=== PATIENT | female | born 1940 | race Caucasian/White ===

== ENCOUNTER → 2018-06-11 | Outpatient (CLI) | payer MEDICARE ==
[2018-06-11 13:49] LABS: Blood Urea Nitrogen 7 mg/dL (7-17)
--- NOTE | 2018-06-11 14:40 | CT ---
EXAMINATION TYPE: CT abdomen wo/w con DATE OF EXAM: 06/11/2018 COMPARISON: 05/12/2017 HISTORY: 77-year-old female RUQ mass TECHNIQUE: Contiguous axial scanning of the abdomen and pelvis following administration of 100 ml Iso carmen 300 IV contrast. Delayed images through the kidneys and coronal/sagittal reconstructions perform ed. CT DLP: 463.5 mGycm Automated exposure control for dose reduction was used. FINDINGS: Heart normal size without pericardial effusion. Ectatic lower descending thoracic aorta at 2.6 cm wit h moderate prostatic calcifications. Some focal patchy opacity inferior lingula. Minimal additional p atchy density posterior lung bases likely some subpleural atelectasis. No pleural effusion. Tiny hiatal hernia. Calcified granuloma centrally at the hepatic dome. Cholecystectomy clips. No focal liver lesion seen. 9 mm cystic lesion in the pancreatic head. The pancreas is otherwise mildly atrophic. Bile duct dilated at 1.1 cm probably due to combination of patient's age and cholecystectomy status. There is normal distal tapering demonstrated. Adrenal glands, kidneys and spleen show no gross abnormality. Moderate to severe atherosclerotic calcifications within the abdominal aorta very mild fusiform dilat ation of the infrarenal portion to 2.3 cm. No significant ectasia or aneurysm. No dilated small bowel, free fluid, or free air. Moderate stool burden. No pericolonic inflammatory changes identified. No discrete masses identified in the right upper quadrant. Pelvis not included on this exam. Bones: Osteopenia. Advanced degenerative disc disease L5-S1 and facet arthropathy mid to lower lumbar spine. Superior endplate Schmorl's node of T12 vertebral body. IMPRESSION: 1. NO RIGHT UPPER QUADRANT MASS IS IDENTIFIED. FURTHER CLINICAL CORRELATION IS RECOMMENDED. THE EXAM CAN BE REVIEWED WITH DIRECTED ATTENTION IF DESIRED. 2. DILATED BILE DUCT AT 1.1 CM PROBABLY DUE TO COMBINATION OF PATIENT'S AGE AND POSTCHOLECYSTECTOMY S TATUS. THIS CAN BE CONFIRMED WITH NORMAL ALKALINE PHOSPHATASE AND BILIRUBIN LEVELS. 3. NONSPECIFIC 9 MM CYSTIC LESION IN THE PANCREATIC HEAD. FOR A LESION ON THIS SIZE, 1 YEAR FOLLOW-UP MRI IS RECOMMENDED TO ENSURE STABILITY. 4. MODERATE TO SEVERE ATELECTATIC CALCIFICATIONS WITHIN THE ABDOMINAL AORTA. NO ANEURYSM. 5. FOCAL PATCHY OPACITY INFERIOR LINGULA COULD REPRESENT ATELECTASIS OR DEVELOPING PNEUMONIA. CORRELA TE WITH PATIENT'S SYMPTOMS. 6. MODERATE STOOL BURDEN. TINY HIATAL HERNIA. PELVIS NOT IMAGED.
== END | disposition home or self-care (01) ==
LOC: RADCTMAIN 12:57
PROVIDERS: ATTEND Family Medicine
DX: K86.2 Cyst of pancreas (principal); I70.0 Atherosclerosis of aorta; Z90.49 Acquired absence of other specified parts of digestive tract
CPT/HCPCS: 82565; 84520; 74170; Q9967

== ENCOUNTER → 2019-05-31 | Outpatient (CLI) | payer MEDICARE ==
--- NOTE | 2019-06-02 13:37 | XR ---
EXAMINATION TYPE: XR chest 2V DATE OF EXAM: 05/31/2019 COMPARISON: 01/14/2012 HISTORY: 78-year-old female with cough TECHNIQUE: Frontal and lateral views FINDINGS: Heart normal size. Atherosclerotic arch calcifications. Some focal density along the left heart katherine n and also the medial right base. Hyperinflation with increased retrosternal clear space. IMPRESSION: 1. COPD. 2. Focal densities medial right base and lingula. Unable to exclude infiltrates here.
== END | disposition home or self-care (01) ==
LOC: RADXRMAIN 16:10
PROVIDERS: ATTEND Family Medicine
DX: J44.9 Chronic obstructive pulmonary disease, unspecified (principal)
CPT/HCPCS: 71046

== ENCOUNTER → 2019-06-10 | Outpatient (CLI) | payer MEDICARE ==
--- NOTE | 2019-06-10 12:25 | XR ---
EXAMINATION TYPE: XR chest 2V DATE OF EXAM: 06/10/2019 COMPARISON: Chest x-ray May 31, 2019 HISTORY: Cough. TECHNIQUE: Frontal and lateral views of the chest are obtained. FINDINGS: There is no new suspicious focal air space opacity, pleural effusion, or pneumothorax seen . Improvement aeration at level of lingula present. Increased density medial right lung base could r eflect artifact of overlying breast shadow. The cardiac silhouette size remains within normal limits with atherosclerotic change in the aortic knob redemonstrated. The osseous structures are intact. IMPRESSION: Chronic parenchymal changes with resolved lingular opacity. No new focal infiltrate seen .
== END | disposition home or self-care (01) ==
LOC: RADXRMAIN 12:02
PROVIDERS: ATTEND Nurse Practitioner Family
DX: J44.9 Chronic obstructive pulmonary disease, unspecified (principal)
CPT/HCPCS: 71046

== ENCOUNTER 2021-04-19 11:18 | Inpatient (IN) | payer MEDICARE ==
--- NOTE | 2021-04-19 11:29 | ED ---
General Adult HPI - General Stated complaint: fall Time Seen by Provider: 04/19/21 11:20 Source: patient, EMS, RN notes reviewed Mode of arrival: EMS Limitations: altered mental status (Dementia), physical limitation - History of Present Illness Initial comments: This a 80-year-old female presents emergency department via EMS chief complaint of left-sided hip leg pain. Patient reported fell out of bed was on the ground crawling on by Back in the bed. Patient has not been using her left leg complain of some pain. Patient has benign severe dementia information is very limited at this time. Otherwise no obvious injuries no reported head injury denies chest pain no vomiting episodes. - Related Data Home Medications Medication Instructions Recorded Confirmed Albuterol Sulfate [Proventil Hfa] 2 puff INHALATION RT-QID PRN 04/19/21 04/19/21 Ferrous Sulfate [Feosol] 325 mg PO DAILY 04/19/21 04/19/21 Fexofenadine HCl [Treva Allergy] 180 mg PO DAILY PRN 04/19/21 04/19/21 Fluticasone/Salmeterol [Advair 1 puff INHALATION RT-BID 04/19/21 04/19/21 250-50 Diskus] Memantine HCl [Memantine HCl ER] 28 mg PO DAILY 04/19/21 04/19/21 Pravastatin Sodium [Pravachol] 40 mg PO DAILY 04/19/21 04/19/21 Sertraline [Zoloft] 150 mg PO DAILY 04/19/21 04/19/21 Tiotropium [place] [Spiriva] 1 cap INHALATION RT-DAILY 04/19/21 04/19/21 lisinopriL 10 mg PO DAILY 04/19/21 04/19/21 metFORMIN HCL 500 mg PO BID 04/19/21 04/19/21 Allergies Allergy/AdvReac Type Severity Reaction Status Date / Time No Known Allergies Allergy Unverified 04/19/21 13:25 Review of Systems ROS Statement: Those systems with pertinent positive or pertinent negative responses have been documented in the HPI. ROS Other: All systems not noted in ROS Statement are negative. General Exam Limitations: altered mental status, physical limitation General appearance: alert, in no apparent distress Head exam: Present: atraumatic, normocephalic, normal inspection Eye exam: Present: normal appearance, PERRL, EOMI. Absent: scleral icterus, conjunctival injection, periorbital swelling ENT exam: Present: normal exam, mucous membranes moist Neck exam: Present: normal inspection. Absent: tenderness, meningismus, lymphadenopathy Respiratory exam: Present: normal lung sounds bilaterally. Absent: respiratory distress, wheezes, rales, rhonchi, stridor Cardiovascular Exam: Present: regular rate, normal rhythm, normal heart sounds. Absent: systolic murmur, diastolic murmur, rubs, gallop, clicks GI/Abdominal exam: Present: soft, normal bowel sounds. Absent: distended, tenderness, guarding, rebound, rigid Extremities exam: Present: other (Mild tenderness left hip region neurovascular intact) Neurological exam: Present: alert, CN II-XII intact, reflexes normal. Absent: oriented X3, motor sensory deficit Skin exam: Present: warm, dry, intact, normal color. Absent: rash Course Vital Signs 04/19/21 04/19/21 11:20 14:22 Temperature 97.1 F L Pulse Rate 102 H 97 Respiratory 18 18 Rate Blood Pressure 142/77 110/59 O2 Sat by Pulse 100 99 Oximetry Medical Decision Making - Medical Decision Making 80-year-old present for a fall when the left hip pain. CT, x-rays reviewed which showed evidence of pelvic fracture there is question of intracranial retroperitoneal bleeding which was redemonstrated on CT abdomen and pelvis with contrast. There is no organ damage. Case discussed with Dr. Meade who accepts for trauma service consult to orthopedics, consult medicine. Patient will be placed on full liquid diet with repeat H&H and further serial exams - Lab Data Result diagrams: 04/19/21 14:32 04/19/21 14:32 Lab Results 04/19/21 04/19/21 04/19/21 Range/Units 14:32 14:32 14:32 WBC 10.1 (3.8-10.6) k/uL RBC 3.65 L (3.80-5.40) m/uL Hgb 10.9 L (11.4-16.0) gm/dL Hct 32.5 L (34.0-46.0) % MCV 89.2 (80.0-100.0) fL MCH 29.9 (25.0-35.0) pg MCHC 33.5 (31.0-37.0) g/dL RDW 12.1 (11.5-15.5) % Plt Count 195 (150-450) k/uL MPV 7.6 Neutrophils % 87 % Lymphocytes % 7 % Monocytes % 5 % Eosinophils % 0 % Basophils % 0 % Neutrophils # 8.8 H (1.3-7.7) k/uL Lymphocytes # 0.7 L (1.0-4.8) k/uL Monocytes # 0.5 (0-1.0) k/uL Eosinophils # 0.0 (0-0.7) k/uL Basophils # 0.0 (0-0.2) k/uL PT 10.4 (9.0-12.0) sec INR 1.0 (<1.2) APTT 21.1 L (22.0-30.0) sec Sodium 124 L (137-145) mmol/L Potassium 4.4 (3.5-5.1) mmol/L Chloride 91 L (98-107) mmol/L Carbon Dioxide 29 (22-30) mmol/L Anion Gap 4 mmol/L BUN 12 (7-17) mg/dL Creatinine 0.46 L (0.52-1.04) mg/dL Est GFR (CKD-EPI)AfAm >90 (>60 ml/min/1.73 sqM) Est GFR (CKD-EPI)NonAf >90 (>60 ml/min/1.73 sqM) Glucose 155 H (74-99) mg/dL Calcium 8.7 (8.4-10.2) mg/dL Total Bilirubin 0.5 (0.2-1.3) mg/dL AST 29 (14-36) U/L ALT 14 (4-34) U/L Alkaline Phosphatase 43 (38-126) U/L Total Protein 6.1 L (6.3-8.2) g/dL Albumin 3.7 (3.5-5.0) g/dL Disposition Clinical Impression: Fall, Hyponatremia, Pubic ramus fracture, Intraperitoneal bleeding, Retroperitoneal bleed Disposition: ADMITTED IP TO THIS HOSP Condition: Serious Referrals: Kenji Narayan DO [Primary Care Provider] - 1-2 days
--- NOTE | 2021-04-19 12:19 | CT ---
EXAMINATION TYPE: CT brain garrick dey DATE OF EXAM: 04/19/2021 COMPARISON: NONE HISTORY: Fall injury with headache and neck pain CT DLP: 1298.9 mGycm. Automated Exposure Control for Dose Reduction was Utilized. TECHNIQUE: CT scan of the head and cervical spine are performed without contrast. FINDINGS: There is no acute intracranial hemorrhage or midline shift identified. Mild to moderate v entricular and sulcal prominence is more prominent from prior. Moderate low-attenuation in the deep and periventricular white matter is now present. The calvarium is intact. The globes are intact and t he visualized sinuses are clear. Cervical spine is visualized in its entirety from C1 through upper thoracic levels and demonstrates d extroconvex scoliosis centered upper thoracic spine without evidence of acute fracture or dislocation . Prevertebral soft tissue appears within normal limits. The C1-C2 articulation is within normal li mits on the coronal images. Vertebral body heights are maintained. Moderate multilevel disc space rafael rowing C3-C4 through the C6-C7 level. Slight grade 1 anterolisthesis C7 on T1. Posterior spur disc co mplexes efface the anterior thecal sac C3-C4 through C6-C7 levels on sagittal and axial images. Axial images show multilevel uncovertebral facet degenerative changes contributing to multilevel bilateral neural foraminal narrowing. Moderate calcified plaque bilateral carotid bulb level. Mild to moderate underlying emphysematous change and visualized upper lungs. IMPRESSION: 1. There is no acute fracture or dislocation evident in the cervical spine. 2. No acute intracranial hemorrhage or midline shift is seen.
--- NOTE | 2021-04-19 12:21 | XR ---
EXAMINATION TYPE: AP view pelvis and 2 views left hip DATE OF EXAM: 04/19/2021 Comparison: None Clinical History: 80-year-old female with pain after fall Findings: Osteopenia. Mild degenerative change of both hips with axial joint space narrowing. Vascular calcific ations especially left side of the pelvis. A surgical clip upper right pelvis. SI joints appear symme tric and intact. There is irregularity of the left pubic body. Assessment is limited due to overlying rectal content and osteopenia. No displaced fracture of the proximal left femur. Impression: 1. Osteopenia. No displaced fracture of the proximal left femur. Mild bilateral hip OA. 2. Unable to exclude an acute fracture of the left pubic body. Limited due to osteopenia and superimp osed rectal content.
--- NOTE | 2021-04-19 13:51 | CT ---
EXAMINATION TYPE: CT hip LT wo con DATE OF EXAM: 04/19/2021 COMPARISON: Pelvic and left hip x-ray earlier today HISTORY: Patient appears confused. CT DLP: 710.9 mGycm Automated exposure control for dose reduction was used. FINDINGS: Corresponding to x-ray there is acute comminuted fracture through the left pubic bone without pubic s ymphysis separation. Some calcification at the joint space at this level is present. There is small a mount of adjacent focal hematoma extending into the anterior pelvis just below pubic symphysis axial image 63 measuring approximately 2.1 x 1.8 cm. More prominent hematoma extends superiorly measuring a pproximately 5 x 3 cm image 56 with local mass effect along the anterior left aspect of the bladder N o additional acute fracture or dislocation in the [id number]. The left hip joint appears within no rmal limits. Left sacroiliac joint is maintained. The [place] osseous structures are demineralized. Moderate disc space narrowing with vacuum disc phenomenon L5-S1 level redemonstrated. Moderate distended bladder is noted. Some diverticula in sigmoid colon are partially imaged. Small amount of fluid in the left infracolic gutter and left retroperitoneum axial image 27. Possible small amount of fluid or fat stranding along the course of the bladder. Moderate rectal fecal promin ence. IMPRESSION: Confirmation of acute comminuted fracture through the left pubic bone without pubic symph ysis separation. Small amount of adjacent acute hematoma. There is additional small amount of intrape ritoneal and retroperitoneal hematoma in the left lower quadrant and pelvis including possibly surrou nding the distended bladder. Advise contrast enhanced trauma protocol CT abdomen and pelvis to furthe r evaluate for additional fractures and/or solid organ injury.
[2021-04-19 15:02] LABS: Basophils % (A) 0 %; Eosinophils % (A) 0 %; HCT 32.5 % (34.0-46.0); HGB 10.9 gm/dL (11.4-16.0); Lymphocytes # (A) 0.7 k/uL (1.0-4.8); Lymphocytes % (A) 7 %; MCH 29.9 pg (25.0-35.0); MCHC 33.5 g/dL (31.0-37.0); MCV 89.2 fL (80.0-100.0); Mean Platelet Volume 7.6; Monocytes # (A) 0.5 k/uL (0-1.0); Monocytes % (A) 5 %; Neutrophils # (A) 8.8 k/uL (1.3-7.7); Neutrophils % (A) 87 %; Platelet Count 195 k/uL (150-450); RBC 3.65 m/uL (3.80-5.40); RDW 12.1 % (11.5-15.5); WBC 10.1 k/uL (3.8-10.6)
[2021-04-19 15:20] LABS: ALT 14 U/L (4-34); AST 29 U/L (14-36); African American GFR (CKD) >90 (>60 ml/min/1.73 sqM); Albumin 3.7 g/dL (3.5-5.0); Alkaline Phosphatase 43 U/L (38-126); Anion Gap 4 mmol/L; Blood Urea Nitrogen 12 mg/dL (7-17); Calcium 8.7 mg/dL (8.4-10.2); Carbon Dioxide 29 mmol/L (22-30); Chloride 91 mmol/L (98-107); Glucose 155 mg/dL (74-99); Non-African American GFR(CKD) >90 (>60 ml/min/1.73 sqM); Potassium 4.4 mmol/L (3.5-5.1); Sodium 124 mmol/L (137-145); Total Bilirubin 0.5 mg/dL (0.2-1.3); Total Protein 6.1 g/dL (6.3-8.2)
[2021-04-19 15:25] LABS: Prothrombin Time 10.4 sec (9.0-12.0)
[2021-04-19 15:30] LABS: Partial Thromboplastin Time 21.1 sec (22.0-30.0)
--- NOTE | 2021-04-19 16:21 | CT ---
EXAMINATION TYPE: CT abdomen pelvis w con DATE OF EXAM: 04/19/2021 HISTORY: Fall, abnormal hip CT. CT DLP: 1267.6mGycm Automated Exposure Control for Dose Reduction was Utilized. CONTRAST: CT scan of the abdomen and pelvis is performed with IV Contrast, patient injected with 100 mL of Isov ue 300. COMPARISON: CT a/p dated 05/12/2017. Same day left hip CT. FINDINGS: LUNG BASES: Coronary artery calcification and/or stents. LIVER/GB: Cholecystectomy clips. Mild to moderate central extrahepatic biliary dilatation to 15 mm co jackelyn image 42 not significantly changed from prior CT 2017. PANCREAS: No significant abnormality is seen. SPLEEN: No significant abnormality is seen. ADRENALS: No significant abnormality is seen. KIDNEYS: Symmetric cortical medullary uptake and excretion without hydronephrosis seen bilaterally. M oderately distended bladder redemonstrated. Some hyperdense material surrounding bladder remains pres ent. Small amount of nonsimple fluid in the pelvic cul-de-sac. Small amount of nonsimple fluid in the presacral space. Small amount of nonsimple fluid in the left paracolic gutter and left retroperitone um adjacent to the sigmoid colon and left iliopsoas muscle axial image 52. BOWEL: Some sigmoid colonic diverticula. UTERUS/ADNEXA: Uterus surgically absent or markedly atrophic. LYMPH NODES: No greater than 1cm abdominal or pelvic lymph nodes are appreciated. OSSEOUS STRUCTURES: Moderate disc space narrowing lumbosacral junction. Multilevel facet arthropathy mid to lower lumbar spine. Comminuted fractures through the left pubic symphysis without separation. Osseous structures are demineralized. No additional acute osseous fracture OTHER: Moderate to severe calcified plaque of the aorta extends into branch vessels. IMPRESSION: Known acute comminuted fracture through the left pubis redemonstrated. No additional acut e osseous fracture. Small amount of acute hemorrhage at site of fracture redemonstrated. Additional s mall amount of hemorrhage within the abdomen and pelvis involving intraperitoneal and retroperitoneal compartments is redemonstrated. No definitive solid organ injury or source of hemorrhage identified outside of the left-sided pelvic fracture.
[2021-04-19] MEDS ORDERED: NALOXONE 0.4 MG/ML 1 ML VIAL IV PRN (16:47)
[2021-04-19] MEDS ORDERED: ACETAMINOPHEN TAB 325 MG TAB PO PRN (16:47)
[2021-04-19] MEDS: SODIUM CHLORIDE 0.9% 1,000 ML IV SCH (17:08)
[2021-04-19 17:57] LABS: Appearance,Urine Clear (Clear); Bilirubin,Urine Negative (Negative); Blood,Urine Negative (Negative); Color,Urine Light Yellow; Glucose,Urine (UA) Negative (Negative); Ketones,Urine Negative (Negative); Leukocyte Esterase,Urine Moderate (Negative); Nitrite,Urine Negative (Negative); PH, Urine 6.5 (5.0-8.0); Protein,Urine Negative (Negative); RBC,Urine 4 /hpf (0-5); Specific Gravity,Urine 1.019 (1.001-1.035); Squamous Epithelial Cell,Urine 1 /hpf (0-4); Urobilinogen,Urine <2.0 mg/dL (<2.0); WBC,Urine 5 /hpf (0-5)
[2021-04-20 01:21] LABS: Basophils % (A) 0 %; Eosinophils % (A) 1 %; HCT 31.5 % (34.0-46.0); HGB 10.6 gm/dL (11.4-16.0); Lymphocytes # (A) 0.7 k/uL (1.0-4.8); Lymphocytes % (A) 9 %; MCH 29.9 pg (25.0-35.0); MCHC 33.6 g/dL (31.0-37.0); MCV 88.9 fL (80.0-100.0); Mean Platelet Volume 7.4; Monocytes # (A) 0.4 k/uL (0-1.0); Monocytes % (A) 5 %; Neutrophils # (A) 6.5 k/uL (1.3-7.7); Neutrophils % (A) 84 %; Platelet Count 196 k/uL (150-450); RBC 3.55 m/uL (3.80-5.40); RDW 12.1 % (11.5-15.5); WBC 7.7 k/uL (3.8-10.6)
[2021-04-20] MEDS: HYDROcodone/APAP 5-325MG 1 EACH TAB PO PRN ×2 (05:50→11:31)
[2021-04-20] MEDS: SODIUM CHLORIDE 0.9% 1,000 ML IV SCH ×2 (06:13→17:47)
[2021-04-20 07:26] LABS: Glucose,Whole Blood 161 mg/dL (75-99)
[2021-04-20 07:43] LABS: Basophils % (A) 0 %; Eosinophils % (A) 0 %; HGB 10.4 gm/dL (11.4-16.0); Lymphocytes # (A) 0.6 k/uL (1.0-4.8); Lymphocytes % (A) 9 %; MCHC 33.6 g/dL (31.0-37.0); MCV 89.4 fL (80.0-100.0); Mean Platelet Volume 7.6; Monocytes # (A) 0.4 k/uL (0-1.0); Monocytes % (A) 5 %; Neutrophils # (A) 5.9 k/uL (1.3-7.7); Neutrophils % (A) 84 %; Platelet Count 211 k/uL (150-450); RBC 3.47 m/uL (3.80-5.40); RDW 12.2 % (11.5-15.5); WBC 7.1 k/uL (3.8-10.6)
[2021-04-20 08:40] LABS: African American GFR (CKD) >90 (>60 ml/min/1.73 sqM); Anion Gap 5 mmol/L; Blood Urea Nitrogen 8 mg/dL (7-17); Calcium 8.4 mg/dL (8.4-10.2); Carbon Dioxide 29 mmol/L (22-30); Chloride 94 mmol/L (98-107); Glucose 164 mg/dL (74-99); Non-African American GFR(CKD) >90 (>60 ml/min/1.73 sqM); Potassium 4.1 mmol/L (3.5-5.1); Sodium 128 mmol/L (137-145)
[2021-04-20] MEDS: NYSTATIN 100,000 UNIT/ML SUSP 500,000 UNIT/5 ML CUP PO SCH ×4 (09:22→21:02)
[2021-04-20] MEDS: PANTOPRAZOLE 40 MG/10 ML VIAL IVP SCH (09:22)
[2021-04-20] MEDS ORDERED: IPRATROPIUM-ALBUTEROL 3 ML NEB INHALATION PRN (10:54)
[2021-04-20] MEDS ORDERED: LORATADINE 10 MG TAB PO PRN (10:56)
[2021-04-20] MEDS: SYMBICORT 80-4.5 MCG INHALER INHALATION SCH ×2 (11:23→20:02)
[2021-04-20] MEDS: IPRATROPIUM-ALBUTEROL 3 ML NEB INHALATION SCH ×3 (11:23→20:02)
[2021-04-20 12:17] LABS: Glucose,Whole Blood 201 mg/dL (75-99)
[2021-04-20] MEDS: INSULIN ASPART (NovoLOG) 100 UNIT/ML VIAL SQ SCH ×3 (12:33→21:02)
[2021-04-20 13:08] LABS: Basophils % (A) 0 %; Eosinophils # (A) 0.1 k/uL (0-0.7); Eosinophils % (A) 1 %; HCT 30.2 % (34.0-46.0); HGB 10.1 gm/dL (11.4-16.0); Lymphocytes # (A) 0.8 k/uL (1.0-4.8); Lymphocytes % (A) 13 %; MCH 30.2 pg (25.0-35.0); MCHC 33.5 g/dL (31.0-37.0); MCV 90.3 fL (80.0-100.0); Monocytes # (A) 0.4 k/uL (0-1.0); Monocytes % (A) 6 %; Neutrophils # (A) 4.7 k/uL (1.3-7.7); Neutrophils % (A) 79 %; Platelet Count 191 k/uL (150-450); RBC 3.34 m/uL (3.80-5.40); RDW 12.3 % (11.5-15.5)
--- NOTE | 2021-04-20 14:01 | P.GSHP ---
History of Present Illness H&P Date: 04/20/21 CHIEF COMPLAINT: Fall HISTORY OF PRESENT ILLNESS: This is a 80-year-old female with severe dementia who presented to the ER with left-sided hip pain after falling out of bed. Patient had a computed tomography scan of the left hip that did demonstrate acute comminuted fracture through the left pubic bone without pubic symphysis separation. Orthopedics are on consult. Patient currently sitting in bed comfortably with no complaints of pain. She's been admitted to the trauma service. Her computed tomography scan the abdomen and pelvis had shown a small amount of hemorrhage intraperitoneal and retroperitoneal. Hemoglobin stable at 10.4. She denies any abdominal pain. Patient seen and examined with Dr. hester PAST MEDICAL HISTORY: Hypertension, diabetes, hyperlipidemia, severe dementia, COPD, iron deficiency, depression PAST SURGICAL HISTORY: Unable to obtain MEDICATIONS: See list. ALLERGIES: See list. SOCIAL HISTORY: No illicit drug use. REVIEW OF SYSTEMS: CONSTITUTIONAL: Denies fever or chills. HEENT: Denies blurred vision, vision changes, or eye pain. Denies hemoptysis CARDIOVASCULAR: Denies chest pain or pressure. RESPIRATORY: No shortness of breath. GASTROINTESTINAL: See HPI for pertinent findings HEMATOLOGIC: Denies bleeding disorders. GENITOURINARY: Denies any blood in urine or increased urinary frequency. SKIN: Denies pruitis. Denies rash. PHYSICAL EXAM: VITAL SIGNS: Reviewed GENERAL: Well-developed in no acute distress. HEENT: No sclera icterus. Extraocular movements grossly intact. Moist buccal mucosa. Head is atraumatic, normocephalic. No nasal drainage. ABDOMEN: Soft. Nondistended. Nontender NEUROLOGIC: Pleasantly confused LABORATORY DATA: WBC 6.0 Hgb 10.9 down to 10.1 platelets 191 Sodium 124 up to 128 creatinine 0.48 Glucose 164 LFTs normal IMAGING: Computed tomography scan of brain and cervical spine no acute fracture dis location evidence of cervical spine. No acute intracranial hemorrhage or midline shift is seen Computed tomography scan left hip confirmation of acute comminuted fracture through the left pubic bone without pubic symphysis separation. Small amount of adjacent acute hematoma. There is additional small amount of intraperitoneal and retroperitoneal hematoma in the left lower quadrant and pelvis including possibly surrounding the distended bladder. Advise contrast-enhanced trauma protocol CT of abdomen and pelvis Computed tomography scan abdomen and pelvis read increase the acute comminuted fracture through the left pubis redemonstrated no additional acute osseous fracture. Small amount of acute hemorrhage at site of fracture redemonstrated. Additional small amount of hemorrhage within the abdomen and pelvis involving intraperitoneal and retroperitoneal compartments is redemonstrated. No definite solid organ injury or source of hemorrhage identified outside of the left sided pelvic fracture ASSESSMENT: 1. Fall with trauma 2. Left pubic ramus fracture secondary to fall 3. Small amount of hemorrhage within the abdomen and pelvis involving intraperitoneal and retroperitoneal compartments. No definite solid organ injury or source of hemorrhage identified outside of the left sided pelvic fracture noted on computed tomography scan 4. Hyponatremia 5. Severe dementia PLAN: -No plan for surgical intervention -Continue supportive care -Continue to monitor hemoglobin -Orthopedics on consult for pelvic fracture -Consult medicine service for medical management -Hyponatremia management per medicine service -Continue full liquid diet -Continue pain medication as needed -GI prophylaxis Protonix and DVT prophylaxis SCDs Physician Patient Care Associate note has been reviewed by physician. Signing provider agrees with the documented findings, assessment, and plan of care. Past Medical History Past Medical History: COPD, Dementia, Diabetes Mellitus, Hyperlipidemia, Hypertension History of Any Multi-Drug Resistant Organisms: Unobtainable Past Surgical History: Unable to Obtain Past Anesthesia/Blood Transfusion Reactions: No Reported Reaction Past Psychological History: Anxiety, Depression Additional Psychological History / Comment(s): dementia Smoking Status: Never smoker Past Drug Use History: None Reported Medications and Allergies Home Medications Medication Instructions Recorded Confirmed Type Albuterol Sulfate [Proventil Hfa] 2 puff INHALATION RT-QID PRN 04/19/21 04/19/21 History Ferrous Sulfate [Feosol] 325 mg PO DAILY 04/19/21 04/19/21 History Fexofenadine HCl [Treva Allergy] 180 mg PO DAILY PRN 04/19/21 04/19/21 History Fluticasone/Salmeterol [Advair 1 puff INHALATION RT-BID 04/19/21 04/19/21 History 250-50 Diskus] Memantine HCl [Memantine HCl ER] 28 mg PO DAILY 04/19/21 04/19/21 History Pravastatin Sodium [Pravachol] 40 mg PO DAILY 04/19/21 04/19/21 History Sertraline [Zoloft] 150 mg PO DAILY 04/19/21 04/19/21 History Tiotropium [place] [Spiriva] 1 cap INHALATION RT-DAILY 04/19/21 04/19/21 History lisinopriL 10 mg PO DAILY 04/19/21 04/19/21 History metFORMIN HCL 500 mg PO BID 04/19/21 04/19/21 History Allergies Allergy/AdvReac Type Severity Reaction Status Date / Time No Known Allergies Allergy Unverified 04/19/21 13:25 Surgical - Exam Vital Signs Temp Pulse Resp BP Pulse Ox 97.1 F L 102 H 18 142/77 100 04/19/21 11:20 04/19/21 11:20 04/19/21 11:20 04/19/21 11:20 04/19/21 11:20 Results - Labs 04/20/21 12:53 04/20/21 07:22 Abnormal Lab Results - Last 24 Hours (Table) 04/19/21 04/19/21 04/19/21 Range/Units 14:32 14:32 14:32 RBC 3.65 L (3.80-5.40) m/uL Hgb 10.9 L (11.4-16.0) gm/dL Hct 32.5 L (34.0-46.0) % Neutrophils # 8.8 H (1.3-7.7) k/uL Lymphocytes # 0.7 L (1.0-4.8) k/uL APTT 21.1 L (22.0-30.0) sec Sodium 124 L (137-145) mmol/L Chloride 91 L (98-107) mmol/L Creatinine 0.46 L (0.52-1.04) mg/dL Glucose 155 H (74-99) mg/dL POC Glucose (mg/dL) (75-99) mg/dL Total Protein 6.1 L (6.3-8.2) g/dL Ur Leukocyte Esterase (Negative) 04/19/21 04/20/21 04/20/21 Range/Units 17:20 00:51 07:22 RBC 3.55 L 3.47 L (3.80-5.40) m/uL Hgb 10.6 L 10.4 L (11.4-16.0) gm/dL Hct 31.5 L 31.0 L (34.0-46.0) % Neutrophils # (1.3-7.7) k/uL Lymphocytes # 0.7 L 0.6 L (1.0-4.8) k/uL APTT (22.0-30.0) sec Sodium (137-145) mmol/L Chloride (98-107) mmol/L Creatinine (0.52-1.04) mg/dL Glucose (74-99) mg/dL POC Glucose (mg/dL) (75-99) mg/dL Total Protein (6.3-8.2) g/dL Ur Leukocyte Esterase Moderate H (Negative) 04/20/21 04/20/21 04/20/21 Range/Units 07:22 07:25 12:16 RBC (3.80-5.40) m/uL Hgb (11.4-16.0) gm/dL Hct (34.0-46.0) % Neutrophils # (1.3-7.7) k/uL Lymphocytes # (1.0-4.8) k/uL APTT (22.0-30.0) sec Sodium 128 L (137-145) mmol/L Chloride 94 L (98-107) mmol/L Creatinine 0.48 L (0.52-1.04) mg/dL Glucose 164 H (74-99) mg/dL POC Glucose (mg/dL) 161 H 201 H (75-99) mg/dL Total Protein (6.3-8.2) g/dL Ur Leukocyte Esterase (Negative) 04/20/21 Range/Units 12:53 RBC 3.34 L (3.80-5.40) m/uL Hgb 10.1 L (11.4-16.0) gm/dL Hct 30.2 L (34.0-46.0) % Neutrophils # (1.3-7.7) k/uL Lymphocytes # 0.8 L (1.0-4.8) k/uL APTT (22.0-30.0) sec Sodium (137-145) mmol/L Chloride (98-107) mmol/L Creatinine (0.52-1.04) mg/dL Glucose (74-99) mg/dL POC Glucose (mg/dL) (75-99) mg/dL Total Protein (6.3-8.2) g/dL Ur Leukocyte Esterase (Negative) Diabetes panel 04/19/21 04/20/21 Range/Units 14:32 07:22 Sodium 124 L 128 L (137-145) mmol/L Potassium 4.4 4.1 (3.5-5.1) mmol/L Chloride 91 L 94 L (98-107) mmol/L Carbon Dioxide 29 29 (22-30) mmol/L BUN 12 8 (7-17) mg/dL Creatinine 0.46 L 0.48 L (0.52-1.04) mg/dL Glucose 155 H 164 H (74-99) mg/dL Calcium 8.7 8.4 (8.4-10.2) mg/dL AST 29 (14-36) U/L ALT 14 (4-34) U/L Alkaline Phosphatase 43 (38-126) U/L Total Protein 6.1 L (6.3-8.2) g/dL Albumin 3.7 (3.5-5.0) g/dL Calcium panel 04/19/21 04/20/21 Range/Units 14:32 07:22 Calcium 8.7 8.4 (8.4-10.2) mg/dL Albumin 3.7 (3.5-5.0) g/dL Pituitary panel 04/19/21 04/20/21 Range/Units 14:32 07:22 Sodium 124 L 128 L (137-145) mmol/L Potassium 4.4 4.1 (3.5-5.1) mmol/L Chloride 91 L 94 L (98-107) mmol/L Carbon Dioxide 29 29 (22-30) mmol/L BUN 12 8 (7-17) mg/dL Creatinine 0.46 L 0.48 L (0.52-1.04) mg/dL Glucose 155 H 164 H (74-99) mg/dL Calcium 8.7 8.4 (8.4-10.2) mg/dL Adrenal panel 04/19/21 04/20/21 Range/Units 14:32 07:22 Sodium 124 L 128 L (137-145) mmol/L Potassium 4.4 4.1 (3.5-5.1) mmol/L Chloride 91 L 94 L (98-107) mmol/L Carbon Dioxide 29 29 (22-30) mmol/L BUN 12 8 (7-17) mg/dL Creatinine 0.46 L 0.48 L (0.52-1.04) mg/dL Glucose 155 H 164 H (74-99) mg/dL Calcium 8.7 8.4 (8.4-10.2) mg/dL Total Bilirubin 0.5 (0.2-1.3) mg/dL AST 29 (14-36) U/L ALT 14 (4-34) U/L Alkaline Phosphatase 43 (38-126) U/L Total Protein 6.1 L (6.3-8.2) g/dL Albumin 3.7 (3.5-5.0) g/dL
--- NOTE | 2021-04-20 15:12 | P.CNOR ---
History of Present Illness - [facility] Consult date: 04/20/21 Requesting physician: Sebastian Hayes Consult reason: fracture (Left parasymphyseal rami fracture) History of present illness: Patient is a very pleasant 80-year-old female with known severe dementia who is seen and examined at bedside with her family present. Patient was brought to the emergency department by her after the patient sustained a fall at home. Imaging showed evidence of a left parasymphyseal rami fracture. Patient is able to answer questions at the bedside with her family present. She does have some difficulty with knowing where she is. She states her pain in the pelvis is well controlled while at rest. She does have increased pain with movement and ambulation. She currently has a Jacobson catheter intact. She has remained in bed. Family states she is also listed as fall risk. Patient is not currently experiencing any lower extremity weakness or radiculopathy bilaterally. She is neurovascularly intact with left lower extremity. She is admitted to trauma surgery following her fall as imaging also showed evidence of retroperitoneal bleeding on CT imaging. Nursing states patient is most likely being planned to be discharged to a rehabilitation facility. Patient has no other complaints at the bedside. Past Medical History Past Medical History: COPD, Dementia, Diabetes Mellitus, Hyperlipidemia, Hypertension History of Any Multi-Drug Resistant Organisms: Unobtainable Past Surgical History: Unable to Obtain Past Anesthesia/Blood Transfusion Reactions: No Reported Reaction Past Psychological History: Anxiety, Depression Additional Psychological History / Comment(s): dementia Smoking Status: Never smoker Past Drug Use History: None Reported Medications and Allergies Home Medications Medication Instructions Recorded Confirmed Type Albuterol Sulfate [Proventil Hfa] 2 puff INHALATION RT-QID PRN 04/19/21 04/19/21 History Ferrous Sulfate [Feosol] 325 mg PO DAILY 04/19/21 04/19/21 History Fexofenadine HCl [Treva Allergy] 180 mg PO DAILY PRN 04/19/21 04/19/21 History Fluticasone/Salmeterol [Advair 1 puff INHALATION RT-BID 04/19/21 04/19/21 H istory 250-50 Diskus] Memantine HCl [Memantine HCl ER] 28 mg PO DAILY 04/19/21 04/19/21 History Pravastatin Sodium [Pravachol] 40 mg PO DAILY 04/19/21 04/19/21 History Sertraline [Zoloft] 150 mg PO DAILY 04/19/21 04/19/21 History Tiotropium [place] [Spiriva] 1 cap INHALATION RT-DAILY 04/19/21 04/19/21 History lisinopriL 10 mg PO DAILY 04/19/21 04/19/21 History metFORMIN HCL 500 mg PO BID 04/19/21 04/19/21 History Allergies Allergy/AdvReac Type Severity Reaction Status Date / Time No Known Allergies Allergy Unverified 04/19/21 13:25 Physical Examination Physical exam: Patient is awake and alert and able to answer some questions but does have some confusion Vital signs stable Good chest excursion with deep inspiration and expiration Dorsiflexion, plantarflexion, and extensor hallucis longus positive sustained bilaterally Patellar reflex 2+ bilaterally and Achilles reflexes 2+ bilaterally No lower extremity hyperreflexia bilaterally Straight leg test negative bilateral lower extremities No signs or symptoms of DVT; no calf pain No pain with internal and external rotation of the hips bilaterally Neurovascularly intact Pneumatic cuffs intact bilateral lower extremities Mild pelvic pain with pelvic rocking Results Pertinent studies: X-rays of the left hip and pelvis taken on 04/19/2021: Evidence of left para symphyseal rami fracture; osteoarthritis of bilateral hip joint space and; no evidence of fracture dislocation of the hips; osteopenia CT of the left hip taken on 04/19/2021: Re-demonstration of acute comminuted fracture at the left pubic bone without pubic symphysis separation; evidence of adjacent hematoma to the fracture site; retroperitoneal hematoma CT of the head and cervical spine taken on 04/19/2021: No acute intracranial hemorrhage; no acute fracture dislocation of the cervical spine; C3-4 retrolisthesis; C3-7 degenerative disc disease with osteophytic spurring - Labs Labs: Abnormal Lab Results - Last 24 Hours (Table) 04/19/21 04/19/21 04/19/21 Range/Units 14:32 14:32 17:20 RBC (3.80-5.40) m/uL Hgb (11.4-16.0) gm/dL Hct (34.0-46.0) % Lymphocytes # (1.0-4.8) k/uL APTT 21.1 L (22.0-30.0) sec Sodium 124 L (137-145) mmol/L Chloride 91 L (98-107) mmol/L Creatinine 0.46 L (0.52-1.04) mg/dL Glucose 155 H (74-99) mg/dL POC Glucose (mg/dL) (75-99) mg/dL Total Protein 6.1 L (6.3-8.2) g/dL Ur Leukocyte Esterase Moderate H (Negative) 04/20/21 04/20/21 04/20/21 Range/Units 00:51 07:22 07:22 RBC 3.55 L 3.47 L (3.80-5.40) m/uL Hgb 10.6 L 10.4 L (11.4-16.0) gm/dL Hct 31.5 L 31.0 L (34.0-46.0) % Lymphocytes # 0.7 L 0.6 L (1.0-4.8) k/uL APTT (22.0-30.0) sec Sodium 128 L (137-145) mmol/L Chloride 94 L (98-107) mmol/L Creatinine 0.48 L (0.52-1.04) mg/dL Glucose 164 H (74-99) mg/dL POC Glucose (mg/dL) (75-99) mg/dL Total Protein (6.3-8.2) g/dL Ur Leukocyte Esterase (Negative) 04/20/21 04/20/21 04/20/21 Range/Units 07:25 12:16 12:53 RBC 3.34 L (3.80-5.40) m/uL Hgb 10.1 L (11.4-16.0) gm/dL Hct 30.2 L (34.0-46.0) % Lymphocytes # 0.8 L (1.0-4.8) k/uL APTT (22.0-30.0) sec Sodium (137-145) mmol/L Chloride (98-107) mmol/L Creatinine (0.52-1.04) mg/dL Glucose (74-99) mg/dL POC Glucose (mg/dL) 161 H 201 H (75-99) mg/dL Total Protein (6.3-8.2) g/dL Ur Leukocyte Esterase (Negative) H & H 04/19/21 04/20/21 04/20/21 Range/Units 14:32 00:51 07:22 Hgb 10.9 L 10.6 L 10.4 L (11.4-16.0) gm/dL Hct 32.5 L 31.5 L 31.0 L (34.0-46.0) % 04/20/21 Range/Units 12:53 Hgb 10.1 L (11.4-16.0) gm/dL Hct 30.2 L (34.0-46.0) % Coagulation 04/19/21 Range/Units 14:32 INR 1.0 (<1.2) Result Diagrams: 04/20/21 12:53 04/20/21 07:22 Assessment and Plan Assessment: Assessment: Left parasymphyseal rami fracture Status post fall Pelvic pain Severe dementia Osteoarthritis bilateral hips Retroperitoneal hematoma C3-4 retrolisthesis Cervical degenerative disc disease Cervical osteophytic spurring Hypertension Diabetes Hyperlipidemia COPD Iron deficiency (1) Degenerative cervical disc Current Visit: Yes Status: Acute Code(s): M50.30 - OTHER CERVICAL DISC DEGENERATION, UNSP CERVICAL REGION SNOMED Code(s): 93079780 (2) Spondylolisthesis, cervical region Current Visit: Yes Status: Acute Code(s): M43.12 - SPONDYLOLISTHESIS, CERVICAL REGION SNOMED Code(s): 568080213 (3) Cervical osteophyte Current Visit: Yes Status: Acute Code(s): M25.78 - OSTEOPHYTE, VERTEBRAE SNOMED Code(s): 321017794668720 (4) Dementia Current Visit: Yes Status: Acute Code(s): F03.90 - UNSPECIFIED DEMENTIA WITHOUT BEHAVIORAL DISTURBANCE SNOMED Code(s): 19397982 (5) Hypertension Current Visit: Yes Status: Acute Code(s): I10 - ESSENTIAL (PRIMARY) HYPERTENSION SNOMED Code(s): 75311008 (6) Diabetes Current Visit: Yes Status: Acute Code(s): E11.9 - TYPE 2 DIABETES MELLITUS WITHOUT COMPLICATIONS SNOMED Code(s): 18457873 (7) Hyperlipidemia Current Visit: Yes Status: Acute Code(s): E78.5 - HYPERLIPIDEMIA, UNSPECI FIED SNOMED Code(s): 57177240 (8) COPD (chronic obstructive pulmonary disease) Current Visit: Yes Status: Acute Code(s): J44.9 - CHRONIC OBSTRUCTIVE PULMONARY DISEASE, UNSPECIFIED SNOMED Code(s): 92706134 (9) Iron deficiency Current Visit: Yes Status: Acute Code(s): E61.1 - IRON DEFICIENCY SNOMED Code(s): 21268794 (10) Retroperitoneal hematoma Current Visit: Yes Status: Acute Code(s): K66.1 - HEMOPERITONEUM SNOMED Code(s): 446915148 (11) Pelvic pain Current Visit: Yes Status: Acute Code(s): R10.2 - PELVIC AND PERINEAL PAIN SNOMED Code(s): 16518828 (12) Fall Current Visit: Yes Status: Acute Code(s): W19.XXXA - UNSPECIFIED FALL, INITIAL ENCOUNTER SNOMED Code(s): 0419516 (13) Pubic ramus fracture Current Visit: Yes Status: Acute Code(s): S32.599A - OTH FRACTURE OF UNSP PUBIS, INIT ENCNTR FOR CLOSED FRACTURE SNOMED Code(s): 99088638 Plan: Plan: 1. Patient has been discussed in detail with Dr. Luevano and we both have reviewed her imaging. After physical examination of the patient, further discussion with the patient and her family, and reviewing of imaging, we'll currently planned to continue with conservative treatment at this time in regards to her left parasymphyseal rami fracture. This fracture was discussed in detail with the patient and the patient's family. This is a nonoperative fracture. We did discuss patient may weight-bear on the left lower extremity with the assistance of a walker to her tolerance. She may work with physical therapy to increase her mobility and ambulation. We did discuss she is now on strict bedrest from an orthopedic standpoint. She does continue to be seen and examined by, surgery and imaging showed evidence of a retroperitoneal hematoma. She should proceed forward with her ambulation status and activities per the recommendations of trauma surgery. We also discussed once she is able to increase her mobility her Jacobson catheter may be discontinued from orthopedic standpoint. From an orthopedic standpoint, patient is clear for discharge. We will plan to have her follow-up in the outpatient setting with Dr. Luevano at [facility] in approximately 2 weeks for further evaluation. Patient and the patient's family feel this is a good plan of care. 2. Patient will continue be seen and examined by other medical providers including trauma surgery and medicine. Time with Patient: Greater than 30 (Including obtaining history, physical examination, reviewing of imaging, and dictation.)
[2021-04-20 17:27] LABS: Glucose,Whole Blood 130 mg/dL (75-99)
--- NOTE | 2021-04-20 18:11 | P.CONS ---
History of Present Illness - Reason for Consult Consult date: 04/20/21 Medical management COPD, dementia, diabetes mellitus, hypertension Requesting physician: Jt Rodriguez - Chief Complaint fall - History of Present Illness This is a 80-year-old female with past medical history of COPD, dementia, diabetes mellitus, hyperlipidemia, hypertension, anxiety, depression presents to the ER with complaints of left-sided hip pain status post falling out of bed, sustaining a acute comminuted fracture through the left pubic bone without pubic symphysis separation per CT. CT brain/C-spine reported no acute fracture dislocation of the C-spine, no acute intracranial hemorrhage or midline shift. CT abdomen/pelvis reported evidence of intraperitoneal and retroperitoneal bleeding. Patient is admitted to trauma surgery. Orthopedic surgery on consult, recommendations pending. Patient sitting up in bed, reports comfortable currently. Hemoglobin stable, platelets 191. Maintained on gentle IV fluid hydration with sodium improving, 128. Bicarbonate 29, BUN 8, creatinine 0.48, blood sugars controlled. Afebrile, normal WBC. Review of Systems Review of systems unable to obtain secondary to patient's dementia Past Medical History Past Medical History: COPD, Dementia, Diabetes Mellitus, Hyperlipidemia, Hypertension History of Any Multi-Drug Resistant Organisms: Unobtainable Past Surgical History: Unable to Obtain Past Anesthesia/Blood Transfusion Reactions: No Reported Reaction Past Psychological History: Anxiety, Depression Additional Psychological History / Comment(s): dementia Smoking Status: Never smoker Past Drug Use History: None Reported Medications and Allergies Home Medications Medication Instructions Recorded Confirmed Type Albuterol Sulfate [Proventil Hfa] 2 puff INHALATION RT-QID PRN 04/19/21 04/19/21 History Ferrous Sulfate [Feosol] 325 mg PO DAILY 04/19/21 04/19/21 History Fexofenadine HCl [Treva Allergy] 180 mg PO DAILY PRN 04/19/21 04/19/21 History Fluticasone/Salmeterol [Advair 1 puff INHALATION RT-BID 04/19/21 04/19/21 History 250-50 Diskus] Memantine HCl [Memantine HCl ER] 28 mg PO DAILY 04/19/21 04/19/21 History Pravastatin Sodium [Pravachol] 40 mg PO DAILY 04/19/21 04/19/21 History Sertraline [Zoloft] 150 mg PO DAILY 04/19/21 04/19/21 History Tiotropium [place] [Spiriva] 1 cap INHALATION RT-DAILY 04/19/21 04/19/21 History lisinopriL 10 mg PO DAILY 04/19/21 04/19/21 History metFORMIN HCL 500 mg PO BID 04/19/21 04/19/21 History Allergies Allergy/AdvReac Type Severity Reaction Status Date / Time No Known Allergies Allergy Unverified 04/19/21 13:25 Physical Exam Vitals: Vital Signs Temp Pulse Pulse Resp BP BP Pulse Ox 04/20/21 04:43 98.4 F 97 20 119/66 93 L 04/19/21 23:27 98.2 F 93 20 124/65 95 04/19/21 19:10 94 18 04/19/21 18:55 97.4 F L 94 18 112/90 96 04/19/21 14:22 97 18 110/59 99 04/19/21 11:20 97.1 F L 102 H 18 142/77 100 Intake and Output 04/19/21 04/20/21 04/20/21 22:59 06:59 14:59 Intake Total 400 250 Output Total 800 500 Balance -400 -250 Intake: Oral 400 250 Output: Urine 800 500 Uretheral (Jacobson) 800 Other: Voiding Method Indwelling Catheter Weight 72.575 kg PHYSICAL EXAM: VITAL SIGNS: [As above] GENERAL: Sitting up in bed, no acute distress, pleasantly confused, cooperative HEENT: Conjunctivae normal. eyes normal. NECK: Supple, No JVD. No thyroid enlargement. No LNs CARDIOVASCULAR: S1, S2 regular. No murmur RESPIRATION: Breath sounds diminished in the bases. No rhonchi or crackles. ABDOMEN: Soft, nondistended, nontender . No guarding. no masses palpable. No ascites, No hepatosplenomegaly.Bowel sounds heard. LEGS: No edema. no swelling PSYCHIATRY: Alert and oriented X1, confused, cooperative, follows simple commands NERVOUS SYSTEM: Limited exam, Diffuse weakness, no focal deficits Skin: Warm and dry, no rash Results CBC & Chem 7: 04/20/21 12:53 04/20/21 07:22 Labs: Abnormal Lab Results - Last 24 Hours (Table) 04/19/21 04/19/21 04/19/21 Range/Units 14:32 14:32 14:32 RBC 3.65 L (3.80-5.40) m/uL Hgb 10.9 L (11.4-16.0) gm/dL Hct 32.5 L (34.0-46.0) % Neutrophils # 8.8 H (1.3-7.7) k/uL Lymphocytes # 0.7 L (1.0-4.8) k/uL APTT 21.1 L (22.0-30.0) sec Sodium 124 L (137-145) mmol/L Chloride 91 L (98-107) mmol/L Creatinine 0.46 L (0.52-1.04) mg/dL Glucose 155 H (74-99) mg/dL POC Glucose (mg/dL) (75-99) mg/dL Total Protein 6.1 L (6.3-8.2) g/dL Ur Leukocyte Esterase (Negative) 04/19/21 04/20/21 04/20/21 Range/Units 17:20 00:51 07:22 RBC 3.55 L 3.47 L (3.80-5.40) m/uL Hgb 10.6 L 10.4 L (11.4-16.0) gm/dL Hct 31.5 L 31.0 L (34.0-46.0) % Neutrophils # (1.3-7.7) k/uL Lymphocytes # 0.7 L 0.6 L (1.0-4.8) k/uL APTT (22.0-30.0) sec Sodium (137-145) mmol/L Chloride (98-107) mmol/L Creatinine (0.52-1.04) mg/dL Glucose (74-99) mg/dL POC Glucose (mg/dL) (75-99) mg/dL Total Protein (6.3-8.2) g/dL Ur Leukocyte Esterase Moderate H (Negative) 04/20/21 Range/Units 07:25 RBC (3.80-5.40) m/uL Hgb (11.4-16.0) gm/dL Hct (34.0-46.0) % Neutrophils # (1.3-7.7) k/uL Lymphocytes # (1.0-4.8) k/uL APTT (22.0-30.0) sec Sodium (137-145) mmol/L Chloride (98-107) mmol/L Creatinine (0.52-1.04) mg/dL Glucose (74-99) mg/dL POC Glucose (mg/dL) 161 H (75-99) mg/dL Total Protein (6.3-8.2) g/dL Ur Leukocyte Esterase (Negative) Assessment and Plan Assessment: Pubis ramus fracture, status post fall Retroperitoneal hematoma Hyponatremia, improving Osteopenia Osteoarthritis bilateral hips Cervical degenerative disc disease Diabetes Hypertension Hyperlipidemia COPD Dementia Iron deficiency Plan: Continue on current medication regime ,monitoring and symptomatic treatment. Gentle IV fluid hydration. Home meds have been reviewed and resumed accordingly. Protonix for GI prophylaxis. DVT prophylaxis deferred to surgery. Orthopedic recommendations pending. Close monitoring of coags, sodium with repeat labs ordered for a.m. thank you for the consult. The impression and plan of care has been dictated as directed. : I performed a history and examination of this patient, discussed the same with the dictator. I agree with the dictator's note ,documented as a scribe. Any additional findings or plans will be noted.
[2021-04-20] MEDS ORDERED: SODIUM CHLORIDE 0.9% 500 ML 250 ML IV ONE (18:47)
[2021-04-20] MEDS ORDERED: SALMETEROL INHALATION SCH (20:00)
[2021-04-20] MEDS ORDERED: FLUTICASONE INHALATION SCH (20:00)
[2021-04-20 20:24] LABS: Basophils % (A) 0 %; Eosinophils # (A) 0.2 k/uL (0-0.7); Eosinophils % (A) 3 %; HCT 29.1 % (34.0-46.0); HGB 9.7 gm/dL (11.4-16.0); Lymphocytes % (A) 16 %; MCH 30.5 pg (25.0-35.0); MCHC 33.4 g/dL (31.0-37.0); MCV 91.3 fL (80.0-100.0); Mean Platelet Volume 7.6; Monocytes # (A) 0.4 k/uL (0-1.0); Monocytes % (A) 7 %; Neutrophils # (A) 4.5 k/uL (1.3-7.7); Neutrophils % (A) 73 %; Platelet Count 184 k/uL (150-450); RBC 3.19 m/uL (3.80-5.40); RDW 12.3 % (11.5-15.5); WBC 6.2 k/uL (3.8-10.6)
[2021-04-20 20:59] LABS: Glucose,Whole Blood 170 mg/dL (75-99)
[2021-04-21 00:45] LABS: Basophils % (A) 0 %; Eosinophils # (A) 0.1 k/uL (0-0.7); Eosinophils % (A) 2 %; HCT 28.4 % (34.0-46.0); HGB 9.3 gm/dL (11.4-16.0); Lymphocytes # (A) 0.8 k/uL (1.0-4.8); Lymphocytes % (A) 12 %; MCH 29.6 pg (25.0-35.0); MCHC 32.7 g/dL (31.0-37.0); MCV 90.5 fL (80.0-100.0); Monocytes # (A) 0.4 k/uL (0-1.0); Monocytes % (A) 6 %; Neutrophils # (A) 4.9 k/uL (1.3-7.7); Neutrophils % (A) 78 %; Platelet Count 172 k/uL (150-450); RBC 3.14 m/uL (3.80-5.40); RDW 12.2 % (11.5-15.5); WBC 6.3 k/uL (3.8-10.6)
[2021-04-21] MEDS: SYMBICORT 80-4.5 MCG INHALER INHALATION SCH (08:08)
[2021-04-21] MEDS: IPRATROPIUM-ALBUTEROL 3 ML NEB INHALATION SCH ×3 (08:08→16:06)
[2021-04-21 08:27] LABS: Glucose,Whole Blood 143 mg/dL (75-99)
[2021-04-21] MEDS: INSULIN ASPART (NovoLOG) 100 UNIT/ML VIAL SQ SCH ×2 (08:40→12:57)
[2021-04-21] MEDS: PANTOPRAZOLE 40 MG/10 ML VIAL IVP SCH (08:40)
[2021-04-21] MEDS: NYSTATIN 100,000 UNIT/ML SUSP 500,000 UNIT/5 ML CUP PO SCH ×2 (08:42→12:57)
[2021-04-21] MEDS: SODIUM CHLORIDE 0.9% 1,000 ML IV SCH (08:46)
[2021-04-21] MEDS ORDERED: MEMANTINE 10 MG TAB PO SCH (09:00)
[2021-04-21] MEDS ORDERED: SERTRALINE 100 MG TAB PO SCH (09:00)
[2021-04-21] MEDS ORDERED: PRAVASTATIN SODIUM 40 MG TAB PO SCH (09:00)
[2021-04-21] MEDS ORDERED: FERROUS SULFATE 325 MG TAB PO SCH (09:00)
[2021-04-21 10:09] LABS: African American GFR (CKD) 115.6 (60.0-200.0); Anion Gap 12.4 mmol/L (10.00-18.00); BUN/Creat Ratio 14.25 Ratio (12.00-20.00); Blood Urea Nitrogen 5.7 mg/dL (9.0-27.0); Calcium 7.7 mg/dL (8.7-10.3); Carbon Dioxide 23.6 mmol/L (20.0-27.5); Non-African American GFR(CKD) 99.8 (60.0-200.0); Potassium 3.8 mmol/L (3.5-5.5)
--- NOTE | 2021-04-21 11:29 | P.PN ---
Progress Note - Text Progress Note Date: 04/21/21 Patient is resting comfortably. Her hemoglobin has remained stable. She does have some pelvic pain. On exam vital signs are stable. Abdomen soft. Status post pubic rami fracture with retroperitoneal bleed. Patient is is nonweightbearing. She will need placement ECF when stable
[2021-04-21 12:24] LABS: Glucose,Whole Blood 318 mg/dL (75-99)
--- NOTE | 2021-04-21 12:32 | P.PN ---
Subjective Progress Note Date: 04/21/21 This is a 80-year-old female with past medical history of COPD, dementia, diabetes mellitus, hyperlipidemia, hypertension, anxiety, depression presents to the ER with complaints of left-sided hip pain status post falling out of bed, sustaining a acute comminuted fracture through the left pubic bone without pubic symphysis separation per CT. CT brain/C-spine reported no acute fracture dislocation of the C-spine, no acute intracranial hemorrhage or midline shift. CT abdomen/pelvis reported evidence of intraperitoneal and retroperitoneal bleeding. Patient is admitted to trauma surgery. Orthopedic surgery on consult, recommendations pending. Patient sitting up in bed, reports comfortable currently. Hemoglobin stable, platelets 191. Maintained on gentle IV fluid hydration with sodium improving, 128. Bicarbonate 29, BUN 8, creatinine 0.48, blood sugars controlled. Afebrile, normal WBC. 04/21/2021 significant clinical improvement. Maintained on gentle IV fluid hydration with Sodium 134, BUN 5.7, creatinine 0.4. Pain controlled .Denies chest pain, palpitations or shortness of breath. Evaluated by PT with NITISH recommended at discharge. Vital signs stable. Objective - Vital Signs Vital signs: Vital Signs Temp 98.6 F 04/21/21 04:18 Pulse 109 H 04/21/21 11:32 Resp 20 04/21/21 04:18 BP 131/70 04/21/21 04:18 Pulse Ox 98 04/21/21 08:14 Intake & Output 04/20/21 04/21/21 04/21/21 18:59 06:59 18:59 Intake Total 200 Output Total 250 1000 Balance -250 -800 Intake: Oral 200 Output: Urine 250 1000 Uretheral (Jacobson) 500 Other: Voiding Method Indwelling Catheter Indwelling Catheter Indwelling Catheter - Exam PHYSICAL EXAM: VITAL SIGNS: [As above] GENERAL: Sitting up in bed, no acute distress, pleasantly confused, cooperative HEENT: Conjunctivae normal. eyes normal. Thrush improved. NECK: Supple, No JVD. No thyroid enlargement. No LNs CARDIOVASCULAR: S1, S2 regular. No murmur RESPIRATION: Breath sounds diminished in the bases. No rhonchi or crackles. ABDOMEN: Soft, nondistended, nontender . No guarding. no masses palpable. No ascites, No hepatosplenomegaly.Bowel sounds heard. LEGS: No edema. no swelling PSYCHIATRY: Alert and oriented X1, confused, cooperative, follows simple commands NERVOUS SYSTEM: Limited exam, Diffuse weakness, no focal deficits Skin: Warm and dry, no rash - Labs CBC & Chem 7: 04/21/21 00:32 04/21/21 05:51 Labs: Abnormal Lab Results - Last 24 Hours (Table) 04/20/21 04/20/21 04/20/21 Range/Units 12:53 17:25 19:55 RBC 3.34 L 3.19 L (3.80-5.40) m/uL Hgb 10.1 L 9.7 L (11.4-16.0) gm/dL Hct 30.2 L 29.1 L (34.0-46.0) % Lymphocytes # 0.8 L (1.0-4.8) k/uL Sodium (135-145) mmol/L BUN (9.0-27.0) mg/dL Creatinine (0.6-1.5) mg/dL Glucose (70-110) mg/dL POC Glucose (mg/dL) 130 H (75-99) mg/dL Calcium (8.7-10.3) mg/dL 04/20/21 04/21/21 04/21/21 Range/Units 20:58 00:32 05:51 RBC 3.14 L (3.80-5.40) m/uL Hgb 9.3 L (11.4-16.0) gm/dL Hct 28.4 L (34.0-46.0) % Lymphocytes # 0.8 L (1.0-4.8) k/uL Sodium 134 L (135-145) mmol/L BUN 5.7 L (9.0-27.0) mg/dL Creatinine 0.4 L (0.6-1.5) mg/dL Glucose 135 H (70-110) mg/dL POC Glucose (mg/dL) 170 H (75-99) mg/dL Calcium 7.7 L (8.7-10.3) mg/dL 04/21/21 04/21/21 Range/Units 08:24 12:23 RBC (3.80-5.40) m/uL Hgb (11.4-16.0) gm/dL Hct (34.0-46.0) % Lymphocytes # (1.0-4.8) k/uL Sodium (135-145) mmol/L BUN (9.0-27.0) mg/dL Creatinine (0.6-1.5) mg/dL Glucose (70-110) mg/dL POC Glucose (mg/dL) 143 H 318 H (75-99) mg/dL Calcium (8.7-10.3) mg/dL Assessment and Plan Assessment: Pubis ramus fracture, status post fall Retroperitoneal hematoma Hyponatremia, improving Osteopenia Osteoarthritis bilateral hips Cervical degenerative disc disease Diabetes Hypertension Hyperlipidemia COPD Dementia Iron deficiency Plan: Continue on current medication regime ,monitoring and symptomatic treatment. Gentle IV fluid hydration. DVT prophylaxis deferred to surgery. Cleared by orthopedic surgery for discharge .patient medically cleared for discharge to subacute rehab. The impression and plan of care has been dictated as directed. : I performed a history and examination of this patient, discussed the same with the dictator. I agree with the dictator's note ,documented as a scribe. Any additional findings or plans will be noted.
[2021-04-21 12:55] VITALS: BP 100/50; RESP 17; TEMP 98.5
--- NOTE | 2021-04-21 13:03 | XR ---
EXAMINATION TYPE: XR chest 1V portable DATE OF EXAM: 04/21/2021 HISTORY: Shortness of breath. COMPARISON: 06/10/2019 TECHNIQUE: Single view of the chest is submitted. FINDINGS: Demonstrated are scattered senescent parenchymal change. There is no evidence for focal infiltrate. The heart is stable. Hilar and mediastinal structures are within normal limits. Degenerative changes are seen of the dorsal spine. IMPRESSION: 1. Chronic changes without evidence for acute pulmonary disease.
--- NOTE | 2021-04-21 14:11 | P.DS ---
Providers Date of admission: 04/19/21 17:04 Expected date of discharge: 04/21/21 Attending physician: Jt Rodriguez Consults: 04/19/21 16:48 Consult Physician Urgent Consulting Provider: Ketan Luevano Consult Reason/Comments: Pubic rami fracture Do you want consulting provider notified?: Yes Consult Physician Urgent Consulting Provider: Kenji Narayan Consult Reason/Comments: Medical management Do you want consulting provider notified?: Yes Primary care physician: Kenji Narayan Hospital Course: Final diagnoses Pubis ramus fracture, status post fall Retroperitoneal hematoma Hyponatremia, improving Osteopenia Osteoarthritis bilateral hips Cervical degenerative disc disease Diabetes Hypertension Hyperlipidemia COPD Dementia Iron deficiency Hospital course:This is a 80-year-old female with past medical history of COPD, dementia, diabetes mellitus, hyperlipidemia, hypertension, anxiety, depression presents to the ER with complaints of left-sided hip pain status post falling out of bed, sustaining a acute comminuted fracture through the left pubic bone without pubic symphysis separation per CT. CT brain/C-spine reported no acute fracture dislocation of the C-spine, no acute intracranial hemorrhage or midline shift. CT abdomen/pelvis reported evidence of intraperitoneal and retroperitoneal bleeding. Patient is admitted to trauma surgery. Orthopedic surgery on consult, recommendations pending. Patient sitting up in bed, reports comfortable currently. Hemoglobin stable, platelets 191. Maintained on gentle IV fluid hydration with sodium improving, 128. Bicarbonate 29, BUN 8, creatinine 0.48, blood sugars controlled. Afebrile, normal WBC. 04/21/2021 significant clinical improvement. Maintained on gentle IV fluid hydration with Sodium 134, BUN 5.7, creatinine 0.4. Pain controlled .Denies chest pain, palpitations or shortness of breath. Evaluated by PT with [facility] recommended at discharge. Vital signs stable. Gentle IV fluid hydration. DVT prophylaxis deferred to surgery. Cleared by orthopedic surgery for discharge .patient medically cleared for discharge to subacute rehab. The patient will be discharged to [facility] pending final dc rec./clerance per general surgery, today in a stable condition with guarded prognosis. The impression and plan of care has been dictated as directed. : I performed a history and examination of this patient, discussed the same with the dictator. I agree with the dictator's note ,documented as a scribe. Any additional findings or plans will be noted. Patient Condition at Discharge: Stable Plan - Discharge Summary Discharge Rx Participant: No New Discharge Prescriptions: New Nystatin 100,000 Unit/ml Susp [Mycostatin Oral Susp] 500,000 unit PO QID #100 ml HYDROcodone/APAP 5-325MG [Otis 5-325] 1 each PO Q6H PRN #12 tab PRN Reason: Moderate Pain INSULIN LISPRO (HumaLOG) [humaLOG] 0 unit SQ ACHS #10 ml Pantoprazole [Protonix] 40 mg PO DAILY #1 tab Continue metFORMIN HCL 500 mg PO BID lisinopriL 10 mg PO DAILY Pravastatin Sodium [Pravachol] 40 mg PO DAILY Fluticasone/Salmeterol [Advair 250-50 Diskus] 1 puff INHALATION RT-BID Fexofenadine HCl [Treva Allergy] 180 mg PO DAILY PRN PRN Reason: Allergy Symptoms Ferrous Sulfate [Iron (65 MG Elemental)] 325 mg PO DAILY Tiotropium [place] [Spiriva] 1 cap INHALATION RT-DAILY Sertraline [Zoloft] 150 mg PO DAILY Albuterol Sulfate [Proventil Hfa] 2 puff INHALATION RT-QID PRN PRN Reason: Shortness Of Breath Memantine HCl [Memantine HCl ER] 28 mg PO DAILY Discharge Medication List Albuterol Sulfate [Proventil Hfa] 2 puff INHALATION RT-QID PRN 04/19/21 [History] Ferrous Sulfate [Iron (65 MG Elemental)] 325 mg PO DAILY 04/19/21 [History] Fexofenadine HCl [Treva Allergy] 180 mg PO DAILY PRN 04/19/21 [History] Fluticasone/Salmeterol [Advair 250-50 Diskus] 1 puff INHALATION RT-BID 04/19/21 [History] Memantine HCl [Memantine HCl ER] 28 mg PO DAILY 04/19/21 [History] Pravastatin Sodium [Pravachol] 40 mg PO DAILY 04/19/21 [History] Sertraline [Zoloft] 150 mg PO DAILY 04/19/21 [History] Tiotropium [place] [Spiriva] 1 cap INHALATION RT-DAILY 04/19/21 [History] lisinopriL 10 mg PO DAILY 04/19/21 [History] metFORMIN HCL 500 mg PO BID 04/19/21 [History] HYDROcodone/APAP 5-325MG [Otis 5-325] 1 each PO Q6H PRN #12 tab 04/21/21 [Rx] INSULIN LISPRO (HumaLOG) [humaLOG] 0 unit SQ ACHS #10 ml 04/21/21 [Rx] Nystatin 100,000 Unit/ml Susp [Mycostatin Oral Susp] 500,000 unit PO QID #100 ml 04/21/21 [Rx] Pantoprazole [Protonix] 40 mg PO DAILY #1 tab 04/21/21 [Rx] Follow up Appointment(s)/Referral(s): Kenji Narayan DO [Primary Care Provider] - 1 Week (After DC from subacute rehab) [facility], [NON-STAFF] - 1-2 Days Ketan Luevano MD [Medical Doctor] - 2 Weeks (Patient may follow-up with Dr. Ketan Luevano at [facility] in 2-3 weeks following discharge. ) Activity/Diet/Wound Care/Special Instructions: ECF: 1. Weightbearing as tolerated on the left lower extremity with the assistance of a walker CBC, BMP in 3 days
[2021-04-21 16:20] VITALS: PULSE 109
== END 2021-04-21 16:38 | DRG 535 ==
LOC: EC 11:18 → 5NMEDONC 17:04
PROVIDERS: ADMIT Surgery; ATTEND Surgery
DX: S32.592A Other specified fracture of left pubis, initial encounter for closed fracture (principal); K66.1 Hemoperitoneum; E87.1 Hypo-osmolality and hyponatremia; E11.9 Type 2 diabetes mellitus without complications; E61.1 Iron deficiency; E78.5 Hyperlipidemia, unspecified; F03.90 Unspecified dementia, unspecified severity, without behavioral disturbance, psychotic disturbance, mood disturbance, and anxiety; F32.9 Major depressive disorder, single episode, unspecified; F41.9 Anxiety disorder, unspecified; I10 Essential (primary) hypertension; J44.9 Chronic obstructive pulmonary disease, unspecified; M16.0 Bilateral primary osteoarthritis of hip; M25.78 Osteophyte, vertebrae; M43.12 Spondylolisthesis, cervical region; Z20.822 Contact with and (suspected) exposure to COVID-19; M50.30 Other cervical disc degeneration, unspecified cervical region; M85.80 Other specified disorders of bone density and structure, unspecified site; W06.XXXA Fall from bed, initial encounter; Y92.009 Unspecified place in unspecified non-institutional (private) residence as the place of occurrence of the external cause; Z79.84 Long term (current) use of oral hypoglycemic drugs; Z79.899 Other long term (current) drug therapy; Z91.81 History of falling
CPT/HCPCS: 36415; 70450; 71045; 72125; 73502; 74177; 80048; 80053; 81001; 83036; 85025; 85610; 85730; 86850; 86900; 86901; 87635; 94640; 99285

== ENCOUNTER 2021-04-25 13:03 | Inpatient (IN) | payer MEDICARE ==
[2021-04-25] MEDS ORDERED: methylPREDNISolone SOD SUCCI 125 MG/2 ML VIAL IV STA (13:49)
[2021-04-25] MEDS ORDERED: IPRATROPIUM-ALBUTEROL 3 ML NEB INHALATION STA (13:49)
--- NOTE | 2021-04-25 14:03 | ED ---
General Adult HPI - General Chief complaint: Shortness of Breath Stated complaint: ANGELITA Time Seen by Provider: 04/25/21 13:28 Source: EMS, RN notes reviewed, old records reviewed Mode of arrival: EMS Limitations: altered mental status - History of Present Illness Initial comments: Patient is a 80-year-old female with past medical history remarkable for recent pelvic fracture being medically treated at an outpatient rehab facility who presents emergency department over concern for increased work of breathing. She has a history of dementia, diabetes, chronic hypoxic respiratory failure secondary to COPD on 2 L nasal cannula at home. For the last day today and a half, she has exhibited increased work of breathing as well as "chest congestion" according to family members who are at the bedside. Patient is not on blood thinners. She is no history of blood clots. No surgery was completed. She has a nonproductive cough. She does have a history of pocketing food and there was concern by nursing facility for aspiration. The patient currently denies any chest pain, abdominal pain, nausea, vomiting. She does endorse a mild cough as well as some increased work of breathing. She is no other acute complaints at this time. Patient's family members state that she is acting normally otherwise, however there concerned for possible infectious etiology for her current symptoms. His no increased lower extremity swelling or edema. No history of heart failure. Patient's saturations are adequate at this time, however she is having increased work of breathing. She was evaluated when she was placed in a room. Patient was vaccinated for COVID-19 as well as the flu. - Related Data Home Medications Medication Instructions Recorded Confirmed Albuterol Sulfate [Proventil Hfa] 2 puff INHALATION RT-QID PRN 04/19/21 04/25/21 Ferrous Sulfate [Iron (65 MG 325 mg PO DAILY 04/19/21 04/25/21 Elemental)] Fexofenadine HCl [Treva Allergy] 180 mg PO DAILY PRN 04/19/21 04/25/21 Fluticasone/Salmeterol [Advair 1 puff INHALATION RT-BID 04/19/21 04/25/21 250-50 Diskus] Memantine HCl [Memantine HCl ER] 28 mg PO DAILY 04/19/21 04/25/21 Pravastatin Sodium [Pravachol] 40 mg PO DAILY 04/19/21 04/25/21 Sertraline [Zoloft] 100 mg PO DAILY 04/19/21 04/25/21 Tiotropium [place] [Spiriva] 1 cap INHALATION RT-DAILY 04/19/21 04/25/21 lisinopriL 10 mg PO DAILY 04/19/21 04/25/21 metFORMIN HCL 500 mg PO BID 04/19/21 04/25/21 Albuterol Nebulized [Ventolin 2.5 mg INHALATION RT-Q4H PRN 04/25/21 04/25/21 Nebulized] HYDROcodone/APAP 5-325MG [[place] 1 tab PO Q6H PRN 04/25/21 04/25/21 5-325] Insulin Lispro [humaLOG Kwikpen] See Protocol SQ ACHS 04/25/21 04/25/21 Sertraline [Zoloft] 50 mg PO DAILY 04/25/21 04/25/21 Previous Rx's Medication Instructions Recorded Nystatin 100,000 Unit/ml Susp 500,000 unit PO QID #100 ml 04/21/21 [Mycostatin Oral Susp] Pantoprazole [Protonix] 40 mg PO DAILY #1 tab 04/21/21 Allergies Allergy/AdvReac Type Severity Reaction Status Date / Time No Known Allergies Allergy Verified 04/25/21 14:57 Review of Systems ROS Statement: Those systems with pertinent positive or pertinent negative responses have been documented in the HPI. Review of Systems: CONST: Denies fever EYES: Denies blurry vision ENT: Denies nasal congestion C/V: Denies Chest pain RESP: Endorses cough, shortness of breath GI: Denies abdominal pain : Denies dysuria SKIN: Denies rash. MSK: Denies joint pain. NEURO: Denies headache ROS Other: All systems not noted in ROS Statement are negative. Past Medical History Past Medical History: COPD, Dementia, Diabetes Mellitus, Hyperlipidemia, Hypertension Additional Past Medical History / Comment(s): Broken pelvis/hip no surgery History of Any Multi-Drug Resistant Organisms: Unobtainable Past Surgical History: Unable to Obtain Past Anesthesia/Blood Transfusion Reactions: No Reported Reaction Past Psychological History: Anxiety, Depression Smoking Status: Never smoker Past Alcohol Use History: None Reported Past Drug Use History: None Reported General Exam - General Exam Comments Initial Comments: General: Appears in mild respiratory distress with mild increased work of breathing. Respiratory rate is 22. HEAD: Normal with no signs of head trauma. EYES: PERRLA, EOMI, conjunctiva normal, no discharge. ENT: Hearing grossly intact, normal oropharynx. RESPIRATORY: Mild end expiratory wheezes bilaterally with slightly worsening the right lower lobe. No rhonchi. Mild increased work of breathing. Saturating well on home oxygen 2 L nasal cannula. C/V: Borderline tachycardia with a regular rhythm. S1 and S2 auscultated. No peripheral edema. Peripheral pulses are 2+ intact throughout. ABD: Abd is soft, nontender, nondistended EXT: Normal range of motion, no obvious deformity SKIN: No rashes or lesions observed on exposed skin. NEURO: Alert and oriented to baseline. No focal deficits. Limitations: altered mental status Course Vital Signs 04/25/21 04/25/21 04/25/21 13:20 15:57 19:04 Temperature 97.0 F L 97.5 F L 98.1 F Pulse Rate 97 99 97 Respiratory 22 18 20 Rate Blood Pressure 103/68 117/64 122/68 O2 Sat by Pulse 94 L 98 97 Oximetry Medical Decision Making - Medical Decision Making Based on the patient's presentation and physical exam, she is likely expressing an infectious process versus possible aspiration pneumonia. However I cannot rule out the possibility of pulmonary embolism at this time as she does have a history of recent decreased activity secondary to pelvic fracture. Therefore we will obtain a screening d-dimer as well as screening EKG in addition to basic labs, chest x-ray. She will be administered IV Solu-Medrol as well as breathing treatments for her mild COPD exacerbation. Patient and family members were in agreement with this plan. She'll be continued on home 2 L nasal cannula. COVID swab will be obtained. Patient's EKG showed mild sinus tachycardia but no signs of acute ischemia. Chest x-ray revealed no acute cardiopulmonary process. Laboratory studies were remarkable for a normocytic anemia with a hemoglobin of 9.2 which does appear to be her baseline. Patient has an elevated d-dimer to 6.61. Patient is hyponatremic to 129 hypochloremic to 94. She is a mildly elevated lactic acid of 2.4. Magnesium is low at 1.1 which will be replenished. Troponin is negative. CRP is elevated to 20. Patient is COVID-19 positive. I spoke with the family is as well as the patient regarding results of laboratory studies and imaging. Due to the elevated d-dimer would like to obtain a CT angiogram chest to all the possibility of pulmonary embolism. They were in agreement with this plan. CT revealed no acute pulmonary embolism. There is pulmonary fibrosis. I updated the patient's family regarding this. Due to her positive COVID-19 infection, as well as dehydration, and increased work of breathing would like to admitted to the hospital. Family was in agreement with this plan. Patient was in agreement with this plan. I spoke with Dr. Veras, who is covering for Kenji Narayan who accepted the patient. Patient was admitted to a telemetry bed in serious condition. Consults to pulmonology an infectious disease were ordered for the morning. - Lab Data Result diagrams: 04/25/21 14:05 04/25/21 14:05 Lab Results 04/25/21 04/25/21 04/25/21 Range/Units 14:05 14:05 14:05 WBC 10.8 H (3.8-10.6) k/uL RBC 3.07 L (3.80-5.40) m/uL Hgb 9.2 L (11.4-16.0) gm/dL Hct 27.0 L (34.0-46.0) % MCV 87.9 (80.0-100.0) fL MCH 29.9 (25.0-35.0) pg MCHC 34.0 (31.0-37.0) g/dL RDW 12.5 (11.5-15.5) % Plt Count 291 (150-450) k/uL MPV 8.0 Neutrophils % 89 % Lymphocytes % 3 % Monocytes % 6 % Eosinophils % 1 % Basophils % 0 % Neutrophils # 9.6 H (1.3-7.7) k/uL Lymphocytes # 0.4 L (1.0-4.8) k/uL Monocytes # 0.7 (0-1.0) k/uL Eosinophils # 0.1 (0-0.7) k/uL Basophils # 0.0 (0-0.2) k/uL PT 9.7 (9.0-12.0) sec INR 0.9 (<1.2) APTT 21.7 L (22.0-30.0) sec D-Dimer 6.61 H (<0.60) mg/L FEU Sodium 129 L (137-145) mmol/L Potassium 3.8 (3.5-5.1) mmol/L Chloride 94 L (98-107) mmol/L Carbon Dioxide 27 (22-30) mmol/L Anion Gap 8 mmol/L BUN 23 H (7-17) mg/dL Creatinine 0.68 (0.52-1.04) mg/dL Est GFR (CKD-EPI)AfAm >90 (>60 ml/min/1.73 sqM) Est GFR (CKD-EPI)NonAf 84 (>60 ml/min/1.73 sqM) Glucose 318 H (74-99) mg/dL Lactic Ac Sepsis Rflx Plasma Lactic Acid [place] (0.7-2.0) mmol/L Calcium 8.9 (8.4-10.2) mg/dL Magnesium 1.1 L (1.6-2.3) mg/dL Total Bilirubin 0.6 (0.2-1.3) mg/dL AST 25 (14-36) U/L ALT 16 (4-34) U/L Alkaline Phosphatase 65 (38-126) U/L Lactate Dehydrogenase (313-618) U/L Troponin I (0.000-0.034) ng/mL C-Reactive Protein (<1.0) mg/dL Total Protein 5.6 L (6.3-8.2) g/dL Albumin 3.2 L (3.5-5.0) g/dL Coronavirus (PCR) (Not Detectd) 04/25/21 04/25/21 04/25/21 Range/Units 14:05 14:05 14:35 WBC (3.8-10.6) k/uL RBC (3.80-5.40) m/uL Hgb (11.4-16.0) gm/dL Hct (34.0-46.0) % MCV (80.0-100.0) fL MCH (25.0-35.0) pg MCHC (31.0-37.0) g/dL RDW (11.5-15.5) % Plt Count (150-450) k/uL MPV Neutrophils % % Lymphocytes % % Monocytes % % Eosinophils % % Basophils % % Neutrophils # (1.3-7.7) k/uL Lymphocytes # (1.0-4.8) k/uL Monocytes # (0-1.0) k/uL Eosinophils # (0-0.7) k/uL Basophils # (0-0.2) k/uL PT (9.0-12.0) sec INR (<1.2) APTT (22.0-30.0) sec D-Dimer (<0.60) mg/L FEU Sodium (137-145) mmol/L Potassium (3.5-5.1) mmol/L Chloride (98-107) mmol/L Carbon Dioxide (22-30) mmol/L Anion Gap mmol/L BUN (7-17) mg/dL Creatinine (0.52-1.04) mg/dL Est GFR (CKD-EPI)AfAm (>60 ml/min/1.73 sqM) Est GFR (CKD-EPI)NonAf (>60 ml/min/1.73 sqM) Glucose (74-99) mg/dL Lactic Ac Sepsis Rflx Y Plasma Lactic Acid [place] 2.4 H* (0.7-2.0) mmol/L Calcium (8.4-10.2) mg/dL Magnesium (1.6-2.3) mg/dL Total Bilirubin (0.2-1.3) mg/dL AST (14-36) U/L ALT (4-34) U/L Alkaline Phosphatase (38-126) U/L Lactate Dehydrogenase (313-618) U/L Troponin I (0.000-0.034) ng/mL C-Reactive Protein (<1.0) mg/dL Total Protein (6.3-8.2) g/dL Albumin (3.5-5.0) g/dL Coronavirus (PCR) Detected A (Not Detectd) 04/25/21 04/25/21 Range/Units 14:58 14:58 WBC (3.8-10.6) k/uL RBC (3.80-5.40) m/uL Hgb (11.4-16.0) gm/dL Hct (34.0-46.0) % MCV (80.0-100.0) fL MCH (25.0-35.0) pg MCHC (31.0-37.0) g/dL RDW (11.5-15.5) % Plt Count (150-450) k/uL MPV Neutrophils % % Lymphocytes % % Monocytes % % Eosinophils % % Basophils % % Neutrophils # (1.3-7.7) k/uL Lymphocytes # (1.0-4.8) k/uL Monocytes # (0-1.0) k/uL Eosinophils # (0-0.7) k/uL Basophils # (0-0.2) k/uL PT (9.0-12.0) sec INR (<1.2) APTT (22.0-30.0) sec D-Dimer (<0.60) mg/L FEU Sodium (137-145) mmol/L Potassium (3.5-5.1) mmol/L Chloride (98-107) mmol/L Carbon Dioxide (22-30) mmol/L Anion Gap mmol/L BUN (7-17) mg/dL Creatinine (0.52-1.04) mg/dL Est GFR (CKD-EPI)AfAm (>60 ml/min/1.73 sqM) Est GFR (CKD-EPI)NonAf (>60 ml/min/1.73 sqM) Glucose (74-99) mg/dL Lactic Ac Sepsis Rflx Plasma Lactic Acid [place] (0.7-2.0) mmol/L Calcium (8.4-10.2) mg/dL Magnesium 1.1 L (1.6-2.3) mg/dL Total Bilirubin (0.2-1.3) mg/dL AST (14-36) U/L ALT (4-34) U/L Alkaline Phosphatase (38-126) U/L Lactate Dehydrogenase 525 (313-618) U/L Troponin I <0.012 (0.000-0.034) ng/mL C-Reactive Protein 20.4 H (<1.0) mg/dL Total Protein (6.3-8.2) g/dL Albumin (3.5-5.0) g/dL Coronavirus (PCR) (Not Detectd) - EKG Data -: EKG Interpreted by Me EKG Comments: 12-lead Electrocardiogram Interpretation Note EKG was reviewed and interpreted by myself. 12-lead ECG performed at 1456 is interpreted by me as revealing sinus tachycardia at a rate of 104 beats per minute. [place] is normal. [place] interval is 136 ms, QRS duration is 76 ms, QTc is 436 ms.. There were no ST or T wave abnormalities to suggest myocardial ischemia or injury. R wave progression across the precordium was satisfactory. By my interpretation this EKG is non-diagnostic for acute ischemia. No signs of acute hyperkalemia. Disposition Clinical Impression: Dyspnea, COPD exacerbation, COVID-19 virus infection, Hyponatremia, Chronic respiratory failure with hypoxia Disposition: ADMITTED IP TO THIS HOSP Condition: Serious
[2021-04-25 14:17] LABS: Basophils % (A) 0 %; Eosinophils # (A) 0.1 k/uL (0-0.7); Eosinophils % (A) 1 %; HGB 9.2 gm/dL (11.4-16.0); Lymphocytes # (A) 0.4 k/uL (1.0-4.8); Lymphocytes % (A) 3 %; MCH 29.9 pg (25.0-35.0); MCV 87.9 fL (80.0-100.0); Monocytes # (A) 0.7 k/uL (0-1.0); Monocytes % (A) 6 %; Neutrophils # (A) 9.6 k/uL (1.3-7.7); Neutrophils % (A) 89 %; Platelet Count 291 k/uL (150-450); RBC 3.07 m/uL (3.80-5.40); RDW 12.5 % (11.5-15.5); WBC 10.8 k/uL (3.8-10.6)
[2021-04-25 14:29] LABS: ALT 16 U/L (4-34); AST 25 U/L (14-36); African American GFR (CKD) >90 (>60 ml/min/1.73 sqM); Albumin 3.2 g/dL (3.5-5.0); Alkaline Phosphatase 65 U/L (38-126); Anion Gap 8 mmol/L; Blood Urea Nitrogen 23 mg/dL (7-17); Calcium 8.9 mg/dL (8.4-10.2); Carbon Dioxide 27 mmol/L (22-30); Chloride 94 mmol/L (98-107); Glucose 318 mg/dL (74-99); Magnesium 1.1 mg/dL (1.6-2.3); Non-African American GFR(CKD) 84 (>60 ml/min/1.73 sqM); Potassium 3.8 mmol/L (3.5-5.1); Sodium 129 mmol/L (137-145); Total Bilirubin 0.6 mg/dL (0.2-1.3); Total Protein 5.6 g/dL (6.3-8.2)
[2021-04-25 14:41] LABS: INR 0.9 (<1.2); Prothrombin Time 9.7 sec (9.0-12.0)
[2021-04-25 14:48] LABS: Partial Thromboplastin Time 21.7 sec (22.0-30.0)
[2021-04-25] MEDS ORDERED: ACETAMINOPHEN TAB 325 MG TAB PO PRN (14:58)
--- NOTE | 2021-04-25 15:15 | XR ---
EXAMINATION TYPE: XR chest 2V DATE OF EXAM: 04/25/2021 COMPARISON: 04/21/2021 HISTORY: Short of breath TECHNIQUE: FINDINGS: Heart is normal. Lungs are clear of consolidation. There is no heart failure. Thoracic aort a is atheromatous. Bony thorax is intact. There is no pleural effusion. IMPRESSION: No active cardiopulmonary disease. No change.
[2021-04-25] MEDS ORDERED: ALBUTEROL HFA INHALER INHALATION STA (15:25)
[2021-04-25] MEDS ORDERED: SODIUM CHLORIDE 0.9% 500 ML 500 ML IV ONE (15:26)
[2021-04-25 15:27] LABS: Magnesium 1.1 mg/dL (1.6-2.3)
[2021-04-25 15:37] LABS: C Reactive Protein 20.4 mg/dL (<1.0)
[2021-04-25] MEDS ORDERED: LORATADINE 10 MG TAB PO PRN (15:56)
[2021-04-25] MEDS ORDERED: ENOXAPARIN 30 MG/0.3 ML SYRINGE SQ SCH (16:00)
[2021-04-25] MEDS ORDERED: MAGNESIUM SULFATE-D5W PMX 1 GM in DEXTROSE/WATER 1 100ML.BAG IVPB ONE (16:05)
--- NOTE | 2021-04-25 16:06 | CT ---
EXAMINATION TYPE: CT chest angio for PE DATE OF EXAM: 04/25/2021 COMPARISON: None HISTORY: COVID, difficulty breathing CT DLP: 236.4 mGycm Automated exposure control for dose reduction was used. CONTRAST: Performed with IV Contrast, patient injected with 100, wasted 47 ml mL of Isovue 370. there are 3-D post processed images. There is some pulmonary hyperinflation and flattening of the diaphragm. Heart size is normal. Thoraci c aorta is atheromatous. There is no dissection. The ascending aorta measures 3.6 cm. There is no ane urysm. There is normal contrast opacification of the pulmonary arteries. There are no filling defects . There is no mediastinal adenopathy. There are no hilar masses. There is some mild reticular interstitial density in the anterior lung hernandez. Thoracic spine is intact. There is no compression fracture. The sternum is intact. IMPRESSION: No evidence of pulmonary embolism. COPD. Minimal pulmonary fibrosis. No suspicious pulmonary mass.
[2021-04-25] MEDS ORDERED: NALOXONE 0.4 MG/ML 1 ML VIAL IV PRN (16:07)
--- NOTE | 2021-04-25 17:21 | HP ---
HISTORY AND PHYSICAL DATE OF SERVICE: 04/25/2021 CHIEF COMPLAINTS: Shortness of breath and cough. HISTORY OF PRESENT ILLNESS: This 80-year-old woman with a past medical history of COPD, dementia, diabetes mellitus, hypertension, hyperlipidemia, being followed by Dr. Kenji Narayan in the outpatient setting, is a resident of [facility] at this time. The patient had a recent pelvic fracture and was recuperating. The patient is rather confused. Patient had increased shortness of breath and the patient was taken to [facility]. Most of the history is taken from my discussion with the staff and ER physician as well as discussion with the family at the bedside. The patient's D-dimer was found to be elevated at 6.61 and lactic acid was 2.4. COVID-19 was positive. The patient also had a CT angio of the chest at this time. The results are not available. The patient also had a chest x-ray which was reviewed personally by me. It showed some increased bronchovascular markings and fullness of the perihilar area. The pulmonary artery is also dilated. PAST MEDICAL HISTORY: History of COPD, dementia, diabetes mellitus, hypertension, hyperlipidemia, history of broken pelvis. HOME MEDICATIONS: Reviewed. They include metformin, lisinopril, Spiriva, Zoloft, Pravachol, Protonix. Dose sent and other medications reviewed. ALLERGIES: NONE. Family history, social history, review of systems could not be taken because of the patient's dementia. No history of smoking. No history of alcohol per chart. PHYSICAL EXAMINATION: Patient is conscious, confused. Pulse 97, blood pressure 103/60, respiration 22, temperature 97 degrees, pulse ox 94% on 2 L. HEENT: Conjunctivae normal. Oral mucosa moist. NECK: No jugular venous distention. No carotid bruit. No lymph node enlargement. CARDIOVASCULAR: S1, S2 muffled. RESPIRATION: Breath sounds diminished at the bases. A few scattered rhonchi. ABDOMEN: Soft, nontender. No mass palpable. LEGS: No edema. No swelling. NERVOUS SYSTEM: Higher functions as mentioned earlier. Moves all 4 limbs. No focal motor or sensory deficit. LYMPHATICS: No lymph node palpable in neck, axillae or groin. SKIN: No ulcer, rash, bleeding. JOINTS: No active deforming arthropathy. LABS: WBC , hemoglobin 9.2. D-dimer 6.61. Sodium is . ASSESSMENT: 1. Acute COVID-19 infection with acute COVID-19 early bilateral interstitial pneumonia with acute hypoxic respiratory failure. 2. Chronic obstructive pulmonary disease, acute exacerbation. 3. Elevated D-dimer. 4. Hyponatremia. 5. Elevated lactic acid, possibly secondary to dehydration. 6. Hypomagnesemia. 7. Increased random glucose. 8. Hypoalbuminemia. 9. Increased white count. 10.Anemia. 11.History of dementia. 12.Diabetes mellitus, type 2. 13.Hypertension. 14.Hyperlipidemia. 15.History of pelvis fracture recently. 16.Gait dysfunction. 17.Anxiety, depression. RECOMMENDATIONS AND DISCUSSION: In this 80-year-old woman who presented with multiple complex medical issues, as mentioned earlier, at this time I recommend to continue the current medications, continue symptomatic treatment. Otherwise continue with the bronchodilators, steroids, Lovenox. Will also consult Infectious Disease and Pulmonary for evaluation and possible initiation remdesivir. Otherwise, CT angio has been requested. Prognosis is guarded because of multiple complex medical issues. Home medication will be ordered when they are reconciled. Prognosis guarded. Discussed with family, the at the bedside, who understands and agrees. Further recommendations to follow. Dr. Narayan will follow the patient tomorrow. MMMICHELETL / IJN: [id number] /
[2021-04-25] MEDS: CHOLECALCIFEROL 25 MCG (1000 IU) TABLET PO SCH (19:00)
[2021-04-25] MEDS: dexAMETHasone 2 MG TAB PO SCH (19:00)
[2021-04-25] MEDS: ENOXAPARIN 30 MG/0.3 ML SYRINGE SQ SCH (19:01)
[2021-04-25] MEDS ORDERED: DEXAMETHASONE SOD PHOSPHATE 10 MG/ML 1 ML VIAL IVP SCH (21:00)
[2021-04-25] MEDS: ALBUTEROL HFA INHALER INHALATION PRN (21:38)
[2021-04-25] MEDS: SYMBICORT 80-4.5 MCG INHALER INHALATION SCH (21:38)
[2021-04-25] MEDS: NYSTATIN 100,000 UNIT/ML SUSP 500,000 UNIT/5 ML CUP PO SCH ×2 (22:01→22:34)
[2021-04-26] MEDS: SYMBICORT 80-4.5 MCG INHALER INHALATION SCH ×2 (09:18→19:24)
[2021-04-26] MEDS: ALBUTEROL HFA INHALER INHALATION PRN ×2 (09:18→19:24)
--- NOTE | 2021-04-26 09:51 | P.CNPUL ---
History of Present Illness Consult date: 04/26/21 Reason for consult: COPD History of present illness: 80-year-old female patient, known history of dementia, diabetes mellitus and chronic hypoxic respiratory failure due to COPD and the patient remains on oxygen at 2 L per minute nasal cannula. The patient presented to the hospital because of shortness of breath. She resides and a ECF. She reports some increased congestion in her chest. Her oxygenation wa not significantly impaired knowing that the patient was on home O2 at 2 L at home and currently she started 2 L with a pulse ox of 98%. In the emergency, the patient had an EKG that showed some sinus tachycardia. No acute ischemic changes. The chest x-ray showed no cardiopulmonary abnormalities. The patient's d-dimer was at 6. 6. The sodium level was 129 and the lactic acid level was at 2.4. Troponins were negative, COVID 19 testing was positive. The CTA of the chest was done that showed no evidence of any pulmonary embolism. There was background COPD and some minimal pulmonary fibrosis. No suspicious masses. The patient was hospitalized and she is currently under observation. 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 The patient is currently receiving Lovenox 30 mg subcu for DVT prophylaxis. She was also placed on Decadron 6 mg by mouth on a daily basis. She is on Symbicort regarding her COPD and albuterol HFA on a when necessary basis. Outpatient medications have been resumed.. The patient's LDH level was 525, CRP was at 20.4 Review of Systems Constitutional: Reports fatigue, Reports weakness Eyes: denies as per HPI, denies blurred vision, denies bulging eye, denies decreased vision, denies diplopia, denies discharge, denies dry eye, denies irritation, denies itching, denies pain, denies photophobia, denies loss of peripheral vision, denies loss of vision, denies tunnel vision/blind spots Ears: deny: decreased hearing, ear discharge, earache, tinnitus Ears, nose, mouth and throat: Reports as per HPI Breasts: absent: as per HPI, change in shape, gynecomastia, masses, nipple discharge, pain, skin changes, swelling Cardiovascular: Reports decreased exercise tolerance, Reports dyspnea on exertion Respiratory: Reports congestion, Reports cough, Reports dyspnea Gastrointestinal: Reports as per HPI Genitourinary: Reports as per HPI Menstruation: Reports as per HPI Musculoskeletal: Reports as per HPI Musculoskeletal: absent: ankle pain, ankle stiffness, ankle swelling Integumentary: Reports as per HPI Neurological: Reports memory loss, Reports weakness, Reports visual changes Psychiatric: Reports as per HPI Endocrine: Reports as per HPI Hematologic/Lymphatic: Reports as per HPI Allergic/Immunologic: Reports as per HPI Past Medical History Past Medical History: COPD, Dementia, Diabetes Mellitus, Hyperlipidemia, Hypertension Additional Past Medical History / Comment(s): Broken pelvis/hip no surgery History of Any Multi-Drug Resistant Organisms: Unobtainable Past Surgical History: Unable to Obtain Past Anesthesia/Blood Transfusion Reactions: No Reported Reaction Past Psychological History: Anxiety, Depression Smoking Status: Never smoker Past Alcohol Use History: None Reported Past Drug Use History: None Reported Medications and Allergies Home Medications Medication Instructions Recorded Confirmed Type Albuterol Sulfate [Proventil Hfa] 2 puff INHALATION RT-QID PRN 04/19/21 04/25/21 History Ferrous Sulfate [Iron (65 MG 325 mg PO DAILY 04/19/21 04/25/21 History Elemental)] Fexofenadine HCl [Treva Allergy] 180 mg PO DAILY PRN 04/19/21 04/25/21 History Fluticasone/Salmeterol [Advair 1 puff INHALATION RT-BID 04/19/21 04/25/21 History 250-50 Diskus] Memantine HCl [Memantine HCl ER] 28 mg PO DAILY 04/19/21 04/25/21 History Pravastatin Sodium [Pravachol] 40 mg PO DAILY 04/19/21 04/25/21 History Sertraline [Zoloft] 100 mg PO DAILY 04/19/21 04/25/21 History Tiotropium [place] [Spiriva] 1 cap INHALATION RT-DAILY 04/19/21 04/25/21 History lisinopriL 10 mg PO DAILY 04/19/21 04/25/21 History metFORMIN HCL 500 mg PO BID 04/19/21 04/25/21 History Nystatin 100,000 Unit/ml Susp 500,000 unit PO QID #100 ml 04/21/21 04/25/21 Rx [Mycostatin Oral Susp] Pantoprazole [Protonix] 40 mg PO DAILY #1 tab 04/21/21 04/25/21 Rx Albuterol Nebulized [Ventolin 2.5 mg INHALATION RT-Q4H PRN 04/25/21 04/25/21 History Nebulized] HYDROcodone/APAP 5-325MG [[place] 1 tab PO Q6H PRN 04/25/21 04/25/21 History 5-325] Insulin Lispro [humaLOG Kwikpen] See Protocol SQ ACHS 04/25/21 04/25/21 History Sertraline [Zoloft] 50 mg PO DAILY 04/25/21 04/25/21 History Allergies Allergy/AdvReac Type Severity Reaction Status Date / Time No Known Allergies Allergy Verified 04/25/21 14:57 Physical Exam Vitals: Vital Signs Temp Pulse Resp BP Pulse Ox 04/26/21 04:18 81 18 143/71 98 04/26/21 02:36 80 18 142/70 98 04/25/21 22:36 98.0 F 90 20 104/71 95 04/25/21 19:04 98.1 F 97 20 122/68 97 04/25/21 15:57 97.5 F L 99 18 117/64 98 04/25/21 13:20 97.0 F L 97 22 103/68 94 L General: Appears in mild respiratory distress nonlabored breathing HEAD: Normal with no signs of head trauma. EYES: PERRLA, EOMI, conjunctiva normal, no discharge. ENT: Hearing grossly intact, normal oropharynx. RESPIRATORY: Mild end expiratory wheezes bilaterally with slightly worsening the right lower lobe. No rhonchi. Mild increased work of breathing. Saturating well on home oxygen 2 L nasal cannula. C/V: Borderline tachycardia with a regular rhythm. S1 and S2 auscultated. No peripheral edema. Peripheral pulses are 2+ intact throughout. ABD: Abd is soft, nontender, nondistended EXT: Normal range of motion, no obvious deformity SKIN: No rashes or lesions observed on exposed skin. NEURO: Alert and oriented to baseline. No focal deficits. Limitations: altered mental status Results - Laboratory Findings CBC and BMP: 04/25/21 14:05 04/25/21 14:05 PT/INR, D-dimer PT 9.7 sec (9.0-12.0) 04/25/21 14:05 INR 0.9 (<1.2) 04/25/21 14:05 D-Dimer 6.61 mg/L FEU (<0.60) H 04/25/21 14:05 Abnormal lab findings: Abnormal Labs 04/25/21 04/25/21 04/25/21 14:05 14:05 14:05 WBC 10.8 H RBC 3.07 L Hgb 9.2 L Hct 27.0 L Neutrophils # 9.6 H Lymphocytes # 0.4 L APTT 21.7 L D-Dimer 6.61 H Sodium 129 L Chloride 94 L BUN 23 H Glucose 318 H Plasma Lactic Acid [place] Magnesium 1.1 L C-Reactive Protein Total Protein 5.6 L Albumin 3.2 L Coronavirus (PCR) 04/25/21 04/25/21 04/25/21 14:05 14:05 14:58 WBC RBC Hgb Hct Neutrophils # Lymphocytes # APTT D-Dimer Sodium Chloride BUN Glucose Plasma Lactic Acid [place] 2.4 H* Magnesium 1.1 L C-Reactive Protein 20.4 H Total Protein Albumin Coronavirus (PCR) Detected A - Diagnostic Findings Chest x-ray: image reviewed CT scan - chest: image reviewed Assessment and Plan Plan: 1 acute COVID 19 infection without clear indication for pneumonia. CTA shows no evidence of any pulmonary embolism. CTA shows no evidence of any groundglass pulmonary infiltrates and this is a very sensitive test identified early COVID 19 infection. Oxygenation has been unchanged and the patient still on 2 L ap proximately nasal cannula 2 COPD with possible exacerbation, and secondary shortness of breath, noted the patient has significant amount of COPD and initially has chronic hypoxic respiratory failure maintained on oxygen at home at 2 L per minute nasal cannula. 3 chronic hypoxic respiratory failure currently on 2 L by nasal cannula 4 dementia 5 diabetes mellitus 6 hyperlipidemia 7 hyponatremia with a sodium level of 129 8 history of depression 9 history of degenerative arthritis Plan Monitor the oxygenation currently on 2 L by nasal cannula Continue Decadron restart Spiriva and continue Symbicort for now Provide the patient incentive spirometer Ventolin 4 times a day [id number] Inflammatory markers are low Lovenox for DVT prophylaxis Monitor sodium level Outpatient medications have been resumed. We'll continue to follow
[2021-04-26] MEDS: CHOLECALCIFEROL 25 MCG (1000 IU) TABLET PO SCH (10:12)
[2021-04-26] MEDS: PANTOPRAZOLE 40 MG TABLET PO SCH (10:12)
[2021-04-26] MEDS: lisinopriL 10 MG TAB PO SCH (10:12)
[2021-04-26] MEDS: FERROUS SULFATE 325 MG TAB PO SCH (10:12)
[2021-04-26] MEDS: NYSTATIN 100,000 UNIT/ML SUSP 500,000 UNIT/5 ML CUP PO SCH ×4 (10:12→20:09)
[2021-04-26] MEDS: dexAMETHasone 2 MG TAB PO SCH (10:12)
[2021-04-26 10:22] LABS: Basophils # (A) 0 X 10*3/uL (0.00-0.10); Basophils % (A) 0 %; Eosinophils # (A) 0 X 10*3/uL (0.04-0.35); Eosinophils % (A) 0 %; HCT 25.8 % (37.2-46.3); HGB 8.2 g/dL (12.0-15.0); Lymphocytes # (A) 0.33 X 10*3/uL (0.90-5.00); Lymphocytes % (A) 4.2 %; MCHC 31.8 g/dL (32.0-37.0); MCV 91.2 fL (80.0-97.0); Mean Platelet Volume 10.7 fL (9.5-12.2); Monocytes % (A) 3.8 %; Neutrophils # (A) 7.16 X 10*3/uL (1.80-7.70); Neutrophils % (A) 91.5 %; Platelet Count 280 X 10*3/uL (140-440); RBC 2.83 X 10*6/uL (4.10-5.20); RDW 12.4 % (11.5-14.5); WBC 7.83 X 10*3/uL (4.50-10.00)
[2021-04-26] MEDS: PRAVASTATIN SODIUM 40 MG TAB PO SCH (10:27)
[2021-04-26] MEDS: MEMANTINE 10 MG TAB PO SCH ×2 (10:27→20:09)
[2021-04-26] MEDS: SERTRALINE 100 MG TAB PO SCH (10:27)
[2021-04-26] MEDS: ENOXAPARIN 30 MG/0.3 ML SYRINGE SQ SCH (10:27)
[2021-04-26 11:25] LABS: African American GFR (CKD) 107.4 (60.0-200.0); Albumin 3.5 g/dL (3.8-4.9); Albumin/Globulin Ratio 1.59 (1.60-3.17); Anion Gap 13.6 mmol/L (10.00-18.00); BUN/Creat Ratio 42.8 Ratio (12.00-20.00); Blood Urea Nitrogen 21.4 mg/dL (9.0-27.0); Carbon Dioxide 25.4 mmol/L (20.0-27.5); Globulin 2.2 g/dL (1.6-3.3); Non-African American GFR(CKD) 92.7 (60.0-200.0); Potassium 4.1 mmol/L (3.5-5.5); Total Bilirubin 0.4 mg/dL (0.30-1.20); Total Protein 5.7 g/dL (6.2-8.2)
[2021-04-26] MEDS: SERTRALINE 50 MG TAB PO SCH (12:57)
--- NOTE | 2021-04-26 16:14 | P.PN ---
Subjective Progress Note Date: 04/26/21 This is 80-year-old female recently discharged to [facility] subacute rehab secondary to pelvic fracture, hyponatremia and multiple other medical issues, returned to the hospital with acute COVID-19 infection, possible acute COPD exacerbation chronic hypoxic respiratory failure and multiple other medical iss ues. Sodium on admission was 29, now within normal limits. Maintained on covid cocktail including Decadron, bronchodilators. Currently denies cough, congestion, the respiratory therapist does report patient did have yesterday. Maintaining O2 sats in the high 90s on 2 L nasal cannula. Objective - Vital Signs Vital signs: Vital Signs Temp 98.7 F 04/26/21 09:33 Pulse 87 04/26/21 09:33 Resp 18 04/26/21 09:33 BP 146/63 04/26/21 09:33 Pulse Ox 92 L 04/26/21 09:33 Intake & Output 04/25/21 04/26/21 04/26/21 18:59 06:59 18:59 Weight 74.843 kg 74.843 kg Other: Voiding Method Indwelling Catheter - Exam - Exam PHYSICAL EXAM: VITAL SIGNS: [As above] GENERAL: Sitting up in bed, no acute distress, cooperative HEENT: Conjunctivae normal. eyes normal. NECK: Supple, No JVD. No thyroid enlargement. No LNs CARDIOVASCULAR: S1, S2 regular. No murmur RESPIRATION: Breath sounds diminished in the bases. Scattered rhonchi, no crackles. ABDOMEN: Soft, nondistended, nontender . No guarding. no masses palpable. No ascites, No hepatosplenomegaly.Bowel sounds heard. LEGS: No edema. no swelling PSYCHIATRY: Alert and oriented X2, cooperative, follows simple commands NERVOUS SYSTEM: Limited exam, Diffuse weakness, no focal deficits Skin: Warm and dry, no rash - Labs CBC & Chem 7: 04/26/21 06:21 04/26/21 06:21 Labs: Abnormal Lab Results - Last 24 Hours (Table) 04/25/21 04/25/21 04/26/21 Range/Units 14:58 14:58 06:21 RBC 2.83 L (4.10-5.20) X 10*6/uL Hgb 8.2 L (12.0-15.0) g/dL Hct 25.8 L (37.2-46.3) % MCHC 31.8 L (32.0-37.0) g/dL Lymphocytes # 0.33 L (0.90-5.00) X 10*3/uL Eosinophils # 0 L (0.04-0.35) X 10*3/uL Creatinine (0.6-1.5) mg/dL BUN/Creatinine Ratio (12.00-20.00) Ratio Glucose (70-110) mg/dL Magnesium 1.1 L (1.6-2.3) mg/dL C-Reactive Protein 20.4 H (<1.0) mg/dL Total Protein (6.2-8.2) g/dL Albumin (3.8-4.9) g/dL Albumin/Globulin Ratio (1.60-3.17) g/dL Procalcitonin 0.13 H (0.02-0.09) ng/mL 04/26/21 Range/Units 06:21 RBC (4.10-5.20) X 10*6/uL Hgb (12.0-15.0) g/dL Hct (37.2-46.3) % MCHC (32.0-37.0) g/dL Lymphocytes # (0.90-5.00) X 10*3/uL Eosinophils # (0.04-0.35) X 10*3/uL Creatinine 0.5 L (0.6-1.5) mg/dL BUN/Creatinine Ratio 42.80 H (12.00-20.00) Ratio Glucose 379 H (70-110) mg/dL Magnesium (1.6-2.3) mg/dL C-Reactive Protein (<1.0) mg/dL Total Protein 5.7 L (6.2-8.2) g/dL Albumin 3.5 L (3.8-4.9) g/dL Albumin/Globulin Ratio 1.59 L (1.60-3.17) g/dL Procalcitonin (0.02-0.09) ng/mL Assessment and Plan Assessment: Acute-19 Infection Possible acute COPD exacerbation Chronic respiratory failure, maintained on 2 L nasal cannula at home Recent Pubis ramus fracture status post fall, conservative treatment as per ort hopedic surgery Recent Retroperitoneal hematoma, insignificant as per general surgery,status post fall Hyponatremia, resolved Osteopenia Osteoarthritis bilateral hips Cervical degenerative disc disease Diabetes Hypertension Hyperlipidemia COPD Dementia Iron deficiency Plan: Continue on current medication regime ,monitoring and symptomatic treatment. Maintain COvid [place].Close monitoring of inflammatory markers. DVT prophylaxis with Lovenox and placed. Bronchodilators with Ventolin around- the-clock as per pulmonary. Sodium level is within normal limits. Follow closely with pulmonary/infectious disease. The impression and plan of care has been dictated as directed. : I performed a history and examination of this patient, discussed the same with the dictator. I agree with the dictator's note ,documented as a scribe. Any additional findings or plans will be noted.
[2021-04-26] MEDS: HYDROcodone/APAP 5-325MG 1 EACH TAB PO PRN (20:09)
[2021-04-27 05:55] LABS: C Reactive Protein 13.9 mg/dL (<1.0)
--- NOTE | 2021-04-27 08:17 | P.CONS ---
History of Present Illness - Reason for Consult Consult date: 04/26/21 covid 19 pneumonia Requesting physician: Michael Veras - Chief Complaint chest congestion x few days - History of Present Illness History of present illness : Patient is 80-year female with a past medical history significant for diabetes mellitus COPD on home O2 jail resident patient was brought into the hospital for evaluation of chest congestion in this patient symptom has been going on for a day or 2 before the patient was sent to the hospital on arrival to the ER the patient has been afebrile and no fever has been recorded subsequently patient is currently 95% on 2 L nasal cannula that is her baseline patient did have a mild elevated white count with a left shift as well as lymphopenia did have elevated D-dimer creatinine was normal liver enzymes are normal patient did have a chest x-ray no active cardiopulmonary disease and no change patient did have a CT angiogram of the chest there was negative for PE minimal fibrosis did not show significant groundglass opacities patient did have a positive Covid test she has been admitted to hospital infectious disease was consulted for further management most information has been obtained from review the chart as the patient herself evaluated good historian Review of system: Positive point has been mentioned in HPI complete review could not be obtained because of underlying mental status Past medical history : Reviewed, documented below Past surgical history : Reviewed, documented below Social history: Reviewed, documented below Medications: Reviewed, as documented below EXAMINATION: Vital sigans= Reviewed and documented below GENERAL DESCRIPTION: Elderly female lying in bed, no distress. No tachypnea or accessory muscle of respiration use. HEENT: Shows Pallor , no scleral icterus. Oral mucous membrane is dry. NECK: Trachea central, no thyromegaly. LUNGS: Unlabored breathing coarse breath sounds bilaterally. No wheeze or crackle. HEART: S1, S2, regular rate and rhythm. ABDOMEN: Soft, no tenderness , guarding or rigidity EXTREMITIES: No edema of feet. SKIN: No rash, no masses palpable. NEUROLOGICAL: The patient is awake, alert, oriented x1, mood and affect normal. LABS AND RADIOLOGY: Reviewed results see below Assessment : Patient presented to hospital with chest congestion plan the patient have a cough patient currently with no fever, chest x-ray was negative f or acute infiltrate CT angiogram did not show PE and no significant groundglass opacities with antibiotic for COVID-19 pneumonia more likely mild illness and would be more likely dealing with COPD exacerbation with tracheobronchitis clinic suspicion for secondary bacterial pneumonia Plan: 1-patient to continue with dexamethasone her Lovenox zinc and ascorbic acid 2-not a candidate for remdesivir 3-droplet isolation and respiratory support We will follow on clinical condition and cultures to further adjust medication if needed Thank you for this consultation we will follow the patient along with you Past Medical History Past Medical History: Asthma, COPD, Dementia, Diabetes Mellitus, Hyperlipidemia, Hypertension, Pneumonia, Respiratory Disorder, Vascular Disorder Additional Past Medical History / Comment(s): Pt recently admitted to [facility] on 04/19/21 with pelvic/hip fracture/IDC/no surgery/sent to rehab. Other hx: NIDDM tyoe II, chronic hypoxic respiratory failure/oxygen 2L/NC at HS/prn recently started "pocketing food", minimal pulmonary fibrosis, degenerative arthritis, varicosities with surgery, iron anemia. History of Any Multi-Drug Resistant Organisms: None Reported Past Surgical History: Appendectomy, Cholecystectomy, Hysterectomy Additional Past Surgical History / Comment(s): Colonoscopy/polypectomy, varicose vein surgery. Past Anesthesia/Blood Transfusion Reactions: No Reported Reaction Smoking Status: Former smoker - Past Family History Father Family Medical History: Myocardial Infarction (NC) Additional Family Medical History / Comment(s): Father of a massive NC at the age of 69yrs. Mother Family Medical History: Cancer Additional Family Medical History / Comment(s): Mother of lung cancer at the age of 49 yrs. Medications and Allergies Home Medications Medication Instructions Recorded Confirmed Type Albuterol Sulfate [Proventil Hfa] 2 puff INHALATION RT-QID PRN 04/19/21 04/25/21 History Ferrous Sulfate [Iron (65 MG 325 mg PO DAILY 04/19/21 04/25/21 History Elemental)] Fexofenadine HCl [Treva Allergy] 180 mg PO DAILY PRN 04/19/21 04/25/21 History Fluticasone/Salmeterol [Advair 1 puff INHALATION RT-BID 04/19/21 04/25/21 History 250-50 Diskus] Memantine HCl [Memantine HCl ER] 28 mg PO DAILY 04/19/21 04/25/21 History Pravastatin Sodium [Pravachol] 40 mg PO DAILY 04/19/21 04/25/21 History Sertraline [Zoloft] 100 mg PO DAILY 04/19/21 04/25/21 History Tiotropium [place] [Spiriva] 1 cap INHALATION RT-DAILY 04/19/21 04/25/21 History lisinopriL 10 mg PO DAILY 04/19/21 04/25/21 History metFORMIN HCL 500 mg PO BID 04/19/21 04/25/21 History Nystatin 100,000 Unit/ml Susp 500,000 unit PO QID #100 ml 04/21/21 04/25/21 Rx [Mycostatin Oral Susp] Pantoprazole [Protonix] 40 mg PO DAILY #1 tab 04/21/21 04/25/21 Rx Albuterol Nebulized [Ventolin 2.5 mg INHALATION RT-Q4H PRN 04/25/21 04/25/21 History Nebulized] HYDROcodone/APAP 5-325MG [[place] 1 tab PO Q6H PRN 04/25/21 04/25/21 History 5-325] Insulin Lispro [humaLOG Kwikpen] See Protocol SQ ACHS 04/25/21 04/25/21 History Sertraline [Zoloft] 50 mg PO DAILY 04/25/21 04/25/21 History Allergies Allergy/AdvReac Type Severity Reaction Status Date / Time No Known Allergies Allergy Verified 04/25/21 14:57 Physical Exam Vitals: Vital Signs Temp Pulse Resp BP Pulse Ox 04/27/21 06:33 98.2 F 18 198/91 93 L 04/26/21 20:00 100.8 F H 110 H 18 171/77 95 04/26/21 14:00 98.5 F 77 18 157/87 95 04/26/21 09:33 98.7 F 87 18 146/63 92 L Intake and Output 04/26/21 04/27/21 04/27/21 22:59 06:59 14:59 Intake Total 1180 Output Total 2200 1600 Balance -1020 -1600 Intake: Oral 1180 Output: Urine 2200 1600 Other: Voiding Method Indwelling Catheter # Voids 1 Results CBC & Chem 7: 04/26/21 06:21 04/26/21 06:21 Labs: Abnormal Lab Results - Last 24 Hours (Table) 04/25/21 04/26/21 04/26/21 Range/Units 14:58 06:21 06:21 RBC 2.83 L (4.10-5.20) X 10*6/uL Hgb 8.2 L (12.0-15.0) g/dL Hct 25.8 L (37.2-46.3) % MCHC 31.8 L (32.0-37.0) g/dL Lymphocytes # 0.33 L (0.90-5.00) X 10*3/uL Eosinophils # 0 L (0.04-0.35) X 10*3/uL D-Dimer (<0.60) mg/L FEU Creatinine 0.5 L (0.6-1.5) mg/dL BUN/Creatinine Ratio 42.80 H (12.00-20.00) Ratio Glucose 379 H (70-110) mg/dL C-Reactive Protein (<1.0) mg/dL Total Protein 5.7 L (6.2-8.2) g/dL Albumin 3.5 L (3.8-4.9) g/dL Albumin/Globulin Ratio 1.59 L (1.60-3.17) g/dL Procalcitonin 0.13 H (0.02-0.09) ng/mL 04/27/21 04/27/21 Range/Units 04:03 04:03 RBC (4.10-5.20) X 10*6/uL Hgb (12.0-15.0) g/dL Hct (37.2-46.3) % MCHC (32.0-37.0) g/dL Lymphocytes # (0.90-5.00) X 10*3/uL Eosinophils # (0.04-0.35) X 10*3/uL D-Dimer 5.39 H (<0.60) mg/L FEU Creatinine (0.6-1.5) mg/dL BUN/Creatinine Ratio (12.00-20.00) Ratio Glucose (70-110) mg/dL C-Reactive Protein 13.9 H (<1.0) mg/dL Total Protein (6.2-8.2) g/dL Albumin (3.8-4.9) g/dL Albumin/Globulin Ratio (1.60-3.17) g/dL Procalcitonin (0.02-0.09) ng/mL
[2021-04-27] MEDS: TIOTROPIUM 2.5 MCG INHALER INHALATION SCH (08:37)
[2021-04-27] MEDS: SYMBICORT 80-4.5 MCG INHALER INHALATION SCH ×2 (08:37→20:28)
[2021-04-27] MEDS: ALBUTEROL HFA INHALER INHALATION PRN ×3 (08:37→20:28)
[2021-04-27] MEDS: dexAMETHasone 2 MG TAB PO SCH (09:11)
[2021-04-27] MEDS: MEMANTINE 10 MG TAB PO SCH ×2 (09:12→21:42)
[2021-04-27] MEDS: ENOXAPARIN 30 MG/0.3 ML SYRINGE SQ SCH (09:12)
[2021-04-27] MEDS: NYSTATIN 100,000 UNIT/ML SUSP 500,000 UNIT/5 ML CUP PO SCH ×4 (09:12→21:38)
[2021-04-27] MEDS: CHOLECALCIFEROL 25 MCG (1000 IU) TABLET PO SCH (09:12)
[2021-04-27] MEDS: lisinopriL 10 MG TAB PO SCH (09:12)
[2021-04-27] MEDS: PANTOPRAZOLE 40 MG TABLET PO SCH (09:12)
[2021-04-27] MEDS: FERROUS SULFATE 325 MG TAB PO SCH (09:12)
[2021-04-27] MEDS: SERTRALINE 50 MG TAB PO SCH (09:13)
[2021-04-27] MEDS: PRAVASTATIN SODIUM 40 MG TAB PO SCH (09:13)
[2021-04-27] MEDS: SERTRALINE 100 MG TAB PO SCH (09:13)
[2021-04-27] MEDS ORDERED: METOPROLOL TARTRATE 25 MG TAB PO SCH (14:00)
[2021-04-27] MEDS ORDERED: DILTIAZEM DRIP BOLUS FROM BAG 1 MG SOLN IV ONE (14:07)
--- NOTE | 2021-04-27 14:07 | P.PN ---
Subjective Progress Note Date: 04/27/21 80-year-old female patient, known history of dementia, diabetes mellitus and chronic hypoxic respiratory failure due to COPD and the patient remains on oxygen at 2 L per minute nasal cannula. The patient presented to the hospital because of shortness of breath. She resides and a ECF. She reports some increased congestion in her chest. Her oxygenation wa not significantly impaired knowing that the patient was on home O2 at 2 L at home and currently she started 2 L with a pulse ox of 98%. In the emergency, the patient had an EKG that showed some sinus tachycardia. No acute ischemic changes. The chest x-ray showed no cardiopulmonary abnormalities. The patient's d-dimer was at 6.6. The sodium level was 129 and the lactic acid level was at 2.4. Troponins were negative, COVID 19 testing was positive. The CTA of the chest was done that showed no evidence of any pulmonary embolism. There was background COPD and some minimal pulmonary fibrosis. No suspicious masses. The patient was hos pitalized and she is currently under observation. 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 The patient is currently receiving Lovenox 30 mg subcu for DVT prophylaxis. She was also placed on Decadron 6 mg by mouth on a daily basis. She is on Symbicort regarding her COPD and albuterol HFA on a when necessary basis. Outpatient medications have been resumed.. The patient's LDH level was 525, CRP was at 20.4 On 04/27/2021, seeing this patient for a follow-up. The patient was hospitalized for COPD exacerbation and the patient was also found to be COVID 19 positive. Nevertheless, the CT scan of the chest did not show any significant groundglass pulmonary abnormalities to indicate COVID 19 pneumonia. The patient remains on bronchodilators. The patient remains on Decadron. She remains on Lovenox 40 mg subcu for DVT prophylaxis. The d-dimer today is at 5.39. No other new labs are available other than a LDH level which is still low at 588 and a CRP level of 15.9 which is lower compared to yesterday. Pro-calcitonin level at time of admission was 0.13. Rest of the electrolytes are all within normal limits patient remains on 2 L. She spiked a low-grade temperature 100.8 yesterday and currently she is afebrile. Further monitoring today revealed that the patient had developed a atrial fibrillation RVR and patient's heart rate is currently in the 150 range. As such, the patient is going to the chest at the telemetry to be started on a Cardizem drip. She is not known to have any history of atrial fibrillation the past. She is currently having regular rhythm which is quite tachycardic and the patient will have a 12-lead EKG. She denies having any chest pain. She continues to have a congested cough. Objective - Vital Signs Vital signs: Vital Signs Temp 98.2 F 04/27/21 06:33 Pulse 110 H 04/26/21 20:00 Resp 18 04/27/21 06:33 BP 198/91 04/27/21 06:33 Pulse Ox 93 L 04/27/21 06:33 Intake & Output 04/26/21 04/27/21 04/27/21 18:59 06:59 18:59 Intake Total 1180 Output Total 2200 1600 Balance -1020 -1600 Weight 74.843 kg Intake: Oral 1180 Output: Urine 2200 1600 Other: Voiding Method Indwelling Catheter Indwelling Catheter Indwelling Catheter # Voids 1 - Exam General: Appears in mild respiratory distress nonlabored breathing, currently on 2 L nasal cannula HEAD: Normal with no signs of head trauma. EYES: PERRLA, EOMI, conjunctiva normal, no discharge. ENT: Hearing grossly intact, normal oropharynx. RESPIRATORY: Mild end expiratory wheezes bilaterally with slightly worsening the right lower lobe. No rhonchi. Mild increased work of breathing. Saturating well on home oxygen 2 L nasal cannula. C/V: Irregular rate and rhythm consistent with atrial fibrillation with rapid ventricular response. No peripheral edema. Peripheral pulses are 2+ intact throughout. ABD: Abd is soft, nontender, nondistended EXT: Normal range of motion, no obvious deformity SKIN: No rashes or lesions observed on exposed skin. NEURO: Alert and oriented to baseline. No focal deficits. Limitations: altered mental status - Labs CBC & Chem 7: 04/26/21 06:21 04/26/21 06:21 Labs: Abnormal Lab Results - Last 24 Hours (Table) 04/27/21 04/27/21 Range/Units 04:03 04:03 D-Dimer 5.39 H (<0.60) mg/L FEU C-Reactive Protein 13.9 H (<1.0) mg/dL Assessment and Plan Plan: 1 acute COVID 19 infection without clear indication for pneumonia. CTA shows no evidence of any pulmonary embolism. CTA shows no evidence of any groundglass pulmonary infiltrates and this is a very sensitive test identified early COVID 19 infection. Oxygenation has been unchanged and the patient still on 2 L approximately nasal cannula 2 COPD with possible exacerbation, and secondary shortness of breath, noted the patient has significant amount of COPD and initially has chronic hypoxic respiratory failure maintained on oxygen at home at 2 L per minute nasal cannula. 3 chronic hypoxic respiratory failure currently on 2 L by nasal cannula 4 new onset atrial fibrillation with rapid ventricular response, currently the patient is quite tachycardic and she is free of any chest pain. 5 diabetes mellitus 6 hyperlipidemia 7 hyponatremia with a sodium level of 129 8 history of depression 9 history of degenerative arthritis Plan Transfer this patient to a telemetry unit in regards to her new atrial fibrillation. The patient is to be on a monitored bed and the patient will need Cardizem drip to be started 5 mg an hour. Obtain echocardiogram. Proceed with IV heparin. Stop Lovenox. We'll obtain 12-lead EKG. Monitor the oxygenation currently on 2 L by nasal cannula Discontinue Decadron and put the patient on IV Solu-Medrol 60 mg every 6 hours Continue Spiriva and continue Symbicort for now Provide the patient incentive spirometer Ventolin 4 times a day [id number] Inflammatory markers are low Lovenox for DVT prophylaxis Monitor sodium level Cardiology consultation Check free T4 and TSH and troponins will continue to follow. She is a full CODE STATUS at this point in time.
[2021-04-27] MEDS ORDERED: HEPARIN SODIUM 1,000 UN/ML (10ML VL) IV ONE (14:09)
[2021-04-27] MEDS ORDERED: HEPARIN SODIUM 1,000 UN/ML (10ML VL) IV PRN (14:09)
[2021-04-27] MEDS ORDERED: DILTIAZEM 125 MG in SODIUM CHLORIDE 0.9% 100 ML IV SCH (14:15)
[2021-04-27] MEDS ORDERED: HEPARIN SOD,PORK IN 0.45% NACL 25,000 UNIT in 0.45% NACL 1 250ML.BAG IV SCH (14:15)
[2021-04-27] MEDS: hydrALAZINE HCL 25 MG TAB PO SCH ×2 (14:42→21:42)
[2021-04-27] MEDS ORDERED: amLODIPine 5 MG TAB PO SCH (14:45)
[2021-04-27] MEDS ORDERED: METOPROLOL TARTRATE 50 MG TAB PO SCH (14:45)
--- NOTE | 2021-04-27 14:59 | P.CRDCN ---
History of Present Illness History of present illness: HISTORY OF PRESENTING ILLNESS This is a pleasant 80-year-old female past medical history significant for COPD, hypertension, type 2 diabetes, hyperlipidemia, asthma, dementia, former tobacco use. She does not follow with a sheet sorter. We have been asked to see in consultation for elevated heart rate Patient is seen and examined in Observation Unit. She was admitted on 04/25/2021 from a [facility] with congestion and shortness of breath. Patient was found to be COVID-19 19 positive. While nursing was taking vital signs patient's heart rate was noted to be elevated 130-140s, there was concern that the patient may be in atrial fibrillation. Patient is not on telemetry.. Patient denies any chest pain, palpitations, lightheadedness, dizziness. She states her breathing has improved since admission. She denies history of coronary disease, stroke, MA or atrial fibrillation. She is a former smoker and quit in 2018. EKG at bedside reveals sinus tachycardia with PACs, heart rate 131,non-specific ST or T-wave abnormalities.. EKG on admission reveals sinus tachycardia. Patient not on telemetry to review. DIAGNOSTICS Chest CT revealed no evidence of pulmonary embolism, COPD, minimal pulmonary fibrosis. Laboratory reviewed, troponin negative 1, sodium 135, potassium 4.1, BUN 21, serum creatinine 0.5, magnesium 1.1, d-dimer 5.3, COVID-19 19 PCR positive, WBC 7.8, hemoglobin 8.2, platelets 280. Current home medications include lisinopril 10 mg daily, pravastatin 40 mg daily, metformin 500 mg twice a day, Protonix, insulin, albuterol, spirivia REVIEW OF SYSTEMS At the time of my exam: CONSTITUTIONAL: Denies fever or chills. CARDIOVASCULAR: +shortness of breath Denies chest pain, orthopnea, PND or palpitations. RESPIRATORY: + cough. GASTROINTESTINAL: Denies abdominal pain, diarrhea, constipation, nausea or vomiting. MUSCULOSKELETAL: Denies myalgias. NEUROLOGIC: Denies numbness, tingling, headacbe or weakness. ENDOCRINE: Denies fatigue, weight change, polydipsia or polyurina. GENITOURINARY: Denies burning, hematuria or urgency with micturation. HEMATOLOGIC: +history of anemia Denies bleeding. PHYSICAL EXAMINATION Vitals 200/98 heart rate 130s, afebrile, oxygen saturation is greater than 92% 2 L nasal cannula CONSTITUTIONAL: No apparent distress. HEENT: Head is normocephalic. Pupils are equal, round. Sclerae anicteric. Mucous membranes of the mouth are moist. No JVD. No carotid bruit. CHEST EXAMINATION: Lungs are diminished with wheezing bilaterally to auscultation. No chest wall tenderness is noted on palpation or with deep breathing. HEART EXAMINATION: Regular, tachycardic rate and rhythm. S1, S2 heard. Difficult to assess murmur due to lung status ABDOMEN: Soft, nontender. Positive bowel sounds. EXTREMITIES: 2+ peripheral pulses, no lower extremity edema and no calf tenderness. SKIN: warm, dry, pale NEUROLOGIC EXAMINATION: Patient is awake, alert and oriented x3. ASSESSMENT Sinus tachycardia with frequent PACs COVID-19 infection COPD Type 2 Diabetes Hyperlipidemia Hyponatremia, improved Former nicotine use PLAN -Place patient on cardiac telemetry -Start verapamil 80mg TID -Continue metoprolol, statin, lisinopril -Restart subq lovenox -2D echocardiogram ordered -Further recommendations based on evaluation by Dr. Harris and clinical course Nurse Practitioner note has been reviewed, I agree with a documented findings and plan of care. Past Medical History Past Medical History: Asthma, COPD, Dementia, Diabetes Mellitus, Hyperlipidemia, Hypertension, Pneumonia, Respiratory Disorder, Vascular Disorder Additional Past Medical History / Comment(s): Pt recently admitted to [facility] on 04/19/21 with pelvic/hip fracture/IDC/no surgery/sent to rehab. Other hx: NIDDM tyoe II, chronic hypoxic respiratory failure/oxygen 2L/NC at HS/prn recently started "pocketing food", minimal pulmonary fibrosis, degenerative arthritis, varicosities with surgery, iron anemia. History of Any Multi-Drug Resistant Organisms: None Reported Past Surgical History: Appendectomy, Cholecystectomy, Hysterectomy Additional Past Surgical History / Comment(s): Colonoscopy/polypectomy, varicose vein surgery. Past Anesthesia/Blood Transfusion Reactions: No Reported Reaction Smoking Status: Former smoker - Past Family History Father Family Medical History: Myocardial Infarction (MA) Additional Family Medical History / Comment(s): Father of a massive MA at the age of 69yrs. Mother Family Medical History: Cancer Additional Family Medical History / Comment(s): Mother of lung cancer at the age of 49 yrs. Medications and Allergies Home Medications Medication Instructions Recorded Confirmed Type Albuterol Sulfate [Proventil Hfa] 2 puff INHALATION RT-QID PRN 04/19/21 04/25/21 History Ferrous Sulfate [Iron (65 MG 325 mg PO DAILY 04/19/21 04/25/21 History Elemental)] Fexofenadine HCl [Treva Allergy] 180 mg PO DAILY PRN 04/19/21 04/25/21 History Fluticasone/Salmeterol [Advair 1 puff INHALATION RT-BID 04/19/21 04/25/21 History 250-50 Diskus] Memantine HCl [Memantine HCl ER] 28 mg PO DAILY 04/19/21 04/25/21 History Pravastatin Sodium [Pravachol] 40 mg PO DAILY 04/19/21 04/25/21 History Sertraline [Zoloft] 100 mg PO DAILY 04/19/21 04/25/21 History Tiotropium [place] [Spiriva] 1 cap INHALATION RT-DAILY 04/19/21 04/25/21 History lisinopriL 10 mg PO DAILY 04/19/21 04/25/21 History metFORMIN HCL 500 mg PO BID 04/19/21 04/25/21 History Nystatin 100,000 Unit/ml Susp 500,000 unit PO QID #100 ml 04/21/21 04/25/21 Rx [Mycostatin Oral Susp] Pantoprazole [Protonix] 40 mg PO DAILY #1 tab 04/21/21 04/25/21 Rx Albuterol Nebulized [Ventolin 2.5 mg INHALATION RT-Q4H PRN 04/25/21 04/25/21 History Nebulized] HYDROcodone/APAP 5-325MG [[place] 1 tab PO Q6H PRN 04/25/21 04/25/21 History 5-325] Insulin Lispro [humaLOG Kwikpen] See Protocol SQ ACHS 04/25/21 04/25/21 History Sertraline [Zoloft] 50 mg PO DAILY 04/25/21 04/25/21 History Allergies Allergy/AdvReac Type Severity Reaction Status Date / Time No Known Allergies Allergy Verified 04/25/21 14:57 Physical Exam Vitals: Vital Signs Temp Pulse Resp BP Pulse Ox 04/27/21 13:59 98.6 F 140 H 200/98 90 L 04/27/21 06:33 98.2 F 18 198/91 93 L 04/26/21 20:00 100.8 F H 110 H 18 171/77 95 Intake and Output 04/26/21 04/27/21 04/27/21 22:59 06:59 14:59 Intake Total 1180 Output Total 2200 1600 Balance -1020 -1600 Intake: Oral 1180 Output: Urine 2200 1600 Other: Voiding Method Indwelling Catheter Indwelling Catheter # Voids 1 Results 04/26/21 06:21 04/26/21 06:21 Cardiac Enzymes 04/27/21 Range/Units 04:03 Lactate Dehydrogenase 588 (313-618) U/L Current Medications Generic Name Dose Route Start Last Admin Trade Name Freq PRN Reason Stop Dose Admin Acetaminophen 650 mg 04/25/21 14:58 Acetaminophen Tab 325 Mg Tab PO Q4HR PRN Fever>101 Hydrocodone Bitart/Acetaminophen 1 each 04/25/21 15:56 04/26/21 20:09 Hydrocodone/Apap 5-325mg 1 Each Tab PO 1 each Q6H PRN Administration Pain Albuterol Sulfate 2 puff 04/25/21 14:58 04/27/21 12:09 Albuterol Hfa Inhaler INHALATION 2 puff RT-Q6H PRN Administration Shortness Of Breath Or Wheezing Budesonide/Formoterol Fumarate 2 puff 04/25/21 20:00 04/27/21 08:37 Symbicort 80-4.5 Mcg Inhaler INHALATION 2 puff RT-BID CADEN Administration Cholecalciferol 25 mcg 04/25/21 16:00 04/27/21 09:12 Cholecalciferol 25 Mcg (1000 Iu) Tablet PO 25 mcg DAILY CADEN Administration Dexamethasone 6 mg 04/25/21 18:00 04/27/21 09:11 Dexamethasone 2 Mg Tab PO 6 mg DAILY CADEN Administration Enoxaparin Sodium 30 mg 04/25/21 18:00 04/27/21 09:12 Enoxaparin 30 Mg/0.3 Ml Syringe SQ 30 mg DAILY CADEN Administration Ferrous Sulfate 325 mg 04/26/21 09:00 04/27/21 09:12 Ferrous Sulfate 325 Mg Tab PO 325 mg DAILY CADEN Administration Hydralazine HCl 25 mg 04/27/21 13:54 Hydralazine Hcl 25 Mg Tab PO TID CADEN Lisinopril 10 mg 04/26/21 09:00 04/27/21 09:12 Lisinopril 10 Mg Tab PO 10 mg DAILY CADEN Administration Loratadine 10 mg 04/25/21 15:56 Loratadine 10 Mg Tab PO DAILY PRN Allergy Symptoms Memantine 10 mg 04/26/21 09:00 04/27/21 09:12 Memantine 10 Mg Tab PO 10 mg BID CADEN Administration Metoprolol Tartrate 25 mg 04/27/21 14:00 Metoprolol Tartrate 25 Mg Tab PO BID CADEN Naloxone HCl 0.2 mg 04/25/21 16:07 Naloxone 0.4 Mg/Ml 1 Ml Vial IV Q2M PRN Opioid Reversal Nystatin 500,000 unit 04/25/21 18:00 04/27/21 09:12 Nystatin 100,000 Unit/Ml Susp 500,000 Unit/5 Ml Cup PO 500,000 unit QID CADEN Administration Pantoprazole Sodium 40 mg 04/26/21 09:00 04/27/21 09:12 Pantoprazole 40 Mg Tablet PO 40 mg DAILY CADEN Administration Pravastatin Sodium 40 mg 04/26/21 09:00 04/27/21 09:13 Pravastatin Sodium 40 Mg Tab PO 40 mg DAILY CADEN Administration Sertraline HCl 100 mg 04/26/21 09:00 04/27/21 09:13 Sertraline 100 Mg Tab PO 100 mg DAILY CADEN Administration Sertraline HCl 50 mg 04/26/21 09:00 04/27/21 09:13 Sertraline 50 Mg Tab PO 50 mg DAILY CADEN Administration Tiotropium [place] 2 puff 04/27/21 08:00 04/27/21 08:37 Tiotropium 2.5 Mcg Inhaler INHALATION 2 puff RT-DAILY CADEN Administration Intake and Output 04/26/21 04/27/21 04/27/21 22:59 06:59 14:59 Intake Total 1180 Output Total 2200 1600 Balance -1020 -1600 Intake: Oral 1180 Output: Urine 2200 1600 Other: Voiding Method Indwelling Catheter Indwelling Catheter # Voids 1 04/26/21 06:21 04/26/21 06:21
[2021-04-27] MEDS: methylPREDNISolone SOD SUCCI 125 MG/2 ML VIAL IV SCH (15:09)
[2021-04-27] MEDS: METOPROLOL TARTRATE 25 MG TAB PO SCH ×2 (15:09→21:50)
[2021-04-27] MEDS: HYDROcodone/APAP 5-325MG 1 EACH TAB PO PRN ×2 (15:09→21:42)
[2021-04-27] MEDS: VERAPAMIL 80 MG TAB PO SCH ×2 (15:09→21:50)
[2021-04-27 15:27] LABS: Magnesium 1.2 mg/dL (1.6-2.3)
[2021-04-27 17:14] LABS: Glucose,Whole Blood 416 mg/dL (75-99)
[2021-04-27] MEDS ORDERED: Magnesium Replacement Protocol 1 EACH MISC MISCELLANE PRN (17:26)
--- NOTE | 2021-04-27 17:36 | P.PN ---
Subjective Progress Note Date: 04/27/21 This is 80-year-old female recently discharged to [facility] subacute rehab secondary to pelvic fracture, hyponatremia and multiple other medical issues, returned to the hospital with acute COVID-19 infection, possible acute COPD exacerbation chronic hypoxic respiratory failure and multiple other medical iss ues. Sodium on admission was 29, now within normal limits. Maintained on covid cocktail including Decadron, bronchodilators. Currently denies cough, congestion, the respiratory therapist does report patient did have yesterday. Maintaining O2 sats in the high 90s on 2 L nasal cannula. 04/27/2021 T-max 100.8, normal WBC. Maintained on cefepime, covid cocktail. Hemoglobin 8.2. D-dimer down to 5.39. CRP decreased to 13.9 Magnesium 1.2. Maintaining O2 sats in the low 90s on 2 L nasal cannula. Denies chest pain, palpitations or increasing shortness of breath. Hypertensive. Denies chest p ain, palpitations. Objective - Vital Signs Vital signs: Vital Signs Temp 100.9 F H 04/27/21 14:58 Pulse 140 H 04/27/21 13:59 Resp 18 04/27/21 06:33 BP 200/98 04/27/21 13:59 Pulse Ox 90 L 04/27/21 13:59 Intake & Output 04/26/21 04/27/21 04/27/21 18:59 06:59 18:59 Intake Total 1180 Output Total 2200 1600 Balance -1020 -1600 Weight 74.843 kg Intake: Oral 1180 Output: Urine 2200 1600 Other: Voiding Method Indwelling Catheter Indwelling Catheter Indwelling Catheter # Voids 1 - Exam - Exam PHYSICAL EXAM: VITAL SIGNS: [As above] GENERAL: Sitting up in bed, no acute distress, cooperative, pleasantly confused HEENT: Conjunctivae normal. eyes normal. NECK: Supple, No JVD. No thyroid enlargement. No LNs CARDIOVASCULAR: S1, S2 regular. No murmur RESPIRATION: Breath sounds diminished in the bases. Scattered rhonchi, no crackles. ABDOMEN: Soft, nondistended, nontender . No guarding. no masses palpable. Bowel sounds heard. LEGS: No edema. no swelling PSYCHIATRY: Alert and oriented X2, cooperative, follows simple commands NERVOUS SYSTEM: Limited exam, Diffuse weakness, no focal deficits Skin: Warm and dry, no rash - Labs CBC & Chem 7: 04/26/21 06:21 04/26/21 06:21 Labs: Abnormal Lab Results - Last 24 Hours (Table) 04/27/21 04/27/21 04/27/21 Range/Units 04:03 04:03 04:03 D-Dimer 5.39 H (<0.60) mg/L FEU Magnesium 1.2 L (1.6-2.3) mg/dL C-Reactive Protein 13.9 H (<1.0) mg/dL TSH 0.084 L (0.465-4.680) mIU/L Assessment and Plan Assessment: Acute-19 Infection Possible acute COPD exacerbation Chronic respiratory failure, maintained on 2 L nasal cannula at home Recent Pubis ramus fracture status post fall, conservative treatment as per orthopedic surgery Recent Retroperitoneal hematoma, insignificant as per general surgery,status post fall Hyponatremia, resolved Osteopenia Osteoarthritis bilateral hips Cervical degenerative disc disease Diabetes Hypertension Hyperlipidemia COPD Dementia Iron deficiency Hypomagnesemia Plan: Continue on current medication regime ,monitoring and symptomatic treatment. Blood cultures 2 ordered. Recheck blood pressure after a.m.antihypertensives. Magnesium to be supplemented using replacement protocol ordered. Continue COvid COcktail. The impression and plan of care has been dictated as directed. : I performed a history and examination of this patient, discussed the same with the dictator. I agree with the dictator's note ,documented as a scribe. Any additional findings or plans will be noted.
[2021-04-27] MEDS: MAGNESIUM SULFATE-D5W PMX 1 GM in DEXTROSE/WATER 1 100ML.BAG IVPB SCH ×3 (18:14→23:00)
[2021-04-27] MEDS: INSULIN ASPART (NovoLOG) 100 UNIT/ML VIAL SQ SCH ×2 (18:15→20:30)
[2021-04-27 20:47] LABS: Glucose,Whole Blood 278 mg/dL (75-99)
--- NOTE | 2021-04-27 23:07 | PN ---
PROGRESS NOTE DATE OF SERVICE: 04/27/2021 REASON FOR FOLLOWUP: COVID-19 pneumonia. INTERVAL HISTORY: The patient is afebrile. The patient is more awake and alert today. She is breathing comfortably. Denies having any chest pain. No worsening cough or sputum production. No abdominal pain or diarrhea. PHYSICAL EXAMINATION: Blood pressure 137/63 with a pulse of 85, temperature 99.5. She is 94% on 3 L nasal cannula. General description is an elderly female lying in bed in no distress. Respiratory system: Unlabored breathing, decreased intensity of breath sounds. No wheeze. Heart S1, S2. Regular rate and rhythm. Abdomen soft, no tenderness. LABS: white count 7.83, creatinine 0.5. DIAGNOSTIC IMPRESSION AND PLAN: Patient with acute COVID-19 infection in this patient who seems to have shown some clinical improvement with the current supportive treatment of Lovenox, Solu-Medrol, zinc and ascorbic acid; to continue along with respiratory support and monitor clinical course closely. MMODL / IJN: [id number] /
[2021-04-28] MEDS: methylPREDNISolone SOD SUCCI 125 MG/2 ML VIAL IV SCH ×2 (01:08→06:42)
[2021-04-28 06:16] LABS: Glucose,Whole Blood 286 mg/dL (75-99)
[2021-04-28] MEDS: INSULIN ASPART (NovoLOG) 100 UNIT/ML VIAL SQ SCH ×4 (06:42→21:35)
[2021-04-28] MEDS: SYMBICORT 80-4.5 MCG INHALER INHALATION SCH ×2 (07:37→20:08)
[2021-04-28] MEDS: ALBUTEROL HFA INHALER INHALATION PRN ×3 (07:37→20:08)
[2021-04-28] MEDS: TIOTROPIUM 2.5 MCG INHALER INHALATION SCH (07:37)
[2021-04-28] MEDS: NYSTATIN 100,000 UNIT/ML SUSP 500,000 UNIT/5 ML CUP PO SCH ×4 (08:40→21:36)
[2021-04-28] MEDS: MEMANTINE 10 MG TAB PO SCH ×2 (08:40→21:36)
[2021-04-28] MEDS: VERAPAMIL 80 MG TAB PO SCH ×3 (08:40→21:36)
[2021-04-28] MEDS: METOPROLOL TARTRATE 25 MG TAB PO SCH ×2 (08:40→21:36)
[2021-04-28] MEDS: lisinopriL 10 MG TAB PO SCH (08:41)
[2021-04-28] MEDS: hydrALAZINE HCL 25 MG TAB PO SCH ×3 (08:41→21:36)
[2021-04-28] MEDS: SERTRALINE 50 MG TAB PO SCH (08:41)
[2021-04-28] MEDS: FERROUS SULFATE 325 MG TAB PO SCH (08:41)
[2021-04-28] MEDS: PRAVASTATIN SODIUM 40 MG TAB PO SCH (08:41)
[2021-04-28] MEDS: PANTOPRAZOLE 40 MG TABLET PO SCH (08:42)
[2021-04-28] MEDS: CHOLECALCIFEROL 25 MCG (1000 IU) TABLET PO SCH (08:42)
[2021-04-28] MEDS: ENOXAPARIN 30 MG/0.3 ML SYRINGE SQ SCH (08:42)
[2021-04-28] MEDS: SERTRALINE 100 MG TAB PO SCH (08:42)
[2021-04-28 10:12] LABS: Basophils % (A) 0 %; Eosinophils % (A) 0 %; HCT 29.3 % (34.0-46.0); HGB 9.6 gm/dL (11.4-16.0); Lymphocytes # (A) 0.8 k/uL (1.0-4.8); Lymphocytes % (A) 7 %; MCH 29.4 pg (25.0-35.0); MCHC 32.7 g/dL (31.0-37.0); MCV 89.9 fL (80.0-100.0); Mean Platelet Volume 7.6; Monocytes # (A) 0.6 k/uL (0-1.0); Monocytes % (A) 6 %; Neutrophils # (A) 9.3 k/uL (1.3-7.7); Neutrophils % (A) 87 %; Platelet Count 438 k/uL (150-450); RBC 3.26 m/uL (3.80-5.40); RDW 12.5 % (11.5-15.5); WBC 10.8 k/uL (3.8-10.6)
[2021-04-28 10:23] LABS: Prothrombin Time 10.5 sec (9.0-12.0)
[2021-04-28 10:40] LABS: African American GFR (CKD) >90 (>60 ml/min/1.73 sqM); Anion Gap 7 mmol/L; Blood Urea Nitrogen 32 mg/dL (7-17); Carbon Dioxide 36 mmol/L (22-30); Chloride 100 mmol/L (98-107); Glucose 173 mg/dL (74-99); Magnesium 1.7 mg/dL (1.6-2.3); Non-African American GFR(CKD) >90 (>60 ml/min/1.73 sqM); Potassium 3.8 mmol/L (3.5-5.1); Sodium 143 mmol/L (137-145)
--- NOTE | 2021-04-28 10:45 | ECHOF ---
Referral Reason:afib rvr MEASUREMENTS -------- HEIGHT: 165.1 cm WEIGHT: 74.8 kg BP: 200/98 RVIDd: 3.1 cm (< 3.3) IVSd: 1.0 cm (0.6 - 1.1) LVIDd: 4.0 cm (3.9 - 5.3) LVPWd: 1.0 cm (0.6 - 1.1) IVSs: 1.5 cm LVIDs: 2.7 cm LVPWs: 1.2 cm LA Diam: 2.9 cm (2.7 - 3.8) LAESV Index (A-L): 18.90 ml/m Ao Diam: 3.1 cm (2.0 - 3.7) AV Cusp: 1.9 cm (1.5 - 2.6) MV EXCURSION: 17.310 mm (> 18.000) MV EF SLOPE: 61 mm/s (70 - 150) EPSS: 0.7 cm RAP: 15.00 mmHg RVSP: 41.50 mmHg FINDINGS -------- This was a technically adequate study. The left ventricular size is normal. Left ventricular wall thickness is normal. Overall left vent ricular systolic function is normal with, an EF between 60 - 65 %. The right ventricle is normal in size. Normal LA size by volume 22+/-6 ml/m2. The right atrium is normal in size. Interatrial and interventricular septum intact. The aortic valve is trileaflet, and appears structurally normal. No aortic stenosis or regurgitation. The mitral valve is normal. Mild tricuspid regurgitation present. There is mild pulmonary hypertension. The right ventricular systolic pressure, as measured by Doppler, is 41.50mmHg. The pulmonic valve was not well visualized. The aortic root size is normal. Normal inferior vena cava with less than 50% inspiratory collapse consistent with estimated right atr ial pressure of 15 mmHg. There is no pericardial effusion. CONCLUSIONS -------- 1. The left ventricular size is normal. 2. Left ventricular wall thickness is normal. 3. Overall left ventricular systolic function is normal with, an EF between 60 - 65 %. 4. Mild tricuspid regurgitation present. 5. There is mild pulmonary hypertension. 6. The right ventricular systolic pressure, as measured by Doppler, is 41.50mmHg. 7. Normal inferior vena cava with less than 50% inspiratory collapse consistent with estimated right atrial pressure of 15 mmHg. 8. There is no pericardial effusion. TOWNSHIP CLERK: Mine Dexter RDCS
--- NOTE | 2021-04-28 11:34 | P.PN ---
Subjective Progress Note Date: 04/28/21 80-year-old female patient, known history of dementia, diabetes mellitus and chronic hypoxic respiratory failure due to COPD and the patient remains on oxygen at 2 L per minute nasal cannula. The patient presented to the hospital because of shortness of breath. She resides and a ECF. She reports some increased congestion in her chest. Her oxygenation wa not significantly impaired knowing that the patient was on home O2 at 2 L at home and currently she started 2 L with a pulse ox of 98%. In the emergency, the patient had an EKG that showed some sinus tachycardia. No acute ischemic changes. The chest x-ray showed no cardiopulmonary abnormalities. The patient's d-dimer was at 6.6. The sodium level was 129 and the lactic acid level was at 2.4. Troponins were negative, COVID 19 testing was positive. The CTA of the chest was done that showed no evidence of any pulmonary embolism. There was background COPD and some minimal pulmonary fibrosis. No suspicious masses. The patient was hos pitalized and she is currently under observation. 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 The patient is currently receiving Lovenox 30 mg subcu for DVT prophylaxis. She was also placed on Decadron 6 mg by mouth on a daily basis. She is on Symbicort regarding her COPD and albuterol HFA on a when necessary basis. Outpatient medications have been resumed.. The patient's LDH level was 525, CRP was at 20.4 On 04/27/2021, seeing this patient for a follow-up. The patient was hospitalized for COPD exacerbation and the patient was also found to be COVID 19 positive. Nevertheless, the CT scan of the chest did not show any significant groundglass pulmonary abnormalities to indicate COVID 19 pneumonia. The patient remains on bronchodilators. The patient remains on Decadron. She remains on Lovenox 40 mg subcu for DVT prophylaxis. The d-dimer today is at 5.39. No other new labs are available other than a LDH level which is still low at 588 and a CRP level of 15.9 which is lower compared to yesterday. Pro-calcitonin level at time of admission was 0.13. Rest of the electrolytes are all within normal limits patient remains on 2 L. She spiked a low-grade temperature 100.8 yesterday and currently she is afebrile. Further monitoring today revealed that the patient had developed a atrial fibrillation RVR and patient's heart rate is currently in the 150 range. As such, the patient is going to the chest at the telemetry to be started on a Cardizem drip. She is not known to have any history of atrial fibrillation the past. She is currently having regular rhythm which is quite tachycardic and the patient will have a 12-lead EKG. She denies having any chest pain. She continues to have a congested cough. 04/28/2021, the patient is currently on a telemetry unit. The patient was having tachyarrhythmias yesterday for that reason the patient got transferred to the telemetry unit. She was started on a Cardizem drip. EKG showed sinus tachycardia with frequent PACs. The patient was taken off the Cardizem drip and the patient was started on verapamil 80 mg 3 times a day and IV heparin has been discontinued. This morning, the patient's heart rate is under better control for now. She is afebrile. She remains on 3 L of oxygen by nasal cannula with a pulse ox of around 95%. Echocardiogram was also completed yesterday and the patient was found to have a preserved LV function with an ejection fraction of around 60-65%. No other significant abnormalities have been noted. The patient has a mild to moderate component of pulmonary hypertension with a PA pressure estimated to be around 41. In terms of treatment, the patient is on Lovenox 30 mg subcu for DVT prophylaxis. The patient remains on bronchodilators and IV Solu-Medrol 60 mg every 6 regarding an underlying COPD exacerbation. Blood work from today shows a sodium level of 143, BUN is a 32 with a creatinine of 0.5, TSH was 0.8. White cell count was at 10.8 with a hemoglobin of 9.6. No other significant abnormalities have been noted. Objective - Vital Signs Vital signs: Vital Signs Temp 98.4 F 04/28/21 08:40 Pulse 83 04/28/21 08:40 Resp 17 04/28/21 08:40 BP 135/85 04/28/21 08:40 Pulse Ox 95 04/28/21 08:40 Intake & Output 04/27/21 04/28/21 04/28/21 18:59 06:59 18:59 Intake Total 100 120 Output Total 800 400 Balance -700 -280 Intake: Oral 100 120 Output: Urine 800 400 Other: Voiding Method Indwelling Catheter Indwelling Catheter Indwelling Catheter - Exam General: Appears in mild respiratory distress nonlabored breathing, currently on 2 L nasal cannula HEAD: Normal with no signs of head trauma. EYES: PERRLA, EOMI, conjunctiva normal, no discharge. ENT: Hearing grossly intact, normal oropharynx. RESPIRATORY: Mild end expiratory wheezes bilaterally with slightly worsening the right lower lobe. No rhonchi. Mild increased work of breathing. Saturating well on home oxygen 2 L nasal cannula. C/V: Irregular rate and rhythm consistent with atrial fibrillation with rapid ventricular response. No peripheral edema. Peripheral pulses are 2+ intact throughout. ABD: Abd is soft, nontender, nondistended EXT: Normal range of motion, no obvious deformity SKIN: No rashes or lesions observed on exposed skin. NEURO: Alert and oriented to baseline. No focal deficits. Limitations: altered mental status - Labs CBC & Chem 7: 04/28/21 09:05 04/28/21 09:05 Labs: Abnormal Lab Results - Last 24 Hours (Table) 04/27/21 04/27/21 04/27/21 Range/Units 04:03 17:12 20:05 WBC (3.8-10.6) k/uL RBC (3.80-5.40) m/uL Hgb (11.4-16.0) gm/dL Hct (34.0-46.0) % Neutrophils # (1.3-7.7) k/uL Lymphocytes # (1.0-4.8) k/uL APTT (22.0-30.0) sec Carbon Dioxide (22-30) mmol/L BUN (7-17) mg/dL Glucose (74-99) mg/dL POC Glucose (mg/dL) 416 H 278 H (75-99) mg/dL Magnesium 1.2 L (1.6-2.3) mg/dL TSH 0.084 L (0.465-4.680) mIU/L 04/27/21 04/28/21 04/28/21 Range/Units 21:05 06:09 09:05 WBC (3.8-10.6) k/uL RBC (3.80-5.40) m/uL Hgb (11.4-16.0) gm/dL Hct (34.0-46.0) % Neutrophils # (1.3-7.7) k/uL Lymphocytes # (1.0-4.8) k/uL APTT 18.7 L (22.0-30.0) sec Carbon Dioxide 36 H (22-30) mmol/L BUN 32 H (7-17) mg/dL Glucose 173 H (74-99) mg/dL POC Glucose (mg/dL) 286 H (75-99) mg/dL Magnesium (1.6-2.3) mg/dL TSH (0.465-4.680) mIU/L 04/28/21 Range/Units 09:05 WBC 10.8 H (3.8-10.6) k/uL RBC 3.26 L (3.80-5.40) m/uL Hgb 9.6 L (11.4-16.0) gm/dL Hct 29.3 L (34.0-46.0) % Neutrophils # 9.3 H (1.3-7.7) k/uL Lymphocytes # 0.8 L (1.0-4.8) k/uL APTT (22.0-30.0) sec Carbon Dioxide (22-30) mmol/L BUN (7-17) mg/dL Glucose (74-99) mg/dL POC Glucose (mg/dL) (75-99) mg/dL Magnesium (1.6-2.3) mg/dL TSH (0.465-4.680) mIU/L Assessment and Plan Plan: 1 acute COVID 19 infection without clear indication for pneumonia. CTA shows no evidence of any pulmonary embolism. CTA shows no evidence of any groundglass pulmonary infiltrates and this is a very sensitive test identified early COVID 19 infection. Oxygenation has been unchanged and the patient still on 2 L approximately nasal cannula 2 COPD with possible exacerbation, and secondary shortness of breath, noted the patient has significant amount of COPD and initially has chronic hypoxic respiratory failure maintained on oxygen at home at 2 L per minute nasal cannula. 3 chronic hypoxic respiratory failure currently on 2 L by nasal cannula 4 sinus tachycardia with frequent PVCs, controlled for now and the patient was seen by cardiology. 5 diabetes mellitus 6 hyperlipidemia 7 hyponatremia recovered and his sodium level has normalized. 8 history of depression 9 history of degenerative arthritis Plan Patient is currently on telemetry unit. The patient is on verapamil and with a better heart rate control. Monitor the oxygenation currently on 2 L by nasal cannula Discontinue IV Solu-Medrol and put the patient a prednisone burst taper starting with 40 mg Continue Spiriva and continue Symbicort for now Provide the patient incentive spirometer Ventolin 4 times a day [id number] Inflammatory markers are low Lovenox for DVT prophylaxis echocardiogram was noted and essentially within normal limits with some mild degree of pulmonary hypertension. Cardiology consultation is appreciated Check free T4 and TSH were noted and levels are essentially within stable limits and troponins will continue to follow. She is a full CODE STATUS at this point in time.
--- NOTE | 2021-04-28 12:00 | XR ---
EXAMINATION TYPE: XR chest 1V portable DATE OF EXAM: 04/28/2021 COMPARISON: 04/25/2021 HISTORY: covid pneumonia TECHNIQUE: Single frontal view of the chest is obtained. FINDINGS: There is no focal air space opacity, pleural effusion, or pneumothorax seen. The cardiac silhouette size is within normal limits. The osseous structures are intact. Hyperinflation. Diffuse osteopenia. Limited inspiration. Atherosclerotic change aorta. IMPRESSION: Correlate for COPD.
[2021-04-28 12:16] LABS: Glucose,Whole Blood 289 mg/dL (75-99)
[2021-04-28] MEDS: predniSONE 20 MG TAB PO SCH (12:45)
--- NOTE | 2021-04-28 12:50 | P.PN ---
Subjective Progress Note Date: 04/28/21 This is 80-year-old female recently discharged to [facility] subacute rehab secondary to pelvic fracture, hyponatremia and multiple other medical issues, returned to the hospital with acute COVID-19 infection, possible acute COPD exacerbation chronic hypoxic respiratory failure and multiple other medical iss ues. Sodium on admission was 29, now within normal limits. Maintained on covid cocktail including Decadron, bronchodilators. Currently denies cough, congestion, the respiratory therapist does report patient did have yesterday. Maintaining O2 sats in the high 90s on 2 L nasal cannula. 04/27/2021 T-max 100.8, normal WBC. Maintained on cefepime, covid cocktail. Hemoglobin 8.2. D-dimer down to 5.39. CRP decreased to 13.9 Magnesium 1.2. Maintaining O2 sats in the low 90s on 2 L nasal cannula. Denies chest pain, palpitations or increasing shortness of breath. Hypertensive. Denies chest p ain, palpitations. 04/28/2021 transferred yesterday to telemetry, related to possible atrial fibr illation, tachycardia, hypertension. EKG reported sinus tachycardia with frequent PACs. Beta nahum and hydralazine initiated. Echo completed yesterday reporting normal LV function, EF 60-65%, RVSP 41,mild pulmonary hypertension. Evaluated by cardiology yesterday with verapamil added to med regimen. Heart rate and blood pressure significantly improved this morning, telemetry sinus rhythm. Continues on Covid cocktail. Hemoglobin 9.6. Maintaining O2 sats in the mid 90s on 3 L nasal cannula. T-max 100.9, currently afebrile, WBC 10.8. Blood cultures pending. Sodium within normal limits. Blood sugars elevated.CXR pending. Objective - Vital Signs Vital signs: Vital Signs Temp 98.4 F 04/28/21 08:40 Pulse 83 04/28/21 08:40 Resp 17 04/28/21 08:40 BP 135/85 04/28/21 08:40 Pulse Ox 95 04/28/21 08:40 Intake & Output 04/27/21 04/28/21 04/28/21 18:59 06:59 18:59 Intake Total 100 120 Output Total 800 400 Balance -700 -280 Intake: Oral 100 120 Output: Urine 800 400 Other: Voiding Method Indwelling Catheter Indwelling Catheter Indwelling Catheter - Exam - Exam PHYSICAL EXAM: VITAL SIGNS: [As above] GENERAL: Alert and oriented 2, Sitting up in bed, no acute distress HEENT: Conjunctivae normal. eyes normal. Oral mucosa moist NECK: Supple, No JVD. No thyroid enlargement. No LNs CARDIOVASCULAR: S1, S2 regular. No murmur RESPIRATION: Breath sounds diminished in the bases. Scattered rhonchi, no crackles. Fine expiratory wheezing. ABDOMEN: Soft, nondistended, nontender . No guarding. no masses palpable. Bowel sounds heard. LEGS: No edema. no swelling NERVOUS SYSTEM: Diffuse weakness, no focal deficits Skin: Warm and dry, no rash - Labs CBC & Chem 7: 04/28/21 09:05 04/28/21 09:05 Labs: Abnormal Lab Results - Last 24 Hours (Table) 04/27/21 04/27/21 04/27/21 Range/Units 04:03 17:12 20:05 WBC (3.8-10.6) k/uL RBC (3.80-5.40) m/uL Hgb (11.4-16.0) gm/dL Hct (34.0-46.0) % Neutrophils # (1.3-7.7) k/uL Lymphocytes # (1.0-4.8) k/uL APTT (22.0-30.0) sec Carbon Dioxide (22-30) mmol/L BUN (7-17) mg/dL Glucose (74-99) mg/dL POC Glucose (mg/dL) 416 H 278 H (75-99) mg/dL Magnesium 1.2 L (1.6-2.3) mg/dL TSH 0.084 L (0.465-4.680) mIU/L 04/27/21 04/28/21 04/28/21 Range/Units 21:05 06:09 09:05 WBC (3.8-10.6) k/uL RBC (3.80-5.40) m/uL Hgb (11.4-16.0) gm/dL Hct (34.0-46.0) % Neutrophils # (1.3-7.7) k/uL Lymphocytes # (1.0-4.8) k/uL APTT 18.7 L (22.0-30.0) sec Carbon Dioxide 36 H (22-30) mmol/L BUN 32 H (7-17) mg/dL Glucose 173 H (74-99) mg/dL POC Glucose (mg/dL) 286 H (75-99) mg/dL Magnesium (1.6-2.3) mg/dL TSH (0.465-4.680) mIU/L 04/28/21 Range/Units 09:05 WBC 10.8 H (3.8-10.6) k/uL RBC 3.26 L (3.80-5.40) m/uL Hgb 9.6 L (11.4-16.0) gm/dL Hct 29.3 L (34.0-46.0) % Neutrophils # 9.3 H (1.3-7.7) k/uL Lymphocytes # 0.8 L (1.0-4.8) k/uL APTT (22.0-30.0) sec Carbon Dioxide (22-30) mmol/L BUN (7-17) mg/dL Glucose (74-99) mg/dL POC Glucose (mg/dL) (75-99) mg/dL Magnesium (1.6-2.3) mg/dL TSH (0.465-4.680) mIU/L Assessment and Plan Assessment: Acute-19 Infection Possible acute COPD exacerbation Sinus tachycardia with frequent PACs Chronic respiratory failure, maintained on 2 L nasal cannula at home Recent Pubis ramus fracture status post fall, conservative treatment as per orthopedic surgery Recent Retroperitoneal hematoma, insignificant as per general surgery,status post fall Hyponatremia, resolved Osteopenia Osteoarthritis bilateral hips Cervical degenerative disc disease Diabetes mellitus, hyperglycemic. Hypertension Hyperlipidemia COPD Dementia Iron deficiency Hypomagnesemia Pulmonary hypertension Plan: Continue on current medication regime ,monitoring and symptomatic treatment. Magnesium supplementation as per previously ordered replacement protocol. Blood cultures pending . Continue COvid COcktail. Transition to oral steroids. Lantus added in addition to sliding scale secondary to hyperglycemia, close monitoring of Accu-Cheks. Discharge planning in progress for return to [facility] subacute rehab possibly tomorrow, pending final DC recommendations and clearance from pulmonary, cardiology and infectious disease. The impression and plan of care has been dictated as directed. : I performed a history and examination of this patient, discussed the same with the dictator. I agree with the dictator's note ,documented as a scribe. Any additional findings or plans will be noted.
--- NOTE | 2021-04-28 13:17 | P.PN ---
Subjective Progress Note Date: 04/28/21 CHIEF COMPLAINT: Tachycardia HISTORY OF PRESENT ILLNESS: This is a pleasant 80-year-old female past medical history significant for COPD, hypertension, type 2 diabetes, hyperlipidemia, asthma, dementia, former tobacco use. She does not follow with a yard engineer. We have been asked to see in consultation for elevated heart rate Patient is seen and examined in Observation Unit. She was admitted on 04/25/2021 from a longterm with congestion and shortness of breath. Patient was found to be COVID-19 19 positive. While nursing was taking vital signs patient's heart rate was noted to be elevated 130-140s, there was concern that the patient may be in atrial fibrillation. Patient is not on telemetry.. Patient denies any chest pain, palpitations, lightheadedness, dizziness. She states her breathing has improved since admission. She denies history of coronary disease, stroke, ID or atrial fibrillation. She is a former smoker and quit in 2018. EKG at bedside reveals sinus tachycardia with PACs, heart rate 131,non-specific ST or T-wave abnormalities.. EKG on admission reveals sinus tachycardia. Patient not on telemetry to review. DIAGNOSTICS Chest CT revealed no evidence of pulmonary embolism, COPD, minimal pulmonary fibrosis. Laboratory reviewed, troponin negative 1, sodium 135, potassium 4.1, BUN 21, serum creatinine 0.5, magnesium 1.1, d-dimer 5.3, COVID-19 19 PCR positive, WBC 7.8, hemoglobin 8.2, platelets 280. Current home medications include lisinopril 10 mg daily, pravastatin 40 mg daily, metformin 500 mg twice a day, Protonix, insulin, albuterol, spirivia 04/28/2021 Patient remains on a selective care unit. Telemetry reveals sinus mechanism with PACs. There has been no evidence of atrial fibrillation. The patient remains hemodynamically stable. Echocardiogram completed reveals ejection fraction 60-65%, mild tricuspid regurgitation, and mild pulmonary hypertension. PHYSICAL EXAM: Thorough physical exam not completed secondary to limited evaluation/examination due to Covid19 ASSESSMENT: Sinus tachycardia with frequent PACs COVID-19 infection COPD Type 2 Diabetes Hyperlipidemia Hyponatremia, improved Former nicotine use PLAN: Continue current cardiac medications Continue telemetry monitoring No further inpatient recommendations from a cardiac standpoint We will see the patient on an as needed basis. Please call with questions or concerns. Nurse practitioner note has been reviewed by physician. Signing provider agrees with the documented findings, assessment, and plan of care. Objective - Vital Signs Vital signs: Vital Signs Temp 98.3 F 04/28/21 12:53 Pulse 78 04/28/21 12:53 Resp 21 04/28/21 12:53 BP 137/90 04/28/21 12:53 Pulse Ox 92 L 04/28/21 12:53 Intake & Output 04/27/21 04/28/21 04/28/21 18:59 06:59 18:59 Intake Total 100 120 Output Total 800 400 Balance -700 -280 Intake: Oral 100 120 Output: Urine 800 400 Other: Voiding Method Indwelling Catheter Indwelling Catheter Indwelling Catheter - Labs CBC & Chem 7: 04/28/21 09:05 04/28/21 09:05 Labs: Abnormal Lab Results - Last 24 Hours (Table) 04/27/21 04/27/21 04/27/21 Range/Units 04:03 17:12 20:05 WBC (3.8-10.6) k/uL RBC (3.80-5.40) m/uL Hgb (11.4-16.0) gm/dL Hct (34.0-46.0) % Neutrophils # (1.3-7.7) k/uL Lymphocytes # (1.0-4.8) k/uL APTT (22.0-30.0) sec Carbon Dioxide (22-30) mmol/L BUN (7-17) mg/dL Glucose (74-99) mg/dL POC Glucose (mg/dL) 416 H 278 H (75-99) mg/dL Magnesium 1.2 L (1.6-2.3) mg/dL TSH 0.084 L (0.465-4.680) mIU/L 04/27/21 04/28/21 04/28/21 Range/Units 21:05 06:09 09:05 WBC (3.8-10.6) k/uL RBC (3.80-5.40) m/uL Hgb (11.4-16.0) gm/dL Hct (34.0-46.0) % Neutrophils # (1.3-7.7) k/uL Lymphocytes # (1.0-4.8) k/uL APTT 18.7 L (22.0-30.0) sec Carbon Dioxide 36 H (22-30) mmol/L BUN 32 H (7-17) mg/dL Glucose 173 H (74-99) mg/dL POC Glucose (mg/dL) 286 H (75-99) mg/dL Magnesium (1.6-2.3) mg/dL TSH (0.465-4.680) mIU/L 04/28/21 04/28/21 Range/Units 09:05 12:14 WBC 10.8 H (3.8-10.6) k/uL RBC 3.26 L (3.80-5.40) m/uL Hgb 9.6 L (11.4-16.0) gm/dL Hct 29.3 L (34.0-46.0) % Neutrophils # 9.3 H (1.3-7.7) k/uL Lymphocytes # 0.8 L (1.0-4.8) k/uL APTT (22.0-30.0) sec Carbon Dioxide (22-30) mmol/L BUN (7-17) mg/dL Glucose (74-99) mg/dL POC Glucose (mg/dL) 289 H (75-99) mg/dL Magnesium (1.6-2.3) mg/dL TSH (0.465-4.680) mIU/L
[2021-04-28] MEDS: INSULIN DETEMIR (LEVEMIR) 100 UNIT/ML SYR SQ SCH (14:12)
--- NOTE | 2021-04-28 17:04 | PN ---
PROGRESS NOTE DATE OF SERVICE: 04/28/2021 REASON FOR FOLLOWUP: COVID-19 pneumonia. INTERVAL HISTORY: The patient is afebrile. The patient is more awake and alert. The patient did have a congested cough but not bringing up any sputum. Denies any chest pain. No vomiting. No abdominal pain. No diarrhea. PHYSICAL EXAMINATION: Blood pressure 137/90 with a pulse of 73, temperature 98.3. She is 92% on 3 L nasal cannula. General description is an elderly female up in the chair in no distress. Respiratory system: Unlabored breathing. Coarse breath sounds bilaterally. No wheeze. Heart S1, S2. Regular rate and rhythm. Abdomen soft, no tenderness. LABS: Hemoglobin is 9.1, white count 10.8, creatinine 0.52. DIAGNOSTIC IMPRESSION AND PLAN: Patient with acute COVID-19 pneumonia in this patient chest x-ray did not show any acute infiltrate, mostly COPD changes. The patient is currently covered with Lovenox, zinc and ascorbic acid to continue along with respiratory support. Monitor clinical course closely. Continue supportive care. MMODL / IJN: [id number] /
[2021-04-28 17:19] LABS: Glucose,Whole Blood 326 mg/dL (75-99)
[2021-04-28 20:04] LABS: Glucose,Whole Blood 436 mg/dL (75-99)
[2021-04-29 06:17] LABS: Glucose,Whole Blood 125 mg/dL (75-99)
[2021-04-29] MEDS: INSULIN ASPART (NovoLOG) 100 UNIT/ML VIAL SQ SCH ×2 (06:19→11:57)
[2021-04-29] MEDS: TIOTROPIUM 2.5 MCG INHALER INHALATION SCH (08:32)
[2021-04-29] MEDS: ALBUTEROL HFA INHALER INHALATION PRN ×2 (08:32→12:29)
[2021-04-29] MEDS: SYMBICORT 80-4.5 MCG INHALER INHALATION SCH (08:32)
[2021-04-29] MEDS: MEMANTINE 10 MG TAB PO SCH (09:00)
[2021-04-29] MEDS: FERROUS SULFATE 325 MG TAB PO SCH (09:00)
[2021-04-29] MEDS: predniSONE 20 MG TAB PO SCH (09:00)
[2021-04-29] MEDS: ENOXAPARIN 30 MG/0.3 ML SYRINGE SQ SCH (09:00)
[2021-04-29] MEDS: SERTRALINE 100 MG TAB PO SCH (09:00)
[2021-04-29] MEDS: PRAVASTATIN SODIUM 40 MG TAB PO SCH (09:00)
[2021-04-29] MEDS: METOPROLOL TARTRATE 25 MG TAB PO SCH (09:01)
[2021-04-29] MEDS: SERTRALINE 50 MG TAB PO SCH (09:01)
[2021-04-29] MEDS: CHOLECALCIFEROL 25 MCG (1000 IU) TABLET PO SCH (09:01)
[2021-04-29] MEDS: hydrALAZINE HCL 25 MG TAB PO SCH ×2 (09:01→17:02)
[2021-04-29] MEDS: lisinopriL 10 MG TAB PO SCH (09:01)
[2021-04-29] MEDS: INSULIN DETEMIR (LEVEMIR) 100 UNIT/ML SYR SQ SCH (09:01)
[2021-04-29] MEDS: PANTOPRAZOLE 40 MG TABLET PO SCH (09:01)
[2021-04-29] MEDS: NYSTATIN 100,000 UNIT/ML SUSP 500,000 UNIT/5 ML CUP PO SCH ×2 (09:02→11:57)
[2021-04-29] MEDS: VERAPAMIL 80 MG TAB PO SCH ×2 (09:07→17:02)
[2021-04-29 10:36] LABS: African American GFR (CKD) >90 (>60 ml/min/1.73 sqM); Anion Gap 6 mmol/L; Blood Urea Nitrogen 38 mg/dL (7-17); Calcium 8.9 mg/dL (8.4-10.2); Carbon Dioxide 35 mmol/L (22-30); Chloride 104 mmol/L (98-107); Glucose 81 mg/dL (74-99); Magnesium 1.5 mg/dL (1.6-2.3); Non-African American GFR(CKD) >90 (>60 ml/min/1.73 sqM); Potassium 3.5 mmol/L (3.5-5.1); Sodium 145 mmol/L (137-145)
[2021-04-29 11:45] LABS: Glucose,Whole Blood 68 mg/dL (75-99)
[2021-04-29 12:06] LABS: Glucose,Whole Blood 116 mg/dL (75-99)
--- NOTE | 2021-04-29 12:26 | P.DS ---
Providers Date of admission: 04/25/21 16:09 Expected date of discharge: 04/29/21 Attending physician: Kenji Narayan Consults: 04/25/21 14:58 Consult Physician Stat Consulting Provider: Mendez Leos Consult Reason/Comments: Covid positive, history of hypoxic respiratory failure Do you want consulting provider notified?: Yes 04/25/21 15:00 Consult Physician Stat Consulting Provider: Richard Hemphill Consult Reason/Comments: Covid positive Do you want consulting provider notified?: Yes 04/27/21 13:56 Consult Physician Stat Consulting Provider: Ravinder Harris Consult Reason/Comments: elevated heart rate Do you want consulting provider notified?: Yes Primary care physician: Kenji Narayan Hospital Course: Final Diagnoses: Acute-19 Infection Possible acute COPD exacerbation Sinus tachycardia with frequent PACs Chronic respiratory failure, maintained on 2 L nasal cannula at home Recent Pubis ramus fracture status post fall, conservative treatment as per orthopedic surgery Recent Retroperitoneal hematoma, insignificant as per general surgery,status post fall Hyponatremia, resolved Osteopenia Osteoarthritis bilateral hips Cervical degenerative disc disease Diabetes mellitus, hyperglycemic. Hypertension Hyperlipidemia COPD Dementia Iron deficiency Hypomagnesemia Pulmonary hypertension Hospital course:This is 80-year-old female [facility] to [facility] fracture, hyponatremia and multiple other medical issues, returned to the hospital with acute COVID-19 infection, possible acute COPD exacerbation chronic hypoxic respiratory failure and multiple other medical issues. Sodium on admission was 29, now within normal limits. Maintained on covid cocktail including Decadron, bronchodilators. Currently denies cough, congestion, the respiratory therapist does report patient did have yesterday. Maintaining O2 sats in the high 90s on 2 L nasal cannula. 04/27/2021 T-max 100.8, normal WBC. Maintained on cefepime, covid cocktail. Hemoglobin 8.2. D-dimer down to 5.39. CRP decreased to 13.9 Magnesium 1.2. Maintaining O2 sats in the low 90s on 2 L nasal cannula. Denies chest pain, palpitations or increasing shortness of breath. Hypertensive. Denies chest pain, palpitations. 04/28/2021 transferred yesterday to telemetry, related to possible atrial fibrillation, tachycardia, hypertension. EKG reported sinus tachycardia with frequent PACs. Beta nahum and hydralazine initiated. Echo completed yesterday reporting normal LV function, EF 60-65%, RVSP 41,mild pulmonary hypertension. Evaluated by cardiology yesterday with verapamil added to med regimen. Heart rate and blood pressure significantly improved this morning, telemetry sinus rhythm. Continues on Covid cocktail. Hemoglobin 9.6. Maintain ing O2 sats in the mid 90s on 3 L nasal cannula. T-max 100.9, currently afebrile, WBC 10.8. Blood cultures pending. Sodium within normal limits. Blood sugars elevated.CXR pending. Transition to oral steroids. Significant clinical improvement. Afebrile. Patient will be discharged to [facility] subacute rehab today in a stable condition with guarded prognosis pending pulmonary final DC recommendations and clearance, magnesium supplementation, magnesium currently 1.5. Currently on Lantus while on steroids-dose decreased to 15 units daily. The impression and plan of care has been dictated as directed. : I performed a history and examination of this patient, discussed the same with the dictator. I agree with the dictator's note ,documented as a scribe. Any additional findings or plans will be noted. Patient Condition at Discharge: Stable Plan - Discharge Summary Discharge Rx Participant: No New Discharge Prescriptions: New Aspirin EC [Ecotrin Low Dose] 81 mg PO DAILY #60 tab predniSONE 10 mg PO DIRECTED #30 tab Pantoprazole [Protonix] 40 mg PO DAILY tab Acetaminophen Tab [Tylenol] 650 mg PO Q4HR PRN tab PRN Reason: Fever>101 hydrALAZINE HCL [Apresoline] 25 mg PO TID tab Verapamil [Isoptin] 80 mg PO TID tab Metoprolol Tartrate [Lopressor] 25 mg PO BID tab Insulin Glargine [Lantus Vial] 15 unit SQ DAILY #10 ml Continue metFORMIN HCL 500 mg PO BID lisinopriL 10 mg PO DAILY Pravastatin Sodium [Pravachol] 40 mg PO DAILY Fluticasone/Salmeterol [Advair 250-50 Diskus] 1 puff INHALATION RT-BID Fexofenadine HCl [Treva Allergy] 180 mg PO DAILY PRN PRN Reason: Allergy Symptoms Ferrous Sulfate [Iron (65 MG Elemental)] 325 mg PO DAILY Nystatin 100,000 Unit/ml Susp [Mycostatin Oral Susp] 500,000 unit PO QID #100 ml Sertraline [Zoloft] 50 mg PO DAILY Tiotropium Riggins [Spiriva] 1 cap INHALATION RT-DAILY Sertraline [Zoloft] 100 mg PO DAILY Memantine HCl [Memantine HCl ER] 28 mg PO DAILY Albuterol Nebulized [Ventolin Nebulized] 2.5 mg INHALATION RT-Q4H PRN PRN Reason: Shortness Of Breath Or Wheezing Insulin Lispro [humaLOG Kwikpen] See Protocol SQ ACHS #1 injection Changed HYDROcodone/APAP 5-325MG [Phelan 5-325] 1 tab PO Q6H PRN #12 tab PRN Reason: Pain Albuterol Sulfate [Proventil Hfa] 2 puff INHALATION RT-QID #0 Discontinued Pantoprazole [Protonix] 40 mg PO DAILY #1 tab Discharge Medication List Ferrous Sulfate [Iron (65 MG Elemental)] 325 mg PO DAILY 04/19/21 [History] Fexofenadine HCl [Treva Allergy] 180 mg PO DAILY PRN 04/19/21 [History] Fluticasone/Salmeterol [Advair 250-50 Diskus] 1 puff INHALATION RT-BID 04/19/21 [History] Memantine HCl [Memantine HCl ER] 28 mg PO DAILY 04/19/21 [History] Pravastatin Sodium [Pravachol] 40 mg PO DAILY 04/19/21 [History] Sertraline [Zoloft] 100 mg PO DAILY 04/19/21 [History] Tiotropium Riggins [Spiriva] 1 cap INHALATION RT-DAILY 04/19/21 [History] lisinopriL 10 mg PO DAILY 04/19/21 [History] metFORMIN HCL 500 mg PO BID 04/19/21 [History] Nystatin 100,000 Unit/ml Susp [Mycostatin Oral Susp] 500,000 unit PO QID #100 ml 04/21/21 [Rx] Albuterol Nebulized [Ventolin Nebulized] 2.5 mg INHALATION RT-Q4H PRN 04/25/21 [History] Sertraline [Zoloft] 50 mg PO DAILY 04/25/21 [History] Acetaminophen Tab [Tylenol] 650 mg PO Q4HR PRN tab 04/29/21 [Rx] Albuterol Sulfate [Proventil Hfa] 2 puff INHALATION RT-QID #0 04/29/21 [Rx] Aspirin EC [Ecotrin Low Dose] 81 mg PO DAILY #60 tab 12/02/21 [Rx] HYDROcodone/APAP 5-325MG [Phelan 5-325] 1 tab PO Q6H PRN #12 tab 04/29/21 [Rx] Insulin Glargine [Lantus Vial] 15 unit SQ DAILY #10 ml 04/29/21 [Rx] Insulin Lispro [humaLOG Kwikpen] See Protocol SQ ACHS #1 injection 04/29/21 [Rx] Metoprolol Tartrate [Lopressor] 25 mg PO BID tab 04/29/21 [Rx] Pantoprazole [Protonix] 40 mg PO DAILY tab 04/29/21 [Rx] Verapamil [Isoptin] 80 mg PO TID tab 04/29/21 [Rx] hydrALAZINE HCL [Apresoline] 25 mg PO TID tab 04/29/21 [Rx] predniSONE 10 mg PO DIRECTED #30 tab 04/29/21 [Rx] Follow up Appointment(s)/Referral(s): Kenji Narayan DO [Primary Care Provider] - 1 Week (1 week after discharge from subacute rehab) Activity/Diet/Wound Care/Special Instructions: Daisy CBC, BMP, Magnesium in 3 days Accu-Cheks before meals and at bedtime, currently on steroids, possibly wean off Lantus Discharge Disposition: TRANSFER TO SNF/ECF
[2021-04-29] MEDS ORDERED: Magnesium Replacement Protocol 1 EACH MISC MISCELLANE PRN (12:29)
[2021-04-29] MEDS ORDERED: MAGNESIUM SULFATE-D5W PMX 1 GM in DEXTROSE/WATER 1 100ML.BAG IVPB SCH ×2 (12:30→13:30)
[2021-04-29] MEDS: MAGNESIUM SULFATE-D5W PMX 1 GM in DEXTROSE/WATER 1 100ML.BAG IVPB SCH ×2 (12:42→14:56)
[2021-04-29 16:23] VITALS: BP 136/63; PULSE 71; RESP 16; TEMP 98.2
[2021-04-29 16:41] LABS: Glucose,Whole Blood 155 mg/dL (75-99)
--- NOTE | 2021-04-29 18:15 | P.PN ---
Subjective Progress Note Date: 04/29/21 80-year-old female patient, known history of dementia, diabetes mellitus and chronic hypoxic respiratory failure due to COPD and the patient remains on oxygen at 2 L per minute nasal cannula. The patient presented to the hospital because of shortness of breath. She resides and a ECF. She reports some increased congestion in her chest. Her oxygenation wa not significantly impaired knowing that the patient was on home O2 at 2 L at home and currently she started 2 L with a pulse ox of 98%. In the emergency, the patient had an EKG that showed some sinus tachycardia. No acute ischemic changes. The chest x-ray showed no cardiopulmonary abnormalities. The patient's d-dimer was at 6.6. The sodium level was 129 and the lactic acid level was at 2.4. Troponins were negative, COVID 19 testing was positive. The CTA of the chest was done that showed no evidence of any pulmonary embolism. There was background COPD and some minimal pulmonary fibrosis. No suspicious masses. The patient was hos pitalized and she is currently under observation. 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 The patient is currently receiving Lovenox 30 mg subcu for DVT prophylaxis. She was also placed on Decadron 6 mg by mouth on a daily basis. She is on Symbicort regarding her COPD and albuterol HFA on a when necessary basis. Outpatient medications have been resumed.. The patient's LDH level was 525, CRP was at 20.4 On 04/27/2021, seeing this patient for a follow-up. The patient was hospitalized for COPD exacerbation and the patient was also found to be COVID 19 positive. Nevertheless, the CT scan of the chest did not show any significant groundglass pulmonary abnormalities to indicate COVID 19 pneumonia. The patient remains on bronchodilators. The patient remains on Decadron. She remains on Lovenox 40 mg subcu for DVT prophylaxis. The d-dimer today is at 5.39. No other new labs are available other than a LDH level which is still low at 588 and a CRP level of 15.9 which is lower compared to yesterday. Pro-calcitonin level at time of admission was 0.13. Rest of the electrolytes are all within normal limits patient remains on 2 L. She spiked a low-grade temperature 100.8 yesterday and currently she is afebrile. Further monitoring today revealed that the patient had developed a atrial fibrillation RVR and patient's heart rate is currently in the 150 range. As such, the patient is going to the chest at the telemetry to be started on a Cardizem drip. She is not known to have any history of atrial fibrillation the past. She is currently having regular rhythm which is quite tachycardic and the patient will have a 12-lead EKG. She denies having any chest pain. She continues to have a congested cough. 04/28/2021, the patient is currently on a telemetry unit. The patient was having tachyarrhythmias yesterday for that reason the patient got transferred to the telemetry unit. She was started on a Cardizem drip. EKG showed sinus tachycardia with frequent PACs. The patient was taken off the Cardizem drip and the patient was started on verapamil 80 mg 3 times a day and IV heparin has been discontinued. This morning, the patient's heart rate is under better control for now. She is afebrile. She remains on 3 L of oxygen by nasal cannula with a pulse ox of around 95%. Echocardiogram was also completed yesterday and the patient was found to have a preserved LV function with an ejection fraction of around 60-65%. No other significant abnormalities have been noted. The patient has a mild to moderate component of pulmonary hypertension with a PA pressure estimated to be around 41. In terms of treatment, the patient is on Lovenox 30 mg subcu for DVT prophylaxis. The patient remains on bronchodilators and IV Solu-Medrol 60 mg every 6 regarding an underlying COPD exacerbation. Blood work from today shows a sodium level of 143, BUN is a 32 with a creatinine of 0.5, TSH was 0.8. White cell count was at 10.8 with a hemoglobin of 9.6. No other significant abnormalities have been noted. 04/29/2021, the patient is doing well. No new complaints. She is currently on 2 L of oxygen by nasal cannula. Nares are being made to discharge this patient home today. Her cardiac condition is under better control. She has frequent PACs. She is currently on a combination of verapamil 80 mg by mouth 3 times a day and metoprolol 25 mg by mouth twice a day. The patient is also on a prednisone burst taper that to be given on outpatient basis to complete at home regarding her COPD exacerbation. The patient also had coag with 19 positive during this current admission. Home medication will include also examination of Advair and Spiriva regarding her COPD along with albuterol And Estimated Basis. She'll Be Taken Also Lantus Insulin 15 Units for Blood Sugar Control. Blood work on today's evaluation shows her renal function is normal with a creatinine of 0.5, sodium is at 145 Objective - Vital Signs Vital signs: Vital Signs Temp 98.2 F 04/29/21 16:22 Pulse 71 04/29/21 16:22 Resp 16 04/29/21 16:22 BP 136/63 04/29/21 16:22 Pulse Ox 95 04/29/21 16:22 Intake & Output 04/28/21 04/29/21 04/29/21 18:59 06:59 18:59 Intake Total 360 100 120 Output Total 400 150 400 Balance -40 -50 -280 Intake: Oral 360 100 120 Output: Urine 400 150 400 Other: Voiding Method Indwelling Catheter Indwelling Catheter Indwelling Catheter - Exam General: Appears in mild respiratory distress nonlabored breathing, currently on 2 L nasal cannula HEAD: Normal with no signs of head trauma. EYES: PERRLA, EOMI, conjunctiva normal, no discharge. ENT: Hearing grossly intact, normal oropharynx. RESPIRATORY: Mild end expiratory wheezes bilaterally with slightly worsening the right lower lobe. No rhonchi. Mild increased work of breathing. Saturating well on home oxygen 2 L nasal cannula. C/V: Irregular rate and rhythm consistent with atrial fibrillation with rapid ventricular response. No peripheral edema. Peripheral pulses are 2+ intact throughout. ABD: Abd is soft, nontender, nondistended EXT: Normal range of motion, no obvious deformity SKIN: No rashes or lesions observed on exposed skin. NEURO: Alert and oriented to baseline. No focal deficits. Limitations: altered mental status - Labs CBC & Chem 7: 04/28/21 09:05 04/29/21 09:33 Labs: Abnormal Lab Results - Last 24 Hours (Table) 04/28/21 04/29/21 04/29/21 Range/Units 19:51 05:57 09:33 Carbon Dioxide 35 H (22-30) mmol/L BUN 38 H (7-17) mg/dL POC Glucose (mg/dL) 436 H 125 H (75-99) mg/dL Magnesium 1.5 L (1.6-2.3) mg/dL 04/29/21 04/29/21 04/29/21 Range/Units 11:43 12:04 16:39 Carbon Dioxide (22-30) mmol/L BUN (7-17) mg/dL POC Glucose (mg/dL) 68 L 116 H 155 H (75-99) mg/dL Magnesium (1.6-2.3) mg/dL Microbiology - Last 24 Hours (Table) 04/27/21 15:46 Blood Culture - Preliminary Blood No Growth after 24 hours 04/27/21 15:56 Blood Culture - Preliminary Blood No Growth after 24 hours Assessment and Plan Plan: 1 acute COVID 19 infection without clear indication for pneumonia. CTA shows no evidence of any pulmonary embolism. CTA shows no evidence of any groundglass pulmonary infiltrates and this is a very sensitive test identified early COVID 19 infection. Oxygenation has been unchanged and the patient still on 2 L approximately nasal cannula 2 COPD with possible exacerbation, and secondary shortness of breath, noted the patient has significant amount of COPD and initially has chronic hypoxic respiratory failure maintained on oxygen at home at 2 L per minute nasal cannula. 3 chronic hypoxic respiratory failure currently on 2 L by nasal cannula 4 sinus tachycardia with frequent PVCs, controlled for now and the patient was seen by cardiology. 5 diabetes mellitus 6 hyperlipidemia 7 hyponatremia recovered and his sodium level has normalized. 8 history of depression 9 history of degenerative arthritis Plan Clinically the patient is stable and the patient can be potentially discharged home today on 2 L about 2 by nasal cannula and a prednisone burst taper that was started yesterday. Home medication will include a combination of Spiriva and Symbicort along with interrupted As-Needed basis. Oxygen 2 L Per Minute Nasal Cannula. Her COVID 19 Situation Is Stable. Echocardiogram Was Noted and the Patient Is Known to Have Pulmonary Hypertension. Cardiology Has Made Adjustments on Her Cardiac Medications and the Patient Has Been Placed on a Combination of Verapamil and Metoprolol. CODE STATUS Remains Full Although I Recommended a Change in Her CODE STATUS down the Road. The patient is clear for discharge from the pulmonary standpoint. Continue Lantus insulin 15 units along with NovoLog per sliding scale. Outpatient indication be resumed
--- NOTE | 2021-04-29 21:39 | P.PN ---
Progress Note - Text Progress Note Date: 04/29/21 REASON FOR FOLLOWUP: COVID-19 pneumonia. INTERVAL HISTORY: The patient remains to be afebrile. The patient is breathing comfortably , pt did have a congested cough but no sputum. Denies any chest pain. No vomiting. No abdominal pain. No diarrhea. PHYSICAL EXAMINATION: Blood pressure 130/80 with a pulse of 70, temperature 98.3. She is 92% on 3 L nasal cannula. General description is an elderly female up in the chair in no distress. Respiratory system: Unlabored breathing. Coarse breath sounds bilaterally. No wheeze. Heart S1, S2. Regular rate and rhythm. Abdomen soft, no tenderness. LABS: reviewed DIAGNOSTIC IMPRESSION AND PLAN: Patient with acute COVID-19 pneumonia in this patient chest x-ray did not show any acute infiltrate, mostly COPD changes. The patient contiue with Lovenox, zinc and ascorbic acid to continue along with respiratory support.
== END 2021-04-29 17:16 | DRG 178 ==
LOC: EC 13:03 → 4SSUR 16:09 → 1SOBS 04-26 07:11 → 3SCARD 04-27 16:51
PROVIDERS: ADMIT Family Medicine; ATTEND Family Medicine
DX: U07.1 COVID-19 (principal); E87.1 Hypo-osmolality and hyponatremia; J44.1 Chronic obstructive pulmonary disease with (acute) exacerbation; J96.11 Chronic respiratory failure with hypoxia; E87.2 Acidosis; S32.509D Unspecified fracture of unspecified pubis, subsequent encounter for fracture with routine healing; W19.XXXD Unspecified fall, subsequent encounter; Z91.81 History of falling; E11.65 Type 2 diabetes mellitus with hyperglycemia; D64.9 Anemia, unspecified; E78.5 Hyperlipidemia, unspecified; E83.42 Hypomagnesemia; E86.0 Dehydration; F03.90 Unspecified dementia, unspecified severity, without behavioral disturbance, psychotic disturbance, mood disturbance, and anxiety; F32.A Depression, unspecified; F41.9 Anxiety disorder, unspecified; E83.9 Disorder of mineral metabolism, unspecified; E87.8 Other disorders of electrolyte and fluid balance, not elsewhere classified; I27.20 Pulmonary hypertension, unspecified; I10 Essential (primary) hypertension; E88.09 Other disorders of plasma-protein metabolism, not elsewhere classified; I49.1 Atrial premature depolarization; I48.91 Unspecified atrial fibrillation; J84.10 Pulmonary fibrosis, unspecified; M16.0 Bilateral primary osteoarthritis of hip; M50.30 Other cervical disc degeneration, unspecified cervical region; Z79.4 Long term (current) use of insulin; Z79.84 Long term (current) use of oral hypoglycemic drugs; Z79.899 Other long term (current) drug therapy; Z80.1 Family history of malignant neoplasm of trachea, bronchus and lung; Z82.49 Family history of ischemic heart disease and other diseases of the circulatory system; Z87.891 Personal history of nicotine dependence; Z90.710 Acquired absence of both cervix and uterus; Z99.81 Dependence on supplemental oxygen; Z79.51 Long term (current) use of inhaled steroids
CPT/HCPCS: 36415; 71045; 71046; 71275; 80048; 80053; 82728; 83605; 83615; 83735; 84145; 84439; 84443; 84484; 85025; 85379; 85610; 85730; 86140; 87040; 87635; 93005; 93306; 94640; 96374; 99285

== ENCOUNTER 2021-05-05 09:47 | Inpatient (IN) | payer MEDICARE ==
[2021-05-05] MEDS ORDERED: ALBUTEROL HFA INHALER INHALATION STA (09:57)
--- NOTE | 2021-05-05 10:02 | ED ---
SOB HPI - General Chief Complaint: Shortness of Breath Stated Complaint: respiratory distress, covid+ Time Seen by Provider: 05/05/21 09:50 Source: patient, EMS, RN notes reviewed, old records reviewed Mode of arrival: EMS Limitations: no limitations - History of Present Illness Initial Comments: 72-year-old female diagnosed with COVID-19 the second of this month who was brought in by EMS from a halfway she resides at with complaints of increased shortness of breath hypoxemia this morning. No overt chest pain no reported fevers chills or sweats she was reported have a pulse oximetry registering in the 70s this is apparently improve on nonrebreather. No other complaints at this time MD Complaint: shortness of breath - Related Data Home Medications Medication Instructions Recorded Confirmed Ferrous Sulfate [Iron (65 MG 325 mg PO DAILY 04/19/21 05/05/21 Elemental)] Fexofenadine HCl [Rteva Allergy] 180 mg PO DAILY PRN 04/19/21 05/05/21 Fluticasone/Salmeterol [Advair 1 puff INHALATION RT-BID 04/19/21 05/05/21 250-50 Diskus] Memantine HCl [Memantine HCl ER] 28 mg PO HS 04/19/21 05/05/21 Pravastatin Sodium [Pravachol] 40 mg PO HS 04/19/21 05/05/21 Tiotropium [place] [Spiriva] 1 cap INHALATION RT-DAILY 04/19/21 05/05/21 lisinopriL 10 mg PO DAILY 04/19/21 05/05/21 metFORMIN HCL 500 mg PO BID 04/19/21 05/05/21 Albuterol Nebulized [Ventolin 2.5 mg INHALATION RT-Q4H PRN 04/25/21 05/05/21 Nebulized] Sertraline [Zoloft] 150 mg PO HS 04/25/21 05/05/21 Acetaminophen Tab [Tylenol] 650 mg PO Q4HR PRN 05/05/21 05/05/21 Insulin Glargine,Hum.rec.anlog 15 unit SQ DAILY@0700 05/05/21 05/05/21 [Lantus Solostar Pen] Insulin Lispro [humaLOG Kwikpen] See Protocol SQ ACHS 05/05/21 05/05/21 Pantoprazole [Protonix] 40 mg PO DAILY@0600 05/05/21 05/05/21 Verapamil [Isoptin] 80 mg PO TID@0600,1400,2200 05/05/21 05/05/21 Zguard 1 applic TOPICAL DAILY PRN 05/05/21 05/05/21 Zguard 1 applic TOPICAL Q12H 05/05/21 05/05/21 predniSONE See Taper PO DIRECTED 05/05/21 05/05/21 Previous Rx's Medication Instructions Recorded Albuterol Sulfate [Proventil Hfa] 2 puff INHALATION RT-QID #0 04/29/21 Aspirin EC [Ecotrin Low Dose] 81 mg PO DAILY #60 tab 04/29/21 HYDROcodone/APAP 5-325MG [[place] 1 tab PO Q6H PRN #12 tab 04/29/21 5-325] Metoprolol Tartrate [Lopressor] 25 mg PO BID tab 04/29/21 hydrALAZINE HCL [Apresoline] 25 mg PO TID tab 04/29/21 Allergies Allergy/AdvReac Type Severity Reaction Status Date / Time No Known Allergies Allergy Verified 05/05/21 09:56 Review of Systems ROS Statement: Those systems with pertinent positive or pertinent negative responses have been documented in the HPI. ROS Other: All systems not noted in ROS Statement are negative. Past Medical History Past Medical History: Asthma, COPD, Dementia, Diabetes Mellitus, Hyperlipidemia, Hypertension, Pneumonia, Respiratory Disorder, Vascular Disorder Additional Past Medical History / Comment(s): Pt recently admitted to [facility] on 04/19/21 with pelvic/hip fracture/IDC/no surgery/sent to rehab. Other hx: NIDDM tyoe II, chronic hypoxic respiratory failure/oxygen 2L/NC at HS/prn recently started "pocketing food", minimal pulmonary fibrosis, degenerative arthritis, varicosities with surgery, iron anemia. History of Any Multi-Drug Resistant Organisms: None Reported Past Surgical History: Appendectomy, Cholecystectomy, Hysterectomy Additional Past Surgical History / Comment(s): Colonoscopy/polypectomy, varicose vein surgery. Past Anesthesia/Blood Transfusion Reactions: No Reported Reaction Past Psychological History: Anxiety, Depression Smoking Status: Former smoker - Past Family History Father Family Medical History: Myocardial Infarction (RI) Additional Family Medical History / Comment(s): Father of a massive RI at the age of 69yrs. Mother Family Medical History: Cancer Additional Family Medical History / Comment(s): Mother of lung cancer at the age of 49 yrs. General Exam - General Exam Comments Initial Comments: This a well-developed asthenic appearing female who is awake alert Limitations: no limitations General appearance: alert, anxious Head exam: Present: atraumatic, normocephalic, normal inspection Eye exam: Present: normal appearance, PERRL, EOMI. Absent: scleral icterus, conjunctival injection, periorbital swelling ENT exam: Present: normal exam, mucous membranes moist Neck exam: Present: normal inspection, full ROM, other. Absent: tenderness, meningismus, lymphadenopathy Respiratory exam: Present: accessory muscle use, decreased breath sounds (No stridor JVD or bruits). Absent: respiratory distress, wheezes, rales, rhonchi, stridor Cardiovascular Exam: Present: regular rate, normal rhythm, normal heart sounds. Absent: systolic murmur, diastolic murmur, rubs, gallop, clicks GI/Abdominal exam: Present: soft, normal bowel sounds. Absent: distended, tenderness, guarding, rebound, rigid Extremities exam: Present: normal inspection, full ROM, normal capillary refill. Absent: tenderness, pedal edema, joint swelling, calf tenderness Back exam: Present: normal inspection Neurological exam: Present: alert, oriented X3, CN II-XII intact Psychiatric exam: Present: normal affect, normal mood Skin exam: Present: warm, dry, intact, normal color. Absent: rash Course Vital Signs 05/05/21 05/05/21 05/05/21 09:49 09:57 11:17 Temperature 97 F L 97.3 F L Pulse Rate 90 96 Respiratory 18 18 Rate Blood Pressure 107/57 110/88 O2 Sat by Pulse 99 98 91 L Oximetry Medical Decision Making - Medical Decision Making Reevaluation patient finds that she still dyspneic with verbal pulse oximetry is noted. The skin that the patient will be admitted to the hospital - Lab Data Result diagrams: 05/05/21 10:06 05/05/21 10:06 Lab Results 05/05/21 05/05/21 05/05/21 Range/Units 10:06 10:06 10:06 WBC 22.4 H (3.8-10.6) k/uL RBC 3.80 (3.80-5.40) m/uL Hgb 11.3 L (11.4-16.0) gm/dL Hct 36.7 (34.0-46.0) % MCV 96.5 D (80.0-100.0) fL MCH 29.7 (25.0-35.0) pg MCHC 30.8 L (31.0-37.0) g/dL RDW 13.9 (11.5-15.5) % Plt Count 415 (150-450) k/uL MPV 8.5 Neutrophils % 95 % Lymphocytes % 3 % Monocytes % 2 % Eosinophils % 0 % Basophils % 0 % Neutrophils # 21.1 H (1.3-7.7) k/uL Lymphocytes # 0.6 L (1.0-4.8) k/uL Monocytes # 0.5 (0-1.0) k/uL Eosinophils # 0.0 (0-0.7) k/uL Basophils # 0.0 (0-0.2) k/uL Hypochromasia Moderate PT 10.9 (9.0-12.0) sec INR 1.0 (<1.2) APTT 20.2 L (22.0-30.0) sec D-Dimer 2.96 H (<0.60) mg/L FEU Sodium 152 H (137-145) mmol/L Potassium 3.4 L (3.5-5.1) mmol/L Chloride 112 H (98-107) mmol/L Carbon Dioxide 29 (22-30) mmol/L Anion Gap 11 mmol/L BUN 45 H (7-17) mg/dL Creatinine 0.78 (0.52-1.04) mg/dL Est GFR (CKD-EPI)AfAm 85 (>60 ml/min/1.73 sqM) Est GFR (CKD-EPI)NonAf 73 (>60 ml/min/1.73 sqM) Glucose 215 H (74-99) mg/dL Plasma Lactic Acid [place] (0.7-2.0) mmol/L Calcium 8.7 (8.4-10.2) mg/dL Magnesium 1.6 (1.6-2.3) mg/dL Total Bilirubin 0.5 (0.2-1.3) mg/dL AST 23 (14-36) U/L ALT 13 (4-34) U/L Alkaline Phosphatase 99 (38-126) U/L Lactate Dehydrogenase 706 H (313-618) U/L Troponin I (0.000-0.034) ng/mL C-Reactive Protein 6.1 H (<1.0) mg/dL NT-Pro-B Natriuret Pep pg/mL Total Protein 5.4 L (6.3-8.2) g/dL Albumin 2.9 L (3.5-5.0) g/dL 05/05/21 05/05/21 05/05/21 Range/Units 10:06 10:06 10:06 WBC (3.8-10.6) k/uL RBC (3.80-5.40) m/uL Hgb (11.4-16.0) gm/dL Hct (34.0-46.0) % MCV (80.0-100.0) fL MCH (25.0-35.0) pg MCHC (31.0-37.0) g/dL RDW (11.5-15.5) % Plt Count (150-450) k/uL MPV Neutrophils % % Lymphocytes % % Monocytes % % Eosinophils % % Basophils % % Neutrophils # (1.3-7.7) k/uL Lymphocytes # (1.0-4.8) k/uL Monocytes # (0-1.0) k/uL Eosinophils # (0-0.7) k/uL Basophils # (0-0.2) k/uL Hypochromasia PT (9.0-12.0) sec INR (<1.2) APTT (22.0-30.0) sec D-Dimer (<0.60) mg/L FEU Sodium (137-145) mmol/L Potassium (3.5-5.1) mmol/L Chloride (98-107) mmol/L Carbon Dioxide (22-30) mmol/L Anion Gap mmol/L BUN (7-17) mg/dL Creatinine (0.52-1.04) mg/dL Est GFR (CKD-EPI)AfAm (>60 ml/min/1.73 sqM) Est GFR (CKD-EPI)NonAf (>60 ml/min/1.73 sqM) Glucose (74-99) mg/dL Plasma Lactic Acid [place] 1.4 (0.7-2.0) mmol/L Calcium (8.4-10.2) mg/dL Magnesium (1.6-2.3) mg/dL Total Bilirubin (0.2-1.3) mg/dL AST (14-36) U/L ALT (4-34) U/L Alkaline Phosphatase (38-126) U/L Lactate Dehydrogenase (313-618) U/L Troponin I 0.013 (0.000-0.034) ng/mL C-Reactive Protein (<1.0) mg/dL NT-Pro-B Natriuret Pep 390 pg/mL Total Protein (6.3-8.2) g/dL Albumin (3.5-5.0) g/dL - EKG Data -: EKG Interpreted by Me EKG Comments: Sinus tachycardia rate 111 evidence of block QRS 82 QT since QTC 342/465 left exodeviation pulmonary disease pattern - Radiology Data Radiology results: report reviewed (Imaging reviewed no PE noted bilateral pulmonary infiltrates), image reviewed Disposition Clinical Impression: Pneumonia due to COVID-19 virus, Dehydration, Hypoxemia, Failure of outpatient treatment, COPD (chronic obstructive pulmonary disease) Disposition: ADMITTED IP TO THIS HOSP Condition: Fair Referrals: Kenji Narayan DO [Primary Care Provider] - 1-2 days
--- NOTE | 2021-05-05 10:27 | XR ---
EXAMINATION TYPE: XR chest 1V portable DATE OF EXAM: 05/05/2021 COMPARISON: Chest x-ray 04/28/2021, chest CT 04/17/2021 HISTORY: Dyspnea, Covid positive TECHNIQUE: Single frontal view of the chest is obtained. FINDINGS: There is no focal air space opacity, pleural effusion, or pneumothorax seen. The cardiac silhouette size is within normal limits, stable. Prominence of pulmonary artery is noted. Patient is rotated towards the left. Aorta is dense. There are overlying artifacts. The osseous structures are intact. IMPRESSION: No acute process. There is underlying emphysema, consider pulmonary artery hypertension.
[2021-05-05 10:36] LABS: Potassium 3.4 mmol/L (3.5-5.1)
[2021-05-05 10:39] LABS: Albumin 2.9 g/dL (3.5-5.0); C Reactive Protein 6.1 mg/dL (<1.0); Calcium 8.7 mg/dL (8.4-10.2); Magnesium 1.6 mg/dL (1.6-2.3); Total Bilirubin 0.5 mg/dL (0.2-1.3); Total Protein 5.4 g/dL (6.3-8.2)
[2021-05-05 10:42] LABS: Basophils % (A) 0 %; Eosinophils % (A) 0 %; HCT 36.7 % (34.0-46.0); HGB 11.3 gm/dL (11.4-16.0); Hypochromasia Moderate; Lymphocytes # (A) 0.6 k/uL (1.0-4.8); Lymphocytes % (A) 3 %; MCH 29.7 pg (25.0-35.0); MCHC 30.8 g/dL (31.0-37.0); Mean Platelet Volume 8.5; Monocytes # (A) 0.5 k/uL (0-1.0); Monocytes % (A) 2 %; Neutrophils # (A) 21.1 k/uL (1.3-7.7); Neutrophils % (A) 95 %; Platelet Count 415 k/uL (150-450); RDW 13.9 % (11.5-15.5); WBC 22.4 k/uL (3.8-10.6)
[2021-05-05 10:44] LABS: Partial Thromboplastin Time 20.2 sec (22.0-30.0); Prothrombin Time 10.9 sec (9.0-12.0)
[2021-05-05 10:45] LABS: MCV 96.5 fL (80.0-100.0)
--- NOTE | 2021-05-05 12:04 | CT ---
EXAMINATION TYPE: CT angio chest DATE OF EXAM: 05/05/2021 COMPARISON: Chest x-ray same date, CT chest 04/25/2021 HISTORY: Elev. D dimer CT DLP: 223.4 mGycm Automated exposure control for dose reduction was used. CONTRAST: CTA scan of the thorax is performed with IV Contrast, patient injected with 100 mL of Isovue 370, pul monary embolism protocol. MIP images are created and reviewed. 3D reconstructed images are created on an independent workstation and reviewed. FINDINGS: LUNGS: The lungs show emphysema as on prior CT 10 days prior. There is abnormal attenuation in the posterior lung bases, posterior lower lobes. The tracheobronchial tree is patent. AORTA: No additional significant abnormality is seen. MEDIASTINUM: There is satisfactory enhancement of the pulmonary artery and its branches, there is no CT evidence for pulmonary embolism. There are no greater than 1 cm hilar or mediastinal lymph nodes. No pericardial effusion is seen. Prominence of the pulmonary artery be indicative of pulmonary art rianna hypertension OTHER: Dilated intrahepatic biliary ducts again noted may be due to postcholecystectomy change. IMPRESSION: EMPHYSEMA AND POSSIBLE PULMONARY ARTERY HYPERTENSION, NO EVIDENT PULMONARY EMBOLISM , CORRELATE FOR B ILATERAL LOWER LOBE PNEUMONIA
[2021-05-05] MEDS ORDERED: HYDROcodone/APAP 5-325MG 1 EACH TAB PO PRN (13:27)
[2021-05-05] MEDS ORDERED: LORATADINE 10 MG TAB PO PRN (13:27)
[2021-05-05] MEDS: VERAPAMIL 80 MG TAB PO SCH ×2 (14:43→23:08)
[2021-05-05] MEDS: SODIUM CHLORIDE 0.9% 1,000 ML IV SCH ×2 (15:19→23:10)
[2021-05-05] MEDS: hydrALAZINE HCL 25 MG TAB PO SCH ×2 (16:51→23:09)
--- NOTE | 2021-05-05 17:03 | P.CNPUL ---
History of Present Illness Consult date: 05/05/21 Requesting physician: Kenji Narayan Reason for consult: hypoxemia, pneumonia Chief complaint: Shortness of breath History of present illness: This is a 80-year-old white female with history of multiple medical problems including dementia, diabetes, chronic hypoxic respiratory failure secondary to severe underlying COPD, maintained on oxygen at 2 L/m, patient resides at [facility], she was last seen by Dr. Beard on 04/26/2021, patient was admitted at the time with acute COVID-[address] angiogram of the chest showed no evidence of pulmonary embolism. She had some minimal fibrosis on the CT of the chest, and background COPD. Patient was hospitalized, she was eventually discharged home on 04/29/21, she was seen by multiple consultants at the time. She was seen by Dr. Beard, cardiology, infectious disease, and she was discharged back to [facility]. Patient was sent back from [facility] today by EMS with complaints of increased shortness of breath, and hypoxia, patient is a very poor historian, could not get much information from the patient herself. She is quite confused. CT angiogram of the chest showed no evidence of pulmonary embolism, there was evidence of bilateral pneumonia and underlying emphysema and fibrosis. Asked x-ray was basically nondiagnostic. CBC showed leukocytosis with WBC of 22.4 hemoglobin 11.3. D-dimer was a bit elevated at 2.[address] angiogram of the chest was unremarkable. Sodium was elevated at 152 BUN is 45 creatinine 0.78. ProBNP level is 390. Troponin is 0.013 LDH is 706. Patient is on 6 L nasal cannula, O2 sats is 96%. Review of Systems ROS unobtainable: due to mental status Past Medical History Past Medical History: Asthma, COPD, Dementia, Diabetes Mellitus, Hyperlipidemia, Hypertension, Pneumonia, Respiratory Disorder, Vascular Disorder Additional Past Medical History / Comment(s): Pt recently admitted to [facility] on 04/19/21 with pelvic/hip fracture/IDC/no surgery/sent to rehab. Other hx: NIDDM tyoe II, chronic hypoxic respiratory failure/oxygen 2L/NC at HS/prn recently started "pocketing food", minimal pulmonary fibrosis, degenerative arthritis, varicosities with surgery, iron anemia. History of Any Multi-Drug Resistant Organisms: None Reported Past Surgical History: Appendectomy, Cholecystectomy, Hysterectomy Additional Past Surgical History / Comment(s): Colonoscopy/polypectomy, varicose vein surgery. Past Anesthesia/Blood Transfusion Reactions: No Reported Reaction Past Psychological History: Anxiety, Depression Smoking Status: Former smoker - Past Family History Father Family Medical History: Myocardial Infarction (VT) Additional Family Medical History / Comment(s): Father of a massive VT at the age of 69yrs. Mother Family Medical History: Cancer Additional Family Medical History / Comment(s): Mother of lung cancer at the age of 49 yrs. Medications and Allergies Home Medications Medication Instructions Recorded Confirmed Type Ferrous Sulfate [Iron (65 MG 325 mg PO DAILY 04/19/21 05/05/21 History Elemental)] Fexofenadine HCl [Treva Allergy] 180 mg PO DAILY PRN 04/19/21 05/05/21 History Fluticasone/Salmeterol [Advair 1 puff INHALATION RT-BID 04/19/21 05/05/21 History 250-50 Diskus] Memantine HCl [Memantine HCl ER] 28 mg PO HS 04/19/21 05/05/21 History Pravastatin Sodium [Pravachol] 40 mg PO HS 04/19/21 05/05/21 History Tiotropium [place] [Spiriva] 1 cap INHALATION RT-DAILY 04/19/21 05/05/21 History lisinopriL 10 mg PO DAILY 04/19/21 05/05/21 History metFORMIN HCL 500 mg PO BID 04/19/21 05/05/21 History Albuterol Nebulized [Ventolin 2.5 mg INHALATION RT-Q4H PRN 04/25/21 05/05/21 History Nebulized] Sertraline [Zoloft] 150 mg PO HS 04/25/21 05/05/21 History Albuterol Sulfate [Proventil Hfa] 2 puff INHALATION RT-QID #0 04/29/21 05/05/21 Rx Aspirin EC [Ecotrin Low Dose] 81 mg PO DAILY #60 tab 04/29/21 05/05/21 Rx HYDROcodone/APAP 5-325MG [[place] 1 tab PO Q6H PRN #12 tab 04/29/21 05/05/21 Rx 5-325] Metoprolol Tartrate [Lopressor] 25 mg PO BID tab 04/29/21 05/05/21 Rx hydrALAZINE HCL [Apresoline] 25 mg PO TID tab 04/29/21 05/05/21 Rx Acetaminophen Tab [Tylenol] 650 mg PO Q4HR PRN 05/05/21 05/05/21 History Insulin Glargine,Hum.rec.anlog 15 unit SQ DAILY@0700 05/05/21 05/05/21 History [Lantus Solostar Pen] Insulin Lispro [humaLOG Kwikpen] See Protocol SQ ACHS 05/05/21 05/05/21 History Pantoprazole [Protonix] 40 mg PO DAILY@0600 05/05/21 05/05/21 History Verapamil [Isoptin] 80 mg PO TID@0600,1400,2200 05/05/21 05/05/21 History Zguard 1 applic TOPICAL DAILY PRN 05/05/21 05/05/21 History Zguard 1 applic TOPICAL Q12H 05/05/21 05/05/21 History predniSONE See Taper PO DIRECTED 05/05/21 05/05/21 History Allergies Allergy/AdvReac Type Severity Reaction Status Date / Time No Known Allergies Allergy Verified 05/05/21 09:56 Physical Exam Vitals: Vital Signs Temp Pulse Resp BP Pulse Ox 05/05/21 14:39 98 18 112/62 96 05/05/21 11:17 97.3 F L 96 18 110/88 91 L 05/05/21 09:57 98 05/05/21 09:49 97 F L 90 18 107/57 99 Intake and Output 05/05/21 05/05/21 05/05/21 06:59 14:59 22:59 Other: Weight 54.431 kg General: Revealed a 80-year-old female, confused, in no distress. HEAD: Normal with no signs of head trauma. EYES: PERRLA, EOMI, conjunctiva normal, no discharge. ENT: Hearing grossly intact, normal oropharynx. RESPIRATORy: Symmetrical chest expansion, rhonchi throughout. C/V: Irregular rate and rhythm consistent with atrial fibrillation with rapid ventricular response. No peripheral edema. Peripheral pulses are 2+ intact throughout. ABD: Abd is soft, nontender, nondistended EXT: Normal range of motion, no obvious deformity SKIN: No rashes or lesions observed on exposed skin. NEURO: Patient is confused, she thinks she is at home. And she is a very poor historian. Limitations: altered mental status Results - Laboratory Findings CBC and BMP: 05/05/21 10:06 05/05/21 10:06 PT/INR, D-dimer PT 10.9 sec (9.0-12.0) 05/05/21 10:06 INR 1.0 (<1.2) 05/05/21 10:06 D-Dimer 2.96 mg/L FEU (<0.60) H 05/05/21 10:06 Abnormal lab findings: Abnormal Labs 05/05/21 05/05/21 05/05/21 10:06 10:06 10:06 WBC 22.4 H Hgb 11.3 L MCHC 30.8 L Neutrophils # 21.1 H Lymphocytes # 0.6 L APTT 20.2 L D-Dimer 2.96 H Sodium 152 H Potassium 3.4 L Chloride 112 H BUN 45 H Glucose 215 H Lactate Dehydrogenase 706 H C-Reactive Protein 6.1 H Total Protein 5.4 L Albumin 2.9 L - Diagnostic Findings Chest x-ray: image reviewed (as noted in HPI.) CT scan - chest: image reviewed Assessment and Plan Assessment: Impression: Chronic hypoxic respiratory failure, I believe her overall status is no different from the time she was discharged home on oxygen. Recent COVID-19 infection but no clear-cut evidence of abnormality on the chest x-ray. Even the findings on the CT of the chest are related to recent COVID-19 pneumonia not quite impressive. Hypernatremia secondary to free water deficit, patient should be treated with D5W and liberalize water intake. Elevated d-dimer, but no evidence of thrombus embolic disease. Type 2 diabetes. Suspect minimal exacerbation of COPD Recommendation: Continue present supportive care measures Continue COVID-19 cocktail. Bronchodilators. Check pro calcitonin level and decide whether antibiotics are necessary. Address the issue of the hypernatremia by giving the patient D5W and liberalize water intake. Resume home meds. Including cardiac meds. Continue insulin Will reassess in the next 24 hours. Time with Patient: Greater than 30
[2021-05-05] MEDS: ALBUTEROL HFA INHALER INHALATION SCH ×2 (17:22→20:38)
[2021-05-05 18:00] LABS: Glucose,Whole Blood 196 mg/dL (75-99)
[2021-05-05] MEDS: DEXAMETHASONE SOD PHOSPHATE 10 MG/ML 1 ML VIAL IVP SCH (18:22)
[2021-05-05] MEDS: metFORMIN 500 MG TAB PO SCH (18:22)
[2021-05-05] MEDS: INSULIN ASPART (NovoLOG) 100 UNIT/ML VIAL SQ SCH ×2 (18:23→23:10)
[2021-05-05 23:01] LABS: Glucose,Whole Blood 137 mg/dL (75-99)
[2021-05-05] MEDS: SERTRALINE 50 MG TAB PO SCH (23:08)
[2021-05-05] MEDS: MEMANTINE 10 MG TAB PO SCH (23:08)
[2021-05-05] MEDS: METOPROLOL TARTRATE 25 MG TAB PO SCH (23:09)
[2021-05-05] MEDS: PRAVASTATIN SODIUM 40 MG TAB PO SCH (23:09)
[2021-05-06] MEDS ORDERED: IPRATROPIUM 0.5 MG/2.5 ML NEBU INHALATION SCH (08:00)
[2021-05-06] MEDS: FERROUS SULFATE 325 MG TAB PO SCH (09:30)
[2021-05-06] MEDS: DEXAMETHASONE SOD PHOSPHATE 10 MG/ML 1 ML VIAL IVP SCH (09:30)
[2021-05-06] MEDS: ASPIRIN 81 MG PO SCH (09:30)
[2021-05-06] MEDS: lisinopriL 10 MG TAB PO SCH (09:30)
[2021-05-06] MEDS: MEMANTINE 10 MG TAB PO SCH ×2 (09:30→21:35)
[2021-05-06] MEDS: METOPROLOL TARTRATE 25 MG TAB PO SCH ×2 (09:30→21:35)
[2021-05-06] MEDS: VERAPAMIL 80 MG TAB PO SCH ×3 (09:30→21:35)
[2021-05-06] MEDS: PANTOPRAZOLE 40 MG TABLET PO SCH (09:30)
[2021-05-06] MEDS: hydrALAZINE HCL 25 MG TAB PO SCH ×3 (09:30→21:36)
[2021-05-06] MEDS: metFORMIN 500 MG TAB PO SCH ×2 (09:30→16:57)
[2021-05-06] MEDS: INSULIN DETEMIR (LEVEMIR) 100 UNIT/ML SYR SQ SCH (09:31)
[2021-05-06] MEDS: ALBUTEROL HFA INHALER INHALATION SCH ×4 (09:43→20:51)
[2021-05-06] MEDS: INSULIN ASPART (NovoLOG) 100 UNIT/ML VIAL SQ SCH ×4 (09:43→21:34)
[2021-05-06] MEDS: SODIUM CHLORIDE 0.9% 1,000 ML IV SCH (09:44)
[2021-05-06 13:06] LABS: Glucose,Whole Blood 197 mg/dL (75-99)
--- NOTE | 2021-05-06 13:12 | P.PN ---
Subjective Progress Note Date: 05/06/21 This is a 80-year-old white female with history of multiple medical problems including dementia, diabetes, chronic hypoxic respiratory failure secondary to severe underlying COPD, maintained on oxygen at 2 L/m, patient resides at [facility], she was last seen by Dr. Beard on 04/26/2021, patient was admitted at the time with acute COVID-[address] angiogram of the chest showed no evidence of pulmonary embolism. She had some minimal fibrosis on the CT of the chest, and background COPD. Patient was hospitalized, she was eventually discharged home on 04/29/21, she was seen by multiple consultants at the time. She was seen by Dr. Beard, cardiology, infectious disease, and she was discharged back to [facility]. Patient was sent back from [facility] today by EMS with complaints of increased shortness of breath, and hypoxia, patient is a very poor historian, could not get much information from the patient herself. She is quite confused. CT angiogram of the chest showed no evidence of pulmonary embolism, there was evidence of bilateral pneumonia and underlying emphysema and fibrosis. Asked x-ray was basically nondiagnostic. CBC showed leukocytosis with WBC of 22.4 hemoglobin 11.3. D-dimer was a bit elevated at 2.[address] angiogram of the chest was unremarkable. Sodium was elevated at 152 BUN is 45 creatinine 0.78. ProBNP level is 390. Troponin is 0.013 LDH is 706. Patient is on 6 L nasal cannula, O2 sats is 96%. On 05/06/2021 patient seen in follow-up on medical surgical floor. She is awake and alert, she is very confused, but appears to be in no acute distress. She follows simple commands, but she is oriented only to person, she is currently on 5 L of oxygen, which has been cut back to 4 L and her pulse ox is around 90%, afebrile, hemodynamically she is been stable. Her chest x-ray on admission showed no acute pulmonary process, underlying emphysema and pulmonary arterial hypertension. Her CT angiogram of the chest showed dilated intrahepatic biliary ducts related to postcholecystectomy changes. No new labs today. Her IV fluids have been cut back to KVO. Her oral membranes are extremely dry, suspect poor oral intake and dehydration. But no sign of any respiratory distress. Awaiting repeat labs, and in the meantime patient continues on Decadron 6 mg, however there was no clear evidence of pneumonia on the chest x-ray, we'll consider stopping it today. Pro-calcitonin level was negative. Objective - Vital Signs Vital signs: Vital Signs Temp 98.7 F 05/06/21 03:36 Pulse 97 05/06/21 10:00 Resp 19 05/06/21 10:00 BP 125/73 05/06/21 10:00 Pulse Ox 90 L 05/06/21 10:00 Intake & Output 05/05/21 05/06/21 05/06/21 18:59 06:59 18:59 Output Total 1450 Balance -1450 Weight 54.431 kg 54.431 kg Output: Urine 1450 Other: Voiding Method Indwelling Catheter Indwelling Catheter - Exam GENERAL EXAM: Alert, very confused, 80-year-old white female, on 4 L of oxygen with a pulse ox of 90%, very confused comfortable in no apparent distress. HEAD: Normocephalic/atraumatic. EYES: Normal reaction of pupils, equal size. Conjunctiva pink, sclera white. NOSE: Clear with pink turbinates. THROAT: No erythema or exudates. NECK: No masses, no JVD, no thyroid enlargement, no adenopathy. CHEST: No chest wall deformity. Symmetrical expansion. LUNGS: Equal air entry with no crackles, wheeze, rhonchi or dullness. CVS: Regular rate and rhythm, normal S1 and S2, no gallops, no murmurs, no rubs ABDOMEN: Soft, nontender. No hepatosplenomegaly, normal bowel sounds, no guarding or rigidity. EXTREMITIES: No clubbing, no edema, no cyanosis, 2+ pulses and upper and lower extremities. MUSCULOSKELETAL: Muscle strength and tone normal. SPINE: No scoliosis or deformity SKIN: No rashes CENTRAL NERVOUS SYSTEM: Alert and oriented -1. No focal deficits, tone is normal in all 4 extremities. PSYCHIATRIC: Alert and oriented to self only. Confused - Labs CBC & Chem 7: 05/05/21 10:06 05/05/21 10:06 Labs: Abnormal Lab Results - Last 24 Hours (Table) 05/05/21 05/05/21 05/05/21 Range/Units 10:06 17:58 23:00 POC Glucose (mg/dL) 196 H 137 H (75-99) mg/dL Ferritin 394.0 H (10.0-291.0) ng/mL Assessment and Plan Plan: Assessment: #1. Altered mental status, related to metabolic encephalopathy, hypernatremia, dehydration #2. Recent history of COVID-19 infection, without clear evidence of pneumonia #3. Recent hospitalization for the above and acute exacerbation of COPD and altered mental status #4. Chronic hypoxic respiratory failure related to history of COPD #5. Hypernatremia related to free water deficit #6. Leukocytosis, possibly related to steroids, rule out possibility of sepsis component calcitonin level is negative #7. Elevated d-dimer without CT evidence of pulmonary embolism #8. Diabetes mellitus 2 #9. Dementia #10. History of depression #11. Degenerative arthritis Plan: Patient remains very confused Repeat labs are pending Stop 0.9 normal saline and start D5W at 100 ML per hour Poor oral intake, patient may need supervision and assistance with meals Continue Decadron for now, we will consider stopping it because there is no clear evidence of pneumonia on the chest x-ray, or CT angiogram of the chest Pro-calcitonin level is negative However patient is a good set up for aspiration in view of altered mental status Continue IV hydration, Continue supportive treatment Maintaining aspiration precautions Recommend addressing CODE STATUS We'll follow and make further recommendations I performed a history & physical examination of the patient and discussed their management with my nurse practitioner, Alize Hendricks. I reviewed the nurse practitioner's note and agree with the documented findings and plan of care. L bela sounds are positive for clear breath sounds throughout the lung hernandez. The findings and the impression was discussed with the patient. I attest to the documentation by the nurse practitioner. Time with Patient: Less than 30
[2021-05-06 13:26] LABS: Basophils % (A) 0 %; Eosinophils % (A) 0 %; HCT 38.1 % (34.0-46.0); HGB 11.5 gm/dL (11.4-16.0); Hypochromasia Marked; Lymphocytes # (A) 0.3 k/uL (1.0-4.8); Lymphocytes % (A) 2 %; MCH 29.7 pg (25.0-35.0); MCHC 30.1 g/dL (31.0-37.0); MCV 98.6 fL (80.0-100.0); Mean Platelet Volume 8.5; Monocytes # (A) 0.3 k/uL (0-1.0); Monocytes % (A) 1 %; Neutrophils # (A) 20.8 k/uL (1.3-7.7); Neutrophils % (A) 97 %; Platelet Count 405 k/uL (150-450); RBC 3.86 m/uL (3.80-5.40); RDW 13.9 % (11.5-15.5); WBC 21.6 k/uL (3.8-10.6)
[2021-05-06 13:50] LABS: ALT 15 U/L (4-34); AST 23 U/L (14-36); African American GFR (CKD) >90 (>60 ml/min/1.73 sqM); Albumin 2.9 g/dL (3.5-5.0); Albumin/Globulin Ratio 1.1; Alkaline Phosphatase 103 U/L (38-126); Anion Gap 7 mmol/L; Blood Urea Nitrogen 31 mg/dL (7-17); Calcium 8.6 mg/dL (8.4-10.2); Carbon Dioxide 30 mmol/L (22-30); Chloride 117 mmol/L (98-107); Globulin 2.7 g/dL; Glucose 217 mg/dL (74-99); Non-African American GFR(CKD) 85 (>60 ml/min/1.73 sqM); Potassium 3.5 mmol/L (3.5-5.1); Sodium 154 mmol/L (137-145); Total Bilirubin 0.4 mg/dL (0.2-1.3); Total Protein 5.6 g/dL (6.3-8.2)
[2021-05-06 14:28] VITALS: BMI 22.6
[2021-05-06] MEDS ORDERED: Magnesium Replacement Protocol 1 EACH MISC MISCELLANE PRN (16:29)
[2021-05-06] MEDS ORDERED: Potassium Replacement Protocol 1 EACH MISC MISCELLANE PRN (16:31)
[2021-05-06] MEDS ORDERED: PANTOPRAZOLE 40 MG/10 ML VIAL IVP SCH (16:45)
--- NOTE | 2021-05-06 16:50 | P.HPIM ---
History of Present Illness H&P Date: 05/06/21 Chief Complaint: Worsening dyspnea This is a 80-year-old female recently discharged to [facility] subacute rehab secondary to COVID-19 infection, possible acute COPD exacerbation, chronic hypoxic respiratory failure, recent pelvic fracture and multiple other medical issues. Patient returned to the ER on 100% nonrebreather with O2 sats of 99% via EMS, EMS records currently unavailable. EF reported no chest pain, no fevers chills or sweats and the patient was referred to have a pulse ox in the 70s-assuming on 2 L nasal cannula O2 that she normally wears. Afebrile, WBC 22. 4, hemoglobin 9.3, platelets 4:15. D-dimer 2.96.Chest CTA reported no PE, evidence of bilateral pneumonia, underlying emphysema, fibrosis and pulmonary hypertension. Chest x-ray reported no acute process. Sodium 152, Potassium 3.4, chloride 112, BUN 45, creatinine 0.78, glucose 215, lactic acid 1.4, LDH 706, CRP 6.1, pro calcitonin negative.Patient is confused, poor historian, majority of information obtained from staff and EHR. O2 has been weaned down to 4 L nasal cannula maintaining O2 sats in the 90s. Review of Systems Review systems: Unable to obtain, patient confused, no family at bedside currently. Past Medical History Past Medical History: Asthma, COPD, Dementia, Diabetes Mellitus, GERD/Reflux, Hyperlipidemia, Hypertension, Pneumonia, Respiratory Disorder, Vascular Disorder Additional Past Medical History / Comment(s): Pt recently admitted to [facility] on 04/25/21 with Covid 19 infection. Other hx: 04/19/21 with pelvic/hip fracture/retroperitoneal hematoma/IDC/no surgery/sent to rehab, IDDM type II, chronic hypoxic respiratory failure/oxygen 2L/NC, dysphagia/ recently started "pocketing food", minimal pulmonary fibrosis, degenerative arthritis, varicosities with surgery, iron anemia, hypomagnesemia. History of Any Multi-Drug Resistant Organisms: None Reported Past Surgical History: Appendectomy, Cholecystectomy, Hysterectomy Additional Past Surgical History / Comment(s): Colonoscopy/polypectomy, varicose vein surgery. Past Anesthesia/Blood Transfusion Reactions: No Reported Reaction Smoking Status: Former smoker - Past Family History Father Family Medical History: Myocardial Infarction (MA) Additional Family Medical History / Comment(s): Father of a massive MA at the age of 69yrs. Mother Family Medical History: Cancer Additional Family Medical History / Comment(s): Mother of lung cancer at the age of 49 yrs. Medications and Allergies Home Medications Medication Instructions Recorded Confirmed Type Ferrous Sulfate [Iron (65 MG 325 mg PO DAILY 04/19/21 05/05/21 History Elemental)] Fexofenadine HCl [Treva Allergy] 180 mg PO DAILY PRN 04/19/21 05/05/21 History Fluticasone/Salmeterol [Advair 1 puff INHALATION RT-BID 04/19/21 05/05/21 History 250-50 Diskus] Memantine HCl [Memantine HCl ER] 28 mg PO HS 04/19/21 05/05/21 History Pravastatin Sodium [Pravachol] 40 mg PO HS 04/19/21 05/05/21 History Tiotropium [place] [Spiriva] 1 cap INHALATION RT-DAILY 04/19/21 05/05/21 History lisinopriL 10 mg PO DAILY 04/19/21 05/05/21 History metFORMIN HCL 500 mg PO BID 04/19/21 05/05/21 History Albuterol Nebulized [Ventolin 2.5 mg INHALATION RT-Q4H PRN 04/25/21 05/05/21 History Nebulized] Sertraline [Zoloft] 150 mg PO HS 04/25/21 05/05/21 History Albuterol Sulfate [Proventil Hfa] 2 puff INHALATION RT-QID #0 04/29/21 05/05/21 Rx Aspirin EC [Ecotrin Low Dose] 81 mg PO DAILY #60 tab 04/29/21 05/05/21 Rx HYDROcodone/APAP 5-325MG [[place] 1 tab PO Q6H PRN #12 tab 04/29/21 05/05/21 Rx 5-325] Metoprolol Tartrate [Lopressor] 25 mg PO BID tab 04/29/21 05/05/21 Rx hydrALAZINE HCL [Apresoline] 25 mg PO TID tab 04/29/21 05/05/21 Rx Acetaminophen Tab [Tylenol] 650 mg PO Q4HR PRN 05/05/21 05/05/21 History Insulin Glargine,Hum.rec.anlog 15 unit SQ DAILY@0700 05/05/21 05/05/21 History [Lantus Solostar Pen] Insulin Lispro [humaLOG Kwikpen] See Protocol SQ ACHS 05/05/21 05/05/21 History Pantoprazole [Protonix] 40 mg PO DAILY@0600 05/05/21 05/05/21 History Verapamil [Isoptin] 80 mg PO TID@0600,1400,2200 05/05/21 05/05/21 History Zguard 1 applic TOPICAL DAILY PRN 05/05/21 05/05/21 History Zguard 1 applic TOPICAL Q12H 05/05/21 05/05/21 History predniSONE See Taper PO DIRECTED 05/05/21 05/05/21 History Allergies Allergy/AdvReac Type Severity Reaction Status Date / Time No Known Allergies Allergy Verified 05/05/21 09:56 Physical Exam Vitals: Vital Signs Temp Pulse Pulse Resp BP BP Pulse Ox 05/06/21 14:00 98.0 F 74 17 102/53 92 L 05/06/21 10:00 97 19 125/73 90 L 05/06/21 06:00 97 149/70 94 L 05/06/21 03:36 98.7 F 81 127/66 95 05/05/21 23:00 98.1 F 94 20 123/64 96 05/05/21 21:00 98.1 F 92 22 124/65 95 05/05/21 18:25 98 F 100 18 123/82 98 Intake and Output 05/06/21 05/06/21 05/06/21 06:59 14:59 22:59 Output Total 750 Balance -750 Output: Urine 750 Other: Voiding Method Indwelling Catheter Weight 54.431 kg PHYSICAL EXAM: VITAL SIGNS: [As above] GENERAL: Sitting up in bed, no acute distress, cooperative HEENT: Conjunctivae normal. eyes normal. Oral mucosa dry NECK: Supple, No JVD. No thyroid enlargement. No LNs CARDIOVASCULAR: S1, S2 regular. No murmur RESPIRATION: Breath sounds diminished in the bases. ABDOMEN: Soft, nondistended, nontender . No guarding. no masses palpable. No ascites, No hepatosplenomegaly.Bowel sounds heard. LEGS: No edema. no swelling PSYCHIATRY: Alert and oriented X1, cooperative, follows simple commands NERVOUS SYSTEM: Limited exam, no focal deficits Skin: Warm and dry, no rash Results CBC & Chem 7: 05/06/21 13:13 05/06/21 13:13 Labs: Abnormal Lab Results - Last 24 Hours (Table) 05/05/21 05/05/21 05/05/21 Range/Units 10:06 17:58 23:00 WBC (3.8-10.6) k/uL MCHC (31.0-37.0) g/dL Neutrophils # (1.3-7.7) k/uL Lymphocytes # (1.0-4.8) k/uL Sodium (137-145) mmol/L Chloride (98-107) mmol/L BUN (7-17) mg/dL Glucose (74-99) mg/dL POC Glucose (mg/dL) 196 H 137 H (75-99) mg/dL Ferritin 394.0 H (10.0-291.0) ng/mL Total Protein (6.3-8.2) g/dL Albumin (3.5-5.0) g/dL 05/06/21 05/06/21 05/06/21 Range/Units 13:05 13:13 13:13 WBC 21.6 H (3.8-10.6) k/uL MCHC 30.1 L (31.0-37.0) g/dL Neutrophils # 20.8 H (1.3-7.7) k/uL Lymphocytes # 0.3 L (1.0-4.8) k/uL Sodium 154 H (137-145) mmol/L Chloride 117 H (98-107) mmol/L BUN 31 H (7-17) mg/dL Glucose 217 H (74-99) mg/dL POC Glucose (mg/dL) 197 H (75-99) mg/dL Ferritin (10.0-291.0) ng/mL Total Protein 5.6 L (6.3-8.2) g/dL Albumin 2.9 L (3.5-5.0) g/dL Thrombosis Risk Factor Assmnt - Choose All That Apply Any of the Below Risk Factors Present?: Yes Each Factor Represents 1 point: Abnormal pulmonary function (COPD), Serious lung disease incl. pneumonia (< 1month) Other Risk Factors: Yes Each Risk Factor Represents 3 Points: Age 75 years or older Other congenital or acquired thrombophilia - If yes, enter type in comment: No Thrombosis Risk Factor Assessment Total Risk Factor Score: 5 Thrombosis Risk Factor Assessment Level: High Risk Assessment and Plan Assessment: Acute on chronic hypoxic respiratory failure, wears 2 L nasal cannula Recent Covid-19 Infection, with possible COPD exacerbation Dehydration Hypernatremia secondary to the above Hypokalemia Hypomagnesemia Acute metabolic encephalopathy, multifactorial, secondary to all the above Dysphagia Chronic respiratory failure, maintained on 2 L nasal cannula at home Recent Pubis ramus fracture status post fall, conservative treatment as per orthopedic surgery Recent Retroperitoneal hematoma, insignificant as per general surgery,status post fall Osteopenia Osteoarthritis bilateral hips Cervical degenerative disc disease Diabetes mellitus, hyperglycemic. Hypertension Hyperlipidemia COPD Dementia Iron deficiency Pulmonary hypertension Plan: Continue on current medication regime ,monitoring and symptomatic treatment. Labs pending. Potassium and Magnesium replacement protocols ordered. Change IV fluid hydration to D5W. Dysphasia diet/ Aspiration precautions co ntinuously. Maintain COvid cocktail, bronchodilators. Maintain supportive care. Prognosis guarded given multiple complex medical issues. The impression and plan of care has been dictated as directed. : I performed a history and examination of this patient, discussed the same with the dictator. I agree with the dictator's note ,documented as a scribe. Any additional findings or plans will be noted.
[2021-05-06] MEDS: DEXTROSE 5% IN WATER 1,000 ML IV SCH (16:57)
[2021-05-06 17:02] LABS: Glucose,Whole Blood 130 mg/dL (75-99)
[2021-05-06 20:35] LABS: Glucose,Whole Blood 146 mg/dL (75-99)
[2021-05-06] MEDS: SERTRALINE 50 MG TAB PO SCH (21:35)
[2021-05-06] MEDS: PRAVASTATIN SODIUM 40 MG TAB PO SCH (21:35)
[2021-05-07] MEDS: DEXTROSE 5% IN WATER 1,000 ML IV SCH ×4 (00:31→20:22)
[2021-05-07] MEDS: PANTOPRAZOLE 40 MG TABLET PO SCH (06:09)
[2021-05-07 07:31] LABS: Glucose,Whole Blood 80 mg/dL (75-99)
[2021-05-07] MEDS: INSULIN ASPART (NovoLOG) 100 UNIT/ML VIAL SQ SCH ×4 (07:54→20:21)
[2021-05-07] MEDS: INSULIN DETEMIR (LEVEMIR) 100 UNIT/ML SYR SQ SCH (07:54)
[2021-05-07] MEDS ORDERED: ENOXAPARIN 30 MG/0.3 ML SYRINGE SQ SCH (09:00)
[2021-05-07] MEDS: ALBUTEROL HFA INHALER INHALATION SCH ×4 (09:03→22:15)
[2021-05-07] MEDS: metFORMIN 500 MG TAB PO SCH ×2 (09:59→17:39)
[2021-05-07] MEDS: MEMANTINE 10 MG TAB PO SCH ×2 (09:59→20:21)
[2021-05-07] MEDS: METOPROLOL TARTRATE 25 MG TAB PO SCH ×2 (09:59→20:21)
[2021-05-07] MEDS: FERROUS SULFATE 325 MG TAB PO SCH (09:59)
[2021-05-07] MEDS: hydrALAZINE HCL 25 MG TAB PO SCH (09:59)
[2021-05-07] MEDS: VERAPAMIL 80 MG TAB PO SCH ×3 (09:59→20:21)
[2021-05-07] MEDS: lisinopriL 10 MG TAB PO SCH (09:59)
[2021-05-07] MEDS: DEXAMETHASONE SOD PHOSPHATE 10 MG/ML 1 ML VIAL IVP SCH (10:00)
[2021-05-07] MEDS: ASPIRIN 81 MG PO SCH (10:00)
[2021-05-07 11:31] LABS: Basophils # (A) 0.01 X 10*3/uL (0.00-0.10); Basophils % (A) 0.1 %; Eosinophils # (A) 0.06 X 10*3/uL (0.04-0.35); Eosinophils % (A) 0.4 %; HCT 35.3 % (37.2-46.3); HGB 10.1 g/dL (12.0-15.0); Lymphocytes # (A) 1.08 X 10*3/uL (0.90-5.00); Lymphocytes % (A) 6.6 %; MCH 28.5 pg (27.0-32.0); MCHC 28.6 g/dL (32.0-37.0); MCV 99.7 fL (80.0-97.0); Mean Platelet Volume 11.3 fL (9.5-12.2); Monocytes # (A) 0.87 X 10*3/uL (0.20-1.00); Monocytes % (A) 5.3 %; Neutrophils # (A) 14.33 X 10*3/uL (1.80-7.70); Neutrophils % (A) 86.9 %; Platelet Count 411 X 10*3/uL (140-440); RBC 3.54 X 10*6/uL (4.10-5.20); RDW 14.2 % (11.5-14.5); WBC 16.46 X 10*3/uL (4.50-10.00)
[2021-05-07 11:41] LABS: Glucose,Whole Blood 232 mg/dL (75-99)
[2021-05-07 12:22] LABS: African American GFR (CKD) 104.6 (60.0-200.0); Albumin 3.1 g/dL (3.8-4.9); Albumin/Globulin Ratio 1.36 (1.60-3.17); Anion Gap 12.4 mmol/L (10.00-18.00); BUN/Creat Ratio 46.31 Ratio (12.00-20.00); Blood Urea Nitrogen 25.1 mg/dL (9.0-27.0); Calcium 8.6 mg/dL (8.7-10.3); Carbon Dioxide 29.7 mmol/L (20.0-27.5); Globulin 2.3 g/dL (1.6-3.3); Magnesium 1.3 mg/dL (1.5-2.4); Non-African American GFR(CKD) 90.3 (60.0-200.0); Potassium 3.2 mmol/L (3.5-5.5); Total Bilirubin 0.3 mg/dL (0.30-1.20); Total Protein 5.3 g/dL (6.2-8.2)
--- NOTE | 2021-05-07 12:27 | P.PN ---
Subjective Progress Note Date: 05/07/21 This is a 80-year-old white female with history of multiple medical problems including dementia, diabetes, chronic hypoxic respiratory failure secondary to severe underlying COPD, maintained on oxygen at 2 L/m, patient resides at [facility], she was last seen by Dr. Beard on 04/26/2021, patient was admitted at the time with acute COVID-[address] angiogram of the chest showed no evidence of pulmonary embolism. She had some minimal fibrosis on the CT of the chest, and background COPD. Patient was hospitalized, she was eventually discharged home on 04/29/21, she was seen by multiple consultants at the time. She was seen by Dr. Beard, cardiology, infectious disease, and she was discharged back to [facility]. Patient was sent back from [facility] today by EMS with complaints of increased shortness of breath, and hypoxia, patient is a very poor historian, could not get much information from the patient herself. She is quite confused. CT angiogram of the chest showed no evidence of pulmonary embolism, there was evidence of bilateral pneumonia and underlying emphysema and fibrosis. Asked x-ray was basically nondiagnostic. CBC showed leukocytosis with WBC of 22.4 hemoglobin 11.3. D-dimer was a bit elevated at 2.[address] angiogram of the chest was unremarkable. Sodium was elevated at 152 BUN is 45 creatinine 0.78. ProBNP level is 390. Troponin is 0.013 LDH is 706. Patient is on 6 L nasal cannula, O2 sats is 96%. On 05/06/2021 patient seen in follow-up on medical surgical floor. She is awake and alert, she is very confused, but appears to be in no acute distress. She follows simple commands, but she is oriented only to person, she is currently on 5 L of oxygen, which has been cut back to 4 L and her pulse ox is around 90%, afebrile, hemodynamically she is been stable. Her chest x-ray on admission showed no acute pulmonary process, underlying emphysema and pulmonary arterial hypertension. Her CT angiogram of the chest showed dilated intrahepatic biliary ducts related to postcholecystectomy changes. No new labs today. Her IV fluids have been cut back to KVO. Her oral membranes are extremely dry, suspect poor oral intake and dehydration. But no sign of any respiratory distress. Awaiting repeat labs, and in the meantime patient continues on Decadron 6 mg, however there was no clear evidence of pneumonia on the chest x-ray, we'll consider stopping it today. Pro-calcitonin level was negative. On 05/07/2021 patient seen in follow-up on medical surgical floor, she is resting comfortably in bed, she remains confused, she follows simple command, not agitated, does not seem to be in any acute respiratory distress although she has audible chest congestion and patient has a weak cough at times she is able to bring up some phlegm. Lung sounds are positive for diffuse rhonchi, she remains on 5 L of oxygen with a pulse ox of 95%, blood pressure stable, no fever or chills, he remains on D5W at a rate of 100 ML per hour, today's chemistries including serum sodium and renal profile and electrolytes are still pending. No nausea or vomiting, patient accepts oral fluids when offered to her. She has been taking in some and chair with assistance. Oral membranes are still dry, Jacobson catheter has been inserted for urine output monitoring. She has produced 600 mL in urine output in the last 24 hours. Objective - Vital Signs Vital signs: Vital Signs Temp 97.9 F 05/07/21 10:47 Pulse 89 05/07/21 10:47 Resp 17 05/07/21 10:47 BP 101/62 05/07/21 10:47 Pulse Ox 95 05/07/21 10:47 Intake & Output 05/06/21 05/07/21 05/07/21 18:59 06:59 18:59 Output Total 600 400 Balance -600 -400 Weight 54.431 kg Output: Urine 600 400 Other: Voiding Method Indwelling Catheter Indwelling Catheter Indwelling Catheter - Exam GENERAL EXAM: Alert, very confused, 80-year-old white female, on 5L of oxygen with a pulse ox of 95%, very confused comfortable in no apparent distress. HEAD: Normocephalic/atraumatic. EYES: Normal reaction of pupils, equal size. Conjunctiva pink, sclera white. NOSE: Clear with pink turbinates. THROAT: No erythema or exudates. NECK: No masses, no JVD, no thyroid enlargement, no adenopathy. CHEST: No chest wall deformity. Symmetrical expansion. LUNGS: Equal air entry with diffuse rhonchi, and audible chest congestion CVS: Regular rate and rhythm, normal S1 and S2, no gallops, no murmurs, no rubs ABDOMEN: Soft, nontender. No hepatosplenomegaly, normal bowel sounds, no gua rding or rigidity. EXTREMITIES: No clubbing, no edema, no cyanosis, 2+ pulses and upper and lower extremities. MUSCULOSKELETAL: Muscle strength and tone normal. SPINE: No scoliosis or deformity SKIN: No rashes CENTRAL NERVOUS SYSTEM: Alert and oriented -1. No focal deficits, tone is normal in all 4 extremities. PSYCHIATRIC: Alert and oriented to self only. Confused - Labs CBC & Chem 7: 05/07/21 07:00 05/07/21 07:00 Labs: Abnormal Lab Results - Last 24 Hours (Table) 05/06/21 05/06/21 05/06/21 Range/Units 13:05 13:13 13:13 WBC 21.6 H (3.8-10.6) k/uL RBC (4.10-5.20) X 10*6/uL Hgb (12.0-15.0) g/dL Hct (37.2-46.3) % MCV (80.0-97.0) fL MCHC 30.1 L (31.0-37.0) g/dL Immature Gran # (0.00-0.04) X 10*3/uL Neutrophils # 20.8 H (1.3-7.7) k/uL Lymphocytes # 0.3 L (1.0-4.8) k/uL Sodium 154 H (137-145) mmol/L Potassium (3.5-5.5) mmol/L Chloride 117 H (98-107) mmol/L Carbon Dioxide (20.0-27.5) mmol/L BUN 31 H (7-17) mg/dL Creatinine (0.6-1.5) mg/dL BUN/Creatinine Ratio (12.00-20.00) Ratio Glucose 217 H (74-99) mg/dL POC Glucose (mg/dL) 197 H (75-99) mg/dL Calcium (8.7-10.3) mg/dL Magnesium (1.5-2.4) mg/dL Total Protein 5.6 L (6.3-8.2) g/dL Albumin 2.9 L (3.5-5.0) g/dL Albumin/Globulin Ratio (1.60-3.17) g/dL 05/06/21 05/06/21 05/07/21 Range/Units 17:00 20:34 07:00 WBC 16.46 H (3.8-10.6) k/uL RBC 3.54 L (4.10-5.20) X 10*6/uL Hgb 10.1 L (12.0-15.0) g/dL Hct 35.3 L (37.2-46.3) % MCV 99.7 H (80.0-97.0) fL MCHC 28.6 L (31.0-37.0) g/dL Immature Gran # 0.11 H (0.00-0.04) X 10*3/uL Neutrophils # 14.33 H (1.3-7.7) k/uL Lymphocytes # (1.0-4.8) k/uL Sodium (137-145) mmol/L Potassium (3.5-5.5) mmol/L Chloride (98-107) mmol/L Carbon Dioxide (20.0-27.5) mmol/L BUN (7-17) mg/dL Creatinine (0.6-1.5) mg/dL BUN/Creatinine Ratio (12.00-20.00) Ratio Glucose (74-99) mg/dL POC Glucose (mg/dL) 130 H 146 H (75-99) mg/dL Calcium (8.7-10.3) mg/dL Magnesium (1.5-2.4) mg/dL Total Protein (6.3-8.2) g/dL Albumin (3.5-5.0) g/dL Albumin/Globulin Ratio (1.60-3.17) g/dL 05/07/21 05/07/21 Range/Units 07:00 11:34 WBC (3.8-10.6) k/uL RBC (4.10-5.20) X 10*6/uL Hgb (12.0-15.0) g/dL Hct (37.2-46.3) % MCV (80.0-97.0) fL MCHC (31.0-37.0) g/dL Immature Gran # (0.00-0.04) X 10*3/uL Neutrophils # (1.3-7.7) k/uL Lymphocytes # (1.0-4.8) k/uL Sodium 156 H (137-145) mmol/L Potassium 3.2 L (3.5-5.5) mmol/L Chloride 114 H (98-107) mmol/L Carbon Dioxide 29.7 H (20.0-27.5) mmol/L BUN (7-17) mg/dL Creatinine 0.5 L (0.6-1.5) mg/dL BUN/Creatinine Ratio 46.31 H (12.00-20.00) Ratio Glucose (74-99) mg/dL POC Glucose (mg/dL) 232 H (75-99) mg/dL Calcium 8.6 L (8.7-10.3) mg/dL Magnesium 1.3 L (1.5-2.4) mg/dL Total Protein 5.3 L (6.3-8.2) g/dL Albumin 3.1 L (3.5-5.0) g/dL Albumin/Globulin Ratio 1.36 L (1.60-3.17) g/dL Assessment and Plan Plan: Assessment: #1. Altered mental status, related to metabolic encephalopathy, hypernatremia, dehydration #2. Recent history of COVID-19 infection, without clear evidence of pneumonia #3. Recent hospitalization for the above and acute exacerbation of COPD and altered mental status #4. Chronic hypoxic respiratory failure related to history of COPD #5. Hypernatremia related to free water deficit #6. Leukocytosis, possibly related to steroids, rule out possibility of sepsis procalcitonin level is negative #7. Elevated d-dimer without CT evidence of pulmonary embolism #8. Diabetes mellitus 2 #9. Dementia #10. History of depression #11. Degenerative arthritis Plan: Continue current medical treatment Maintain aspiration precautions Continue D5W at a rate of 100 ML per hour Offer her oral fluids, provide supervision and assistance with meals Patient is moderately congested, we'll keep the Decadron for now for pulmonary congestion There was no clear evidence of pneumonia on the chest x-ray or CT angiogram of the chest Continue COVID-19 vitamins Today's labs including CBC and CMP are still pending Supportive treatment I performed a history & physical examination of the patient and discussed their management with my nurse practitioner, Alize Hendricks. I reviewed the nurse practitioner's note and agree with the documented findings and plan of care. Lung sounds are positive for clear breath sounds throughout the lung hernandez. The findings and the impression was discussed with the patient. I attest to the documentation by the nurse practitioner. Time with Patient: Less than 30
--- NOTE | 2021-05-07 14:24 | P.PN ---
Subjective Progress Note Date: 05/07/21 This is a 80-year-old female recently discharged to [facility] subacute rehab secondary to COVID-19 infection, possible acute COPD exacerbation, chronic hypoxic respiratory failure, recent pelvic fracture and multiple other medical issues. Patient returned to the ER on 100% nonrebreather with O2 sats of 99% via EMS, EMS records currently unavailable. EF reported no chest pain, no fevers chills or sweats and the patient was referred to have a pulse ox in the 70s-assuming on 2 L nasal cannula O2 that she normally wears. Afebrile, WBC 22.4, hemoglobin 9.3, platelets 4:15. D-dimer 2.96.Chest CTA reported no PE, evidence of bilateral pneumonia, underlying emphysema, fibrosis and pulmonary hypertension. Chest x-ray reported no acute process. Sodium 152, Potassium 3.4, chloride 112, BUN 45, creatinine 0.78, glucose 215, lactic acid 1.4, LDH 706, CRP 6.1, pro calcitonin negative.Patient is confused, poor historian, majority of information obtained from staff and EHR. O2 has been weaned down to 4 L nasal cannula maintaining O2 sats in the 90s. 05/07/2021 maintaining O2 sats in the 90s on 4 L nasal cannula. Patient was up all night did not sleep well. Maintained on D5W, labs pending. Afebrile. Objective - Vital Signs Vital signs: Vital Signs Temp 97.9 F 05/07/21 10:47 Pulse 89 05/07/21 10:47 Resp 17 05/07/21 10:47 BP 101/62 05/07/21 10:47 Pulse Ox 95 05/07/21 10:47 Intake & Output 05/06/21 05/07/21 05/07/21 18:59 06:59 18:59 Output Total 600 400 Balance -600 -400 Weight 54.431 kg Output: Urine 600 400 Other: Voiding Method Indwelling Catheter Indwelling Catheter Indwelling Catheter - Exam PHYSICAL EXAM: VITAL SIGNS: [As above] GENERAL: Sitting up in bed, alert and oriented 1, tired appearing, increased respiratory effort HEENT: Conjunctivae normal. eyes normal. Oral mucosa dry NECK: Supple, No JVD. No thyroid enlargement. No LNs CARDIOVASCULAR: S1, S2 regular. No murmur RESPIRATION: Breath sounds diminished in the bases.weak cough.Tight, positive rhonchi scattered throughout, expiratory wheezing. ABDOMEN: Soft,nondistended, nontender. No guarding. no masses palpable.Bowel sounds heard. LEGS: No edema. no swelling NERVOUS SYSTEM: Limited exam, no focal deficits Skin: Warm and dry, no rash - Labs CBC & Chem 7: 05/07/21 07:00 05/07/21 07:00 Labs: Abnormal Lab Results - Last 24 Hours (Table) 05/06/21 05/06/21 05/07/21 Range/Units 17:00 20:34 07:00 WBC 16.46 H (4.50-10.00) X 10*3/uL RBC 3.54 L (4.10-5.20) X 10*6/uL Hgb 10.1 L (12.0-15.0) g/dL Hct 35.3 L (37.2-46.3) % MCV 99.7 H (80.0-97.0) fL MCHC 28.6 L (32.0-37.0) g/dL Immature Gran # 0.11 H (0.00-0.04) X 10*3/uL Neutrophils # 14.33 H (1.80-7.70) X 10*3/uL Sodium (135-145) mmol/L Potassium (3.5-5.5) mmol/L Chloride (96-109) mmol/L Carbon Dioxide (20.0-27.5) mmol/L Creatinine (0.6-1.5) mg/dL BUN/Creatinine Ratio (12.00-20.00) Ratio POC Glucose (mg/dL) 130 H 146 H (75-99) mg/dL Calcium (8.7-10.3) mg/dL Magnesium (1.5-2.4) mg/dL Total Protein (6.2-8.2) g/dL Albumin (3.8-4.9) g/dL Albumin/Globulin Ratio (1.60-3.17) g/dL 05/07/21 05/07/21 Range/Units 07:00 11:34 WBC (4.50-10.00) X 10*3/uL RBC (4.10-5.20) X 10*6/uL Hgb (12.0-15.0) g/dL Hct (37.2-46.3) % MCV (80.0-97.0) fL MCHC (32.0-37.0) g/dL Immature Gran # (0.00-0.04) X 10*3/uL Neutrophils # (1.80-7.70) X 10*3/uL Sodium 156 H (135-145) mmol/L Potassium 3.2 L (3.5-5.5) mmol/L Chloride 114 H (96-109) mmol/L Carbon Dioxide 29.7 H (20.0-27.5) mmol/L Creatinine 0.5 L (0.6-1.5) mg/dL BUN/Creatinine Ratio 46.31 H (12.00-20.00) Ratio POC Glucose (mg/dL) 232 H (75-99) mg/dL Calcium 8.6 L (8.7-10.3) mg/dL Magnesium 1.3 L (1.5-2.4) mg/dL Total Protein 5.3 L (6.2-8.2) g/dL Albumin 3.1 L (3.8-4.9) g/dL Albumin/Globulin Ratio 1.36 L (1.60-3.17) g/dL Assessment and Plan Assessment: Acute on chronic hypoxic respiratory failure, wears 2 L nasal cannula Recent Covid-19 Infection, with possible COPD exacerbation Dehydration Hypernatremia secondary to the above Hypokalemia Hypomagnesemia Acute metabolic encephalopathy, multifactorial, secondary to all the above Dysphagia Chronic respiratory failure, maintained on 2 L nasal cannula at home Recent Pubis ramus fracture status post fall, conservative treatment as per orthopedic surgery Recent Retroperitoneal hematoma, insignificant as per general surgery,status post fall Osteopenia Osteoarthritis bilateral hips Cervical degenerative disc disease Diabetes mellitus, hyperglycemic. Hypertension Hyperlipidemia COPD Dementia Iron deficiency Pulmonary hypertension Plan: Continue on current medication regime ,monitoring and symptomatic tr eatment. Labs pending. Potassium and Magnesium replacement protocols in place. Diet changed to pured , maintain Aspiration precautions continuously. Continue COvid cocktail, bronchodilators and supportive care. Prognosis guarded given multiple complex medical issues. The impression and plan of care has been dictated as directed. : I performed a history and examination of this patient, discussed the same with the dictator. I agree with the dictator's note ,documented as a scribe. Any additional findings or plans will be noted.
[2021-05-07] MEDS ORDERED: SODIUM CHLORIDE 0.9% 250 ML IV ONE (16:15)
[2021-05-07 17:19] LABS: Glucose,Whole Blood 294 mg/dL (75-99)
[2021-05-07 20:12] LABS: Glucose,Whole Blood 252 mg/dL (75-99)
[2021-05-07] MEDS: PRAVASTATIN SODIUM 40 MG TAB PO SCH (20:21)
[2021-05-07] MEDS: SERTRALINE 50 MG TAB PO SCH (20:21)
[2021-05-08] MEDS: PANTOPRAZOLE 40 MG TABLET PO SCH (05:10)
[2021-05-08] MEDS: DEXTROSE 5% IN WATER 1,000 ML IV SCH ×3 (05:10→21:33)
[2021-05-08 07:07] LABS: Glucose,Whole Blood 201 mg/dL (75-99)
[2021-05-08] MEDS: ALBUTEROL HFA INHALER INHALATION SCH ×4 (07:31→20:07)
[2021-05-08] MEDS: INSULIN ASPART (NovoLOG) 100 UNIT/ML VIAL SQ SCH ×4 (08:28→20:34)
[2021-05-08] MEDS: INSULIN DETEMIR (LEVEMIR) 100 UNIT/ML SYR SQ SCH (08:28)
[2021-05-08] MEDS: MEMANTINE 10 MG TAB PO SCH ×2 (08:29→20:32)
[2021-05-08] MEDS: metFORMIN 500 MG TAB PO SCH ×2 (08:29→17:21)
[2021-05-08] MEDS: ASPIRIN 81 MG PO SCH (08:29)
[2021-05-08] MEDS: METOPROLOL TARTRATE 25 MG TAB PO SCH ×2 (08:29→20:32)
[2021-05-08] MEDS: ENOXAPARIN 40 MG/0.4 ML SYRINGE SQ SCH (08:29)
[2021-05-08] MEDS: DEXAMETHASONE SOD PHOSPHATE 10 MG/ML 1 ML VIAL IVP SCH (08:29)
[2021-05-08] MEDS: FERROUS SULFATE 325 MG TAB PO SCH (08:29)
[2021-05-08] MEDS ORDERED: VERAPAMIL 40 MG TAB PO SCH (09:00)
[2021-05-08 11:09] LABS: ALT 13 U/L (4-34); AST 24 U/L (14-36); African American GFR (CKD) >90 (>60 ml/min/1.73 sqM); Albumin 2.4 g/dL (3.5-5.0); Alkaline Phosphatase 80 U/L (38-126); Anion Gap 9 mmol/L; Blood Urea Nitrogen 22 mg/dL (7-17); Calcium 7.3 mg/dL (8.4-10.2); Carbon Dioxide 28 mmol/L (22-30); Chloride 99 mmol/L (98-107); Globulin 2.5 g/dL; Glucose 130 mg/dL (74-99); LDH 728 U/L (313-618); Non-African American GFR(CKD) >90 (>60 ml/min/1.73 sqM); Potassium 2.8 mmol/L (3.5-5.1); Sodium 136 mmol/L (137-145); Total Bilirubin 0.3 mg/dL (0.2-1.3); Total Protein 4.9 g/dL (6.3-8.2)
[2021-05-08] MEDS: POTASSIUM CHLORIDE ER 20 MEQ TAB.ER PO SCH ×3 (11:15→14:11)
[2021-05-08 11:20] LABS: Magnesium 0.9 mg/dL (1.6-2.3)
[2021-05-08 11:26] LABS: Basophils % (A) 0 %; Eosinophils # (A) 0.1 k/uL (0-0.7); Eosinophils % (A) 1 %; HCT 31.3 % (34.0-46.0); Hypochromasia Moderate; Lymphocytes # (A) 1.2 k/uL (1.0-4.8); Lymphocytes % (A) 10 %; MCH 30.6 pg (25.0-35.0); MCHC 32.1 g/dL (31.0-37.0); MCV 95.4 fL (80.0-100.0); Mean Platelet Volume 9.2; Monocytes # (A) 0.4 k/uL (0-1.0); Monocytes % (A) 3 %; Neutrophils # (A) 10.8 k/uL (1.3-7.7); Neutrophils % (A) 86 %; Platelet Count 397 k/uL (150-450); RBC 3.27 m/uL (3.80-5.40); RDW 13.4 % (11.5-15.5); WBC 12.6 k/uL (3.8-10.6)
[2021-05-08] MEDS ORDERED: MAGNESIUM SULFATE-D5W PMX 1 GM in DEXTROSE/WATER 1 100ML.BAG IVPB SCH (11:30)
[2021-05-08 11:59] LABS: Glucose,Whole Blood 67 mg/dL (75-99)
[2021-05-08] MEDS ORDERED: POTASSIUM CHLORIDE 10 MEQ in WATER FOR INJECTION 1 100ML.BAG IVPB SCH (12:00)
[2021-05-08 12:15] LABS: Glucose,Whole Blood 69 mg/dL (75-99)
[2021-05-08] MEDS: MAGNESIUM SULFATE-D5W PMX 1 GM in DEXTROSE/WATER 1 100ML.BAG IVPB SCH ×4 (12:15→17:22)
[2021-05-08 12:24] LABS: Glucose,Whole Blood 81 mg/dL (75-99)
--- NOTE | 2021-05-08 15:55 | P.PN ---
Subjective From Records This is a 80-year-old female recently discharged to [facility] subacute rehab secondary to COVID-19 infection, possible acute COPD exacerbation, chronic hypoxic respiratory failure, recent pelvic fracture and multiple other medical issues. Patient returned to the ER on 100% nonrebreather with O2 sats of 99% via EMS, EMS records currently unavailable. EF reported no chest pain, no fevers chills or sweats and the patient was referred to have a pulse ox in the 70s-assuming on 2 L nasal cannula O2 that she normally wears. Afebrile, WBC 22.4, hemoglobin 9.3, platelets 4:15. D-dimer 2.96.Chest CTA reported no PE, evidence of bilateral pneumonia, underlying emphysema, fibrosis and pulmonary hypertension. Chest x-ray reported no acute process. Sodium 152, Potassium 3.4, chloride 112, BUN 45, creatinine 0.78, glucose 215, lactic acid 1.4, LDH 706, CRP 6.1, pro calcitonin negative.Patient is confused, poor historian, majority of information obtained from staff and EHR. O2 has been weaned down to 4 L nasal cannula maintaining O2 sats in the 90s. 05/08/2021 Patient today is somewhat confused, she has weak cough and therefore incentive spirometer was ordered. She has no abdominal pain or diarrhea. No vomiting and today she couldn't eat 100% of her diet. She is on 3 L/m of oxygen today however she has borderline low blood pressure 91/55 and glucose was also 60. Because of this we discontinued her 1 Toña while she is continued on metoprolol 25 mg twice a day. Also change her diet liquid diet WBC improvement to 12 K, hemoglobin 10, oh potassium 2.8 and magnesium 0.9 be replaced and monitored Glucose was in 60s therefore lower dose of metformin 500 mg down to 250 mg twice a day. Sodium is back to normal at 136. She was on dexamethasone, vitamin C, D and zinc. Lower dose of metformin 500 down to 250 twice a day. Discontinue verapamil. Also patient on IV fluid D5 W at 150, lower today to 75 mL/h Objective - Vital Signs Vital signs: Vital Signs Temp 98.7 F 05/08/21 09:43 Pulse 67 05/08/21 09:43 Resp 18 05/08/21 09:43 BP 91/55 05/08/21 09:43 Pulse Ox 96 05/08/21 09:43 Intake & Output 05/07/21 05/08/21 05/08/21 18:59 06:59 18:59 Intake Total 750 Output Total 400 500 Balance 350 -500 Intake: Intake, IV Titration 550 Amount Dextrose 5% in Water 1, 300 000 ml @ 150 mls/hr IV . Q6H40M [facility] Rx#:[id number] Sodium Chloride 0.9% 250 250 ml @ 999 mls/hr IV .Q16M [facility] Rx#:[id number] Oral 200 Output: Urine 400 500 Other: Voiding Method Indwelling Catheter Indwelling Catheter # Bowel Movements 0 - Exam GENERAL: The patient is alert and oriented x3, not in any acute distress. Well developed, well nourished. HEENT: Pupils are round and equally reacting to light. EOMI. No scleral icterus. No conjunctival pallor. Normocephalic, atraumatic. No pharyngeal erythema. No thyromegaly. CARDIOVASCULAR: S1 and S2 present. No murmurs, rubs, or gallops. -PULMONARY: Chest is clear to auscultation, no wheezing bilateral crepitation and decreased air entry on both sides Abdomen: soft, nontender, nondistended, normoactive bowel sounds. No palpable organomegaly. MUSCULOSKELETAL: No joint swelling or deformity. EXTREMITIES: No cyanosis, clubbing, or pedal edema. NEUROLOGICAL: Gross neurological examination did not reveal any focal deficits. SKIN: No rashes. no petechiae. - Labs CBC & Chem 7: 05/08/21 09:38 05/08/21 09:38 Labs: Abnormal Lab Results - Last 24 Hours (Table) 05/07/21 05/07/21 05/07/21 Range/Units 07:00 17:10 20:11 WBC (3.8-10.6) k/uL RBC (3.80-5.40) m/uL Hgb (11.4-16.0) gm/dL Hct (34.0-46.0) % Neutrophils # (1.3-7.7) k/uL Sodium 156 H (135-145) mmol/L Potassium 3.2 L (3.5-5.5) mmol/L Chloride 114 H (96-109) mmol/L Carbon Dioxide 29.7 H (20.0-27.5) mmol/L BUN (7-17) mg/dL Creatinine 0.5 L (0.6-1.5) mg/dL BUN/Creatinine Ratio 46.31 H (12.00-20.00) Ratio Glucose (74-99) mg/dL POC Glucose (mg/dL) 294 H 252 H (75-99) mg/dL Calcium 8.6 L (8.7-10.3) mg/dL Magnesium 1.3 L (1.5-2.4) mg/dL Lactate Dehydrogenase (313-618) U/L C-Reactive Protein (<1.0) mg/dL Total Protein 5.3 L (6.2-8.2) g/dL Albumin 3.1 L (3.8-4.9) g/dL Albumin/Globulin Ratio 1.36 L (1.60-3.17) g/dL 05/08/21 05/08/21 05/08/21 Range/Units 06:57 09:38 09:38 WBC 12.6 H (3.8-10.6) k/uL RBC 3.27 L (3.80-5.40) m/uL Hgb 10.0 L D (11.4-16.0) gm/dL Hct 31.3 L (34.0-46.0) % Neutrophils # 10.8 H (1.3-7.7) k/uL Sodium 136 L (135-145) mmol/L Potassium 2.8 L (3.5-5.5) mmol/L Chloride (96-109) mmol/L Carbon Dioxide (20.0-27.5) mmol/L BUN 22 H (7-17) mg/dL Creatinine 0.51 L (0.6-1.5) mg/dL BUN/Creatinine Ratio (12.00-20.00) Ratio Glucose 130 H (74-99) mg/dL POC Glucose (mg/dL) 201 H (75-99) mg/dL Calcium 7.3 L (8.7-10.3) mg/dL Magnesium 0.9 L* (1.5-2.4) mg/dL Lactate Dehydrogenase 728 H (313-618) U/L C-Reactive Protein 6.0 H (<1.0) mg/dL Total Protein 4.9 L (6.2-8.2) g/dL Albumin 2.4 L (3.8-4.9) g/dL Albumin/Globulin Ratio (1.60-3.17) g/dL Assessment and Plan Assessment: Acute on chronic hypoxic respiratory failure, wears 2 L nasal cannula Recent Covid-19 Infection, with possible COPD exacerbation Dehydration Hypernatremia secondary to the above Hypokalemia Hypomagnesemia Acute metabolic encephalopathy, multifactorial, secondary to all the above Dysphagia Chronic respiratory failure, maintained on 2 L nasal cannula at home Recent Pubis ramus fracture status post fall, conservative treatment as per orthopedic surgery Recent Retroperitoneal hematoma, insignificant as per general surgery,status post fall Osteopenia Osteoarthritis bilateral hips Cervical degenerative disc disease Diabetes mellitus, hyperglycemic. Hypertension Hyperlipidemia COPD Dementia Iron deficiency Pulmonary hypertension Plan: This is a pleasant 80 years old female who presents with bilateral covid pneumonia Continue with dexamethasone Continue with vitamin C, vitamin D and zinc Pulmonary consult Labs and medication were reviewed.. Continue same treatment. Continue with symptomatic treatment. Resume home medication. Monitor lytes and vitals. DVT and GI prophylaxis. Further recommendationsas per clinical course of the patient DVT prophylaxis: Subcutaneous Lovenox gi prophylaxis: Ppi Prognosis is guarded
[2021-05-08 16:24] LABS: Glucose,Whole Blood 114 mg/dL (75-99)
[2021-05-08 19:23] LABS: Magnesium 2.1 mg/dL (1.6-2.3); Potassium 3.7 mmol/L (3.5-5.1)
[2021-05-08] MEDS: SERTRALINE 50 MG TAB PO SCH (20:32)
[2021-05-08] MEDS: PRAVASTATIN SODIUM 40 MG TAB PO SCH (20:34)
[2021-05-08 20:37] LABS: Glucose,Whole Blood 165 mg/dL (75-99)
[2021-05-09] MEDS: PANTOPRAZOLE 40 MG TABLET PO SCH (05:14)
[2021-05-09] MEDS ORDERED: Magnesium Replacement Protocol 1 EACH MISC MISCELLANE PRN (06:00)
[2021-05-09 06:52] LABS: African American GFR (CKD) >90 (>60 ml/min/1.73 sqM); Anion Gap 3 mmol/L; Blood Urea Nitrogen 14 mg/dL (7-17); Calcium 7.3 mg/dL (8.4-10.2); Carbon Dioxide 31 mmol/L (22-30); Chloride 101 mmol/L (98-107); Glucose 118 mg/dL (74-99); Non-African American GFR(CKD) >90 (>60 ml/min/1.73 sqM); Potassium 3.8 mmol/L (3.5-5.1); Sodium 135 mmol/L (137-145)
[2021-05-09 07:03] LABS: Glucose,Whole Blood 134 mg/dL (75-99)
[2021-05-09] MEDS: ALBUTEROL HFA INHALER INHALATION SCH ×4 (07:25→20:04)
[2021-05-09] MEDS: INSULIN DETEMIR (LEVEMIR) 100 UNIT/ML SYR SQ SCH (07:31)
[2021-05-09] MEDS: ASPIRIN 81 MG PO SCH (07:31)
[2021-05-09] MEDS: MEMANTINE 10 MG TAB PO SCH ×2 (07:31→20:59)
[2021-05-09] MEDS: DEXAMETHASONE SOD PHOSPHATE 10 MG/ML 1 ML VIAL IVP SCH (07:31)
[2021-05-09] MEDS: ENOXAPARIN 40 MG/0.4 ML SYRINGE SQ SCH (07:31)
[2021-05-09] MEDS: INSULIN ASPART (NovoLOG) 100 UNIT/ML VIAL SQ SCH ×4 (07:32→22:32)
[2021-05-09] MEDS: METOPROLOL TARTRATE 25 MG TAB PO SCH ×2 (07:32→20:59)
[2021-05-09] MEDS: FERROUS SULFATE 325 MG TAB PO SCH (07:32)
[2021-05-09] MEDS: metFORMIN 500 MG TAB PO SCH ×2 (07:32→17:17)
[2021-05-09 11:20] LABS: Basophils # (A) 0.01 X 10*3/uL (0.00-0.10); Basophils % (A) 0.1 %; Eosinophils # (A) 0.02 X 10*3/uL (0.04-0.35); Eosinophils % (A) 0.2 %; HCT 32.5 % (37.2-46.3); HGB 9.7 g/dL (12.0-15.0); Lymphocytes # (A) 1.11 X 10*3/uL (0.90-5.00); MCH 28.8 pg (27.0-32.0); MCHC 29.8 g/dL (32.0-37.0); MCV 96.4 fL (80.0-97.0); Mean Platelet Volume 12.2 fL (9.5-12.2); Monocytes # (A) 0.49 X 10*3/uL (0.20-1.00); Monocytes % (A) 4.9 %; Neutrophils % (A) 83.1 %; Platelet Count 288 X 10*3/uL (140-440); RBC 3.37 X 10*6/uL (4.10-5.20); RDW 13.2 % (11.5-14.5)
[2021-05-09 11:38] LABS: Glucose,Whole Blood 212 mg/dL (75-99)
[2021-05-09] MEDS: MAGNESIUM SULFATE-D5W PMX 1 GM in DEXTROSE/WATER 1 100ML.BAG IVPB SCH ×2 (13:11→14:37)
[2021-05-09] MEDS: DEXTROSE 5% IN WATER 1,000 ML IV SCH (13:17)
[2021-05-09] MEDS ORDERED: MAGNESIUM SULFATE-D5W PMX 1 GM in DEXTROSE/WATER 1 100ML.BAG IVPB ONE (15:56)
--- NOTE | 2021-05-09 16:04 | P.PN ---
Subjective From Records This is a 80-year-old female recently discharged to [facility] subacute rehab secondary to COVID-19 infection, possible acute COPD exacerbation, chronic hypoxic respiratory failure, recent pelvic fracture and multiple other medical issues. Patient returned to the ER on 100% nonrebreather with O2 sats of 99% via EMS, EMS records currently unavailable. EF reported no chest pain, no fevers chills or sweats and the patient was referred to have a pulse ox in the 70s-assuming on 2 L nasal cannula O2 that she normally wears. Afebrile, WBC 22.4, hemoglobin 9.3, platelets 4:15. D-dimer 2.96.Chest CTA reported no PE, evidence of bilateral pneumonia, underlying emphysema, fibrosis and pulmonary hypertension. Chest x-ray reported no acute process. Sodium 152, Potassium 3.4, chloride 112, BUN 45, creatinine 0.78, glucose 215, lactic acid 1.4, LDH 706, CRP 6.1, pro calcitonin negative.Patient is confused, poor historian, majority of information obtained from staff and EHR. O2 has been weaned down to 4 L nasal cannula maintaining O2 sats in the 90s. 05/08/2021 Patient today is somewhat confused, she has weak cough and therefore incentive spirometer was ordered. She has no abdominal pain or diarrhea. No vomiting and today she couldn't eat 100% of her diet. She is on 3 L/m of oxygen today however she has borderline low blood pressure 91/55 and glucose was also 60. Because of this we discontinued her 1 Toña while she is continued on metoprolol 25 mg twice a day. Also change her diet liquid diet WBC improvement to 12 K, hemoglobin 10, oh potassium 2.8 and magnesium 0.9 be replaced and monitored Glucose was in 60s therefore lower dose of metformin 500 mg down to 250 mg twice a day. Sodium is back to normal at 136. She was on dexamethasone, vitamin C, D and zinc. Lower dose of metformin 500 down to 250 twice a day. Discontinue verapamil. Also patient on IV fluid D5 W at 150, lower today to 75 mL/h 05/09/2021 Patient remains with tachypnea and dyspnea for her covert infection and currently she is on 4 L/m of nasal oxygen. Labs reviewed and show an overall improvement with WBC down to 9.6, sodium is stable at 135. Her blood pressure is better today 114/57 after discontinuing her verapamil 80 mg 3 times a day. Glucose is better controlled and tented 34 and 212. Magnesium was 1.5 and 1 time dose replacement provided. Procalcitonin 0.03. He was continued on dexamethasone, vitamin C, and zinc. Also gentle hydration and metformin Patient currently continued on metoprolol 25 mg; Verapamil 80 mg 3 times a day was stopped Objective - Vital Signs Vital signs: Vital Signs Temp 97.5 F L 05/09/21 09:31 Pulse 72 05/09/21 09:31 Resp 17 05/09/21 09:31 BP 127/70 05/09/21 09:31 Pulse Ox 97 05/09/21 09:31 Intake & Output 05/08/21 05/09/21 05/09/21 18:59 06:59 18:59 Intake Total 600 Output Total 1400 Balance 600 -1400 Intake: Oral 600 Output: Urine 1400 Other: Voiding Method External Catheter Diaper Incontinent # Voids 3 - Exam GENERAL: The patient is alert and oriented x3, not in any acute distress. Well developed, well nourished. HEENT: Pupils are round and equally reacting to light. EOMI. No scleral icterus. No conjunctival pallor. Normocephalic, atraumatic. No pharyngeal erythema. No thyromegaly. CARDIOVASCULAR: S1 and S2 present. No murmurs, rubs, or gallops. -PULMONARY: Chest is clear to auscultation, no wheezing bilateral crepitation and decreased air entry on both sides Abdomen: soft, nontender, nondistended, normoactive bowel sounds. No palpable organomegaly. MUSCULOSKELETAL: No joint swelling or deformity. EXTREMITIES: No cyanosis, clubbing, or pedal edema. NEUROLOGICAL: Gross neurological examination did not reveal any focal deficits. SKIN: No rashes. no petechiae. - Labs CBC & Chem 7: 05/09/21 06:11 05/09/21 06:11 Labs: Abnormal Lab Results - Last 24 Hours (Table) 05/08/21 05/08/21 05/08/21 Range/Units 09:38 09:38 11:54 WBC 12.6 H (3.8-10.6) k/uL RBC 3.27 L (3.80-5.40) m/uL Hgb 10.0 L D (11.4-16.0) gm/dL Hct 31.3 L (34.0-46.0) % Neutrophils # 10.8 H (1.3-7.7) k/uL Sodium 136 L (137-145) mmol/L Potassium 2.8 L (3.5-5.1) mmol/L Carbon Dioxide (22-30) mmol/L BUN 22 H (7-17) mg/dL Creatinine 0.51 L (0.52-1.04) mg/dL Glucose 130 H (74-99) mg/dL POC Glucose (mg/dL) 67 L (75-99) mg/dL Calcium 7.3 L (8.4-10.2) mg/dL Magnesium 0.9 L* (1.6-2.3) mg/dL Lactate Dehydrogenase 728 H (313-618) U/L C-Reactive Protein 6.0 H (<1.0) mg/dL Total Protein 4.9 L (6.3-8.2) g/dL Albumin 2.4 L (3.5-5.0) g/dL 05/08/21 05/08/21 05/08/21 Range/Units 12:12 16:22 20:34 WBC (3.8-10.6) k/uL RBC (3.80-5.40) m/uL Hgb (11.4-16.0) gm/dL Hct (34.0-46.0) % Neutrophils # (1.3-7.7) k/uL Sodium (137-145) mmol/L Potassium (3.5-5.1) mmol/L Carbon Dioxide (22-30) mmol/L BUN (7-17) mg/dL Creatinine (0.52-1.04) mg/dL Glucose (74-99) mg/dL POC Glucose (mg/dL) 69 L 114 H 165 H (75-99) mg/dL Calcium (8.4-10.2) mg/dL Magnesium (1.6-2.3) mg/dL Lactate Dehydrogenase (313-618) U/L C-Reactive Protein (<1.0) mg/dL Total Protein (6.3-8.2) g/dL Albumin (3.5-5.0) g/dL 05/09/21 05/09/21 Range/Units 06:11 06:54 WBC (3.8-10.6) k/uL RBC (3.80-5.40) m/uL Hgb (11.4-16.0) gm/dL Hct (34.0-46.0) % Neutrophils # (1.3-7.7) k/uL Sodium 135 L (137-145) mmol/L Potassium (3.5-5.1) mmol/L Carbon Dioxide 31 H (22-30) mmol/L BUN (7-17) mg/dL Creatinine 0.49 L (0.52-1.04) mg/dL Glucose 118 H (74-99) mg/dL POC Glucose (mg/dL) 134 H (75-99) mg/dL Calcium 7.3 L (8.4-10.2) mg/dL Magnesium (1.6-2.3) mg/dL Lactate Dehydrogenase (313-618) U/L C-Reactive Protein (<1.0) mg/dL Total Protein (6.3-8.2) g/dL Albumin (3.5-5.0) g/dL Assessment and Plan Assessment: Acute on chronic hypoxic respiratory failure, wears 2 L nasal cannula Recent Covid-19 Infection, with possible COPD exacerbation Dehydration Hypernatremia secondary to the above Hypokalemia Hypomagnesemia Acute metabolic encephalopathy, multifactorial, secondary to all the above Dysphagia Chronic respiratory failure, maintained on 2 L nasal cannula at home Recent Pubis ramus fracture status post fall, conservative treatment as per orthopedic surgery Recent Retroperitoneal hematoma, insignificant as per general surgery,status post fall Osteopenia Osteoarthritis bilateral hips Cervical degenerative disc disease Diabetes mellitus, hyperglycemic. Hypertension Hyperlipidemia COPD Dementia Iron deficiency Pulmonary hypertension Plan: This is a pleasant 80 years old female who presents with bilateral covid pneumonia Continue with dexamethasone Continue with vitamin C, vitamin D and zinc Pulmonary consult Labs and medication were reviewed.. Continue same treatment. Continue with symptomatic treatment. Resume home medication. Monitor lytes and vitals. DVT and GI prophylaxis. Further recommendationsas per clinical course of the p atient DVT prophylaxis: Subcutaneous Lovenox gi prophylaxis: Ppi Prognosis is guarded
[2021-05-09 16:18] LABS: Glucose,Whole Blood 192 mg/dL (75-99)
[2021-05-09 20:16] LABS: Glucose,Whole Blood 137 mg/dL (75-99)
[2021-05-09] MEDS: PRAVASTATIN SODIUM 40 MG TAB PO SCH (20:59)
[2021-05-09] MEDS: SERTRALINE 50 MG TAB PO SCH (20:59)
[2021-05-10] MEDS: DEXTROSE 5% IN WATER 1,000 ML IV SCH ×2 (00:22→12:44)
[2021-05-10] MEDS: PANTOPRAZOLE 40 MG TABLET PO SCH (05:27)
[2021-05-10 06:57] LABS: Glucose,Whole Blood 187 mg/dL (75-99)
[2021-05-10] MEDS: DEXAMETHASONE SOD PHOSPHATE 10 MG/ML 1 ML VIAL IVP SCH (08:07)
[2021-05-10] MEDS: ASPIRIN 81 MG PO SCH (08:07)
[2021-05-10] MEDS: METOPROLOL TARTRATE 25 MG TAB PO SCH ×2 (08:07→20:19)
[2021-05-10] MEDS: ENOXAPARIN 40 MG/0.4 ML SYRINGE SQ SCH (08:07)
[2021-05-10] MEDS: metFORMIN 500 MG TAB PO SCH ×2 (08:07→17:31)
[2021-05-10] MEDS: MEMANTINE 10 MG TAB PO SCH ×2 (08:07→20:14)
[2021-05-10] MEDS: FERROUS SULFATE 325 MG TAB PO SCH (08:07)
[2021-05-10] MEDS: INSULIN ASPART (NovoLOG) 100 UNIT/ML VIAL SQ SCH ×4 (08:07→20:15)
[2021-05-10] MEDS: INSULIN DETEMIR (LEVEMIR) 100 UNIT/ML SYR SQ SCH (08:08)
[2021-05-10] MEDS: ALBUTEROL HFA INHALER INHALATION SCH ×4 (08:54→19:57)
[2021-05-10 11:51] LABS: Glucose,Whole Blood 115 mg/dL (75-99)
[2021-05-10 16:48] LABS: Glucose,Whole Blood 127 mg/dL (75-99)
[2021-05-10 19:54] LABS: Glucose,Whole Blood 201 mg/dL (75-99)
[2021-05-10] MEDS: SERTRALINE 50 MG TAB PO SCH (20:15)
[2021-05-10] MEDS: PRAVASTATIN SODIUM 40 MG TAB PO SCH (20:15)
[2021-05-11] MEDS: DEXTROSE 5% IN WATER 1,000 ML IV SCH ×2 (02:02→17:48)
[2021-05-11] MEDS: PANTOPRAZOLE 40 MG TABLET PO SCH (05:20)
[2021-05-11 06:48] LABS: Glucose,Whole Blood 118 mg/dL (75-99)
[2021-05-11] MEDS: METOPROLOL TARTRATE 25 MG TAB PO SCH ×2 (07:31→21:51)
[2021-05-11] MEDS: metFORMIN 500 MG TAB PO SCH ×2 (07:32→17:36)
[2021-05-11] MEDS: FERROUS SULFATE 325 MG TAB PO SCH (07:32)
[2021-05-11] MEDS: MEMANTINE 10 MG TAB PO SCH ×2 (07:32→21:51)
[2021-05-11] MEDS: ENOXAPARIN 40 MG/0.4 ML SYRINGE SQ SCH (07:32)
[2021-05-11] MEDS: ASPIRIN 81 MG PO SCH (07:32)
[2021-05-11] MEDS: INSULIN DETEMIR (LEVEMIR) 100 UNIT/ML SYR SQ SCH (07:33)
[2021-05-11] MEDS: DEXAMETHASONE SOD PHOSPHATE 10 MG/ML 1 ML VIAL IVP SCH (07:33)
[2021-05-11] MEDS: INSULIN ASPART (NovoLOG) 100 UNIT/ML VIAL SQ SCH ×4 (07:33→19:54)
[2021-05-11] MEDS: ALBUTEROL HFA INHALER INHALATION SCH ×4 (09:52→21:29)
[2021-05-11 10:20] LABS: Basophils # (A) 0.01 X 10*3/uL (0.00-0.10); Basophils % (A) 0.1 %; Eosinophils % (A) 0.8 %; HCT 31.1 % (37.2-46.3); HGB 9.4 g/dL (12.0-15.0); Lymphocytes # (A) 1.46 X 10*3/uL (0.90-5.00); Lymphocytes % (A) 11.8 %; MCH 28.2 pg (27.0-32.0); MCHC 30.2 g/dL (32.0-37.0); MCV 93.4 fL (80.0-97.0); Mean Platelet Volume 11.2 fL (9.5-12.2); Monocytes % (A) 5.6 %; Neutrophils # (A) 10.08 X 10*3/uL (1.80-7.70); Neutrophils % (A) 81.3 %; Platelet Count 378 X 10*3/uL (140-440); RBC 3.33 X 10*6/uL (4.10-5.20); RDW 13.1 % (11.5-14.5)
[2021-05-11 11:08] LABS: African American GFR (CKD) 120.3 (60.0-200.0); Anion Gap 10.8 mmol/L (10.00-18.00); BUN/Creat Ratio 19.61 Ratio (12.00-20.00); Calcium 7.5 mg/dL (8.7-10.3); Carbon Dioxide 27.9 mmol/L (20.0-27.5); Non-African American GFR(CKD) 103.8 (60.0-200.0); Potassium 3.3 mmol/L (3.5-5.5)
--- NOTE | 2021-05-11 11:40 | P.PN ---
Subjective Progress Note Date: 05/11/21 This is a 80-year-old female recently discharged to [facility] subacute rehab secondary to COVID-19 infection, possible acute COPD exacerbation, chronic hypoxic respiratory failure, recent pelvic fracture and multiple other medical issues. Patient returned to the ER on 100% nonrebreather with O2 sats of 99% via EMS, EMS records currently unavailable. EF reported no chest pain, no fevers chills or sweats and the patient was referred to have a pulse ox in the 70s-assuming on 2 L nasal cannula O2 that she normally wears. Afebrile, WBC 22.4, hemoglobin 9.3, platelets 4:15. D-dimer 2.96.Chest CTA reported no PE, evidence of bilateral pneumonia, underlying emphysema, fibrosis and pulmonary hypertension. Chest x-ray reported no acute process. Sodium 152, Potassium 3.4, chloride 112, BUN 45, creatinine 0.78, glucose 215, lactic acid 1.4, LDH 706, CRP 6.1, pro calcitonin negative.Patient is confused, poor historian, majority of information obtained from staff and EHR. O2 has been weaned down to 4 L nasal cannula maintaining O2 sats in the 90s. 05/07/2021 maintaining O2 sats in the 90s on 4 L nasal cannula. Patient was up all night did not sleep well. Maintained on D5W, labs pending. Afebrile. 05/11/2021 maintaining O2 sats in the 90s on 4 L nasal cannula. Congested. Weak cough-nonproductive. Sodium 135. Mild Hematuria. afebrile. Objective - Vital Signs Vital signs: Vital Signs Temp 98.0 F 05/10/21 05:56 Pulse 75 05/10/21 05:56 Resp 14 05/10/21 05:56 BP 101/60 05/10/21 05:56 Pulse Ox 93 L 05/10/21 05:56 Intake & Output 05/09/21 05/10/21 05/10/21 18:59 06:59 18:59 Output Total 2049 Balance -2049 Output: Urine 2049 Other: Voiding Method Diaper Indwelling Catheter Indwelling Catheter Incontinent - Exam PHYSICAL EXAM: VITAL SIGNS: [As above] GENERAL: Sitting up in bed, alert and oriented 1, tired appearing, increased respiratory effort, congested HEENT: Conjunctivae normal. eyes normal. Oral mucosa dry NECK: Supple, No JVD. No thyroid enlargement. No LNs. CARDIOVASCULAR: S1, S2 regular. No murmur. RESPIRATION: Breath sounds diminished in the bases.weak cough. Significant congestion with rattling rhonchi. ABDOMEN: Soft,nondistended, nontender. No guarding. no masses palpable.Bowel sounds heard. LEGS: No edema. no swelling NERVOUS SYSTEM: Limited exam, no focal deficits Skin: Warm and dry, no rash - Labs CBC & Chem 7: 05/11/21 05:51 05/11/21 05:51 Labs: Abnormal Lab Results - Last 24 Hours (Table) 05/09/21 05/09/21 05/09/21 Range/Units 06:11 11:30 16:11 WBC 10.10 H (4.50-10.00) X 10*3/uL RBC 3.37 L (4.10-5.20) X 10*6/uL Hgb 9.7 L (12.0-15.0) g/dL Hct 32.5 L (37.2-46.3) % MCHC 29.8 L (32.0-37.0) g/dL Immature Gran # 0.07 H (0.00-0.04) X 10*3/uL Neutrophils # 8.40 H (1.80-7.70) X 10*3/uL Eosinophils # 0.02 L (0.04-0.35) X 10*3/uL POC Glucose (mg/dL) 212 H 192 H (75-99) mg/dL 05/09/21 05/10/21 Range/Units 20:14 06:56 WBC (4.50-10.00) X 10*3/uL RBC (4.10-5.20) X 10*6/uL Hgb (12.0-15.0) g/dL Hct (37.2-46.3) % MCHC (32.0-37.0) g/dL Immature Gran # (0.00-0.04) X 10*3/uL Neutrophils # (1.80-7.70) X 10*3/uL Eosinophils # (0.04-0.35) X 10*3/uL POC Glucose (mg/dL) 137 H 187 H (75-99) mg/dL Assessment and Plan Assessment: Acute on chronic hypoxic respiratory failure, wears 2 L nasal cannula Recent Covid-19 Infection, with possible COPD exacerbation Dehydration Hypernatremia secondary to the above Hypokalemia Hypomagnesemia Acute metabolic encephalopathy, multifactorial, secondary to all the above Dysphagia Chronic respiratory failure, maintained on 2 L nasal cannula at home Recent Pubis ramus fracture status post fall, conservative treatment as per orthopedic surgery Recent Retroperitoneal hematoma, insignificant as per general surgery,status post fall Osteopenia Osteoarthritis bilateral hips Cervical degenerative disc disease Diabetes mellitus, hyperglycemic. Hypertension Hyperlipidemia COPD Dementia Iron deficiency Pulmonary hypertension Plan: Continue on current medication regime ,monitoring and symptomatic treatment. Aspiration precautions, maintain COvid cocktail, bronchodilators and supportive care. Incentive spirometer ordered- patient will require ongoing teaching and reminders. Patient is ready for discharge, significantly congested, weak cough , unable to wean down O2. Supportive care, close monitoring .Prognosis guarded given multiple complex medical issues. The impression and plan of care has been dictated as directed. : I performed a history and examination of this patient, discussed the same with the dictator. I agree with the dictator's note ,documented as a scribe. Any additional findings or plans will be noted.
[2021-05-11] MEDS ORDERED: Potassium Replacement Protocol 1 EACH MISC MISCELLANE PRN ×2 (12:00→12:09)
[2021-05-11 12:05] LABS: Glucose,Whole Blood 70 mg/dL (75-99)
[2021-05-11] MEDS: POTASSIUM CHLORIDE ER 20 MEQ TAB.ER PO SCH ×2 (12:15→12:57)
--- NOTE | 2021-05-11 13:11 | P.PN ---
Subjective Progress Note Date: 05/11/21 This is a 80-year-old female recently discharged to [facility] subacute rehab secondary to COVID-19 infection, possible acute COPD exacerbation, chronic hypoxic respiratory failure, recent pelvic fracture and multiple other medical issues. Patient returned to the ER on 100% nonrebreather with O2 sats of 99% via EMS, EMS records currently unavailable. EF reported no chest pain, no fevers chills or sweats and the patient was referred to have a pulse ox in the 70s-assuming on 2 L nasal cannula O2 that she normally wears. Afebrile, WBC 22.4, hemoglobin 9.3, platelets 4:15. D-dimer 2.96.Chest CTA reported no PE, evidence of bilateral pneumonia, underlying emphysema, fibrosis and pulmonary hypertension. Chest x-ray reported no acute process. Sodium 152, Potassium 3.4, chloride 112, BUN 45, creatinine 0.78, glucose 215, lactic acid 1.4, LDH 706, CRP 6.1, pro calcitonin negative.Patient is confused, poor historian, majority of information obtained from staff and EHR. O2 has been weaned down to 4 L nasal cannula maintaining O2 sats in the 90s. 05/07/2021 maintaining O2 sats in the 90s on 4 L nasal cannula. Patient was up all night did not sleep well. Maintained on D5W, labs pending. Afebrile. 05/10/2021 maintaining O2 sats in the 90s on 4 L nasal cannula. Congested. Weak cough-nonproductive. Sodium 135. Mild Hematuria. afebrile. 05/11/2021 02 have been weaned down to 3 L yesterday but this morning ,desatted with oxygen requirements increased up to 4 L nasal cannula to maintain O2 sats in the 90s. Continues to have significant weak nonproductive congested cough/gurgly. Afebrile, WBC 12.4. Hemoglobin 9.4, platelets 378. Potassium 3.3. Objective - Vital Signs Vital signs: Vital Signs Temp 97.8 F 05/11/21 09:39 Pulse 64 05/11/21 09:39 Resp 17 05/11/21 09:39 BP 112/57 05/11/21 09:39 Pulse Ox 98 05/11/21 09:39 Intake & Output 05/10/21 05/11/21 05/11/21 18:59 06:59 18:59 Output Total 1300 1200 Balance -1300 -1200 Weight 54.431 kg Output: Urine 1300 1200 Other: Voiding Method Indwelling Catheter Indwelling Catheter Indwelling Catheter - Exam PHYSICAL EXAM: VITAL SIGNS: [As above] GENERAL: Sitting up in bed, alert and oriented 1, weak, increased respiratory effort, congested HEENT: Conjunctivae normal. eyes normal. Oral mucosa dry NECK: Supple, No JVD. No thyroid enlargement. No LNs. CARDIOVASCULAR: S1, S2 regular. No murmur. RESPIRATION: Breath sounds diminished in the bases.weak cough. gurgling rhonchi. ABDOMEN: Soft,nondistended, nontender. No guarding. no masses palpable.Bowel sounds heard. LEGS: No edema. no swelling NERVOUS SYSTEM: Limited exam, no focal deficits Skin: Warm and dry, no rash - Labs CBC & Chem 7: 05/11/21 05:51 05/11/21 05:51 Labs: Abnormal Lab Results - Last 24 Hours (Table) 05/10/21 05/10/21 05/10/21 Range/Units 11:50 16:47 19:52 WBC (4.50-10.00) X 10*3/uL RBC (4.10-5.20) X 10*6/uL Hgb (12.0-15.0) g/dL Hct (37.2-46.3) % MCHC (32.0-37.0) g/dL Immature Gran # (0.00-0.04) X 10*3/uL Neutrophils # (1.80-7.70) X 10*3/uL Potassium (3.5-5.5) mmol/L Carbon Dioxide (20.0-27.5) mmol/L BUN (9.0-27.0) mg/dL Creatinine (0.6-1.5) mg/dL POC Glucose (mg/dL) 115 H 127 H 201 H (75-99) mg/dL Calcium (8.7-10.3) mg/dL 05/11/21 05/11/21 05/11/21 Range/Units 05:51 05:51 06:47 WBC 12.40 H (4.50-10.00) X 10*3/uL RBC 3.33 L (4.10-5.20) X 10*6/uL Hgb 9.4 L (12.0-15.0) g/dL Hct 31.1 L (37.2-46.3) % MCHC 30.2 L (32.0-37.0) g/dL Immature Gran # 0.05 H (0.00-0.04) X 10*3/uL Neutrophils # 10.08 H (1.80-7.70) X 10*3/uL Potassium 3.3 L (3.5-5.5) mmol/L Carbon Dioxide 27.9 H (20.0-27.5) mmol/L BUN 7.0 L (9.0-27.0) mg/dL Creatinine 0.4 L (0.6-1.5) mg/dL POC Glucose (mg/dL) 118 H (75-99) mg/dL Calcium 7.5 L (8.7-10.3) mg/dL Assessment and Plan Assessment: Acute on chronic hypoxic respiratory failure, wears 2 L nasal cannula Recent Covid-19 Infection, with possible COPD exacerbation Dehydration Hypernatremia secondary to the above Hypokalemia Hypomagnesemia Acute metabolic encephalopathy, multifactorial, secondary to all the above Dysphagia Chronic respiratory failure, maintained on 2 L nasal cannula at home Recent Pubis ramus fracture status post fall, conservative treatment as per orthopedic surgery Recent Retroperitoneal hematoma, insignificant as per general surgery,status post fall Osteopenia Osteoarthritis bilateral hips Cervical degenerative disc disease Diabetes mellitus, hyperglycemic. Hypertension Hyperlipidemia COPD Dementia Iron deficiency Pulmonary hypertension Plan: Continue on current medication regime ,monitoring and symptomatic treatment. Potassium to be supplemented by a replacement protocol previously ordered.Continue COvid cocktail, bronchodilators. Maintain aspiration precautions. Patient is not ready for discharge, unable to clear airway was significantly weak cough. Supportive care, close monitoring .Prognosis guarded given multiple complex medical issues. The impression and plan of care has been dictated as directed. : I performed a history and examination of this patient, discussed the same with the dictator. I agree with the dictator's note ,documented as a scribe. Any additional findings or plans will be noted.
[2021-05-11] MEDS ORDERED: LORazepam 2 MG/ML INJ ONE (16:11)
[2021-05-11 16:23] LABS: Glucose,Whole Blood 134 mg/dL (75-99)
[2021-05-11] MEDS ORDERED: LORazepam 2 MG/ML INJ IV PRN (16:42)
[2021-05-11 17:32] LABS: ALT 13 U/L (4-34); AST 28 U/L (14-36); African American GFR (CKD) >90 (>60 ml/min/1.73 sqM); Albumin 2.5 g/dL (3.5-5.0); Albumin/Globulin Ratio 0.9; Alkaline Phosphatase 74 U/L (38-126); Anion Gap 9 mmol/L; Blood Urea Nitrogen 7 mg/dL (7-17); Calcium 7.6 mg/dL (8.4-10.2); Carbon Dioxide 27 mmol/L (22-30); Chloride 97 mmol/L (98-107); Globulin 2.8 g/dL; Glucose 60 mg/dL (74-99); Magnesium 1.1 mg/dL (1.6-2.3); Non-African American GFR(CKD) >90 (>60 ml/min/1.73 sqM); Sodium 133 mmol/L (137-145); Total Bilirubin 0.4 mg/dL (0.2-1.3); Total Protein 5.3 g/dL (6.3-8.2)
[2021-05-11 17:36] LABS: Potassium 3.7 mmol/L (3.5-5.1)
--- NOTE | 2021-05-11 17:57 | CT ---
EXAMINATION TYPE: CT brain wo con CT DLP: 1188.4 mGycm, Automated exposure control for dose reduction was used. DATE OF EXAM: 05/11/2021 5:21 PM COMPARISON: CT brain 04/19/2021. CLINICAL INDICATION:Female, 80 years old with history of new seizure, Seizure. TECHNIQUE: Brain: Multiple axial CT images of the brain were obtained without IV contrast. FINDINGS: Brain: Extra-axial spaces: No abnormal extra-axial fluid collections. Ventricular system: Dilatation in proportion to cerebral atrophy. Cerebral parenchyma: Cerebral atrophy. No acute intraparenchymal hemorrhage or mass effect. The mccallum -white junction is well differentiated. Scattered hypoattenuating areas are seen within the white mat ter. Cerebellum: Unremarkable. Mass effect: No evidence of midline shift. Intracranial vasculature: Atherosclerotic calcifications of the intracranial vessels. Soft tissues: Normal. Calvarium/osseous structures: No depressed skull fracture. Paranasal sinuses and mastoid air cells: Mucosal thickening in the maxillary sinuses. Postsurgical ch anges to the medial maxillary sinus cody. Visualized orbits: Orbital contents are intact. IMPRESSION: 1. No acute intracranial process significant change from prior 04/19/2021. 2. Nonspecific white matter changes, likely secondary to chronic small vessel ischemic disease.
[2021-05-11] MEDS ORDERED: Magnesium Replacement Protocol 1 EACH MISC MISCELLANE PRN (18:08)
[2021-05-11] MEDS: MAGNESIUM SULFATE-D5W PMX 1 GM in DEXTROSE/WATER 1 100ML.BAG IVPB SCH ×3 (18:25→21:02)
[2021-05-11 19:18] LABS: HGB 9.9 gm/dL (11.4-16.0); Hypochromasia Slight; MCHC 31.9 g/dL (31.0-37.0); Mean Platelet Volume 8.3; Platelet Count 413 k/uL (150-450); RDW 13.6 % (11.5-15.5); WBC 11.2 k/uL (3.8-10.6)
[2021-05-11 19:55] LABS: Glucose,Whole Blood 86 mg/dL (75-99)
[2021-05-11] MEDS: SERTRALINE 50 MG TAB PO SCH (21:52)
[2021-05-11] MEDS: PRAVASTATIN SODIUM 40 MG TAB PO SCH (21:52)
[2021-05-12 01:53] LABS: Glucose,Whole Blood 100 mg/dL (75-99)
[2021-05-12] MEDS: PANTOPRAZOLE 40 MG TABLET PO SCH (05:47)
[2021-05-12] MEDS: DEXTROSE 5% IN WATER 1,000 ML IV SCH ×2 (05:47→21:56)
[2021-05-12 06:39] LABS: Glucose,Whole Blood 135 mg/dL (75-99)
[2021-05-12] MEDS: INSULIN ASPART (NovoLOG) 100 UNIT/ML VIAL SQ SCH ×4 (07:08→21:55)
[2021-05-12] MEDS: metFORMIN 500 MG TAB PO SCH ×2 (07:14→16:46)
[2021-05-12] MEDS: ASPIRIN 81 MG PO SCH (07:15)
[2021-05-12] MEDS: FERROUS SULFATE 325 MG TAB PO SCH (07:15)
[2021-05-12] MEDS: MEMANTINE 10 MG TAB PO SCH ×2 (07:15→21:55)
[2021-05-12] MEDS: METOPROLOL TARTRATE 25 MG TAB PO SCH ×2 (07:15→21:55)
[2021-05-12] MEDS: ENOXAPARIN 40 MG/0.4 ML SYRINGE SQ SCH (07:15)
[2021-05-12] MEDS: DEXAMETHASONE SOD PHOSPHATE 10 MG/ML 1 ML VIAL IVP SCH (07:16)
[2021-05-12] MEDS: INSULIN DETEMIR (LEVEMIR) 100 UNIT/ML SYR SQ SCH (07:16)
[2021-05-12] MEDS: ALBUTEROL HFA INHALER INHALATION SCH ×4 (08:18→20:35)
[2021-05-12 09:28] LABS: Basophils # (A) 0 X 10*3/uL (0.00-0.10); Basophils % (A) 0 %; Eosinophils # (A) 0.16 X 10*3/uL (0.04-0.35); Eosinophils % (A) 1.5 %; HCT 32.9 % (37.2-46.3); HGB 10.1 g/dL (12.0-15.0); Lymphocytes # (A) 1.16 X 10*3/uL (0.90-5.00); Lymphocytes % (A) 11.1 %; MCH 28.7 pg (27.0-32.0); MCHC 30.7 g/dL (32.0-37.0); MCV 93.5 fL (80.0-97.0); Mean Platelet Volume 10.8 fL (9.5-12.2); Monocytes % (A) 5.7 %; Neutrophils # (A) 8.51 X 10*3/uL (1.80-7.70); Neutrophils % (A) 81.1 %; Platelet Count 379 X 10*3/uL (140-440); RBC 3.52 X 10*6/uL (4.10-5.20); RDW 13.3 % (11.5-14.5); WBC 10.49 X 10*3/uL (4.50-10.00)
--- NOTE | 2021-05-12 10:56 | EEG ---
ELECTROENCEPHALOGRAM REPORT DATE OF SERVICE: 05/12/2021 PREAMBLE: This is a 80-year-old female with new-onset seizure. Patient has acute COVID-19 pneumonia, dehydration, COPD. Patient is confused, not following commands. EEG FINDINGS: This is a 21-channel digital EEG recorded with video component, utilizing 10/20 international system with referential and bipolar montages. Background consists of moderately well-developed and regulated, predominantly 4-6 hertz theta activity seen in bihemispheric region. Intermittent moderate to high amplitude delta slowing was also seen in bihemispheric region. Occasional posterior-dominant alpha activity was also seen. Photic stimulation was not performed. Different stages of sleep were not seen. No focal or generalized epileptiform activity was seen. Frequent myogenic and movement artifact was also seen during the study. IMPRESSION: This is an abnormal EEG due to background slowing of moderate degree. This is suggestive of generalized cerebral dysfunction as can be seen with toxic metabolic encephalopathy or related to diffuse structural brain abnormality. No epileptiform activity was seen. MMODL / IJN: [id number] /
[2021-05-12 10:57] LABS: African American GFR (CKD) 119.9 (60.0-200.0); Anion Gap 11.7 mmol/L (10.00-18.00); BUN/Creat Ratio 11.03 Ratio (12.00-20.00); Calcium 7.6 mg/dL (8.7-10.3); Carbon Dioxide 29.2 mmol/L (20.0-27.5); Magnesium 1.5 mg/dL (1.5-2.4); Non-African American GFR(CKD) 103.5 (60.0-200.0); Potassium 3.7 mmol/L (3.5-5.5)
[2021-05-12 11:17] LABS: Glucose,Whole Blood 198 mg/dL (75-99)
[2021-05-12] MEDS ORDERED: Magnesium Replacement Protocol 1 EACH MISC MISCELLANE PRN (16:12)
--- NOTE | 2021-05-12 16:19 | P.PN ---
Subjective Progress Note Date: 05/12/21 This is a 80-year-old female recently discharged to [facility] subacute rehab secondary to COVID-19 infection, possible acute COPD exacerbation, chronic hypoxic respiratory failure, recent pelvic fracture and multiple other medical issues. Patient returned to the ER on 100% nonrebreather with O2 sats of 99% via EMS, EMS records currently unavailable. EF reported no chest pain, no fevers chills or sweats and the patient was referred to have a pulse ox in the 70s-assuming on 2 L nasal cannula O2 that she normally wears. Afebrile, WBC 22.4, hemoglobin 9.3, platelets 4:15. D-dimer 2.96.Chest CTA reported no PE, evidence of bilateral pneumonia, underlying emphysema, fibrosis and pulmonary hypertension. Chest x-ray reported no acute process. Sodium 152, Potassium 3.4, chloride 112, BUN 45, creatinine 0.78, glucose 215, lactic acid 1.4, LDH 706, CRP 6.1, pro calcitonin negative.Patient is confused, poor historian, majority of information obtained from staff and EHR. O2 has been weaned down to 4 L nasal cannula maintaining O2 sats in the 90s. 05/07/2021 maintaining O2 sats in the 90s on 4 L nasal cannula. Patient was up all night did not sleep well. Maintained on D5W, labs pending. Afebrile. 05/10/2021 maintaining O2 sats in the 90s on 4 L nasal cannula. Congested. Weak cough-nonproductive. Sodium 135. Mild Hematuria. afebrile. 05/11/2021 02 have been weaned down to 3 L yesterday but this morning ,desatted with oxygen requirements increased up to 4 L nasal cannula to maintain O2 sats in the 90s. Continues to have significant weak nonproductive congested cough/gurgly. Afebrile, WBC 12.4. Hemoglobin 9.4, platelets 378. Potassium 3.3. 05/12/2021 maintaining O2 sats in the 90s on 2 L nasal cannula. Yesterday magnesium 1.1, patient had 1 seizure event during the night lasting for about 1- 1/2 minutes, post ictal 2 hours. Received magnesium supplementation as well as Ativan. No further seizure activity reported. Much more alert this morning, less congested. Labs and repeat magnesium level pending. Objective - Vital Signs Vital signs: Vital Signs Temp 97.9 F 05/12/21 13:24 Pulse 85 05/12/21 13:24 Resp 17 05/12/21 13:24 BP 108/67 05/12/21 13:24 Pulse Ox 93 L 05/12/21 13:24 Intake & Output 05/11/21 05/12/21 05/12/21 18:59 06:59 18:59 Output Total 1000 800 Balance -1000 -800 Output: Urine 1000 800 Other: Voiding Method Indwelling Catheter Indwelling Catheter Indwelling Catheter - Exam PHYSICAL EXAM: VITAL SIGNS: [As above] GENERAL: Sitting up in bed, alert and oriented 2, much more alert HEENT: Conjunctivae normal. eyes normal. Oral mucosa dry NECK: Supple, No JVD. No thyroid enlargement. No LNs. CARDIOVASCULAR: S1, S2 regular. No murmur. RESPIRATION: Breath sounds diminished in the bases.less congestion ABDOMEN: Soft,nondistended, nontender. No guarding. no masses palpable.Bowel sounds heard. LEGS: No edema. no swelling NERVOUS SYSTEM: Limited exam, no focal deficits Skin: Warm and dry, no rash - Labs CBC & Chem 7: 05/12/21 05:56 05/12/21 05:56 Labs: Abnormal Lab Results - Last 24 Hours (Table) 05/11/21 05/11/21 05/11/21 Range/Units 16:22 17:02 18:27 WBC 11.2 H (3.8-10.6) k/uL RBC 3.30 L (3.80-5.40) m/uL Hgb 9.9 L (11.4-16.0) gm/dL Hct 31.0 L (34.0-46.0) % MCHC (32.0-37.0) g/dL Immature Gran # (0.00-0.04) X 10*3/uL Neutrophils # (1.80-7.70) X 10*3/uL Sodium 133 L (137-145) mmol/L Chloride 97 L (98-107) mmol/L Carbon Dioxide (20.0-27.5) mmol/L BUN (9.0-27.0) mg/dL Creatinine 0.37 L (0.52-1.04) mg/dL BUN/Creatinine Ratio (12.00-20.00) Ratio Glucose 60 L (74-99) mg/dL POC Glucose (mg/dL) 134 H (75-99) mg/dL Calcium 7.6 L (8.4-10.2) mg/dL Magnesium 1.1 L (1.6-2.3) mg/dL Total Protein 5.3 L (6.3-8.2) g/dL Albumin 2.5 L (3.5-5.0) g/dL 05/12/21 05/12/21 05/12/21 Range/Units 01:52 05:56 05:56 WBC 10.49 H (3.8-10.6) k/uL RBC 3.52 L (3.80-5.40) m/uL Hgb 10.1 L (11.4-16.0) gm/dL Hct 32.9 L (34.0-46.0) % MCHC 30.7 L (32.0-37.0) g/dL Immature Gran # 0.06 H (0.00-0.04) X 10*3/uL Neutrophils # 8.51 H (1.80-7.70) X 10*3/uL Sodium (137-145) mmol/L Chloride 94 L (98-107) mmol/L Carbon Dioxide 29.2 H (20.0-27.5) mmol/L BUN 4.0 L (9.0-27.0) mg/dL Creatinine 0.4 L (0.52-1.04) mg/dL BUN/Creatinine Ratio 11.03 L (12.00-20.00) Ratio Glucose 141 H (74-99) mg/dL POC Glucose (mg/dL) 100 H (75-99) mg/dL Calcium 7.6 L (8.4-10.2) mg/dL Magnesium (1.6-2.3) mg/dL Total Protein (6.3-8.2) g/dL Albumin (3.5-5.0) g/dL 05/12/21 05/12/21 Range/Units 06:35 11:15 WBC (3.8-10.6) k/uL RBC (3.80-5.40) m/uL Hgb (11.4-16.0) gm/dL Hct (34.0-46.0) % MCHC (32.0-37.0) g/dL Immature Gran # (0.00-0.04) X 10*3/uL Neutrophils # (1.80-7.70) X 10*3/uL Sodium (137-145) mmol/L Chloride (98-107) mmol/L Carbon Dioxide (20.0-27.5) mmol/L BUN (9.0-27.0) mg/dL Creatinine (0.52-1.04) mg/dL BUN/Creatinine Ratio (12.00-20.00) Ratio Glucose (74-99) mg/dL POC Glucose (mg/dL) 135 H 198 H (75-99) mg/dL Calcium (8.4-10.2) mg/dL Magnesium (1.6-2.3) mg/dL Total Protein (6.3-8.2) g/dL Albumin (3.5-5.0) g/dL Assessment and Plan Assessment: Acute on chronic hypoxic respiratory failure, wears 2 L nasal cannula Recent Covid-19 Infection, with possible COPD exacerbation Dehydration Hypernatremia secondary to the above Hypokalemia Hypomagnesemia Acute metabolic encephalopathy, multifactorial, secondary to all the above Dysphagia Chronic respiratory failure, maintained on 2 L nasal cannula at home Recent Pubis ramus fracture status post fall, conservative treatment as per orthopedic surgery Recent Retroperitoneal hematoma, insignificant as per general surgery,status post fall Osteopenia Osteoarthritis bilateral hips Cervical degenerative disc disease Diabetes mellitus, hyperglycemic. Hypertension Hyperlipidemia COPD Dementia Iron deficiency Pulmonary hypertension Plan: Continue on current medication regime ,monitoring and symptomatic treatment. Labs/magnesium levels pending. Electrolyte replacements as per previously ordered protocols. Continue COvid cocktail, bronchodilators. Maintain aspiration precautions. Patient tolerating weaning of Oxygen.Discharge planning in progress for tomorrow for subacute rehab. The impression and plan of care has been dictated as directed. : I performed a history and examination of this patient, discussed the same with the dictator. I agree with the dictator's note ,documented as a scribe. Any additional findings or plans will be noted.
[2021-05-12 16:21] LABS: Glucose,Whole Blood 213 mg/dL (75-99)
--- NOTE | 2021-05-12 18:12 | P.CNNES ---
History of Present Illness Consult date: 05/12/21 Requesting physician: Kenji Narayan Reason for Consult: New onset seizure History of Present Illness: Patient is a 80-year-old female with history of advanced dementia, came to the hospital by ambulance on 05/05/2021 for shortness of breath, hypoxemia related to Covid-19, which was actually diagnosed on 04/29/2021. Her pulse oximetry was registering in the 70s. CTA of the chest showed emphysema and possible pulmonary artery hypertension. No evidence of pulmonary embolism. Correlate for bilateral lower lobe pneumonia. Chest x-ray showed no acute process. There is underlying emphysema, consider pulmonary artery hypertension. EKG shows sinus tachycardia with second-degree AV block. Left axis deviation. CT head showed no acute intracranial process. Nonspecific white matter changes, likely secondary to chronic small vessel ischemic disease. Yesterday at 4:28 PM, patient had approximately 1 minute and 30 seconds episode of seizure witnessed by staff. Localized to arms and face. Patient was assisted to her side. Patient apparently has been having myoclonic type jerks during the day. However at 4:28 PM, she had continuous jerking/seizure type spell. Patient was given 1 mg of Ativan. Subsequently patient was in postictal state responded only to sternal rub and pain. Pupils were round and reacting. Her blood pressure a few minutes prior was 111/88, pulse rate 112 and saturation 96%. Patient's blood test shows WBC 10.49, hemoglobin 10.1, platelet 379. Electrolytes are normal. BUN 4, creatinine 0.4. Patient's last hemoglobin A1c 6.8 on 04/21/2021. Total cholesterol 195, LDL 71, HDL 110 and triglycerides 70 on 02/05/2021. Vitamin B12 752 on 01/22/2016. Homocystine was normal. BETZY negative. Lyme negative. Patient never has any history of seizures. Review of Systems ROS unobtainable: due to mental status Past Medical History Past Medical History: Asthma, COPD, Dementia, Diabetes Mellitus, GERD/Reflux, Hyperlipidemia, Hypertension, Pneumonia, Respiratory Disorder, Vascular Disorder Additional Past Medical History / Comment(s): Pt recently admitted to [facility] on 04/25/21 with Covid 19 infection. Other hx: 04/19/21 with pelvic/hip fracture/retroperitoneal hematoma/IDC/no surgery/sent to rehab, IDDM type II, chronic hypoxic respiratory failure/oxygen 2L/NC, dysphagia/ recently started "pocketing food", minimal pulmonary fibrosis, degenerative arthritis, varicosities with surgery, iron anemia, hypomagnesemia. History of Any Multi-Drug Resistant Organisms: None Reported Past Surgical History: Appendectomy, Cholecystectomy, Hysterectomy Additional Past Surgical History / Comment(s): Colonoscopy/polypectomy, varicose vein surgery. Past Anesthesia/Blood Transfusion Reactions: No Reported Reaction Smoking Status: Former smoker - Past Family History Father Family Medical History: Myocardial Infarction (RI) Additional Family Medical History / Comment(s): Father of a massive RI at the age of 69yrs. Mother Family Medical History: Cancer Additional Family Medical History / Comment(s): Mother of lung cancer at the age of 49 yrs. Medications and Allergies Home Medications Medication Instructions Recorded Confirmed Type Ferrous Sulfate [Iron (65 MG 325 mg PO DAILY 04/19/21 05/05/21 History Elemental)] Fexofenadine HCl [Treva Allergy] 180 mg PO DAILY PRN 04/19/21 05/05/21 History Fluticasone/Salmeterol [Advair 1 puff INHALATION RT-BID 04/19/21 05/05/21 History 250-50 Diskus] Memantine HCl [Memantine HCl ER] 28 mg PO HS 04/19/21 05/05/21 History Pravastatin Sodium [Pravachol] 40 mg PO HS 04/19/21 05/05/21 History Tiotropium [place] [Spiriva] 1 cap INHALATION RT-DAILY 04/19/21 05/05/21 History lisinopriL 10 mg PO DAILY 04/19/21 05/05/21 History metFORMIN HCL 500 mg PO BID 04/19/21 05/05/21 History Albuterol Nebulized [Ventolin 2.5 mg INHALATION RT-Q4H PRN 04/25/21 05/05/21 History Nebulized] Sertraline [Zoloft] 150 mg PO HS 04/25/21 05/05/21 History Albuterol Sulfate [Proventil Hfa] 2 puff INHALATION RT-QID #0 04/29/21 05/05/21 Rx Aspirin EC [Ecotrin Low Dose] 81 mg PO DAILY #60 tab 04/29/21 05/05/21 Rx HYDROcodone/APAP 5-325MG [Kelly 1 tab PO Q6H PRN #12 tab 04/29/21 05/05/21 Rx 5-325] Metoprolol Tartrate [Lopressor] 25 mg PO BID tab 04/29/21 05/05/21 Rx hydrALAZINE HCL [Apresoline] 25 mg PO TID tab 04/29/21 05/05/21 Rx Acetaminophen Tab [Tylenol] 650 mg PO Q4HR PRN 05/05/21 05/05/21 History Insulin Glargine,Hum.rec.anlog 15 unit SQ DAILY@0700 05/05/21 05/05/21 History [Lantus Solostar Pen] Insulin Lispro [humaLOG Kwikpen] See Protocol SQ ACHS 05/05/21 05/05/21 History Pantoprazole [Protonix] 40 mg PO DAILY@0600 05/05/21 05/05/21 History Verapamil [Isoptin] 80 mg PO TID@0600,1400,2200 05/05/21 05/05/21 History Zguard 1 applic TOPICAL DAILY PRN 05/05/21 05/05/21 History Zguard 1 applic TOPICAL Q12H 05/05/21 05/05/21 History predniSONE See Taper PO DIRECTED 05/05/21 05/05/21 History Allergies Allergy/AdvReac Type Severity Reaction Status Date / Time No Known Allergies Allergy Verified 05/05/21 09:56 Physical Examination - Vital Signs Vital Signs: Vital Signs Temp Pulse Resp BP Pulse Ox 05/12/21 10:08 97.2 F L 72 18 112/74 97 05/12/21 07:15 17 05/12/21 06:00 97.6 F 84 17 120/69 94 L 05/12/21 02:00 97.0 F L 78 18 139/66 95 05/11/21 21:52 97.2 F L 72 16 113/71 93 L 05/11/21 19:57 72 16 05/11/21 17:57 96.8 F L 74 18 104/61 94 L 05/11/21 16:19 112 H 115/88 96 05/11/21 14:17 98.2 F 68 18 96/59 92 L Intake and Output 05/11/21 05/12/21 05/12/21 22:59 06:59 14:59 Output Total 1000 800 Balance -1000 -800 Output: Urine 1000 800 Other: Voiding Method Indwelling Catheter Indwelling Catheter Patient is an elderly female, sitting in her recliner, who appears to be in mild respiratory distress, coughing, has oxygen by nasal cannula. Patient is alert awake oriented. Patient has advanced dementia. Patient cannot name, repeat. She can follow some directions, like she was able to point to the window and the door. She could not name simple objects like thumb or a pen. She could not tell me what building she is in, the month or the year. She was more focused on the television, stating "There he is", referring to the president Bobby Brown appearing the TV. Patient speaks short phrases correctly, but not able to speak in full sentences. Looking at the TV she said "there's the little kid". Attention, concentration and fund of knowledge is very poor. On cranial examination, pupils are round and reacting to light, visual hernandez could not be tested reliably. Her extraocular muscles are intact with no nystagmus. Face is symmetric, tongue protrudes to the midline. Palatal elevation and sensation normal, hearing is moderately decreased and shoulder shrug normal, facial sensation could not be tested reliably. On muscle strength testing, there is no pronator drift and the strength is normal in arms and legs distally and proximally. Deep tendon reflexes are symmetric and plantars downgoing. Sensory to touch is equal with no neglect. Cerebellar function showed no ataxia for [id number] testing. Tone and bulk of muscles normal. Gait not checked. On general examination, there is no carotid bruit or murmur, S1-S2 audible. Abdomen is soft nontender. No edema. Results - Laboratory Findings CBC and BMP: 05/12/21 05:56 05/12/21 05:56 Abnormal Lab Findings: Abnormal Labs 05/05/21 05/05/21 05/05/21 10:06 10:06 10:06 WBC 22.4 H RBC Hgb 11.3 L Hct MCV MCHC 30.8 L Immature Gran # Neutrophils # 21.1 H Lymphocytes # 0.6 L Eosinophils # APTT 20.2 L D-Dimer 2.96 H Sodium 152 H Potassium 3.4 L Chloride 112 H Carbon Dioxide BUN 45 H Creatinine BUN/Creatinine Ratio Glucose 215 H POC Glucose (mg/dL) Calcium Magnesium Ferritin 394.0 H Lactate Dehydrogenase 706 H C-Reactive Protein 6.1 H Total Protein 5.4 L Albumin 2.9 L Albumin/Globulin Ratio 05/05/21 05/05/21 05/06/21 17:58 23:00 13:05 WBC RBC Hgb Hct MCV MCHC Immature Gran # Neutrophils # Lymphocytes # Eosinophils # APTT D-Dimer Sodium Potassium Chloride Carbon Dioxide BUN Creatinine BUN/Creatinine Ratio Glucose POC Glucose (mg/dL) 196 H 137 H 197 H Calcium Magnesium Ferritin Lactate Dehydrogenase C-Reactive Protein Total Protein Albumin Albumin/Globulin Ratio 05/06/21 05/06/21 05/06/21 13:13 13:13 17:00 WBC 21.6 H RBC Hgb Hct MCV MCHC 30.1 L Immature Gran # Neutrophils # 20.8 H Lymphocytes # 0.3 L Eosinophils # APTT D-Dimer Sodium 154 H Potassium Chloride 117 H Carbon Dioxide BUN 31 H Creatinine BUN/Creatinine Ratio Glucose 217 H POC Glucose (mg/dL) 130 H Calcium Magnesium Ferritin Lactate Dehydrogenase C-Reactive Protein Total Protein 5.6 L Albumin 2.9 L Albumin/Globulin Ratio 05/06/21 05/07/21 05/07/21 20:34 07:00 07:00 WBC 16.46 H RBC 3.54 L Hgb 10.1 L Hct 35.3 L MCV 99.7 H MCHC 28.6 L Immature Gran # 0.11 H Neutrophils # 14.33 H Lymphocytes # Eosinophils # APTT D-Dimer Sodium 156 H Potassium 3.2 L Chloride 114 H Carbon Dioxide 29.7 H BUN Creatinine 0.5 L BUN/Creatinine Ratio 46.31 H Glucose POC Glucose (mg/dL) 146 H Calcium 8.6 L Magnesium 1.3 L Ferritin Lactate Dehydrogenase C-Reactive Protein Total Protein 5.3 L Albumin 3.1 L Albumin/Globulin Ratio 1.36 L 05/07/21 05/07/21 05/07/21 11:34 17:10 20:11 WBC RBC Hgb Hct MCV MCHC Immature Gran # Neutrophils # Lymphocytes # Eosinophils # APTT D-Dimer Sodium Potassium Chloride Carbon Dioxide BUN Creatinine BUN/Creatinine Ratio Glucose POC Glucose (mg/dL) 232 H 294 H 252 H Calcium Magnesium Ferritin Lactate Dehydrogenase C-Reactive Protein Total Protein Albumin Albumin/Globulin Ratio 05/08/21 05/08/21 05/08/21 06:57 09:38 09:38 WBC 12.6 H RBC 3.27 L Hgb 10.0 L D Hct 31.3 L MCV MCHC Immature Gran # Neutrophils # 10.8 H Lymphocytes # Eosinophils # APTT D-Dimer Sodium 136 L Potassium 2.8 L Chloride Carbon Dioxide BUN 22 H Creatinine 0.51 L BUN/Creatinine Ratio Glucose 130 H POC Glucose (mg/dL) 201 H Calcium 7.3 L Magnesium 0.9 L* Ferritin Lactate Dehydrogenase 728 H C-Reactive Protein 6.0 H Total Protein 4.9 L Albumin 2.4 L Albumin/Globulin Ratio 05/08/21 05/08/21 05/08/21 11:54 12:12 16:22 WBC RBC Hgb Hct MCV MCHC Immature Gran # Neutrophils # Lymphocytes # Eosinophils # APTT D-Dimer Sodium Potassium Chloride Carbon Dioxide BUN Creatinine BUN/Creatinine Ratio Glucose POC Glucose (mg/dL) 67 L 69 L 114 H Calcium Magnesium Ferritin Lactate Dehydrogenase C-Reactive Protein Total Protein Albumin Albumin/Globulin Ratio 05/08/21 05/09/21 05/09/21 20:34 06:11 06:11 WBC 10.10 H RBC 3.37 L Hgb 9.7 L Hct 32.5 L MCV MCHC 29.8 L Immature Gran # 0.07 H Neutrophils # 8.40 H Lymphocytes # Eosinophils # 0.02 L APTT D-Dimer Sodium 135 L Potassium Chloride Carbon Dioxide 31 H BUN Creatinine 0.49 L BUN/Creatinine Ratio Glucose 118 H POC Glucose (mg/dL) 165 H Calcium 7.3 L Magnesium Ferritin Lactate Dehydrogenase C-Reactive Protein Total Protein Albumin Albumin/Globulin Ratio 05/09/21 05/09/21 05/09/21 06:54 11:30 16:11 WBC RBC Hgb Hct MCV MCHC Immature Gran # Neutrophils # Lymphocytes # Eosinophils # APTT D-Dimer Sodium Potassium Chloride Carbon Dioxide BUN Creatinine BUN/Creatinine Ratio Glucose POC Glucose (mg/dL) 134 H 212 H 192 H Calcium Magnesium Ferritin Lactate Dehydrogenase C-Reactive Protein Total Protein Albumin Albumin/Globulin Ratio 05/09/21 05/10/21 05/10/21 20:14 06:56 11:50 WBC RBC Hgb Hct MCV MCHC Immature Gran # Neutrophils # Lymphocytes # Eosinophils # APTT D-Dimer Sodium Potassium Chloride Carbon Dioxide BUN Creatinine BUN/Creatinine Ratio Glucose POC Glucose (mg/dL) 137 H 187 H 115 H Calcium Magnesium Ferritin Lactate Dehydrogenase C-Reactive Protein Total Protein Albumin Albumin/Globulin Ratio 05/10/21 05/10/21 05/11/21 16:47 19:52 05:51 WBC 12.40 H RBC 3.33 L Hgb 9.4 L Hct 31.1 L MCV MCHC 30.2 L Immature Gran # 0.05 H Neutrophils # 10.08 H Lymphocytes # Eosinophils # APTT D-Dimer Sodium Potassium Chloride Carbon Dioxide BUN Creatinine BUN/Creatinine Ratio Glucose POC Glucose (mg/dL) 127 H 201 H Calcium Magnesium Ferritin Lactate Dehydrogenase C-Reactive Protein Total Protein Albumin Albumin/Globulin Ratio 05/11/21 05/11/21 05/11/21 05:51 06:47 12:04 WBC RBC Hgb Hct MCV MCHC Immature Gran # Neutrophils # Lymphocytes # Eosinophils # APTT D-Dimer Sodium Potassium 3.3 L Chloride Carbon Dioxide 27.9 H BUN 7.0 L Creatinine 0.4 L BUN/Creatinine Ratio Glucose POC Glucose (mg/dL) 118 H 70 L Calcium 7.5 L Magnesium Ferritin Lactate Dehydrogenase C-Reactive Protein Total Protein Albumin Albumin/Globulin Ratio 05/11/21 05/11/21 05/11/21 16:22 17:02 18:27 WBC 11.2 H RBC 3.30 L Hgb 9.9 L Hct 31.0 L MCV MCHC Immature Gran # Neutrophils # Lymphocytes # Eosinophils # APTT D-Dimer Sodium 133 L Potassium Chloride 97 L Carbon Dioxide BUN Creatinine 0.37 L BUN/Creatinine Ratio Glucose 60 L POC Glucose (mg/dL) 134 H Calcium 7.6 L Magnesium 1.1 L Ferritin Lactate Dehydrogenase C-Reactive Protein Total Protein 5.3 L Albumin 2.5 L Albumin/Globulin Ratio 05/12/21 05/12/21 05/12/21 01:52 05:56 06:35 WBC 10.49 H RBC 3.52 L Hgb 10.1 L Hct 32.9 L MCV MCHC 30.7 L Immature Gran # 0.06 H Neutrophils # 8.51 H Lymphocytes # Eosinophils # APTT D-Dimer Sodium Potassium Chloride Carbon Dioxide BUN Creatinine BUN/Creatinine Ratio Glucose POC Glucose (mg/dL) 100 H 135 H Calcium Magnesium Ferritin Lactate Dehydrogenase C-Reactive Protein Total Protein Albumin Albumin/Globulin Ratio Assessment and Plan Assessment: * New onset seizure, unclear etiology, possibly due to metabolic dysfuncti on/encephalopathy. * Acute on chronic hypoxic respiratory failure * Recent Covid-19 infection with possible COPD exacerbation. * Advanced dementia * Diabetes * Hypertension * Anemia Plan: * Patient had a new onset seizure of unclear etiology. * Computed tomography scan of head showed no acute process. * EEG was abnormal due to background slowing of moderate degree. This is sugge stive of generalized cerebral dysfunction as can be seen with toxic metabolic encephalopathy or related to diffuse structural brain abnormality. No epileptiform activity was seen. * Continue aspirin 81 mg daily. * Spoke to patient's on the phone. He informed me that patient has dementia for 3 years. It is slowly progressing. She is now forgetting how to eat, how to do things. A lot of times she does not answer questions. She would not name objects, which is her baseline from dementia (not acute process since hospitalization). * As this seizure was possibly related to metabolic encephalopathy, and the workup is negative, we will hold off on antiepileptic medication. If she has any more documented seizure, would start Keppra 500 mg twice a day. Discussed with patient's , who agreed with this approach. * Thank you for the consult.
[2021-05-12 21:50] LABS: Glucose,Whole Blood 142 mg/dL (75-99)
[2021-05-12] MEDS: SERTRALINE 50 MG TAB PO SCH (21:55)
[2021-05-12] MEDS: PRAVASTATIN SODIUM 40 MG TAB PO SCH (21:55)
[2021-05-13] MEDS: PANTOPRAZOLE 40 MG TABLET PO SCH ×2 (05:34→05:46)
[2021-05-13 06:49] LABS: Glucose,Whole Blood 132 mg/dL (75-99)
[2021-05-13] MEDS: ALBUTEROL HFA INHALER INHALATION SCH ×4 (07:34→20:51)
[2021-05-13] MEDS: INSULIN DETEMIR (LEVEMIR) 100 UNIT/ML SYR SQ SCH (08:32)
[2021-05-13] MEDS: ENOXAPARIN 40 MG/0.4 ML SYRINGE SQ SCH (08:32)
[2021-05-13] MEDS: ASPIRIN 81 MG PO SCH (08:34)
[2021-05-13] MEDS: FERROUS SULFATE 325 MG TAB PO SCH (08:34)
[2021-05-13] MEDS: MEMANTINE 10 MG TAB PO SCH ×2 (08:34→20:17)
[2021-05-13] MEDS: metFORMIN 500 MG TAB PO SCH ×2 (08:34→16:45)
[2021-05-13] MEDS: METOPROLOL TARTRATE 25 MG TAB PO SCH ×2 (08:34→20:17)
[2021-05-13] MEDS: DEXAMETHASONE SOD PHOSPHATE 10 MG/ML 1 ML VIAL IVP SCH (08:34)
[2021-05-13] MEDS: INSULIN ASPART (NovoLOG) 100 UNIT/ML VIAL SQ SCH ×4 (08:39→21:42)
[2021-05-13] MEDS: DEXTROSE 5% IN WATER 1,000 ML IV SCH ×2 (08:40→20:18)
[2021-05-13] MEDS: guaiFENesin 600 MG TABLET.ER PO SCH ×2 (09:20→20:17)
[2021-05-13 09:58] LABS: Magnesium 1.3 mg/dL (1.5-2.4)
[2021-05-13 10:33] LABS: African American GFR (CKD) 127.1 (60.0-200.0); Anion Gap 10.3 mmol/L (10.00-18.00); BUN/Creat Ratio 22.67 Ratio (12.00-20.00); Blood Urea Nitrogen 6.8 mg/dL (9.0-27.0); Carbon Dioxide 28.7 mmol/L (20.0-27.5); Non-African American GFR(CKD) 109.7 (60.0-200.0); Potassium 3.7 mmol/L (3.5-5.5)
[2021-05-13 11:35] LABS: Glucose,Whole Blood 192 mg/dL (75-99)
[2021-05-13] MEDS: MAGNESIUM SULFATE-D5W PMX 1 GM in DEXTROSE/WATER 1 100ML.BAG IVPB SCH ×3 (16:19→18:23)
[2021-05-13 16:28] LABS: Glucose,Whole Blood 148 mg/dL (75-99)
--- NOTE | 2021-05-13 16:30 | P.PN ---
Subjective Progress Note Date: 05/13/21 This is a 80-year-old female recently discharged to [facility] subacute rehab secondary to COVID-19 infection, possible acute COPD exacerbation, chronic hypoxic respiratory failure, recent pelvic fracture and multiple other medical issues. Patient returned to the ER on 100% nonrebreather with O2 sats of 99% via EMS, EMS records currently unavailable. EF reported no chest pain, no fevers chills or sweats and the patient was referred to have a pulse ox in the 70s-assuming on 2 L nasal cannula O2 that she normally wears. Afebrile, WBC 22.4, hemoglobin 9.3, platelets 4:15. D-dimer 2.96.Chest CTA reported no PE, evidence of bilateral pneumonia, underlying emphysema, fibrosis and pulmonary hypertension. Chest x-ray reported no acute process. Sodium 152, Potassium 3.4, chloride 112, BUN 45, creatinine 0.78, glucose 215, lactic acid 1.4, LDH 706, CRP 6.1, pro calcitonin negative.Patient is confused, poor historian, majority of information obtained from staff and EHR. O2 has been weaned down to 4 L nasal cannula maintaining O2 sats in the 90s. 05/07/2021 maintaining O2 sats in the 90s on 4 L nasal cannula. Patient was up all night did not sleep well. Maintained on D5W, labs pending. Afebrile. 05/10/2021 maintaining O2 sats in the 90s on 4 L nasal cannula. Congested. Weak cough-nonproductive. Sodium 135. Mild Hematuria. afebrile. 05/11/2021 02 have been weaned down to 3 L yesterday but this morning ,desatted with oxygen requirements increased up to 4 L nasal cannula to maintain O2 sats in the 90s. Continues to have significant weak nonproductive congested cough/gurgly. Afebrile, WBC 12.4. Hemoglobin 9.4, platelets 378. Potassium 3.3. 05/12/2021 maintaining O2 sats in the 90s on 2 L nasal cannula. Yesterday magnesium 1.1, patient had 1 seizure event during the night lasting for about 1- 1/2 minutes, post ictal 2 hours. Received magnesium supplementation as well as Ativan. No further seizure activity reported. Much more alert this morning, less congested. Labs and repeat magnesium level pending. 05/13/2021 desatted to 89% on 2 L nasal cannula, audible gurgling. Denies chest pain, palpitations. Afebrile. Magnesium level ordered and pending. No further seizures reported. Evaluated by neurology with recommendations noted and appreciated. Objective - Vital Signs Vital signs: Vital Signs Temp 98.2 F 05/13/21 13:08 Pulse 67 05/13/21 13:08 Resp 17 05/13/21 13:08 BP 104/63 05/13/21 13:08 Pulse Ox 99 05/13/21 13:08 Intake & Output 05/12/21 05/13/21 05/13/21 18:59 06:59 18:59 Output Total 1999 1200 Balance -1999 -1199 Weight 54.431 kg Output: Urine 1999 1199 Other: Voiding Method Indwelling Catheter Indwelling Catheter Indwelling Catheter - Exam PHYSICAL EXAM: VITAL SIGNS: [As above] GENERAL: Alert and oriented 2, more alert ,sitting up in bed. HEENT: Conjunctivae normal. eyes normal. NECK: Supple, No JVD. CARDIOVASCULAR: S1, S2 regular. No murmur. RESPIRATION: Breath sounds diminished in the bases. Gurgly congestion. ABDOMEN: Soft,nondistended, nontender. No guarding. no masses palpable.Bowel sounds heard. LEGS: No edema. no swelling NERVOUS SYSTEM: Limited exam, no focal deficits Skin: Warm and dry, no rash - Labs CBC & Chem 7: 05/12/21 05:56 05/13/21 05:47 Labs: Abnormal Lab Results - Last 24 Hours (Table) 05/12/21 05/12/21 05/13/21 Range/Units 16:18 21:49 05:47 Sodium 132 L (135-145) mmol/L Chloride 93 L (96-109) mmol/L Carbon Dioxide 28.7 H (20.0-27.5) mmol/L BUN 6.8 L (9.0-27.0) mg/dL Creatinine 0.3 L (0.6-1.5) mg/dL BUN/Creatinine Ratio 22.67 H (12.00-20.00) Ratio Glucose 129 H (70-110) mg/dL POC Glucose (mg/dL) 213 H 142 H (75-99) mg/dL Calcium 8.0 L (8.7-10.3) mg/dL Magnesium 1.3 L (1.5-2.4) mg/dL 05/13/21 05/13/21 Range/Units 06:47 11:34 Sodium (135-145) mmol/L Chloride (96-109) mmol/L Carbon Dioxide (20.0-27.5) mmol/L BUN (9.0-27.0) mg/dL Creatinine (0.6-1.5) mg/dL BUN/Creatinine Ratio (12.00-20.00) Ratio Glucose (70-110) mg/dL POC Glucose (mg/dL) 132 H 192 H (75-99) mg/dL Calcium (8.7-10.3) mg/dL Magnesium (1.5-2.4) mg/dL Assessment and Plan Assessment: Acute on chronic hypoxic respiratory failure, wears 2 L nasal cannula Recent Covid-19 Infection, with possible COPD exacerbation Dehydration Hypernatremia secondary to the above Hypokalemia Hypomagnesemia Acute metabolic encephalopathy, multifactorial, secondary to all the above Dysphagia Chronic respiratory failure, maintained on 2 L nasal cannula at home Recent Pubis ramus fracture status post fall, conservative treatment as per orthopedic surgery Recent Retroperitoneal hematoma, insignificant as per general surgery,status post fall Osteopenia Osteoarthritis bilateral hips Cervical degenerative disc disease Diabetes mellitus, hyperglycemic. Hypertension Hyperlipidemia COPD Dementia Iron deficiency Pulmonary hypertension Plan: Continue on current medication regime ,monitoring and symptomatic treatment. F/U Magnesium level pending. Magnesium replacement protocol as ordered in place. COvid cocktail, bronchodilators. Maintain aspiration precautions.Mucinex added to med regimen .Discharge planning in progress for tomorrow for subacute rehab.,if respiratory status improves. The impression and plan of care has been dictated as directed. : I performed a history and examination of this patient, discussed the same with the dictator. I agree with the dictator's note ,documented as a scribe. Any additional findings or plans will be noted.
[2021-05-13] MEDS: SERTRALINE 50 MG TAB PO SCH (20:17)
[2021-05-13] MEDS: PRAVASTATIN SODIUM 40 MG TAB PO SCH (20:17)
[2021-05-13 20:58] LABS: Glucose,Whole Blood 220 mg/dL (75-99)
[2021-05-14] MEDS: PANTOPRAZOLE 40 MG TABLET PO SCH (06:25)
[2021-05-14 07:17] LABS: Glucose,Whole Blood 79 mg/dL (75-99)
[2021-05-14] MEDS: INSULIN ASPART (NovoLOG) 100 UNIT/ML VIAL SQ SCH ×4 (07:43→20:38)
[2021-05-14] MEDS ORDERED: Magnesium Replacement Protocol 1 EACH MISC MISCELLANE PRN (07:45)
[2021-05-14] MEDS: guaiFENesin 600 MG TABLET.ER PO SCH ×2 (08:57→20:37)
[2021-05-14] MEDS: metFORMIN 500 MG TAB PO SCH ×2 (08:57→17:24)
[2021-05-14] MEDS: DEXAMETHASONE SOD PHOSPHATE 10 MG/ML 1 ML VIAL IVP SCH (08:57)
[2021-05-14] MEDS: FERROUS SULFATE 325 MG TAB PO SCH (08:57)
[2021-05-14] MEDS: ASPIRIN 81 MG PO SCH (08:57)
[2021-05-14] MEDS: MEMANTINE 10 MG TAB PO SCH ×2 (08:57→20:38)
[2021-05-14] MEDS: MAGNESIUM SULFATE-D5W PMX 1 GM in DEXTROSE/WATER 1 100ML.BAG IVPB SCH ×4 (08:58→12:02)
[2021-05-14] MEDS: METOPROLOL TARTRATE 25 MG TAB PO SCH ×2 (08:58→20:38)
[2021-05-14] MEDS: DEXTROSE 5% IN WATER 1,000 ML IV SCH (08:59)
[2021-05-14] MEDS: ENOXAPARIN 40 MG/0.4 ML SYRINGE SQ SCH (08:59)
[2021-05-14] MEDS: INSULIN DETEMIR (LEVEMIR) 100 UNIT/ML SYR SQ SCH (08:59)
[2021-05-14] MEDS: ALBUTEROL HFA INHALER INHALATION SCH ×4 (09:47→21:13)
[2021-05-14 11:40] LABS: Glucose,Whole Blood 99 mg/dL (75-99)
--- NOTE | 2021-05-14 13:54 | P.PN ---
Subjective Progress Note Date: 05/14/21 This is a 80-year-old female recently discharged to [facility] subacute rehab secondary to COVID-19 infection, possible acute COPD exacerbation, chronic hypoxic respiratory failure, recent pelvic fracture and multiple other medical issues. Patient returned to the ER on 100% nonrebreather with O2 sats of 99% via EMS, EMS records currently unavailable. EF reported no chest pain, no fevers chills or sweats and the patient was referred to have a pulse ox in the 70s-assuming on 2 L nasal cannula O2 that she normally wears. Afebrile, WBC 22.4, hemoglobin 9.3, platelets 4:15. D-dimer 2.96.Chest CTA reported no PE, evidence of bilateral pneumonia, underlying emphysema, fibrosis and pulmonary hypertension. Chest x-ray reported no acute process. Sodium 152, Potassium 3.4, chloride 112, BUN 45, creatinine 0.78, glucose 215, lactic acid 1.4, LDH 706, CRP 6.1, pro calcitonin negative.Patient is confused, poor historian, majority of information obtained from staff and EHR. O2 has been weaned down to 4 L nasal cannula maintaining O2 sats in the 90s. 05/07/2021 maintaining O2 sats in the 90s on 4 L nasal cannula. Patient was up all night did not sleep well. Maintained on D5W, labs pending. Afebrile. 05/10/2021 maintaining O2 sats in the 90s on 4 L nasal cannula. Congested. Weak cough-nonproductive. Sodium 135. Mild Hematuria. afebrile. 05/11/2021 02 have been weaned down to 3 L yesterday but this morning ,desatted with oxygen requirements increased up to 4 L nasal cannula to maintain O2 sats in the 90s. Continues to have significant weak nonproductive congested cough/gurgly. Afebrile, WBC 12.4. Hemoglobin 9.4, platelets 378. Potassium 3.3. 05/12/2021 maintaining O2 sats in the 90s on 2 L nasal cannula. Yesterday magnesium 1.1, patient had 1 seizure event during the night lasting for about 1- 1/2 minutes, post ictal 2 hours. Received magnesium supplementation as well as Ativan. No further seizure activity reported. Much more alert this morning, less congested. Labs and repeat magnesium level pending. 05/13/2021 desatted to 89% on 2 L nasal cannula, audible gurgling. Denies chest pain, palpitations. Afebrile. Magnesium level ordered and pending. No further seizures reported. Evaluated by neurology with recommendations noted and appreciated. 05/14/2021 maintaining O2 sats in the mid to high 90s on 2 L nasal cannula. Persistent coughing gurgling congestion-week cough, unable to bring up. Placed on Mucinex yesterday. Magnesium 1.4, to be replaced using previously ordered protocol. Afebrile. No further seizure activity reported. Objective - Vital Signs Vital signs: Vital Signs Temp 98.3 F 05/14/21 09:41 Pulse 81 05/14/21 09:41 Resp 18 05/14/21 09:41 BP 93/56 05/14/21 09:41 Pulse Ox 94 L 05/14/21 09:41 Intake & Output 05/13/21 05/14/21 05/14/21 18:59 06:59 18:59 Output Total 1200 1750 Balance -1200 -1750 Weight 54.431 kg Output: Urine 1200 1750 Other: Voiding Method Indwelling Catheter Indwelling Catheter Indwelling Catheter - Exam PHYSICAL EXAM: VITAL SIGNS: [As above] GENERAL: Alert and oriented 2, more alert ,sitting up in bed. HEENT: Conjunctivae normal. eyes normal. NECK: Supple, No JVD. CARDIOVASCULAR: S1, S2 regular. No murmur. RESPIRATION: Breath sounds diminished in the bases. Audible Gurgly congestion. Weak cough ABDOMEN: Soft,nondistended, nontender. No guarding. no masses palpable.Bowel sounds heard. LEGS: No edema. no swelling NERVOUS SYSTEM: Limited exam, no focal deficits Skin: Warm and dry, no rash - Labs CBC & Chem 7: 05/12/21 05:56 05/13/21 05:47 Labs: Abnormal Lab Results - Last 24 Hours (Table) 05/13/21 05/13/21 05/14/21 Range/Units 16:27 20:57 06:53 POC Glucose (mg/dL) 148 H 220 H (75-99) mg/dL Magnesium 1.4 L (1.6-2.3) mg/dL Assessment and Plan Assessment: Acute on chronic hypoxic respiratory failure, wears 2 L nasal cannula Recent Covid-19 Infection, with possible COPD exacerbation Dehydration Hypernatremia secondary to the above Hypokalemia Hypomagnesemia Acute metabolic encephalopathy, multifactorial, secondary to all the above Dysphagia Chronic respiratory failure, maintained on 2 L nasal cannula at home Recent Pubis ramus fracture status post fall, conservative treatment as per orthopedic surgery Recent Retroperitoneal hematoma, insignificant as per general surgery,status post fall Osteopenia Osteoarthritis bilateral hips Cervical degenerative disc disease Diabetes mellitus, hyperglycemic. Hypertension Hyperlipidemia COPD Dementia Iron deficiency Pulmonary hypertension Plan: Continue on current medication regime ,monitoring and symptomatic treatment. CPT ordered, pulmonary [id number] with Dr. Leos. Magnesium replacement as per previously ordered protocol. COvid cocktail, bronchodilators. Maintain aspiration precautions. The impression and plan of care has been dictated as directed. : I performed a history and examination of this patient, discussed the same with the dictator. I agree with the dictator's note ,documented as a scribe. Any additional findings or plans will be noted.
--- NOTE | 2021-05-14 15:33 | P.PN ---
Subjective Progress Note Date: 05/14/21 This is a 80-year-old white female with history of multiple medical problems including dementia, diabetes, chronic hypoxic respiratory failure secondary to severe underlying COPD, maintained on oxygen at 2 L/m, patient resides at [facility], she was last seen by Dr. Beard on 04/26/2021, patient was admitted at the time with acute COVID-[address] angiogram of the chest showed no evidence of pulmonary embolism. She had some minimal fibrosis on the CT of the chest, and background COPD. Patient was hospitalized, she was eventually discharged home on 04/29/21, she was seen by multiple consultants at the time. She was seen by Dr. Beard, cardiology, infectious disease, and she was discharged back to [facility]. Patient was sent back from [facility] today by EMS with complaints of increased shortness of breath, and hypoxia, patient is a very poor historian, could not get much information from the patient herself. She is quite confused. CT angiogram of the chest showed no evidence of pulmonary embolism, there was evidence of bilateral pneumonia and underlying emphysema and fibrosis. Asked x-ray was basically nondiagnostic. CBC showed leukocytosis with WBC of 22.4 hemoglobin 11.3. D-dimer was a bit elevated at 2.[address] angiogram of the chest was unremarkable. Sodium was elevated at 152 BUN is 45 creatinine 0.78. ProBNP level is 390. Troponin is 0.013 LDH is 706. Patient is on 6 L nasal cannula, O2 sats is 96%. On 05/06/2021 patient seen in follow-up on medical surgical floor. She is awake and alert, she is very confused, but appears to be in no acute distress. She follows simple commands, but she is oriented only to person, she is currently on 5 L of oxygen, which has been cut back to 4 L and her pulse ox is around 90%, afebrile, hemodynamically she is been stable. Her chest x-ray on admission showed no acute pulmonary process, underlying emphysema and pulmonary arterial hypertension. Her CT angiogram of the chest showed dilated intrahepatic biliary ducts related to postcholecystectomy changes. No new labs today. Her IV fluids have been cut back to KVO. Her oral membranes are extremely dry, suspect poor oral intake and dehydration. But no sign of any respiratory distress. Awaiting repeat labs, and in the meantime patient continues on Decadron 6 mg, however there was no clear evidence of pneumonia on the chest x-ray, we'll consider stopping it today. Pro-calcitonin level was negative. On 05/07/2021 patient seen in follow-up on medical surgical floor, she is resting comfortably in bed, she remains confused, she follows simple command, not agitated, does not seem to be in any acute respiratory distress although she has audible chest congestion and patient has a weak cough at times she is able to bring up some phlegm. Lung sounds are positive for diffuse rhonchi, she remains on 5 L of oxygen with a pulse ox of 95%, blood pressure stable, no fever or chills, he remains on D5W at a rate of 100 ML per hour, today's chemistries including serum sodium and renal profile and electrolytes are still pending. No nausea or vomiting, patient accepts oral fluids when offered to her. She has been taking in some and chair with assistance. Oral membranes are still dry, Jacobson catheter has been inserted for urine output monitoring. She has produced 600 mL in urine output in the last 24 hours. On 05/14/2021 patient is seen in follow-up at the request of primary care service for a concern of worsening dyspnea. Patient is currently on 3 L of oxygen her pulse ox of 98%, she seems to be breathing comfortably, she does have occasional congested cough, she hasn't had a chest x-ray in quite a while, but seems to be breathing comfortably, she is confused, she denies difficulty breathing. Afebrile, vital signs have been stable, lung sounds are diminished, occasionally patient will cough and she does have a rhonchorous cough, but she is not producing any phlegm. Her last set of blood work was from yesterday on 05/13/2021 showing sodium of 132, potassium 3.7, chloride is 93, CO2 is 28, BUN is 6.8, and creatinine 0.3. Her magnesium was 1.3. Her last CBC on 05/12/2021 showed white blood cell count of 10.4. Hemoglobin of 10.7. Currently chest x- ray is pending. She remains on Decadron 6 mg daily and patient has completed 9 days of it. She remains on D5W at a rate of 75 ML per hour she is on prophylactic Lovenox and Mucinex was added today. Patient had an EEG today showing no seizure activity. Patient's on a modified diet, and supervision is being provided with meals Objective - Vital Signs Vital signs: Vital Signs Temp 98.5 F 05/14/21 14:00 Pulse 78 05/14/21 14:00 Resp 20 05/14/21 14:00 BP 103/56 05/14/21 14:00 Pulse Ox 98 05/14/21 14:00 Intake & Output 05/13/21 05/14/21 05/14/21 18:59 06:59 18:59 Output Total 1200 1750 Balance -1200 -1750 Weight 54.431 kg Output: Urine 1200 1750 Other: Voiding Method Indwelling Catheter Indwelling Catheter Indwelling Catheter - Exam GENERAL EXAM: Alert, confused, 80-year-old white female, on 3L of oxygen with a pulse ox of 95%, very confused comfortable in no apparent distress. HEAD: Normocephalic/atraumatic. EYES: Normal reaction of pupils, equal size. Conjunctiva pink, sclera white. NOSE: Clear with pink turbinates. THROAT: No erythema or exudates. NECK: No masses, no JVD, no thyroid enlargement, no adenopathy. CHEST: No chest wall deformity. Symmetrical expansion. LUNGS: Equal air entry with diffuse rhonchi, nonproductive rhonchorous cough, no phlegm production. CVS: Regular rate and rhythm, normal S1 and S2, no gallops, no murmurs, no rubs ABDOMEN: Soft, nontender. No hepatosplenomegaly, normal bowel sounds, no guarding or rigidity. EXTREMITIES: No clubbing, no edema, no cyanosis, 2+ pulses and upper and lower extremities. MUSCULOSKELETAL: Muscle strength and tone normal. SPINE: No scoliosis or deformity SKIN: No rashes CENTRAL NERVOUS SYSTEM: Alert and oriented -1. No focal deficits, tone is normal in all 4 extremities. PSYCHIATRIC: Alert and oriented to self only. Confused - Labs CBC & Chem 7: 05/12/21 05:56 05/13/21 05:47 Labs: Abnormal Lab Results - Last 24 Hours (Table) 05/13/21 05/13/21 05/14/21 Range/Units 16:27 20:57 06:53 POC Glucose (mg/dL) 148 H 220 H (75-99) mg/dL Magnesium 1.4 L (1.6-2.3) mg/dL Assessment and Plan Plan: Assessment: #1. Altered mental status, related to metabolic encephalopathy, hypernatremia, dehydration #2. Recent history of COVID-19 infection, without clear evidence of pneumonia, repeat chest x-rays pending #3. High risk for aspiration, related to encephalopathy, weakness, on the modified diet #4. Hypernatremia related to free water deficit, improving and patient remains on D5 W for last several days, oral intake has improved, current serum sodium is 132. DC D5W #5. Recent hospitalization for the above and acute exacerbation of COPD and altered mental status #6. Chronic hypoxic respiratory failure related to history of COPD #7. Hypernatremia related to free water deficit #8. Leukocytosis, possibly related to steroids, rule out possibility of sepsis procalcitonin level is negative #9. Elevated d-dimer without CT evidence of pulmonary embolism #10. Diabetes mellitus 2 #11. Dementia #12. History of depression #13. Degenerative arthritis Plan: Continue current medical treatment Maintain aspiration precautions Obtain follow-up chest x-ray Clinically patient is in no acute distress Does have mild congestion, no tachypnea, no increased work of breathing We can stop the D5W, her serum sodium is down to 132 Continue providing supervision with meals We'll send appropriate calcium level, Patient is a high risk for aspiration related to encephalopathy which is not clear whether this is new or if there is underlying history of dementia No evidence of seizures on the EEG No reported seizure activity Avoid benzodiazepines There is no breathlessness, no agitation Would recommend addressing CODE STATUS Continue supportive treatment Decadron can be discontinued after 1 more day We only kept it on For the Pulmonary Congestion There was no clear evidence of pneumonia on previous chest x-ray We'll review her chest x-ray I performed a history & physical examination of the patient and discussed their management with my nurse practitioner, Alize Hendricks. I reviewed the nurse practitioner's note and agree with the documented findings and plan of care. Lung sounds are positive for clear breath sounds throughout the lung hernandez. The findings and the impression was discussed with the patient. I attest to the documentation by the nurse practitioner. Time with Patient: Less than 30
--- NOTE | 2021-05-14 16:05 | XR ---
EXAMINATION TYPE: XR chest 1V portable DATE OF EXAM: 05/14/2021 CLINICAL HISTORY: Difficulty breathing progress study. TECHNIQUE: Single AP portable upright view of the chest is obtained. COMPARISON: Chest x-ray and CTA chest from 9 days earlier FINDINGS: Chronic emphysematous and parenchymal changes bilaterally with patchy bibasilar atelectati c change redemonstrated. Cardiac silhouette size is stable and within normal limits with atherosclero tic change thoracic aorta redemonstrated. Osseous structures are intact. IMPRESSION: Chronic emphysematous and pulmonary fibrotic change with patchy bibasilar atelectasis. No significant change from recent studies.
[2021-05-14 16:49] LABS: Glucose,Whole Blood 148 mg/dL (75-99)
[2021-05-14] MEDS: MAGNESIUM OXIDE 400 MG TAB PO SCH (17:24)
--- NOTE | 2021-05-14 18:40 | P.PN ---
Subjective Progress Note Date: 05/14/21 Patient was seen for a follow-up. Patient is alert and awake, continues to be very confused, very hard of hearing. Patient is coughing intermittently. Chest appears congested. Objective - Vital Signs Vital signs: Vital Signs Temp 98.5 F 05/14/21 14:00 Pulse 78 05/14/21 14:00 Resp 20 05/14/21 14:00 BP 103/56 05/14/21 14:00 Pulse Ox 98 05/14/21 14:00 Intake & Output 05/13/21 05/14/21 05/14/21 18:59 06:59 18:59 Output Total 1200 1750 Balance -1200 -1750 Weight 54.431 kg Output: Urine 1200 1750 Other: Voiding Method Indwelling Catheter Indwelling Catheter Indwelling Catheter - Exam Patient is alert and awake. He offers no complaints. Patient not able to answer any questions appropriately. Patient is extremely hard of hearing. Pupils are round and reacting, visual hernandez patient blinks to visual threat bilaterally. Face is symmetric. Tongue protrudes to the midline. Tone is equal in the arms. Patient did not cooperate with motor, sensory or cerebellar function testing. Gait not checked. - Labs CBC & Chem 7: 05/12/21 05:56 05/13/21 05:47 Labs: Abnormal Lab Results - Last 24 Hours (Table) 05/13/21 05/14/21 05/14/21 Range/Units 20:57 06:53 16:47 POC Glucose (mg/dL) 220 H 148 H (75-99) mg/dL Magnesium 1.4 L (1.6-2.3) mg/dL Assessment and Plan Assessment: * New onset seizure, unclear etiology, possibly due to metabolic dysfunction/encephalopathy. * Acute on chronic hypoxic respiratory failure * Recent Covid-19 infection with possible COPD exacerbation. * Advanced dementia * Diabetes * Hypertension * Anemia Plan: * Patient had a new onset seizure of unclear etiology. * Computed tomography scan of head 05/11/2021 showed no acute process. Exam is severely limited. Consider MRI of the brain. Will defer to primary physician. * EEG was abnormal due to background slowing of moderate degree. This is suggestive of generalized cerebral dysfunction as can be seen with toxic metabolic encephalopathy or related to diffuse structural brain abnormality. No epileptiform activity was seen. * Continue aspirin 81 mg daily. * Spoke to patient's on the phone. He informed me that patient has dementia for 3 years. It is slowly progressing. She is now forgetting how to eat, how to do things. A lot of times she does not answer questions. She would not name objects, which is her baseline from dementia (not acute process since hospitalization). * As this seizure was possibly related to metabolic encephalopathy, and the workup is negative, we will hold off on antiepileptic medication. If she has any more documented seizure, would start Keppra 500 mg twice a day. Discussed with patient's , who agreed with this approach.
[2021-05-14 20:20] LABS: Glucose,Whole Blood 64 mg/dL (75-99)
[2021-05-14] MEDS: PRAVASTATIN SODIUM 40 MG TAB PO SCH (20:37)
[2021-05-14] MEDS: SERTRALINE 50 MG TAB PO SCH (20:38)
[2021-05-14 20:44] LABS: Glucose,Whole Blood 75 mg/dL (75-99)
[2021-05-15] MEDS: PANTOPRAZOLE 40 MG TABLET PO SCH (05:02)
[2021-05-15 06:59] LABS: Glucose,Whole Blood 88 mg/dL (75-99)
[2021-05-15] MEDS: INSULIN ASPART (NovoLOG) 100 UNIT/ML VIAL SQ SCH ×4 (06:59→21:41)
[2021-05-15] MEDS: ALBUTEROL HFA INHALER INHALATION SCH ×4 (07:55→20:16)
[2021-05-15] MEDS: MAGNESIUM OXIDE 400 MG TAB PO SCH (08:35)
[2021-05-15] MEDS: DEXAMETHASONE SOD PHOSPHATE 10 MG/ML 1 ML VIAL IVP SCH (08:35)
[2021-05-15] MEDS: FERROUS SULFATE 325 MG TAB PO SCH (08:35)
[2021-05-15] MEDS: metFORMIN 500 MG TAB PO SCH ×2 (08:35→17:14)
[2021-05-15] MEDS: ASPIRIN 81 MG PO SCH (08:35)
[2021-05-15] MEDS: METOPROLOL TARTRATE 25 MG TAB PO SCH ×2 (08:35→21:41)
[2021-05-15] MEDS: MEMANTINE 10 MG TAB PO SCH ×2 (08:35→21:41)
[2021-05-15] MEDS: ENOXAPARIN 40 MG/0.4 ML SYRINGE SQ SCH (08:35)
[2021-05-15] MEDS: guaiFENesin 600 MG TABLET.ER PO SCH ×2 (08:35→21:41)
[2021-05-15] MEDS: INSULIN DETEMIR (LEVEMIR) 100 UNIT/ML SYR SQ SCH (08:36)
[2021-05-15 09:23] LABS: Basophils # (A) 0.01 X 10*3/uL (0.00-0.10); Basophils % (A) 0.1 %; Eosinophils % (A) 1.2 %; HCT 28.4 % (37.2-46.3); HGB 8.7 g/dL (12.0-15.0); Lymphocytes # (A) 0.89 X 10*3/uL (0.90-5.00); Lymphocytes % (A) 11.1 %; MCH 28.5 pg (27.0-32.0); MCHC 30.6 g/dL (32.0-37.0); MCV 93.1 fL (80.0-97.0); Mean Platelet Volume 9.8 fL (9.5-12.2); Monocytes # (A) 0.63 X 10*3/uL (0.20-1.00); Monocytes % (A) 7.9 %; Neutrophils # (A) 6.35 X 10*3/uL (1.80-7.70); Neutrophils % (A) 79.3 %; Platelet Count 329 X 10*3/uL (140-440); RBC 3.05 X 10*6/uL (4.10-5.20); RDW 13.7 % (11.5-14.5); WBC 8.01 X 10*3/uL (4.50-10.00)
[2021-05-15 11:09] LABS: Magnesium 1.5 mg/dL (1.5-2.4)
[2021-05-15 11:42] LABS: Glucose,Whole Blood 62 mg/dL (75-99)
[2021-05-15 11:49] LABS: African American GFR (CKD) 114.3 (60.0-200.0); Anion Gap 9.5 mmol/L (10.00-18.00); BUN/Creat Ratio 12.87 Ratio (12.00-20.00); Blood Urea Nitrogen 5.3 mg/dL (9.0-27.0); Calcium 8.1 mg/dL (8.7-10.3); Carbon Dioxide 30.7 mmol/L (20.0-27.5); Non-African American GFR(CKD) 98.6 (60.0-200.0); Potassium 3.8 mmol/L (3.5-5.5)
[2021-05-15 12:05] LABS: Glucose,Whole Blood 80 mg/dL (75-99)
--- NOTE | 2021-05-15 15:12 | P.PN ---
Subjective Progress Note Date: 05/15/21 Principal diagnosis: COVID-19 pneumonia This is a 80-year-old white female with history of multiple medical problems including dementia, diabetes, chronic hypoxic respiratory failure secondary to severe underlying COPD, maintained on oxygen at 2 L/m, patient resides at [facility], she was last seen by Dr. Beard on 04/26/2021, patient was admitted at the time with acute COVID-[address] angiogram of the chest showed no evidence of pulmonary embolism. She had some minimal fibrosis on the CT of the chest, and background COPD. Patient was hospitalized, she was eventually discharged home on 04/29/21, she was seen by multiple consultants at the time. She was seen by Dr. Beard, cardiology, infectious disease, and she was discharged back to [facility]. Patient was sent back from [facility] today by EMS with complaints of increased shortness of breath, and hypoxia, patient is a very poor historian, could not get much information from the patient herself. She is quite confused. CT angiogram of the chest showed no evidence of pulmonary embolism, there was evidence of bilateral pneumonia and underlying emphysema and fibrosis. Asked x-ray was basically nondiagnostic. CBC showed leukocytosis with WBC of 22.4 hemoglobin 11.3. D-dimer was a bit elevated at 2.[address] angiogram of the chest was unremarkable. Sodium was elevated at 152 BUN is 45 creatinine 0.78. ProBNP level is 390. Troponin is 0.013 LDH is 706. Patient is on 6 L nasal cannula, O2 sats is 96%. On 05/06/2021 patient seen in follow-up on medical surgical floor. She is awake and alert, she is very confused, but appears to be in no acute distress. She follows simple commands, but she is oriented only to person, she is currently on 5 L of oxygen, which has been cut back to 4 L and her pulse ox is around 90%, afebrile, hemodynamically she is been stable. Her chest x-ray on admission s howed no acute pulmonary process, underlying emphysema and pulmonary arterial hypertension. Her CT angiogram of the chest showed dilated intrahepatic biliary ducts related to postcholecystectomy changes. No new labs today. Her IV fluids have been cut back to KVO. Her oral membranes are extremely dry, suspect poor oral intake and dehydration. But no sign of any respiratory distress. Awaiting repeat labs, and in the meantime patient continues on Decadron 6 mg, however there was no clear evidence of pneumonia on the chest x-ray, we'll consider stopping it today. Pro-calcitonin level was negative. On 05/07/2021 patient seen in follow-up on medical surgical floor, she is resting comfortably in bed, she remains confused, she follows simple command, not agitated, does not seem to be in any acute respiratory distress although she has audible chest congestion and patient has a weak cough at times she is able to bring up some phlegm. Lung sounds are positive for diffuse rhonchi, she rem ains on 5 L of oxygen with a pulse ox of 95%, blood pressure stable, no fever or chills, he remains on D5W at a rate of 100 ML per hour, today's chemistries including serum sodium and renal profile and electrolytes are still pending. No nausea or vomiting, patient accepts oral fluids when offered to her. She has been taking in some and chair with assistance. Oral membranes are still dry, Jacobson catheter has been inserted for urine output monitoring. She has produced 600 mL in urine output in the last 24 hours. On 05/14/2021 patient is seen in follow-up at the request of primary care arash noe for a concern of worsening dyspnea. Patient is currently on 3 L of oxygen her pulse ox of 98%, she seems to be breathing comfortably, she does have occasional congested cough, she hasn't had a chest x-ray in quite a while, but seems to be breathing comfortably, she is confused, she denies difficulty breathing. Afebrile, vital signs have been stable, lung sounds are diminished, occasionally patient will cough and she does have a rhonchorous cough, but she is not producing any phlegm. Her last set of blood work was from yesterday on 05/13/2021 showing sodium of 132, potassium 3.7, chloride is 93, CO2 is 28, BUN is 6.8, and creatinine 0.3. Her magnesium was 1.3. Her last CBC on 05/12/2021 showed white blood cell count of 10.4. Hemoglobin of 10.7. Currently chest x- ray is pending. She remains on Decadron 6 mg daily and patient has completed 9 days of it. She remains on D5W at a rate of 75 ML per hour she is on prophylactic Lovenox and Mucinex was added today. Patient had an EEG today showing no seizure activity. Patient's on a modified diet, and supervision is being provided with meals The patient is seen today 05/15/2021 in follow-up on the regular medical floor. She is currently resting quite comfortably in bed. Awake and alert in no acute distress. She does have a loose nonproductive cough. She is maintaining good O2 saturations in the 90s on 3 L/m per nasal cannula. Chest x-ray is stable revealing chronic emphysematous and pulmonary fibrotic changes with patchy bibasilar atelectasis. White count 8.0. Hemoglobin 8.7. Lymphocytes 0.89. Sodium 137. Potassium 2.8. Creatinine 0.4. Glucose 61. She is continued on Decadron, Lovenox, Mucinex. Objective - Vital Signs Vital signs: Vital Signs Temp 98.7 F 05/15/21 14:00 Pulse 70 05/15/21 14:00 Resp 18 05/15/21 14:00 BP 108/54 05/15/21 14:00 Pulse Ox 96 05/15/21 14:00 Intake & Output 05/14/21 05/15/21 05/15/21 18:59 06:59 18:59 Intake Total 240 Output Total 975 730 Balance -975 -730 240 Intake: Oral 240 Output: Urine 975 730 Other: Voiding Method Indwelling Catheter Indwelling Catheter Indwelling Catheter - Exam GENERAL EXAM: Alert, confused, 80-year-old female patient, on 3L of oxygen, comfortable in no apparent distress. HEAD: Normocephalic/atraumatic. EYES: Normal reaction of pupils, equal size. Conjunctiva pink, sclera white. NOSE: Clear with pink turbinates. THROAT: No erythema or exudates. NECK: No masses, no JVD, no thyroid enlargement, no adenopathy. CHEST: No chest wall deformity. Symmetrical expansion. LUNGS: Equal air entry with diffuse rhonchi, nonproductive rhonchorous cough, no phlegm production. CVS: Regular rate and rhythm, normal S1 and S2, no gallops, no murmurs, no rubs ABDOMEN: Soft, nontender. No hepatosplenomegaly, normal bowel sounds, no guarding or rigidity. EXTREMITIES: No clubbing, no edema, no cyanosis, 2+ pulses and upper and lower extremities. MUSCULOSKELETAL: Muscle strength and tone normal. SPINE: No scoliosis or deformity SKIN: No rashes CENTRAL NERVOUS SYSTEM: Alert and oriented -1. No focal deficits, tone is normal in all 4 extremities. PSYCHIATRIC: Alert and oriented to self only. Confused - Labs CBC & Chem 7: 05/15/21 06:20 05/15/21 06:20 Labs: Abnormal Lab Results - Last 24 Hours (Table) 05/14/21 05/14/21 05/15/21 Range/Units 16:47 20:19 06:20 RBC (4.10-5.20) X 10*6/uL Hgb (12.0-15.0) g/dL Hct (37.2-46.3) % MCHC (32.0-37.0) g/dL Lymphocytes # (0.90-5.00) X 10*3/uL Carbon Dioxide 30.7 H (20.0-27.5) mmol/L Anion Gap 9.50 L (10.00-18.00) mmol/L BUN 5.3 L (9.0-27.0) mg/dL Creatinine 0.4 L (0.6-1.5) mg/dL Glucose 61 L (70-110) mg/dL POC Glucose (mg/dL) 148 H 64 L (75-99) mg/dL Calcium 8.1 L (8.7-10.3) mg/dL 05/15/21 05/15/21 Range/Units 06:20 11:40 RBC 3.05 L (4.10-5.20) X 10*6/uL Hgb 8.7 L (12.0-15.0) g/dL Hct 28.4 L (37.2-46.3) % MCHC 30.6 L (32.0-37.0) g/dL Lymphocytes # 0.89 L (0.90-5.00) X 10*3/uL Carbon Dioxide (20.0-27.5) mmol/L Anion Gap (10.00-18.00) mmol/L BUN (9.0-27.0) mg/dL Creatinine (0.6-1.5) mg/dL Glucose (70-110) mg/dL POC Glucose (mg/dL) 62 L (75-99) mg/dL Calcium (8.7-10.3) mg/dL Assessment and Plan Assessment: 1 Altered mental status, related to metabolic encephalopathy, hypernatremia, dehydration 2 Recent history of COVID-19 infection, without clear evidence of pneumonia, repeat chest x-rays pending 3 High risk for aspiration, related to encephalopathy, weakness, on the modified diet 4 Hypernatremia related to free water deficit, improving and patient remains on D5 W for last several days, oral intake has improved, current serum sodium is 132. DC D5W 5 Recent hospitalization for the above and acute exacerbation of COPD and altered mental status 6 Chronic hypoxic respiratory failure related to history of COPD 7 Hypernatremia related to free water deficit 8 Leukocytosis, possibly related to steroids, rule out possibility of sepsis, procalcitonin level is negative 9 Elevated d-dimer without CT evidence of pulmonary embolism 10 Diabetes mellitus 2 11 Dementia 12 History of depression 13 Degenerative arthritis Plan: The patient was seen and evaluated today Currently stable and on 3 L nasal cannula Continues with a loose nonproductive cough Continued on Mucinex Completed a course of Decadron Remains on Lovenox Aspiration precautions We will continue to follow I, the cosigning physician, performed a history & physical examination of the patient. Lungs sounds bilateral scattered rhonchi. Maintaining good O2 saturations in the 90s on 3 L/m per nasal cannula. I discussed the assessment and plan of care with my nurse practitioner, Rose Jewell. I attest to the above note as dictated by her.
[2021-05-15 16:53] LABS: Glucose,Whole Blood 120 mg/dL (75-99)
--- NOTE | 2021-05-15 19:59 | PN ---
PROGRESS NOTE I am covering for Dr. Narayan. DATE OF SERVICE: 05/15/2021 This 80-year-old woman who was admitted with change in mental status, acute metabolic encephalopathy, is being closely monitored. The patient also had recent COVID-19 without significant evidence of pneumonia at this time. The patient has continued high risk for aspiration. Patient is confused. The most recent chest x-ray which was reviewed personally by me showed bilateral lesions suggestive of recurring pneumonia. Otherwise, WBC 8.1, hemoglobin is 8.7. Blood sugars are fluctuating. Past medical history reviewed. REVIEW OF SYSTEMS: CARDIOVASCULAR SYSTEM: No angina. RESPIRATION: As mentioned earlier. GI: As mentioned earlier. : No dysuria. NERVOUS SYSTEM: No numbness, weakness. CURRENT MEDICATIONS: Reviewed. They include [place] 5 mg, aspirin, Lovenox, iron sulfate, Levemir, Claritin, magnesium oxide, Namenda. The rest of the medications are reviewed. PHYSICAL EXAMINATION: Alert and oriented x2. Pulse 77, blood pressure 106/54, respiration 20, temperature 97.6, pulse ox 94% on 3 L. HEENT: Conjunctivae normal. Oral mucosa moist. NECK: No jugular venous distention. CARDIOVASCULAR: S1, S2 muffled. RESPIRATION: Breath sounds diminished at the bases. No rhonchi. No crackles. ABDOMEN: Soft, nontender. LEGS: No edema. No swelling. NERVOUS SYSTEM: Diffusely weak. LABS: WBC 8.1, hemoglobin is 8.7, sodium 137, potassium 3.8. Accu-Cheks noted. ASSESSMENT: 1. Change in mental status, acute metabolic encephalopathy, hyponatremia and dehydration. 2. Recent history of COVID-19. 3. High risk of aspiration. 4. Hypernatremia. 5. Hypoglycemia with diabetes mellitus, type 2, uncontrolled. 6. Chronic obstructive pulmonary disease, acute exacerbation, with change in mental status. 7. Chronic hypoxic respiratory failure. 8. Hyponatremia. 9. Diabetes mellitus, type 2. 10.Dementia. 11.History of depression. 12.History of degenerative joint disease. 13.Anemia, normocytic anemia of chronic disease. 14.Gait dysfunction. RECOMMENDATIONS AND DISCUSSION: In this 80-year-old woman who presented with multiple complex medical issues, we will monitor the patient closely, continue the current medications, continue with symptomatic treatment. I would recommend reducing the dose of Levemir to 10 units and monitor closely. Repeat labs. Guarded prognosis. Hold metformin for now. Further recommendations to follow. MMODL / IJN: [id number] /
[2021-05-15 20:13] LABS: Glucose,Whole Blood 226 mg/dL (75-99)
[2021-05-15] MEDS: PRAVASTATIN SODIUM 40 MG TAB PO SCH (21:41)
[2021-05-15] MEDS: SERTRALINE 50 MG TAB PO SCH (21:41)
[2021-05-16] MEDS: PANTOPRAZOLE 40 MG TABLET PO SCH (05:07)
[2021-05-16] MEDS ORDERED: ACETAMINOPHEN TAB 325 MG TAB PO PRN (06:37)
[2021-05-16 06:53] LABS: Glucose,Whole Blood 128 mg/dL (75-99)
[2021-05-16] MEDS: INSULIN ASPART (NovoLOG) 100 UNIT/ML VIAL SQ SCH ×4 (06:55→20:47)
[2021-05-16] MEDS ORDERED: INSULIN DETEMIR (LEVEMIR) 100 UNIT/ML SYR SQ SCH (07:00)
[2021-05-16] MEDS: guaiFENesin 600 MG TABLET.ER PO SCH ×2 (07:35→20:24)
[2021-05-16] MEDS: FERROUS SULFATE 325 MG TAB PO SCH (07:35)
[2021-05-16] MEDS: MEMANTINE 10 MG TAB PO SCH ×2 (07:35→20:25)
[2021-05-16] MEDS: MAGNESIUM OXIDE 400 MG TAB PO SCH (07:35)
[2021-05-16] MEDS: ASPIRIN 81 MG PO SCH (07:35)
[2021-05-16] MEDS: ENOXAPARIN 40 MG/0.4 ML SYRINGE SQ SCH (07:35)
[2021-05-16] MEDS: METOPROLOL TARTRATE 25 MG TAB PO SCH ×2 (07:35→20:47)
[2021-05-16] MEDS: ALBUTEROL HFA INHALER INHALATION SCH ×4 (08:55→19:21)
[2021-05-16] MEDS: THIAMINE 100 MG TAB PO SCH (11:41)
[2021-05-16] MEDS: MULTIVITAMINS, THERA 1 EACH TAB PO SCH (11:41)
[2021-05-16] MEDS: FOLIC ACID 1 MG TAB PO SCH (11:41)
[2021-05-16 11:49] LABS: Glucose,Whole Blood 43 mg/dL (75-99)
[2021-05-16 11:49] LABS: Glucose,Whole Blood 41 mg/dL (75-99)
[2021-05-16 12:02] LABS: Glucose,Whole Blood 59 mg/dL (75-99)
[2021-05-16 12:24] LABS: Glucose,Whole Blood 60 mg/dL (75-99)
--- NOTE | 2021-05-16 16:37 | P.PN ---
Subjective Progress Note Date: 05/16/21 This is a 80-year-old white female with history of multiple medical problems including dementia, diabetes, chronic hypoxic respiratory failure secondary to severe underlying COPD, maintained on oxygen at 2 L/m, patient resides at [facility], she was last seen by Dr. Beard on 04/26/2021, patient was admitted at the time with acute COVID-[address] angiogram of the chest showed no evidence of pulmonary embolism. She had some minimal fibrosis on the CT of the chest, and background COPD. Patient was hospitalized, she was eventually discharged home on 04/29/21, she was seen by multiple consultants at the time. She was seen by Dr. Beard, cardiology, infectious disease, and she was discharged back to [facility]. Patient was sent back from [facility] today by EMS with complaints of increased shortness of breath, and hypoxia, patient is a very poor historian, could not get much information from the patient herself. She is quite confused. CT angiogram of the chest showed no evidence of pulmonary embolism, there was evidence of bilateral pneumonia and underlying emphysema and fibrosis. Asked x-ray was basically nondiagnostic. CBC showed leukocytosis with WBC of 22.4 hemoglobin 11.3. D-dimer was a bit elevated at 2.[address] angiogram of the chest was unremarkable. Sodium was elevated at 152 BUN is 45 creatinine 0.78. ProBNP level is 390. Troponin is 0.013 LDH is 706. Patient is on 6 L nasal cannula, O2 sats is 96%. On 05/06/2021 patient seen in follow-up on medical surgical floor. She is awake and alert, she is very confused, but appears to be in no acute distress. She follows simple commands, but she is oriented only to person, she is currently on 5 L of oxygen, which has been cut back to 4 L and her pulse ox is around 90%, afebrile, hemodynamically she is been stable. Her chest x-ray on admission showed no acute pulmonary process, underlying emphysema and pulmonary arterial hypertension. Her CT angiogram of the chest showed dilated intrahepatic biliary ducts related to postcholecystectomy changes. No new labs today. Her IV fluids have been cut back to KVO. Her oral membranes are extremely dry, suspect poor oral intake and dehydration. But no sign of any respiratory distress. Awaiting repeat labs, and in the meantime patient continues on Decadron 6 mg, however there was no clear evidence of pneumonia on the chest x-ray, we'll consider stopping it today. Pro-calcitonin level was negative. On 05/07/2021 patient seen in follow-up on medical surgical floor, she is resting comfortably in bed, she remains confused, she follows simple command, not agitated, does not seem to be in any acute respiratory distress although she has audible chest congestion and patient has a weak cough at times she is able to bring up some phlegm. Lung sounds are positive for diffuse rhonchi, she remains on 5 L of oxygen with a pulse ox of 95%, blood pressure stable, no fever or chills, he remains on D5W at a rate of 100 ML per hour, today's chemistries including serum sodium and renal profile and electrolytes are still pending. No nausea or vomiting, patient accepts oral fluids when offered to her. She has been taking in some and chair with assistance. Oral membranes are still dry, Jacobson catheter has been inserted for urine output monitoring. She has produced 600 mL in urine output in the last 24 hours. On 05/14/2021 patient is seen in follow-up at the request of primary care service for a concern of worsening dyspnea. Patient is currently on 3 L of oxygen her pulse ox of 98%, she seems to be breathing comfortably, she does have occasional congested cough, she hasn't had a chest x-ray in quite a while, but seems to be breathing comfortably, she is confused, she denies difficulty breathing. Afebrile, vital signs have been stable, lung sounds are diminished, occasionally patient will cough and she does have a rhonchorous cough, but she is not producing any phlegm. Her last set of blood work was from yesterday on 05/13/2021 showing sodium of 132, potassium 3.7, chloride is 93, CO2 is 28, BUN is 6.8, and creatinine 0.3. Her magnesium was 1.3. Her last CBC on 05/12/2021 showed white blood cell count of 10.4. Hemoglobin of 10.7. Currently chest x- ray is pending. She remains on Decadron 6 mg daily and patient has completed 9 days of it. She remains on D5W at a rate of 75 ML per hour she is on prophylactic Lovenox and Mucinex was added today. Patient had an EEG today showing no seizure activity. Patient's on a modified diet, and supervision is being provided with meals On 05/16/2021 patient seen in follow-up on medical surgical floor. She is calm and comfortable, breathing comfortably, occasional cough, no phlegm production, patient is very confused, and this may be her baseline, as she does have history of dementia. However she is awake and alert, she is pleasant, she is responding, denies any distress, denies any shortness of breath. She is on 3 L of oxygen pulse ox is 90%, did have a low-grade fever early this morning, she is afebrile currently. Decadron has been discontinued, her chest x-ray showing chronic emphysematous and pulmonary fibrotic change with patchy bibasilar atelectasis, no significant change, no clear evidence of pneumonia. Yesterday's labs showed normal white count of 8.01, hemoglobin was 8.7, sodium was 137, potassium is 3.8, chloride is 97, BUN was 5.3, creatinine 0.3, pro-calcitonin level was negative at 0.07. Objective - Vital Signs Vital signs: Vital Signs Temp 98.4 F 05/16/21 14:00 Pulse 80 05/16/21 14:00 Resp 22 05/16/21 14:00 BP 121/70 05/16/21 14:00 Pulse Ox 98 05/16/21 14:00 Intake & Output 05/15/21 05/16/21 05/16/21 18:59 06:59 18:59 Intake Total 240 100 Output Total 1200 200 Balance -960 -200 100 Intake: Oral 240 100 Output: Urine 1200 200 Other: Voiding Method Indwelling Catheter Indwelling Catheter Indwelling Catheter - Exam GENERAL EXAM: Alert, confused, 80-year-old white female, on 3L of oxygen with a pulse ox of 95%, \confused comfortable in no apparent distress. HEAD: Normocephalic/atraumatic. EYES: Normal reaction of pupils, equal size. Conjunctiva pink, sclera white. NOSE: Clear with pink turbinates. THROAT: No erythema or exudates. NECK: No masses, no JVD, no thyroid enlargement, no adenopathy. CHEST: No chest wall deformity. Symmetrical expansion. LUNGS: Equal air entry with diffuse rhonchi, nonproductive rhonchorous cough, no phlegm production. CVS: Regular rate and rhythm, normal S1 and S2, no gallops, no murmurs, no rubs ABDOMEN: Soft, nontender. No hepatosplenomegaly, normal bowel sounds, no guarding or rigidity. EXTREMITIES: No clubbing, no edema, no cyanosis, 2+ pulses and upper and lower extremities. MUSCULOSKELETAL: Muscle strength and tone normal. SPINE: No scoliosis or deformity SKIN: No rashes CENTRAL NERVOUS SYSTEM: Alert and oriented -1. No focal deficits, tone is normal in all 4 extremities. PSYCHIATRIC: Alert and oriented to self only. Confused - Labs CBC & Chem 7: 05/15/21 06:20 05/15/21 06:20 Labs: Abnormal Lab Results - Last 24 Hours (Table) 05/15/21 05/15/21 05/16/21 Range/Units 16:51 20:11 06:52 POC Glucose (mg/dL) 120 H 226 H 128 H (75-99) mg/dL 05/16/21 05/16/21 05/16/21 Range/Units 11:44 11:47 12:01 POC Glucose (mg/dL) 43 L 41 L 59 L (75-99) mg/dL 05/16/21 Range/Units 12:22 POC Glucose (mg/dL) 60 L (75-99) mg/dL Assessment and Plan Plan: Assessment: #1. Altered mental status, related to metabolic encephalopathy, hypernatremia, dehydration, improved, and patient is more awake and alert, she is answering questions, and she seems to be at her baseline #2. Recent history of COVID-19 infection, without clear evidence of pneumonia, repeat chest x-rays pending #3. High risk for aspiration, related to encephalopathy, weakness, on the modified diet #4. Hypernatremia related to free water deficit, improving and patient remains on D5 W for last several days, oral intake has improved, current serum sodium is 132. DC D5W #5. Recent hospitalization for the above and acute exacerbation of COPD and altered mental status #6. Chronic hypoxic respiratory failure related to history of COPD #7. Hypernatremia related to free water deficit #8. Leukocytosis, possibly related to steroids, rule out possibility of sepsis procalcitonin level is negative #9. Elevated d-dimer without CT evidence of pulmonary embolism #10. Diabetes mellitus 2 #11. Dementia #12. History of depression #13. Degenerative arthritis Plan: Patient is breathing comfortably, vital signs have been stable No clear evidence of pneumonia on the chest x-ray Decadron has been discontinued Maintain aspiration precautions Provide supervision with meals Continue GI and DVT prophylaxis I performed a history & physical examination of the patient and discussed their management with my nurse practitioner, Alize Hendricks. I reviewed the nurse practitioner's note and agree with the documented findings and plan of care. Lung sounds are positive for clear breath sounds throughout the lung hernandez. The findings and the impression was discussed with the patient. I attest to the documentation by the nurse practitioner. Time with Patient: Less than 30
[2021-05-16 16:49] LABS: Glucose,Whole Blood 49 mg/dL (75-99)
[2021-05-16 16:49] LABS: Glucose,Whole Blood 54 mg/dL (75-99)
[2021-05-16 17:00] LABS: Glucose,Whole Blood 48 mg/dL (75-99)
[2021-05-16 17:35] LABS: Glucose,Whole Blood 60 mg/dL (75-99)
--- NOTE | 2021-05-16 19:21 | PN ---
PROGRESS NOTE DATE OF SERVICE: 05/16/2021 I am covering for Dr. Narayan. This 80-year-old woman was admitted with change in mental status and acute metabolic encephalopathy also had Covid 19. The patient also had recent history of Covid 19. The patient is a high risk of aspiration. Most recent chest x-ray which was reviewed personally showed bilateral lower lobe interstitial infiltrates. PAST MEDICAL HISTORY: Reviewed. REVIEW OF SYSTEMS: Cardiovascular: No angina or palpitations. Respiratory: As mentioned earlier. GI: As mentioned earlier. : No dysuria. NERVOUS SYSTEM: No numbness or weakness. CURRENT MEDICATIONS: Reviewed and include: Tylenol, Diamond, Ventolin, aspirin, Lovenox, iron sulfate, folic acid. Doses reviewed. PHYSICAL EXAMINATION: The patient is alert and oriented times three. Pulse 50. Blood pressure 122/70, respiration 20, temperature 98.2, pulse ox 98% on 3 L. HEENT: Conjunctivae normal. Neck: No JVD. Cardiovascular: S1, S2 muffled. Respiratory: Breath sounds diminished in the bases. Scattered rhonchi. Abdomen: Soft. Legs are no edema. No swelling. Nervous system: No focal deficits. LABS: Accu-Cheks are 41, 59, 60. WBC 8.1, hemoglobin is 8.7. ASSESSMENT: 1. Change in mental status acute metabolic encephalopathy, hyponatremia and dehydration. 2. Recent history of Covid 19. 3. High risk of aspiration. 4. Hypoglycemia. 5. Hyponatremia. 6. Diabetes mellitus type 2 uncontrolled. 7. Chronic obstructive pulmonary disease, acute exacerbation, change in mental status. 8. Chronic hypoxic respiratory failure. 9. Hyponatremia. 10.Diabetes mellitus, type 2. 11.Dementia. 12.History of depression. 13.History of degenerative joint disease. 14.Anemia, normocytic anemia. 15.Gait dysfunction. RECOMMENDATIONS AND DISCUSSION: Recommend to continue current medications, management and symptomatic treatment. Sugars are extremely low today. I would recommend to stop the Levemir and continue the Accu-Cheks and orally do Accu Cheks and ensure p.o. intake and if the patient is having elevated blood sugars, the Levemir may be reinstated. Otherwise, prognosis guarded. Further recommendations to follow. Dr. Narayan will follow tomorrow. MMODL / IJN: [id number] /
[2021-05-16] MEDS ORDERED: DEXTROSE 5%-0.9% NACL 1,000 ML IV SCH (19:30)
[2021-05-16] MEDS: SERTRALINE 50 MG TAB PO SCH (20:25)
[2021-05-16] MEDS: PRAVASTATIN SODIUM 40 MG TAB PO SCH (20:25)
--- NOTE | 2021-05-16 20:32 | P.PN ---
Subjective Progress Note Date: 05/16/21 This is a telemedicine followup performed on this patient today on 05/16/2021. Patient was seen for a follow-up. Patient is alert and awake, continues to be very confused, very hard of hearing. Patient is coughing intermittently. Chest appears congested. No further seizure activity has been reported. Per nursing report, she says "yes" to everything asked. Patient will be going to [facility] soon. Patient had an episode of hypoglycemia in the 40s recently. Her level mL has been changed. Objective - Vital Signs Vital signs: Vital Signs Temp 101.3 F H 05/16/21 18:00 Pulse 87 05/16/21 18:00 Resp 18 05/16/21 18:00 BP 129/72 05/16/21 18:00 Pulse Ox 91 L 05/16/21 18:00 Intake & Output 05/16/21 05/16/21 05/17/21 06:59 18:59 06:59 Intake Total 100 Output Total 200 400 Balance -200 -300 Intake: Oral 100 Output: Urine 200 400 Other: Voiding Method Indwelling Catheter Indwelling Catheter - Exam Patient is alert and awake. Patient knows her name Arline. Could not tell me her last name. Could not tell her age or year. Patient by looking at the Padilla since she saw her face, stated "look at my face". Patient did speed one more sentence "I did not pay attention". Patient is extremely hard of hearing. Pupils are round and reacting, visual hernandez patient blinks to visual threat bilaterally. Face is symmetric. Tongue protrudes to the midline. Tone is equal in the arms. Patient did not cooperate with motor, sensory or cerebellar function testing. Gait not checked. - Labs CBC & Chem 7: 05/15/21 06:20 05/15/21 06:20 Labs: Abnormal Lab Results - Last 24 Hours (Table) 05/16/21 05/16/21 05/16/21 Range/Units 06:52 11:44 11:47 POC Glucose (mg/dL) 128 H 43 L 41 L (75-99) mg/dL 05/16/21 05/16/21 05/16/21 Range/Units 12:01 12:22 16:46 POC Glucose (mg/dL) 59 L 60 L 49 L (75-99) mg/dL 12/05/16/21 05/16/21 Range/Units 16:48 16:58 17:34 POC Glucose (mg/dL) 54 L 48 L 60 L (75-99) mg/dL Assessment and Plan Assessment: * New onset seizure, unclear etiology, possibly due to metabolic dysfunction/encephalopathy. * Acute on chronic hypoxic respiratory failure * Recent Covid-19 infection with possible COPD exacerbation. * Advanced dementia * Diabetes * Hypertension * Anemia Plan: * Patient had a new onset seizure of unclear etiology. * Computed tomography scan of head 05/11/2021 showed no acute process. Exam is severely limited. * EEG was abnormal due to background slowing of moderate degree. This is suggestive of generalized cerebral dysfunction as can be seen with toxic metabolic encephalopathy or related to diffuse structural brain abnormality. No epileptiform activity was seen. * Continue aspirin 81 mg daily. * Spoke to patient's on the phone. He informed me that patient has dementia for 3 years. It is slowly progressing. She is now forgetting how to eat, how to do things. A lot of times she does not answer questions. She would not name objects, which is her baseline from dementia (not acute process since hospitalization). * As this seizure was possibly related to metabolic encephalopathy, and the workup is negative, we will hold off on antiepileptic medication. If she has any more documented seizure, would start Keppra 500 mg twice a day. Discussed with patient's , who agreed with this approach. * As there is no active neurological issue, we will sign off. Please reconsult neurology if any concerns.
[2021-05-16 20:44] LABS: Glucose,Whole Blood 118 mg/dL (75-99)
[2021-05-17] MEDS: PANTOPRAZOLE 40 MG TABLET PO SCH (05:46)
[2021-05-17] MEDS ORDERED: INSULIN DETEMIR (LEVEMIR) 100 UNIT/ML SYR SQ SCH (07:00)
[2021-05-17 07:19] LABS: Glucose,Whole Blood 149 mg/dL (75-99)
[2021-05-17] MEDS: ASPIRIN 81 MG PO SCH (07:41)
[2021-05-17] MEDS: METOPROLOL TARTRATE 25 MG TAB PO SCH (07:41)
[2021-05-17] MEDS: MEMANTINE 10 MG TAB PO SCH (07:41)
[2021-05-17] MEDS: MAGNESIUM OXIDE 400 MG TAB PO SCH (07:41)
[2021-05-17] MEDS: ENOXAPARIN 40 MG/0.4 ML SYRINGE SQ SCH (07:42)
[2021-05-17] MEDS: FERROUS SULFATE 325 MG TAB PO SCH (07:42)
[2021-05-17] MEDS: INSULIN ASPART (NovoLOG) 100 UNIT/ML VIAL SQ SCH ×2 (07:42→11:54)
[2021-05-17] MEDS: guaiFENesin 600 MG TABLET.ER PO SCH (07:42)
[2021-05-17] MEDS: ALBUTEROL HFA INHALER INHALATION SCH ×2 (07:51→11:50)
[2021-05-17 09:20] LABS: Basophils # (A) 0.01 X 10*3/uL (0.00-0.10); Basophils % (A) 0.1 %; Eosinophils # (A) 0.08 X 10*3/uL (0.04-0.35); Eosinophils % (A) 0.9 %; HCT 27.2 % (37.2-46.3); HGB 8.3 g/dL (12.0-15.0); Lymphocytes # (A) 1.03 X 10*3/uL (0.90-5.00); Lymphocytes % (A) 12.1 %; MCH 28.6 pg (27.0-32.0); MCHC 30.5 g/dL (32.0-37.0); MCV 93.8 fL (80.0-97.0); Mean Platelet Volume 9.9 fL (9.5-12.2); Monocytes # (A) 0.83 X 10*3/uL (0.20-1.00); Monocytes % (A) 9.7 %; Neutrophils # (A) 6.53 X 10*3/uL (1.80-7.70); Neutrophils % (A) 76.7 %; Platelet Count 247 X 10*3/uL (140-440); RDW 14.1 % (11.5-14.5); WBC 8.52 X 10*3/uL (4.50-10.00)
[2021-05-17 09:30] LABS: African American GFR (CKD) 115.6 (60.0-200.0); BUN/Creat Ratio 16.5 Ratio (12.00-20.00); Blood Urea Nitrogen 6.6 mg/dL (9.0-27.0); Calcium 7.8 mg/dL (8.7-10.3); Non-African American GFR(CKD) 99.8 (60.0-200.0); Potassium 3.8 mmol/L (3.5-5.5)
[2021-05-17 09:55] VITALS: RESP 17
[2021-05-17 11:18] LABS: Glucose,Whole Blood 144 mg/dL (75-99)
[2021-05-17] MEDS: MULTIVITAMINS, THERA 1 EACH TAB PO SCH (11:53)
[2021-05-17] MEDS: THIAMINE 100 MG TAB PO SCH (11:53)
[2021-05-17] MEDS: FOLIC ACID 1 MG TAB PO SCH (11:53)
--- NOTE | 2021-05-17 13:12 | P.DS ---
Providers Date of admission: 05/05/21 13:23 Attending physician: Kenji Narayan Consults: 05/05/21 13:22 Consult Physician Routine Consulting Provider: Wilian Meza Consult Reason/Comments: COVID-19 pneumonia, COPD Do you want consulting provider notified?: Yes 05/11/21 18:31 Consult Physician Routine Consulting Provider: Chele Leos Consult Reason/Comments: new onset seizure Do you want consulting provider notified?: Yes 05/14/21 13:36 Consult Physician Routine Consulting Provider: Mendez Leos Consult Reason/Comments: Covid,COPD,hypoxia Do you want consulting provider notified?: Yes Primary care physician: Kenji Narayan Hospital Course: Final diagnoses Altered mental status related to acute metabolic encephalopathy, hyponatremia and dehydration, improved Hyponatremia due to poor oral intake Recent history of COVID-19 Diabetes mellitus type 2, with hypoglycemia Chronic obstructive pulmonary disease, acute exacerbation Chronic hypoxic respiratory failure History of dementia History of depression History of degenerative joint disease Anemia, normocytic Gait dysfunction Discharge disposition Patient is cleared medically for discharge to [facility] where she resides. We will repeat a CBC and BMP in 1-2 days. Would recommend the patient is discharged on 2-3 L of nasal cannula Hospital course This is a 80-year-old female who [facility] with complaints of increased shortness of breath and hypoxemia. Patient was diagnosed with COVID-19 on 04/29/2021. In the EC her pulse ox is in the 70s and improved with nonrebreather. Chest CTA showed dilated intrahepatic biliary ducts due to postcholecystectomy change, emphysema and possible pulmonary artery hypertension, no evident PE there is bilateral lower lobe pneumonia. She was followed closely by pulmonary services this admission. Patient was maintained on albuterol inhaler, Mucinex, Claritin. Labs on admission showed a d-dimer of 2.96, sodium 152, potassium 3.4, chloride 112, LDH 706, troponin negative. Patient is been afebrile this admission. Brain CT performed showed no acute intracranial process significant change prior from 04/19/2021, nonspecific white matter changes, likely secondary to chronic small vessel ischemic disease. She was evaluated by neurology, patient is confused and hard of hearing however she is alert and awake. EEG completed as abnormal due to background slowing of moderate degree that is suggestive of generalized cerebellar dysfunction as can be seen with toxic metabolic encephalopathy related to diffuse structural brain abnormality. No epileptiform activity was seen. There have been no further episodes of seizure activity. Neurology recommendations the patient has any more seizure-like activity that is documented that she should begin Keppra 500 mg by mouth twice a day patient's was agreeable with this plan of care. Neurology cleared the patient. Repeat chest x-ray performed shows chronic emphysematous and pulmonary fibrotic change with patchy bibasilar atelectasis. 05/17/2021 Patient is resting in bed comfortably, lungs are clearing. Vital signs today show a temp of 98.3, sinus rhythm 66, blood pressure 104/58 inches 90% on 3 L nasal cannula. She was cleared today by pulmonary for discharge back to [facility]. Focal neurological exam is negative. Patient is alert 1, pleasant, and answering questions appropriately. Today she states that her breathing feels fine she denies any chest pain. Labs today white count 8.52, hemoglobin 8.3, sodium 135, BUN 6.6, creatinine 0.4 and sugars are in the 130s. Please see medication reconciliation for list of current medications. Thank you for allowing us to participate in the care of this patient. Patient Condition at Discharge: Fair Plan - Discharge Summary Discharge Rx Participant: No New Discharge Prescriptions: No Action metFORMIN HCL 500 mg PO BID lisinopriL 10 mg PO DAILY Pravastatin Sodium [Pravachol] 40 mg PO HS Fluticasone/Salmeterol [Advair 250-50 Diskus] 1 puff INHALATION RT-BID Fexofenadine HCl [Treva Allergy] 180 mg PO DAILY PRN PRN Reason: Allergy Symptoms Ferrous Sulfate [Iron (65 MG Elemental)] 325 mg PO DAILY Sertraline [Zoloft] 150 mg PO HS Aspirin EC [Ecotrin Low Dose] 81 mg PO DAILY #60 tab HYDROcodone/APAP 5-325MG [[place] 5-325] 1 tab PO Q6H PRN #12 tab PRN Reason: Pain Albuterol Sulfate [Proventil Hfa] 2 puff INHALATION RT-QID #0 Zguard 1 applic TOPICAL Q12H Insulin Lispro [humaLOG Kwikpen] See Protocol SQ ACHS Verapamil [Isoptin] 80 mg PO TID@0600,1400,2200 Insulin Glargine,Hum.rec.anlog [Lantus Solostar Pen] 15 unit SQ DAILY@0700 Zguard 1 applic TOPICAL DAILY PRN PRN Reason: skin integrity Tiotropium [place] [Spiriva] 1 cap INHALATION RT-DAILY Memantine HCl [Memantine HCl ER] 28 mg PO HS Albuterol Nebulized [Ventolin Nebulized] 2.5 mg INHALATION RT-Q4H PRN PRN Reason: Shortness Of Breath Or Wheezing hydrALAZINE HCL [Apresoline] 25 mg PO TID tab Metoprolol Tartrate [Lopressor] 25 mg PO BID tab Acetaminophen Tab [Tylenol] 650 mg PO Q4HR PRN PRN Reason: Pain Or Fever > 100.5 Pantoprazole [Protonix] 40 mg PO DAILY@0600 predniSONE See Taper PO DIRECTED Discharge Medication List Ferrous Sulfate [Iron (65 MG Elemental)] 325 mg PO DAILY 04/19/21 [History] Fexofenadine HCl [Treva Allergy] 180 mg PO DAILY PRN 04/19/21 [History] Fluticasone/Salmeterol [Advair 250-50 Diskus] 1 puff INHALATION RT-BID 04/19/21 [History] Memantine HCl [Memantine HCl ER] 28 mg PO HS 04/19/21 [History] Pravastatin Sodium [Pravachol] 40 mg PO HS 04/19/21 [History] Tiotropium [place] [Spiriva] 1 cap INHALATION RT-DAILY 04/19/21 [History] lisinopriL 10 mg PO DAILY 04/19/21 [History] metFORMIN HCL 500 mg PO BID 04/19/21 [History] Albuterol Nebulized [Ventolin Nebulized] 2.5 mg INHALATION RT-Q4H PRN 04/25/21 [ History] Sertraline [Zoloft] 150 mg PO HS 04/25/21 [History] Albuterol Sulfate [Proventil Hfa] 2 puff INHALATION RT-QID #0 04/29/21 [Rx] Aspirin EC [Ecotrin Low Dose] 81 mg PO DAILY #60 tab 04/29/21 [Rx] HYDROcodone/APAP 5-325MG [[place] 5-325] 1 tab PO Q6H PRN #12 tab 04/29/21 [Rx] Metoprolol Tartrate [Lopressor] 25 mg PO BID tab 04/29/21 [Rx] hydrALAZINE HCL [Apresoline] 25 mg PO TID tab 04/29/21 [Rx] Acetaminophen Tab [Tylenol] 650 mg PO Q4HR PRN 05/05/21 [History] Insulin Glargine,Hum.rec.anlog [Lantus Solostar Pen] 15 unit SQ DAILY@0700 05/05/21 [History] Insulin Lispro [humaLOG Kwikpen] See Protocol SQ ACHS 05/05/21 [History] Pantoprazole [Protonix] 40 mg PO DAILY@0600 05/05/21 [History] Verapamil [Isoptin] 80 mg PO TID@0600,1400,2200 05/05/21 [History] Zguard 1 applic TOPICAL DAILY PRN 05/05/21 [History] Zguard 1 applic TOPICAL Q12H 05/05/21 [History] predniSONE See Taper PO DIRECTED 05/05/21 [History] Follow up Appointment(s)/Referral(s): Kenji Narayan, [Primary Care Provider] - 1-2 days [facility], [NON-STAFF] - As Needed
--- NOTE | 2021-05-17 14:07 | P.PN ---
Subjective Progress Note Date: 05/17/21 This is a 80-year-old white female with history of multiple medical problems including dementia, diabetes, chronic hypoxic respiratory failure secondary to severe underlying COPD, maintained on oxygen at 2 L/m, patient resides at [facility], she was last seen by Dr. Beard on 04/26/2021, patient was admitted at the time with acute COVID-[address] angiogram of the chest showed no evidence of pulmonary embolism. She had some minimal fibrosis on the CT of the chest, and background COPD. Patient was hospitalized, she was eventually discharged home on 04/29/21, she was seen by multiple consultants at the time. She was seen by Dr. Beard, cardiology, infectious disease, and she was discharged back to [facility]. Patient was sent back from [facility] today by EMS with complaints of increased shortness of breath, and hypoxia, patient is a very poor historian, could not get much information from the patient herself. She is quite confused. CT angiogram of the chest showed no evidence of pulmonary embolism, there was evidence of bilateral pneumonia and underlying emphysema and fibrosis. Asked x-ray was basically nondiagnostic. CBC showed leukocytosis with WBC of 22.4 hemoglobin 11.3. D-dimer was a bit elevated at 2.[address] angiogram of the chest was unremarkable. Sodium was elevated at 152 BUN is 45 creatinine 0.78. ProBNP level is 390. Troponin is 0.013 LDH is 706. Patient is on 6 L nasal cannula, O2 sats is 96%. On 05/06/2021 patient seen in follow-up on medical surgical floor. She is awake and alert, she is very confused, but appears to be in no acute distress. She follows simple commands, but she is oriented only to person, she is currently on 5 L of oxygen, which has been cut back to 4 L and her pulse ox is around 90%, afebrile, hemodynamically she is been stable. Her chest x-ray on admission showed no acute pulmonary process, underlying emphysema and pulmonary arterial hypertension. Her CT angiogram of the chest showed dilated intrahepatic biliary ducts related to postcholecystectomy changes. No new labs today. Her IV fluids have been cut back to KVO. Her oral membranes are extremely dry, suspect poor oral intake and dehydration. But no sign of any respiratory distress. Awaiting repeat labs, and in the meantime patient continues on Decadron 6 mg, however there was no clear evidence of pneumonia on the chest x-ray, we'll consider stopping it today. Pro-calcitonin level was negative. On 05/07/2021 patient seen in follow-up on medical surgical floor, she is resting comfortably in bed, she remains confused, she follows simple command, not agitated, does not seem to be in any acute respiratory distress although she has audible chest congestion and patient has a weak cough at times she is able to bring up some phlegm. Lung sounds are positive for diffuse rhonchi, she remains on 5 L of oxygen with a pulse ox of 95%, blood pressure stable, no fever or chills, he remains on D5W at a rate of 100 ML per hour, today's chemistries including serum sodium and renal profile and electrolytes are still pending. No nausea or vomiting, patient accepts oral fluids when offered to her. She has been taking in some and chair with assistance. Oral membranes are still dry, Jacobson catheter has been inserted for urine output monitoring. She has produced 600 mL in urine output in the last 24 hours. On 05/14/2021 patient is seen in follow-up at the request of primary care service for a concern of worsening dyspnea. Patient is currently on 3 L of oxygen her pulse ox of 98%, she seems to be breathing comfortably, she does have occasional congested cough, she hasn't had a chest x-ray in quite a while, but seems to be breathing comfortably, she is confused, she denies difficulty breathing. Afebrile, vital signs have been stable, lung sounds are diminished, occasionally patient will cough and she does have a rhonchorous cough, but she is not producing any phlegm. Her last set of blood work was from yesterday on 05/13/2021 showing sodium of 132, potassium 3.7, chloride is 93, CO2 is 28, BUN is 6.8, and creatinine 0.3. Her magnesium was 1.3. Her last CBC on 05/12/2021 showed white blood cell count of 10.4. Hemoglobin of 10.7. Currently chest x- ray is pending. She remains on Decadron 6 mg daily and patient has completed 9 days of it. She remains on D5W at a rate of 75 ML per hour she is on prophylactic Lovenox and Mucinex was added today. Patient had an EEG today showing no seizure activity. Patient's on a modified diet, and supervision is being provided with meals On 05/16/2021 patient seen in follow-up on medical surgical floor. She is calm and comfortable, breathing comfortably, occasional cough, no phlegm production, patient is very confused, and this may be her baseline, as she does have history of dementia. However she is awake and alert, she is pleasant, she is responding, denies any distress, denies any shortness of breath. She is on 3 L of oxygen pulse ox is 90%, did have a low-grade fever early this morning, she is afebrile currently. Decadron has been discontinued, her chest x-ray showing chronic emphysematous and pulmonary fibrotic change with patchy bibasilar atelectasis, no significant change, no clear evidence of pneumonia. Yesterday's labs showed normal white count of 8.01, hemoglobin was 8.7, sodium was 137, potassium is 3.8, chloride is 97, BUN was 5.3, creatinine 0.3, pro-calcitonin level was negative at 0.07. On 05/17/2021 patient seen in follow-up on medical surgical floor. She has remained stable from pulmonary perspective, at times she has a congested cough, but chest x-ray did not show acute pulmonary process, most recent chest x-ray from 05/14/2021 showed chronic emphysematous and pulmonary fibrotic changes with patchy bibasilar atelectasis. Vital signs have been stable. No fever or chills, no complaints of chest discomfort, her Decadron has been discontinued. His breathing quite comfortably, today's labs have been reviewed showing white blood cell count 8.5, hemoglobin of 8.3, sodium is 135, potassium is 3.8, chloride is 96, B1 is 6.6, creatinine 0.4. Pro-calcitonin level was negative. Patient's mentation seems to be back to baseline and her baseline is advanced underlying dementia. Objective - Vital Signs Vital signs: Vital Signs Temp 98.3 F 05/17/21 09:54 Pulse 66 05/17/21 09:54 Resp 17 05/17/21 09:54 BP 104/58 05/17/21 09:54 Pulse Ox 98 05/17/21 09:54 Intake & Output 05/16/21 05/17/21 05/17/21 18:59 06:59 18:59 Intake Total 100 Output Total 400 720 Balance -300 -720 Intake: Oral 100 Output: Urine 400 720 Other: Voiding Method Indwelling Catheter Indwelling Catheter # Bowel Movements 0 - Exam GENERAL EXAM: Alert, confused, 80-year-old white female, on 3L of oxygen with a pulse ox of 95%, \confused comfortable in no apparent distress. HEAD: Normocephalic/atraumatic. EYES: Normal reaction of pupils, equal size. Conjunctiva pink, sclera white. NOSE: Clear with pink turbinates. THROAT: No erythema or exudates. NECK: No masses, no JVD, no thyroid enlargement, no adenopathy. CHEST: No chest wall deformity. Symmetrical expansion. LUNGS: Equal air entry with diffuse rhonchi, nonproductive rhonchorous cough, no phlegm production. CVS: Regular rate and rhythm, normal S1 and S2, no gallops, no murmurs, no rubs ABDOMEN: Soft, nontender. No hepatosplenomegaly, normal bowel sounds, no guarding or rigidity. EXTREMITIES: No clubbing, no edema, no cyanosis, 2+ pulses and upper and lower extremities. MUSCULOSKELETAL: Muscle strength and tone normal. SPINE: No scoliosis or deformity SKIN: No rashes CENTRAL NERVOUS SYSTEM: Alert and oriented -1. No focal deficits, tone is normal in all 4 extremities. PSYCHIATRIC: Alert and oriented to self only. Confused - Labs CBC & Chem 7: 05/17/21 05:58 05/17/21 05:58 Labs: Abnormal Lab Results - Last 24 Hours (Table) 05/16/21 05/16/21 05/16/21 Range/Units 16:46 16:48 16:58 RBC (4.10-5.20) X 10*6/uL Hgb (12.0-15.0) g/dL Hct (37.2-46.3) % MCHC (32.0-37.0) g/dL Carbon Dioxide (20.0-27.5) mmol/L BUN (9.0-27.0) mg/dL Creatinine (0.6-1.5) mg/dL Glucose (70-110) mg/dL POC Glucose (mg/dL) 49 L 54 L 48 L (75-99) mg/dL Calcium (8.7-10.3) mg/dL 05/16/21 05/16/21 05/17/21 Range/Units 17:34 20:31 05:58 RBC 2.90 L (4.10-5.20) X 10*6/uL Hgb 8.3 L (12.0-15.0) g/dL Hct 27.2 L (37.2-46.3) % MCHC 30.5 L (32.0-37.0) g/dL Carbon Dioxide (20.0-27.5) mmol/L BUN (9.0-27.0) mg/dL Creatinine (0.6-1.5) mg/dL Glucose (70-110) mg/dL POC Glucose (mg/dL) 60 L 118 H (75-99) mg/dL Calcium (8.7-10.3) mg/dL 05/17/21 05/17/21 05/17/21 Range/Units 05:58 07:13 11:16 RBC (4.10-5.20) X 10*6/uL Hgb (12.0-15.0) g/dL Hct (37.2-46.3) % MCHC (32.0-37.0) g/dL Carbon Dioxide 28.0 H (20.0-27.5) mmol/L BUN 6.6 L (9.0-27.0) mg/dL Creatinine 0.4 L (0.6-1.5) mg/dL Glucose 133 H (70-110) mg/dL POC Glucose (mg/dL) 149 H 144 H (75-99) mg/dL Calcium 7.8 L (8.7-10.3) mg/dL Assessment and Plan Plan: Assessment: #1. Altered mental status, related to metabolic encephalopathy, hypernatremia, dehydration, improved, and patient is more awake and alert, she is answering questions, and she seems to be at her baseline #2. Recent history of COVID-19 infection, without clear evidence of pneumonia, repeat chest x-rays pending #3. High risk for aspiration, related to encephalopathy, weakness, on the modified diet #4. Hypernatremia related to free water deficit, improving and patient remains on D5 W for last several days, oral intake has improved, current serum sodium is 132. DC D5W #5. Recent hospitalization for the above and acute exacerbation of COPD and altered mental status #6. Chronic hypoxic respiratory failure related to history of COPD #7. Hypernatremia related to free water deficit #8. Leukocytosis, possibly related to steroids, rule out possibility of sepsis procalcitonin level is negative #9. Elevated d-dimer without CT evidence of pulmonary embolism #10. Diabetes mellitus 2 #11. Dementia #12. History of depression #13. Degenerative arthritis Plan: Clinically has been stable, Maintain aspiration precautions No acute pulmonary infiltrates on the chest x-ray Supervision with meals Breathing is stable No fever or chills Stable for discharge to [facility] from pulmonary perspective I performed a history & physical examination of the patient and discussed their management with my nurse practitioner, Alize Hendricks. I reviewed the nurse practitioner's note and agree with the documented findings and plan of care. Lung sounds are positive for clear breath sounds throughout the lung hernandez. The findings and the impression was discussed with the patient. I attest to the documentation by the nurse practitioner. Time with Patient: Less than 30
[2021-05-17 14:08] VITALS: BP 113/66; PULSE 82; TEMP 98.2
== END 2021-05-17 16:15 | DRG 190 ==
LOC: EC 09:47 → 4SSUR 13:23
PROVIDERS: ADMIT Family Medicine; ATTEND Family Medicine
DX: J43.9 Emphysema, unspecified (principal); G93.41 Metabolic encephalopathy; J12.82 Pneumonia due to coronavirus disease 2019; J96.21 Acute and chronic respiratory failure with hypoxia; U07.1 COVID-19; E87.0 Hyperosmolality and hypernatremia; E87.1 Hypo-osmolality and hyponatremia; J98.11 Atelectasis; D63.8 Anemia in other chronic diseases classified elsewhere; E11.649 Type 2 diabetes mellitus with hypoglycemia without coma; E11.65 Type 2 diabetes mellitus with hyperglycemia; E83.42 Hypomagnesemia; E86.0 Dehydration; E87.6 Hypokalemia; F03.90 Unspecified dementia, unspecified severity, without behavioral disturbance, psychotic disturbance, mood disturbance, and anxiety; I27.20 Pulmonary hypertension, unspecified; E11.51 Type 2 diabetes mellitus with diabetic peripheral angiopathy without gangrene; R56.9 Unspecified convulsions; J84.10 Pulmonary fibrosis, unspecified; I44.1 Atrioventricular block, second degree; R13.10 Dysphagia, unspecified; J45.909 Unspecified asthma, uncomplicated; I10 Essential (primary) hypertension; G25.3 Myoclonus; E78.5 Hyperlipidemia, unspecified; M16.0 Bilateral primary osteoarthritis of hip; M50.30 Other cervical disc degeneration, unspecified cervical region; H91.90 Unspecified hearing loss, unspecified ear; M85.80 Other specified disorders of bone density and structure, unspecified site; S32.509D Unspecified fracture of unspecified pubis, subsequent encounter for fracture with routine healing; W19.XXXD Unspecified fall, subsequent encounter; D50.9 Iron deficiency anemia, unspecified; R31.9 Hematuria, unspecified; Z91.81 History of falling; K91.5 Postcholecystectomy syndrome; F32.A Depression, unspecified; F41.9 Anxiety disorder, unspecified; M19.90 Unspecified osteoarthritis, unspecified site; R26.9 Unspecified abnormalities of gait and mobility; Z79.84 Long term (current) use of oral hypoglycemic drugs; Z79.82 Long term (current) use of aspirin; Z79.899 Other long term (current) drug therapy; Z80.1 Family history of malignant neoplasm of trachea, bronchus and lung; Z82.49 Family history of ischemic heart disease and other diseases of the circulatory system; Z87.891 Personal history of nicotine dependence; Z90.710 Acquired absence of both cervix and uterus; Z90.49 Acquired absence of other specified parts of digestive tract; Z86.010 Personal history of colon polyps; Z98.890 Other specified postprocedural states; Z87.01 Personal history of pneumonia (recurrent)
CPT/HCPCS: 36415; 70450; 71045; 71275; 80048; 80053; 82728; 83605; 83615; 83735; 83880; 84132; 84145; 84484; 85025; 85027; 85379; 85610; 85730; 86140; 93005; 94640; 94667; 94760; 95816; 99285